=== PATIENT | female | born 1960 | race African-American/Black ===

== ENCOUNTER → 2020-12-28 | Outpatient (CLI) | payer BC | END | disposition home or self-care (01) | LOC: LABPAT 09:58 | PROVIDERS: ATTEND Orthopaedic Surgery | DX: Z01.812 Encounter for preprocedural laboratory examination (principal); M43.16 Spondylolisthesis, lumbar region; M43.07 Spondylolysis, lumbosacral region | CPT/HCPCS: 87070 ==

== ENCOUNTER 2021-01-05 05:45 | Inpatient (IN) | payer OTHER, BC ==
[2021-01-01 09:12] VITALS: BMI 37.5
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
[~2021-01-05 05:45] MED LIST: ACETAMINOPHEN TAB 500 MG TAB PO PRN; GABAPENTIN 300 MG CAP PO PRN; MIDAZOLAM 2 MG/2 ML VIAL IV PRN; ONDANSETRON 4 MG/2 ML VIAL IVP PRN; TRANEXAMIC ACID 1,000 MG in SODIUM CHLORIDE 0.9% 100 ML IVPB PRN
[2021-01-05] MEDS ORDERED: TRANEXAMIC ACID 1,000 MG in SODIUM CHLORIDE 0.9% 100 ML IVPB PRN (06:53)
[2021-01-05] MEDS ORDERED: LIDOCAINE 1% (10MG/ML) FOR IV START SQ ONE ×4 (07:00)
[2021-01-05] MEDS ORDERED: HYDROmorphone 0.5 MG/0.5 ML SYRINGE IVP PRN (07:00)
[2021-01-05] MEDS: LACTATED RINGERS 1,000 ML IV SCH ×2 (07:09→15:44)
[2021-01-05] MEDS ORDERED: SCOPOLAMINE 1.5MG/72HR PATCH TRANSDERM ONE (07:10)
[2021-01-05] MEDS ORDERED: DEXAMETHASONE SOD PHOSPHATE 4 MG/ML 1 ML VIAL IVP ONE (07:10)
[2021-01-05] MEDS ORDERED: KETAMINE 10 MG/ML 20 ML VIAL ONE (07:25)
[2021-01-05] MEDS ORDERED: fentaNYL (PF) 50 MCG/ML 2 ML AMP ONE (07:25)
[2021-01-05] MEDS ORDERED: SODIUM CHLORIDE 0.9% IRRIG 1,000 ML BTL IRRIGATION ONE (07:25)
[2021-01-05] MEDS ORDERED: LIDOCAINE 1% INJ 10MG/ML (20 ML MDV) ONE (07:25)
[2021-01-05] MEDS ORDERED: PHENYLEPHRINE-0.9% NACL SYG 1,000 MCG/10 ML SYRINGE ONE (07:25)
[2021-01-05] MEDS ORDERED: SODIUM CHLORIDE 0.9% 100 ML BAG ONE (07:25)
[2021-01-05] MEDS ORDERED: ceFAZolin 1,000 MG VIAL ONE (07:25)
[2021-01-05] MEDS ORDERED: SUCCINYLCHOLINE CHLORIDE 100 MG/5 ML SYR IV ONE (07:25)
[2021-01-05] MEDS ORDERED: MIDAZOLAM 2 MG/2 ML VIAL ONE (07:25)
[2021-01-05] MEDS ORDERED: HEPARIN SODIUM,PORCINE 10,000 UNIT/ML 1 ML VIAL ONE (07:25)
[2021-01-05] MEDS ORDERED: SODIUM CHLORIDE 0.9% 250 ML BAG ONE (07:25)
[2021-01-05] MEDS ORDERED: PROPOFOL 10 MG/ML 20 ML VIAL IV ONE (07:25)
[2021-01-05] MEDS ORDERED: TRANEXAMIC ACID 1,000 MG/10 ML VIAL ONE (07:25)
[2021-01-05] MEDS ORDERED: ROCURONIUM 10 MG/ML (5 ML VIAL) IV ONE (07:25)
[2021-01-05] MEDS ORDERED: LACTATED RINGERS 1,000 ML IV ONE ×5 (07:29→13:49)
[2021-01-05] MEDS ORDERED: LIDOCAINE 1%-EPI 1:100,000 20 ML VIAL SQ ONE (08:14)
[2021-01-05] MEDS ORDERED: BUPIVACAINE (PF) 0.5% 30 ML VIAL SQ ONE (08:14)
[2021-01-05] MEDS ORDERED: THROMBIN (BOVINE) 5,000 UNIT VIAL TOPICAL ONE (08:15)
[2021-01-05] MEDS ORDERED: GELATIN SPONGE,ABSORB (LARGE) 1 EACH SPONGE MISCELLANE ONE (08:16)
[2021-01-05 11:26] LABS: HCT 32.6 % (34.0-46.0); MCH 27.2 pg (25.0-35.0); MCHC 33.8 g/dL (31.0-37.0); MCV 80.6 fL (80.0-100.0); Mean Platelet Volume 6.9; Platelet Count 251 k/uL (150-450); RBC 4.04 m/uL (3.80-5.40); RDW 14.4 % (11.5-15.5); WBC 3.3 k/uL (3.8-10.6)
[2021-01-05] MEDS ORDERED: TRANEXAMIC ACID 1,000 MG in SODIUM CHLORIDE 0.9% 250 ML IV ONE (11:45)
[2021-01-05] MEDS ORDERED: VANCOMYCIN 1,000 MG VIAL MISCELLANE ONE (13:25)
[2021-01-05] MEDS ORDERED: CYCLOBENZAPRINE 10 MG TAB PO PRN (14:50)
[2021-01-05] MEDS ORDERED: HYDROcodone/APAP 5-325MG 1 EACH TAB PO PRN (14:50)
[2021-01-05] MEDS ORDERED: ONDANSETRON 4 MG/2 ML VIAL IVP PRN (14:50)
[2021-01-05] MEDS ORDERED: DEXAMETHASONE SOD PHOSPHATE 4 MG/ML 1 ML VIAL IV PRN (14:53)
[2021-01-05] MEDS: fentaNYL (PF) 50 MCG/ML 2 ML AMP IVP ONE ×2 (15:07→15:16)
[2021-01-05] MEDS ORDERED: MEPERIDINE 50 MG/ML SYRINGE IVP ONE (15:10)
[2021-01-05] MEDS ORDERED: SODIUM CHLORIDE 0.9% 1,000 ML IV ONE (16:07)
--- NOTE | 2021-01-05 16:07 | XR ---
EXAMINATION TYPE: XR lumbar spine 2 or 3V, FL guidance operating room DATE OF EXAM: 01/05/2021 CLINICAL HISTORY: Lumbar fusion TECHNIQUE: Fluoroscopy. COMPARISON: MRI lumbar spine 09/01/2020 FINDINGS: Fluoroscopic guidance was provided during procedure performed by Dr. Mendel Thapa. A t otal of 1 minute 41 seconds of fluoroscopic time was utilized during the procedure. 2 intraoperative spot images were acquired, demonstrating L4-S1 bilateral transpedicular screws and posterior fixation rods, with L4-L5 and L5-S1 interbody spacer devices. Incompletely visualized left hip arthroplasty. IMPRESSION: As Above.
[2021-01-05] MEDS: 0.9% NACL WITH KCL 20 MEQ/L 1,000 ML IV SCH (17:29)
[2021-01-05] MEDS: GABAPENTIN 300 MG CAP PO SCH ×2 (17:36→21:08)
[2021-01-05] MEDS: ACETAMINOPHEN TAB 325 MG TAB PO SCH ×2 (18:09→23:49)
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
[2021-01-05] MEDS: HYDROmorphone 1 MG/ML 1 ML SYRINGE IVP PRN ×2 (19:46→22:49)
[2021-01-05] MEDS: lisinopriL 20 MG TAB PO SCH (21:08)
--- NOTE | 2021-01-05 21:12 | CT ---
EXAMINATION TYPE: CT lumbar spine wo con DATE OF EXAM: 01/05/2021 8:43 PM COMPARISON: Same day radiographs. MR 09/01/2020. HISTORY: post op CT DLP: 1160.4 mGycm Automated exposure control for dose reduction was used. Unenhanced CT of the lumbar spine was performed. Bone and soft tissue window settings are submitted as well as coronal and sagittal reconstructions. FINDINGS: There are interval postsurgical changes of L4-S1 posterior instrumented fusion with intervening inter body device is seen. L4 and L5 laminectomies also seen. There is mild to moderate gas within the para spinal soft tissues at the surgical site tracking craniotomy. No definitive fluid collection is seen. There is a drain in place. There is improvement of previous grade 1 anterolisthesis of L4 on L5 with minimal 2 mm residual. There is no acute fracture. Vertebral body heights are grossly maintained. A 2.5 cm simple appearing left renal cyst is seen. IMPRESSION: Interval L4-S1 fusion with laminectomy. Improvement of grade 1 anterolisthesis at L4-5.
[2021-01-05] MEDS: ONDANSETRON 4 MG/2 ML VIAL IVP PRN (22:55)
[2021-01-06] MEDS: HYDROcodone/APAP 10-325MG 1 EACH TAB PO PRN ×4 (02:29→17:53)
[2021-01-06] MEDS: HYDROmorphone 1 MG/ML 1 ML SYRINGE IVP PRN ×2 (05:03→13:03)
[2021-01-06] MEDS: ONDANSETRON 4 MG/2 ML VIAL IVP PRN (05:03)
[2021-01-06] MEDS: 0.9% NACL WITH KCL 20 MEQ/L 1,000 ML IV SCH ×2 (05:06→17:52)
[2021-01-06] MEDS: ACETAMINOPHEN TAB 325 MG TAB PO SCH ×5 (05:18→23:51)
[2021-01-06 06:11] LABS: Basophils % (A) 0 %; Eosinophils % (A) 0 %; HCT 27.4 % (34.0-46.0); Lymphocytes # (A) 0.8 k/uL (1.0-4.8); Lymphocytes % (A) 13 %; MCH 27.3 pg (25.0-35.0); MCHC 34.3 g/dL (31.0-37.0); MCV 79.7 fL (80.0-100.0); Mean Platelet Volume 6.6; Monocytes # (A) 1.5 k/uL (0-1.0); Monocytes % (A) 24 %; Neutrophils # (A) 2.9 k/uL (1.3-7.7); Neutrophils % (A) 48 %; Platelet Count 213 k/uL (150-450); RBC 3.44 m/uL (3.80-5.40); RDW 14.3 % (11.5-15.5); WBC 6.2 k/uL (3.8-10.6)
[2021-01-06 06:13] LABS: HGB 9.4 gm/dL (11.4-16.0)
[2021-01-06 06:20] LABS: African American GFR (CKD) >90 (>60 ml/min/1.73 sqM); Anion Gap 3 mmol/L; Blood Urea Nitrogen 13 mg/dL (7-17); Calcium 8.3 mg/dL (8.4-10.2); Carbon Dioxide 27 mmol/L (22-30); Chloride 103 mmol/L (98-107); Glucose 119 mg/dL (74-99); Non-African American GFR(CKD) >90 (>60 ml/min/1.73 sqM); Potassium 4.2 mmol/L (3.5-5.1); Sodium 133 mmol/L (137-145)
[2021-01-06 06:27] LABS: Band Neutrophils % 4 %; Lymphocytes # (M) 1.49 k/uL (1.0-4.8); Monocytes # (M) 2.36 k/uL (0-1.0); Neutrophils % (M) 34 %; Nucleated Red Blood Cells 0 /100 WBC (0-0); Total Cells Counted 100
[2021-01-06] MEDS: hydroCHLOROthiazide 12.5 MG CAP PO SCH (08:44)
[2021-01-06] MEDS: PANTOPRAZOLE 40 MG TABLET PO SCH (08:44)
[2021-01-06] MEDS: GABAPENTIN 300 MG CAP PO SCH ×3 (08:44→22:01)
--- NOTE | 2021-01-06 09:16 | P.PN ---
Subjective Progress Note Date: 01/06/21 Principal diagnosis: L4-5 Grade II spondylolisthesis L4-S1 stenosis with spondylosis Patient seen and examined this morning she is laying in bed she is rather tired and still fairly groggy from surgery she states. She has not been up yet today. She states pain in her low back which is fairly severe. She denies any perineal numbness or tingling she denies any bowel or bladder incontinence. Grande is still in place. Patient states that her legs feel somewhat heavy but s he is able to move them without much issue other than pain. She states some numbness and tingling in her right lower extremity but this seems to be similar to preoperatively. She denies any fevers chills shortness of breath or chest pain at this time Objective - Vital Signs Vital signs: Vital Signs Temp 99.2 F 01/06/21 04:14 Pulse 114 H 01/06/21 04:14 Resp 16 01/06/21 04:14 BP 146/75 01/06/21 04:14 Pulse Ox 100 01/06/21 04:14 Intake & Output 01/05/21 01/06/21 01/06/21 18:59 06:59 18:59 Intake Total 4200 850 Output Total 1680 650 Balance 2520 200 Intake: IV 4100 Intake, IV Titration 100 850 Amount 0.9% NaCl with KCl 20 Meq 50 800 /l 1,000 ml @ 75 mls/hr IV .[id number] [facility] Rx#: [id number] ceFAZolin 2 gm In Sodium 50 Chloride 0.9% 50 ml @ 100 mls/hr IVPB ONCE PRN Rx# :[id number] ceFAZolin 2 gm In Sodium 50 Chloride 0.9% 50 ml @ 100 mls/hr IVPB Q8HR [facility] Rx# :[id number] Output: Drainage 40 150 Back 40 150 Urine 880 500 Uretheral (Grande) 500 Estimated Blood Loss 760 Other: Voiding Method Indwelling Catheter - Exam PHYSICAL EXAMINATION: Vitals: Stable at this time General: Awake, alert, appropriate for age, in no acute distress. HEENT: No unusual neck masses around region of lateral neck triangle, thyroid, supraclavicular groove. Extremities: Skin warm and dry without no acute lesions, coloration, temperature, skin intact, no tenderness or erythema. Integument: Surgical incisions: Clean dry and intact dressings intact drain in place Palpation: Some tenderness to palpation around the lumbar incision no erythema or ecchymosis or edema no fluctuance VASCULAR STATUS : Wrist Pulses: [2/4 bilateral radial and ulnar] Pedal Pulses: [2/4 bilateral DP and PT] Color: [Normal] Edema: [None] NEUROLOGIC EXAMINATION: Mental Status: Awake and alert, fully oriented, with normal attention, concentration and memory, and fluent, appropriate speech. Cranial Nerves: I: Olfactory not tested. II: Visual acuity normal, no visual field deficit noted with confrontation. III,IV: Normal pupillary reflexes & intact extraocular movements without nystagmus. V,: Intact symmetrical facial sensation. VII: Intact symmetrical facial motor movement VIII: Hearing intact. IX,X: Intact gag, swallow, & normal voice. XI: Sternocleidomastoid, trapezius function intact. XII: Tongue midline with normal movements. Special Tests: L'hermitte's Sign: Absent Spurling'Sign: Absent Bilateral Cubital percussion test: Absent Bilateral Angela-Tinel sign - Carpal region: Absent Bilateral Straight Leg Raising: Absent Bilateral Motor Exam (0-5/5, N/T) STRENGTH UPPER EXTREMITY Shoulder Abd (Not part of GERARDO Motor score): RIGHT [5] LEFT [5] Elbow Flexors: RIGHT [5] LEFT [5] Elbow Extensor: RIGHT [5] LEFT [5] Wrrist Dorsiflexors: RIGHT [5] LEFT [5] Finger Abductor: RIGHT [5] LEFT [5] Wrapper Hands Sprayer: RIGHT [5] LEFT [5] LOWER EXTREMITY Hip Flexor (Not part of GERARDO Motor Score): RIGHT 4 LEFT 4 Knee Flexor: RIGHT 4 LEFT 4 Knee Extensor: RIGHT 4 LEFT 4 Ankle Dorsiflexion: RIGHT 4 LEFT 4 Ankle Plantarflexion: RIGHT 4 LEFT 4 EHL: RIGHT 4 LEFT 4 FHL: RIGHT 4 LEFT 4 No focal deficits. Patient following normal postoperative course with some weakness and legs related to pain REFLEXES Biecp: RIGHT [2] LEFT [2] Tricep: RIGHT [2] LEFT [2] Brachioradialis: RIGHT [2] LEFT [2] Patellar: RIGHT [2] LEFT [2] Achilles: RIGHT [2] LEFT [2] Pathological Reflexes Rajput's: RIGHT [Absent] LEFT [Absent] Babinski: RIGHT [Absent] LEFT [Absent] Clonus: RIGHT [None] LEFT [None] SENSORY Joint Position: [Intact bilaterally] Vibration [Intact bilaterally] Pain and LT sense [Intact C5-T1 and L2-S1] Dermatomal deficit [None] Gait and Functional Evaluation: Ambulatory aids: Walker Hand and finger dexterity intact bilaterally[]. Disdiadochokinesis examination negative[] bilaterally. - Labs CBC & Chem 7: 01/06/21 05:13 01/06/21 05:13 Labs: Abnormal Lab Results - Last 24 Hours (Table) 12/28/20 01/05/21 01/06/21 Range/Units 10:45 11:10 05:13 WBC 3.3 L (3.8-10.6) k/uL RBC 3.44 L (3.80-5.40) m/uL Hgb 11.0 L 9.4 L D (11.4-16.0) gm/dL Hct 32.6 L 27.4 L (34.0-46.0) % MCV 79.7 L (80.0-100.0) fL Lymphocytes # 0.8 L (1.0-4.8) k/uL Monocytes # 1.5 H (0-1.0) k/uL Monocytes # (Manual) 2.36 H (0-1.0) k/uL Sodium (137-145) mmol/L Glucose (74-99) mg/dL Calcium (8.4-10.2) mg/dL Crossmatch See Detail 01/06/21 Range/Units 05:13 WBC (3.8-10.6) k/uL RBC (3.80-5.40) m/uL Hgb (11.4-16.0) gm/dL Hct (34.0-46.0) % MCV (80.0-100.0) fL Lymphocytes # (1.0-4.8) k/uL Monocytes # (0-1.0) k/uL Monocytes # (Manual) (0-1.0) k/uL Sodium 133 L (137-145) mmol/L Glucose 119 H (74-99) mg/dL Calcium 8.3 L (8.4-10.2) mg/dL Crossmatch Assessment and Plan Assessment: 60-year-old female postoperative day 1 L4 to S1 posterior stabilized fusion with reduction of L4 5 grade 2 spondylolisthesis 1. L4-S1 spondylosis severe 2. L4-5 Grade II spondylolisthesis 3. Neurogenic claudication 4. LE radiculopathy 5. LE weakness 6. Mechanical back pain Plan: -Appreciate medicine [] management. Symptom Control: -Pain control: [Adequate at this time] . We will continue to evaluate to optimize her pain control for ambulation and to get out of bed Activity: -Aggressive ambulation protocol. OOB with all meals. OOB or in chair 4-5x daily. -PT/OT LSO brace ordered await arrival Prophylaxis: -TEDs, SCDs, mechanical ppx. OK for heparin today. Early ambulation is best. -GI ppx. Imaging/labs: Computed tomography scan of the lumbar spine is reviewed hardware is in good position there was reduction of the spondylolisthesis from grade 2 to grade 1/2- 1 with only 6 mm of residual slippage versus the 13 originally. No further imaging needed at this time [-Trend labs as appropriate] Intervention: PT OT Monitor drain output Continue medications monitor pain control Up and out of bed Dispo: Likely home with home health when stable
[2021-01-06] MEDS: DEXAMETHASONE SOD PHOSPHATE 4 MG/ML 1 ML VIAL IV SCH ×3 (13:03→23:55)
--- NOTE | 2021-01-06 18:19 | P.PN ---
Subjective Progress Note Date: 01/06/21 Principal diagnosis: back pain Patient is a 59-year-old female with history of hypertension, GERD, DVT who presented for elective lumbar fusion with decompression. Seen and examined at bedside. She continues to have excruciating back pain. She denies any chest pain, nausea, vomiting, or shortness of breath. She states that she is moving her legs somewhat better. General: non toxic, moderate distress due to pain, appears at stated age Derm: warm, dry Head: atraumatic, normocephalic, symmetric Eyes: EOMI, no lid lag, anicteric sclera Mouth: no lip lesion, mucus membranes moist Cardiovascular: S1S2 reg, no murmur, positive posterior tibial pulse bilateral, Lungs: Decresaed bs bilateral, no rhonchi, no rales , no accessory muscle use Abdominal: soft, nontender to palpation, no guarding, no appreciable organomegaly Ext: no gross muscle atrophy, no edema, no contractures Neuro: CN II-XI grossly intact, no focal neuro deficits Psych: Alert, oriented, appropriate affect Patient is a 60 F s/p Lumbar fusion Post op pain - increased norco to 2 tabs q6 hours Acute blood loss anemia - anticipated outcome of surgery - follow CBC - getting one unit of pRBC per ortho HTN, controlled - resume home HCTZ and lisinopril - follow BP andticipated it may be elevated due to pain. GERD - PPI Obesity with BMI 37.3 - increased activity after surgery DVT prophylaxis: per ortho Discussed with: patient, nursing Anticipated discharge: per ortho spine Anticipated discharge place: home with home health A total of 25 minutes was spent on the care of this complex patient more than 50% of the time was spent in counseling and care coordination. Objective - Vital Signs Vital signs: Vital Signs Temp 99.5 F 01/06/21 13:12 Pulse 106 H 01/06/21 13:12 Resp 16 01/06/21 13:12 BP 102/57 01/06/21 13:12 Pulse Ox 99 01/06/21 13:12 Intake & Output 01/05/21 01/06/21 01/06/21 18:59 06:59 18:59 Intake Total 4200 850 1031 Output Total 5619 277 2766 Balance 2520 200 -179 Intake: IV 4100 Intake, IV Titration 100 850 750 Amount 0.9% NaCl with KCl 20 Meq 50 800 750 /l 1,000 ml @ 75 mls/hr IV .[id number] [facility] Rx#: [id number] ceFAZolin 2 gm In Sodium 50 Chloride 0.9% 50 ml @ 100 mls/hr IVPB ONCE PRN Rx# :[id number] ceFAZolin 2 gm In Sodium 50 Chloride 0.9% 50 ml @ 100 mls/hr IVPB Q8HR [facility] Rx# :[id number] Blood Product 281 Rc Pheresis As-3 Unit 281 [id number] Output: Drainage 40 150 110 Back 40 150 110 Urine 307 929 [id number] Uretheral (Grande) 500 1100 Estimated Blood Loss 760 Other: Voiding Method Indwelling Catheter Indwelling Catheter - Labs CBC & Chem 7: 01/06/21 05:13 01/06/21 05:13 Labs: Abnormal Lab Results - Last 24 Hours (Table) 12/28/20 01/06/21 01/06/21 Range/Units 10:45 05:13 05:13 RBC 3.44 L (3.80-5.40) m/uL Hgb 9.4 L D (11.4-16.0) gm/dL Hct 27.4 L (34.0-46.0) % MCV 79.7 L (80.0-100.0) fL Lymphocytes # 0.8 L (1.0-4.8) k/uL Monocytes # 1.5 H (0-1.0) k/uL Monocytes # (Manual) 2.36 H (0-1.0) k/uL Sodium 133 L (137-145) mmol/L Glucose 119 H (74-99) mg/dL Calcium 8.3 L (8.4-10.2) mg/dL Crossmatch See Detail
[2021-01-06] MEDS: lisinopriL 20 MG TAB PO SCH (22:01)
[2021-01-07] MEDS: HYDROcodone/APAP 10-325MG 1 EACH TAB PO PRN ×3 (04:09→22:40)
[2021-01-07] MEDS: 0.9% NACL WITH KCL 20 MEQ/L 1,000 ML IV SCH ×2 (04:13→17:40)
[2021-01-07] MEDS: ACETAMINOPHEN TAB 325 MG TAB PO SCH ×4 (04:46→23:45)
[2021-01-07] MEDS: DEXAMETHASONE SOD PHOSPHATE 4 MG/ML 1 ML VIAL IV SCH (05:24)
[2021-01-07] MEDS: GABAPENTIN 300 MG CAP PO SCH ×3 (08:11→21:00)
[2021-01-07] MEDS: HYDROmorphone 1 MG/ML 1 ML SYRINGE IVP PRN (08:11)
[2021-01-07] MEDS: hydroCHLOROthiazide 12.5 MG CAP PO SCH (08:11)
[2021-01-07] MEDS: PANTOPRAZOLE 40 MG TABLET PO SCH (08:11)
--- NOTE | 2021-01-07 08:14 | P.PN ---
Subjective Progress Note Date: 01/07/21 Principal diagnosis: Status post L4 to S1 posterior stabilized fusion with reduction of L4 5 grade 2 spondylolisthesis Patient was examined today at bedside, Dr. Thapa was also available to examine the patient. Patient did receive 1 unit of packed RBCs yesterday. She is feeling a lot better today. The pain is better controlled she states. The urinary catheter remains in place. She states that the symptoms in her right lower extremity are improving. She denies any perineal or general numbness, she has no bowel or bladder incontinence she states. She has been utilizing the incentive spirometer at bedside. Currently she denies any headaches, lightheadedness, chest pain, shortness of breath, nausea vomiting. Objective - Vital Signs Vital signs: Vital Signs Temp 99.1 F 01/07/21 04:12 Pulse 99 01/07/21 04:12 Resp 18 01/07/21 04:12 BP 123/70 01/07/21 04:12 Pulse Ox 98 01/07/21 04:12 Intake & Output 01/06/21 01/07/21 01/07/21 18:59 06:59 18:59 Intake Total 1031 1700 Output Total 1210 4920 Balance -179 -3220 Intake: Intake, IV Titration 750 900 Amount 0.9% NaCl with KCl 20 Meq 750 900 /l 1,000 ml @ 75 mls/hr IV .[id number] [facility] Rx#: [id number] Oral 800 Blood Product 281 Rc Pheresis As-3 Unit 281 [id number] Output: Drainage 110 20 Back 110 20 Urine 1100 4900 Uretheral (Grande) 1100 4100 Other: Voiding Method Indwelling Catheter Indwelling Catheter - Exam Gen: AOx3, NAD VSS stable at this time Integument: Postoperative bandages in good position and condition, there is minor saturation to the gauze pads. The Tegaderm dressing remains intact. The drain is in good position, there is minimal drainage present at this time in the drain, patient states understood until this morning. Palpation: No significant tenderness with palpation of the midline her paraspinal regions the lower thoracic and lumbar region, no obvious areas of fluctuance appreciated on exam. Bilaterally, no tenderness with palpation ROM: Range of motion is intact in all major muscle groups of the bilateral upper and lower extremities Sensory Exam: Senory exam to light touch is intact C5-T1 Senosry exam to light touch is intact L2-S1 Motor: 5/5 strength in all major muscle groups of the bilateral upper extremities 4-5 strength appreciated with bilateral lower extremities, hip flexion, knee flexion, knee extension, plantar flexion, dorsiflexion, EHL, FHL Reflexes: 2/4 in all UE and LE Negative Charlene's bilaterally Negative Babinski bilaterally No clonus appreciated bilaterally Vascularity: Skin is warm to touch in the bilateral upper and lower extremity is, radial and ulnar pulses are 2+ bilaterally, dorsalis pedis pulses are 2+ bilaterally - Labs CBC & Chem 7: 01/06/21 05:13 01/06/21 05:13 Labs: Abnormal Lab Results - Last 24 Hours (Table) 12/28/20 Range/Units 10:45 Crossmatch See Detail Assessment and Plan Assessment: Postoperative day #2 status post L4 to S1 posterior stabilize fusion Plan: Pain control, continue with current medication regimen. Try to avoid IV medication DVT prophylaxis, continue with compression stockings and SCDs, heparin 5000 units every 12 hours during hospital stay Wound care, plan for discontinuation of drain and bandage changed tomorrow morning Encourage incentive spirometer PT/OT evaluation, continue walker ambulation, recommended out of bed for all meals Medical recommendations Discharge planning: We discussed discharge plans today at bedside. Patient has a lot of family that will be around to help. Anticipated discharge to home in the next 1-2 days Time with Patient: Less than 30
--- NOTE | 2021-01-07 09:37 | P.OP ---
Date of Procedure: 01/05/21 Preoperative Diagnosis: 1. L4-5 Grade II spondylolisthesis, unstable 2. L4-S1 spondylosis, severe 3. Neurogenic claudication 4. Low back pain Postoperative Diagnosis: 1. L4-5 Grade II spondylolisthesis, unstable 2. L4-S1 spondylosis, severe 3. Neurogenic claudication 4. Low back pain Procedure(s) Performed: 1. L4-5 poseriolateral interbody fusion 2. L4-5 intradiscal osteotomy (3 column soteotomy) for deformity correction 3. L4-5 spondylolisthesis reduction 4. L5-S1 posteriolateral interbody fusion 5. L4-S1 instrumentation 6. L4-5 and L5-S1 bilateral laminectomy with complete facetectomy and foraminotomy 7. Use of intraoperative neuromonitoring Implants: Jorge [place] screws x6 Jorge cascadia 8mm x1 Globus Sable cages 7-13mm expandable 15 deg lordotic x2 Autograft Allograft bio4 Anesthesia: GETA Surgeon: Mendel Thapa Composition Roofer #1: Tyrone Oviedo (Was present for the entire case and necessary due to the complexity of the case) Estimated Blood Loss (ml): 750 IV fluids (ml): 2,300 Urine output (ml): 500 Pathology: none sent Condition: stable Disposition: PACU Indications for Procedure: This is a pleasant 60-year-old female who presented to the office and was followed by the [facility] spine center for several months now. The patient was found by her orthopedic surgeon to have a grade 2 spondylolisthesis of L4 on L5. She is found to have neurogenic claudication. She went through a slough of conservative treatments including home exercise physical therapy [id number]-sep-[id number] medications including prescription medications occupational t herapy injections and none of these helped her situation. She continued of low back pain as well as difficulty with ambulation in her activities of daily living. She goes day-to-day with low back pain and leg pain that has become debilitating for her. She had been worked up by orthopedics in the past and found to have hip osteoarthritis and this was replaced she then was found to have this back issue. She has tried all conservative care to no avail she has weighed the risks and benefits of surgery at this time she feels that surgery is her best option. Operative Findings: Unstable grade 2 spondylolisthesis L4 5 with exuberant facet height hypertrophy bilaterally at L4 5 as well as L5-S1 with severe stenosis L4 5 foraminal he and centrally. There is stenosis at L5-S1 as well noted due to facet hypertrophy in this area L4 5 was unstable L5-S1 had marginal stability and was somewhat fused however there was still mobility at this segment and so it is elected to include it into the final construct Description of Procedure: The patient was seen and examined in the preoperative area. All preoperative protocols were followed. Informed consent was obtained risks and benefits of the procedure were discussed at length. Risks including bleeding infection damage to the surrounding tissue and risk of reoperation were discussed with the patient. Risk of anesthesia up to and including was a discussed with the patient. These are outlined in the risk review. They were willing to accept these risks and all of the risks of surgery. The patient was given a weight- based dose of antibiotics in the form of 2 g Ancef IVPB 1. Trans-exam again acid 1000 mg an incision followed by 2 mg/kg and fusion during surgery. The patient was seen and evaluated by the anesthesia team who deemed them fit for surgery. The site was marked, the patient was willing to proceed with the procedure. The patient was transferred to the operative suite by the Department of anesthesia. They were then drifted off to sleep by the department anesthesia GETA. The patient tolerated this well. [Grande catheter was placed by nursing staff, atraumatically]. Once confirmation of lines and ventilation the patient was transferred to a [prone Sandeep table very carefully]. All bony prominences including wrists, elbows, axilla, chest, hips, and thighs, and feet were padded very well. Special attention was paid to the genitalia and these were padded accordingly. SCDs were placed on bilateral lower extremities and were connected. Arms were well padded and placed [on arm boards up and out in the 90/90 position]. Once in position, again we confirmed good ventilation capabilities and that lines were running appropriately. The patient's lumbar spine was then exposed. 1010s were placed outlining the incision site. Standard alcohol was used to clean the incision site and allowed to dry. C-arm was used to biomark the patient and confirm level for incision which was marked with a skin marker. Operative briefing was performed with all teams and everyone in agreement to proceed. The patient was then prepped and draped in a normal sterile fashion. Timeout was then performed and all parties were in agreement with the procedure to be performed. Area was infiltrated with quarter percent Marcaine with epinephrine 30 mL. Skin incision was then made midline over the previously bio marked area. Electrocautery dissection was taken down with meticulous hemostasis to the thoracolumbar and lumbosacral fascia which was identified and cleaned entirely with a Mcgowan. Midline fascial incision was then made followed by a subperiosteal dissection of the lamina over L4-L5 and S1. This revealed exuberant facet hypertrophy at L3 4 L4 5 and L5-S1. The L4 5 facet hypertrophy had grown over the L5 lamina and had grown into the L5-S1 facets. L4-L5 was unstable and L4 was deep to L5 due to the spondylolisthesis which is marginally reduced on the bed. We then dissected out to the transverse processes on either side and visualize these from L4 to S1 these were then decorticated with high-speed bur at L4-L5 and the sacral Ala. Once this was accomplished retractors were placed we then cleaned the facets using high-speed bur as well as Rominger to identify starting points for the screws. Once these were able to be identified AP and lateral fluoroscopy were used to confirm good position. We started with the right-sided screws and these were placed sequentially first with a high-speed bur for starting point followed by a feeler followed by a pedicle finder feeler tap feeler and then screw placement under AP and lateral fluoroscopy. We then repeated this at L5 and S1 on the right-hand side once the screws were in place we turned our attention to the left-hand side where this process was repeated. The facet joints at L4-L5 as well as L5-S1 were drilled off to allow visualization as well. Once the screws were in place they were tested with neuro monitoring and all tested above 20 mA. We then turned our attention to the decompression at L4-L5 with reduction. We performed bilateral laminectomy facetectomy and foraminotomy of the L4 5 region removing the complete inferior articular facet of L4 and the complete superior articular facet of L5 to allow for complete decompression of the nerves in this area. We then prepared the disc space using a osteotome first to enter the disc space on the right-hand side in an intradiscal osteotomy fashion with a quarter inch osteotome first this allowed to loosen this segment even further within performed intradiscal osteotomy on the left-hand side as well. Sclerae and siphon operator was placed anterior and allowed for good reduction when these were placed in we placed a temporary rohit on the right-hand side and locked it down which allowed for reduction of the spondylolisthesis. We then proceeded to shave sequentially the left-hand side well protecting the dura and the nerves completely using tera starting at a 6 and ending at a 10. Once shaving of been completed and the disc had been removed with rongeur and pituitary we scraped the endplates using a Bob down biter. We then placed DBM anterior to the cage within the disc space office if there are cell bullets We then under AP and lateral fluoroscopy placed a 20 lordotic 7-15 mm stable cage. This was then expanded to meet the endplates. Once it met the endplates we expanded it carefully to ensure reduction of the spondylolisthesis and good placement of the cage under AP and lateral fluoroscopy. Once this is an position with back filled the cage with bio 4. Career Advisor was then removed the nerve and the dura were completely intact. Meticulous hemostasis was performed around this area with electrocautery and FloSeal as well as toby. We then removed the siphon operator from the right-hand side and selected a cage and placed this cage under lateral fluoroscopy and AP fluoroscopy. Bullets were placed anterior to the cage prior to placement. Cages then expanded to meet the endplates once this was accomplished with active filled the cage with bio 4. AP and lateral fluoroscopy confirmed good placement of the cages with good reduction of the listhesis. Then turned our attention to L5-S1 or performed a PLIF of this disc space nerve root retractor was placed and the disc space was entered with a osteotome followed by sequential shaving to 8 mm. There is a large amount of osteophyte anterior and this was unable to be broken up and so it was decided at this time to go with a static cage. An 8 mm [place] static cage was then filled with bio 4 and autograft and after endplates scraping was placed under AP and lateral fluoroscopy. As confirming good position. Meticulous hemostasis was then performed around this area with FloSeal as well as. We then copiously irrigated the wound with 3 L of normal sterile saline. Meticulous hemostasis with FloSeal and Surgicel as well as fibrillar was performed. Surgicel was placed over the dura and the dura was protected we then in the posterior lateral gutters placed a mixture of autograft allograft and bio 4. This was impacted in the posterior lateral gutters and was in good position with good contact. We then placed autograft and allograft around the sacral ala and the facet joints of L5-S1. We then placed a small Garett Kyree drain deep to the fascia. A cross-link was placed at the L4 5 region final x-rays were taken and confirmed good position of hardware as well as reduction. We then placed 2 g of vancomycin powder within the wound. The fascia was then closed with #1 Vicryl in a dxhnat-zu-aubev fashion followed by a running unidirectional strata fix suture this allowed for watertight closure this area. We then placed over Vicryl's deep within the Jaky's and Camper's fascia layers followed by 2-0 Vicryl in the subcu region after Cellerate powder placement followed by a running unidirectional strata fix. 2-0 nylon was then placed in a running fashion and the skin. The wound was then cleaned and sterilely dressed with Cellerate gel Telfa 4 x 4's and Tegaderms. The patient was transferred back to her hospital bed atraumatically. Drain continued to hold suction and were in good position. Patient was then awakened and extubated by the department of anesthesia having tolerated the procedure very well with no complications. She was transferred to the postoperative care unit in stable condition.
[2021-01-07] MEDS: HEPARIN SODIUM,PORCINE/PF 5,000 UNIT/0.5 ML SYRINGE SQ SCH ×2 (10:08→20:55)
[2021-01-07 10:51] LABS: HCT 30.5 % (34.0-46.0); HGB 10.3 gm/dL (11.4-16.0); MCH 27.7 pg (25.0-35.0); MCHC 33.8 g/dL (31.0-37.0); MCV 82.1 fL (80.0-100.0); Mean Platelet Volume 7.1; Platelet Count 213 k/uL (150-450); RBC 3.72 m/uL (3.80-5.40); RDW 14.9 % (11.5-15.5)
--- NOTE | 2021-01-07 15:08 | P.PN ---
Subjective Progress Note Date: 01/07/21 Principal diagnosis: back pain Patient is a 59-year-old female with history of hypertension, GERD, DVT who presented for elective lumbar fusion with decompression. Seen and examined at bedside. Her back pain is much better than yesterday, but still significant, no shortness of breath, no nausea. 1 fever overnight will monitor. General: non toxic, moderate distress due to pain, appears at stated age Derm: warm, dry Head: atraumatic, normocephalic, symmetric Eyes: EOMI, no lid lag, anicteric sclera Mouth: no lip lesion, mucus membranes moist Cardiovascular: S1S2 reg, no murmur, positive posterior tibial pulse bilateral, Lungs: Decresaed bs bilateral, no rhonchi, no rales , no accessory muscle use Abdominal: soft, nontender to palpation, no guarding, no appreciable organomegaly Ext: no gross muscle atrophy, no edema, no contractures Neuro: CN II-XI grossly intact, no focal neuro deficits Psych: Alert, oriented, appropriate affect Patient is a 60 F s/p Lumbar fusion Acute blood loss anemia - anticipated outcome of surgery - follow CBC - getting one unit of pRBC per ortho HTN, controlled - resume home HCTZ and lisinopril - follow BP anticipated it may be elevated due to pain. GERD - PPI Post op pain -continue current pain medication regiment Obesity with BMI 37.3 - increased activity after surgery d/c [place] today. DVT prophylaxis: per ortho Discussed with: patient, nursing Anticipated discharge: per ortho spine Anticipated discharge place: home with home health A total of 25 minutes was spent on the care of this complex patient more than 50% of the time was spent in counseling and care coordination. Objective - Vital Signs Vital signs: Vital Signs Temp 98.4 F 01/07/21 12:19 Pulse 88 01/07/21 12:19 Resp 16 01/07/21 12:19 BP 111/64 01/07/21 12:19 Pulse Ox 99 01/07/21 12:19 Intake & Output 01/06/21 01/07/21 01/07/21 18:59 06:59 18:59 Intake Total 1031 1700 Output Total 1210 2640 475 Balance -245 -4252 -957 Intake: Intake, IV Titration 750 900 Amount 0.9% NaCl with KCl 20 Meq 750 900 /l 1,000 ml @ 75 mls/hr IV .[id number] [facility] Rx#: [id number] Oral 800 Blood Product 281 Rc Pheresis As-3 Unit 281 [id number] Output: Drainage 110 20 Back 110 20 Urine 1100 4900 475 Uretheral ([place]) 1100 4100 475 Other: Voiding Method Indwelling Catheter Indwelling Catheter Indwelling Catheter - Labs CBC & Chem 7: 01/07/21 09:40 01/06/21 05:13 Labs: Abnormal Lab Results - Last 24 Hours (Table) 01/07/21 Range/Units 09:40 RBC 3.72 L (3.80-5.40) m/uL Hgb 10.3 L (11.4-16.0) gm/dL Hct 30.5 L (34.0-46.0) %
[2021-01-07] MEDS: SENNOSIDES-DOCUSATE SODIUM 1 EACH TAB PO PRN (17:42)
[2021-01-07] MEDS: lisinopriL 20 MG TAB PO SCH (20:55)
[2021-01-08] MEDS: HYDROcodone/APAP 10-325MG 1 EACH TAB PO PRN ×3 (05:03→19:41)
[2021-01-08] MEDS: ACETAMINOPHEN TAB 325 MG TAB PO SCH ×4 (05:04→23:39)
[2021-01-08] MEDS: 0.9% NACL WITH KCL 20 MEQ/L 1,000 ML IV SCH (05:04)
[2021-01-08 06:19] LABS: HGB 9.4 gm/dL (11.4-16.0); MCH 27.8 pg (25.0-35.0); MCHC 33.7 g/dL (31.0-37.0); MCV 82.4 fL (80.0-100.0); Mean Platelet Volume 7.3; Platelet Count 196 k/uL (150-450); RBC 3.39 m/uL (3.80-5.40); RDW 14.9 % (11.5-15.5)
[2021-01-08] MEDS: HYDROmorphone 1 MG/ML 1 ML SYRINGE IVP PRN ×2 (08:57→23:42)
[2021-01-08] MEDS: PANTOPRAZOLE 40 MG TABLET PO SCH (09:00)
[2021-01-08] MEDS: GABAPENTIN 300 MG CAP PO SCH ×3 (09:00→19:42)
[2021-01-08] MEDS: HEPARIN SODIUM,PORCINE/PF 5,000 UNIT/0.5 ML SYRINGE SQ SCH ×2 (09:00→19:42)
[2021-01-08] MEDS: hydroCHLOROthiazide 12.5 MG CAP PO SCH (09:01)
--- NOTE | 2021-01-08 10:14 | P.PN ---
Subjective Progress Note Date: 01/08/21 Principal diagnosis: Status post L4 to S1 posterior stabilized fusion with reduction of L4 5 grade 2 spondylolisthesis Patient was examined today at bedside, patient is just about work with physical therapy. She states she is feeling better today, her bilateral lower extremitie s seem to be improving with regards to weakness and paresthesias. She denies any perineal or general numbness, she has no bowel or bladder incontinence she states. She has been utilizing the incentive spirometer at bedside. Currently she denies any headaches, lightheadedness, chest pain, shortness of breath, nausea vomiting. Objective - Vital Signs Vital signs: Vital Signs Temp 98.3 F 01/08/21 05:00 Pulse 81 01/08/21 05:00 Resp 18 01/08/21 05:00 BP 106/63 01/08/21 05:00 Pulse Ox 96 01/08/21 05:00 Intake & Output 01/07/21 01/08/21 01/08/21 18:59 06:59 18:59 Intake Total 825 Output Total 545 160 Balance 280 -160 Intake: Intake, IV Titration 825 Amount 0.9% NaCl with KCl 20 Meq 825 /l 1,000 ml @ 75 mls/hr IV .[id number] Rx#: [id number] Output: Drainage 70 160 Back 70 160 Urine 475 Uretheral (Grande) 475 Other: Voiding Method Indwelling Catheter Bedside Commode Bedside Commode # Voids 2 5 - Exam Gen: AOx3, NAD VSS stable at this time Integument: Postop and it was removed at bedside, a new dressing was applied. The sutures are all in good position and conditions. There is no areas of fluctuance, there is no drainage appreciated. Postop drain remains in place, there was about 20 mL of bloody serosanguineous fluid present, they stated they entered the drain earlier this morning Palpation: No significant tenderness with palpation of the midline her paraspinal regions the lower thoracic and lumbar region, no obvious areas of fluctuance appreciated on exam. Bilaterally, no tenderness with palpation ROM: Range of motion is intact in all major muscle groups of the bilateral upper and lower extremities Sensory Exam: Senory exam to light touch is intact C5-T1 Senosry exam to light touch is intact L2-S1 Motor: 5/5 strength in all major muscle groups of the bilateral upper extremities 4-5 strength appreciated with bilateral lower extremities, hip flexion, knee flexion, knee extension, plantar flexion, dorsiflexion, EHL, FHL Reflexes: 2/4 in all UE and LE Negative Charlene's bilaterally Negative Babinski bilaterally No clonus appreciated bilaterally Vascularity: Skin is warm to touch in the bilateral upper and lower extremity is, radial and ulnar pulses are 2+ bilaterally, dorsalis pedis pulses are 2+ bilaterally - Labs CBC & Chem 7: 01/08/21 05:33 01/06/21 05:13 Labs: Abnormal Lab Results - Last 24 Hours (Table) 01/07/21 01/08/21 Range/Units 09:40 05:33 RBC 3.72 L 3.39 L (3.80-5.40) m/uL Hgb 10.3 L 9.4 L (11.4-16.0) gm/dL Hct 30.5 L 28.0 L (34.0-46.0) % Assessment and Plan Assessment: Postoperative day #3 status post L4 to S1 posterior stabilize fusion Plan: Pain control, continue with current medication regimen. Try to avoid IV medication DVT prophylaxis, continue with compression stockings and SCDs, heparin 5000 units every 12 hours during hospital stay Wound care, plan for drain removal tomorrow morning before discharge Encourage incentive spirometer PT/OT evaluation, continue walker ambulation, recommended out of bed for all meals Medical recommendations Discharge planning: Plan for discharge home tomorrow Time with Patient: Less than 30
--- NOTE | 2021-01-08 17:32 | P.PN ---
Subjective Progress Note Date: 01/08/21 (Delayed charting seen at 0745) Principal diagnosis: back pain Patient is a 59-year-old female with history of hypertension, GERD, DVT who presented for elective lumbar fusion with decompression. Seen and examined at bedside. They much better pain valentine. Having some sore thr oat and gland swelling on the left. General: non toxic, moderate distress due to pain, appears at stated age Derm: warm, dry Head: atraumatic, normocephalic, symmetric Eyes: EOMI, no lid lag, anicteric sclera Mouth: no lip lesion, mucus membranes moist, no posterior pharyngeal erythema, no thrush, no tonsillar exudate, swelling left submandibular gland Cardiovascular: S1S2 reg, no murmur, positive posterior tibial pulse bilateral, Lungs: Decresaed bs bilateral, no rhonchi, no rales , no accessory muscle use Abdominal: soft, nontender to palpation, no guarding, no appreciable organomegaly Ext: no gross muscle atrophy, no edema, no contractures Neuro: CN II-XI grossly intact, no focal neuro deficits Psych: Alert, oriented, appropriate affect Patient is a 60 F s/p Lumbar fusion Swelling of the left submandibular gland -sialagogue - warm drinks Acute blood loss anemia - anticipated outcome of surgery - follow CBC -Status post 1 unit PRBCs HTN, controlled - Continue home HCTZ and lisinopril - follow BP anticipated it may be elevated due to pain. GERD - PPI Post op pain -continue current pain medication regiment Obesity with BMI 37.3 - increased activity after surgery Discharge per orthopedics spine, anticipate discharge in a.m. Objective - Vital Signs Vital signs: Vital Signs Temp 98.2 F 01/08/21 11:15 Pulse 91 01/08/21 11:15 Resp 18 01/08/21 11:15 BP 125/66 01/08/21 11:15 Pulse Ox 97 01/08/21 11:15 Intake & Output 01/07/21 01/08/21 01/08/21 18:59 06:59 18:59 Intake Total 825 Output Total 545 160 185 Balance 280 -160 -185 Intake: Intake, IV Titration 825 Amount 0.9% NaCl with KCl 20 Meq 825 /l 1,000 ml @ 75 mls/hr IV .[id number] [facility] Rx#: [id number] Output: Drainage 70 160 185 Back 70 160 185 Urine 475 Uretheral (Grande) 475 Other: Voiding Method Indwelling Catheter Bedside Commode Bedside Commode # Voids 2 5 1 - Labs CBC & Chem 7: 01/08/21 05:33 01/06/21 05:13 Labs: Abnormal Lab Results - Last 24 Hours (Table) 01/08/21 Range/Units 05:33 RBC 3.39 L (3.80-5.40) m/uL Hgb 9.4 L (11.4-16.0) gm/dL Hct 28.0 L (34.0-46.0) %
[2021-01-08] MEDS: lisinopriL 20 MG TAB PO SCH (19:42)
[2021-01-09] MEDS: HYDROcodone/APAP 10-325MG 1 EACH TAB PO PRN ×3 (04:51→19:26)
[2021-01-09] MEDS: SENNOSIDES-DOCUSATE SODIUM 1 EACH TAB PO PRN (04:52)
[2021-01-09] MEDS: ACETAMINOPHEN TAB 325 MG TAB PO SCH ×3 (06:11→17:17)
[2021-01-09 06:24] LABS: HGB 9.4 gm/dL (11.4-16.0); MCH 27.6 pg (25.0-35.0); MCHC 33.6 g/dL (31.0-37.0); MCV 82.1 fL (80.0-100.0); Platelet Count 246 k/uL (150-450); RBC 3.41 m/uL (3.80-5.40); RDW 14.8 % (11.5-15.5); WBC 7.2 k/uL (3.8-10.6)
[2021-01-09] MEDS: HEPARIN SODIUM,PORCINE/PF 5,000 UNIT/0.5 ML SYRINGE SQ SCH ×2 (08:18→21:12)
[2021-01-09] MEDS: PANTOPRAZOLE 40 MG TABLET PO SCH (08:18)
[2021-01-09] MEDS: hydroCHLOROthiazide 12.5 MG CAP PO SCH (08:18)
[2021-01-09] MEDS: GABAPENTIN 300 MG CAP PO SCH ×3 (08:18→21:13)
--- NOTE | 2021-01-09 11:32 | P.PN ---
Subjective Progress Note Date: 01/09/21 Principal diagnosis: -L4-S1 spondylosis severe -L4-5 Grade II spondylolisthesis Postoperative day 4 s/p L4 to S1 posterior stabilized fusion with reduction of L4 5 grade 2 spondylolisthesis Upon entering room patient is lying lying asleep. Patient says she is wondering if she can wait till tomorrow to go home because she said last night was rough in regards to back pain. Also, she says that her daughter has not received the medical equipment needed for her if she were to go home. Patient says she is still having some weakness/numbness in the right leg. However overall she says she is doing better in regards to this weakness/numbness in the legs. She says she has been using incentive spirometer throughout the day. She denies any chest pain, shortness of breath, fever, change in vision, chills. Denies any perineal numbness/tingling. Objective - Vital Signs Vital signs: Vital Signs Temp 98.3 F 01/09/21 04:10 Pulse 89 01/09/21 04:10 Resp 16 01/09/21 04:10 BP 115/63 01/09/21 04:10 Pulse Ox 98 01/09/21 04:10 Intake & Output 01/08/21 01/09/21 01/09/21 18:59 06:59 18:59 Output Total 245 385 40 Balance -245 -385 -40 Output: Drainage 245 85 40 Back 245 85 40 Urine 300 Other: Voiding Method Bedside Commode Bedside Commode # Voids 1 1 # Bowel Movements 0 - Exam Inspection: Dressing was changed this morning. Upon inspection of the incision there is no signs of drainage, fluctuance, purulence. All sutures are intact. Incision is clean dry, intact. Incisions healing nicely. CRISTÓBAL drain removed and covered with gauze, tegaderm and tape. Palpation: No tenderness on palpation of the spine and paraspinal muscles. Sensation: Sensation is intact bilaterally in lower extremities as well as cervical thoracic lumbar regions. Reflexes: Dorsalis pedis pulses 2+ bilaterally. Negative clonus bilaterally. Negative Charlene's. Motor: Strength 4/5 in lower extremities upon flexion, extension of hip as well as dorsiflexion and plantarflexion of feet. - Labs CBC & Chem 7: 01/09/21 05:31 01/06/21 05:13 Labs: Abnormal Lab Results - Last 24 Hours (Table) 01/09/21 Range/Units 05:31 RBC 3.41 L (3.80-5.40) m/uL Hgb 9.4 L (11.4-16.0) gm/dL Hct 28.0 L (34.0-46.0) % Assessment and Plan Assessment: 1. L4-S1 spondylosis severe 2. L4-5 Grade II spondylolisthesis 3. Neurogenic claudication 4. LE radiculopathy 5. LE weakness 6. Mechanical back pain Plan: 1. L4 to S1 posterior stabilized fusion with reduction of L4 5 grade 2 spondylolisthesis - dressing removed this morning and replaced. CRISTÓBAL drain removed and covere with gauze and tegaderm. 2. Pain management - stable at this time; use oral medication only 3. Continue medical management 4. Physical therapy/occupational therapy 5. DVT prophylaxiscontinue heparin inpatient. GI prophylaxis 6. Continue use of incentive spirometer 7. Discharge planning - plan for discharge tomorrow, 01/10/2021 Time with Patient: Less than 30
[2021-01-09] MEDS: lisinopriL 20 MG TAB PO SCH (21:13)
[2021-01-10] MEDS: ACETAMINOPHEN TAB 325 MG TAB PO SCH ×2 (00:44→09:17)
[2021-01-10] MEDS: HYDROcodone/APAP 10-325MG 1 EACH TAB PO PRN ×3 (04:31→14:54)
[2021-01-10] MEDS: GABAPENTIN 300 MG CAP PO SCH (09:19)
[2021-01-10] MEDS: hydroCHLOROthiazide 12.5 MG CAP PO SCH (09:19)
[2021-01-10] MEDS: PANTOPRAZOLE 40 MG TABLET PO SCH (09:20)
[2021-01-10] MEDS: HEPARIN SODIUM,PORCINE/PF 5,000 UNIT/0.5 ML SYRINGE SQ SCH (09:20)
[2021-01-10] MEDS: SENNOSIDES-DOCUSATE SODIUM 1 EACH TAB PO PRN (09:32)
[2021-01-10 11:34] VITALS: BP 93/53; PULSE 82; RESP 14; TEMP 98.4
--- NOTE | 2021-01-10 11:47 | P.PN ---
Subjective Progress Note Date: 01/10/21 Principal diagnosis: L4-5 Grade II spondylolisthesis L4-S1 stenosis with spondylosis Pt s/e. Doing well, ready to go home. Denies any new sx has been up and about. No f/c/sob/cp. Passed PT milestones. +void/+BM/+tolerating PO Objective - Vital Signs Vital signs: Vital Signs Temp 98.4 F 01/10/21 11:07 Pulse 82 01/10/21 11:07 Resp 14 01/10/21 11:07 BP 93/53 01/10/21 11:07 Pulse Ox 98 01/10/21 11:07 Intake & Output 01/09/21 01/10/21 01/10/21 18:59 06:59 18:59 Intake Total 240 1000 Output Total 660 350 Balance -420 650 Intake: Oral 240 1000 Output: Drainage 60 Back 60 Urine 600 350 Other: Voiding Method Bedside Commode Bedside Commode # Voids 1 3 # Bowel Movements 0 0 - Exam Exam is stable today. PHYSICAL EXAMINATION: Vitals: Stable at this time General: Awake, alert, appropriate for age, in no acute distress. HEENT: No unusual neck masses around region of lateral neck triangle, thyroid, supraclavicular groove. Extremities: Skin warm and dry without no acute lesions, coloration, temperature, skin intact, no tenderness or erythema. Integument: Surgical incisions: Clean and dry no EEE Palpation: Some tenderness to palpation around the lumbar incision no erythema or ecchymosis or edema no fluctuance VASCULAR STATUS : Wrist Pulses: [2/4 bilateral radial and ulnar] Pedal Pulses: [2/4 bilateral DP and PT] Color: [Normal] Edema: [None] NEUROLOGIC EXAMINATION: Mental Status: Awake and alert, fully oriented, with normal attention, concentration and memory, and fluent, appropriate speech. Cranial Nerves: I: Olfactory not tested. II: Visual acuity normal, no visual field deficit noted with confrontation. III,IV: Normal pupillary reflexes & intact extraocular movements without nystagmus. V,: Intact symmetrical facial sensation. VII: Intact symmetrical facial motor movement VIII: Hearing intact. IX,X: Intact gag, swallow, & normal voice. XI: Sternocleidomastoid, trapezius function intact. XII: Tongue midline with normal movements. Special Tests: L'hermitte's Sign: Absent Spurling'Sign: Absent Bilateral Cubital percussion test: Absent Bilateral Angela-Tinel sign - Carpal region: Absent Bilateral Straight Leg Raising: Absent Bilateral Motor Exam (0-5/5, N/T) STRENGTH UPPER EXTREMITY Shoulder Abd (Not part of GERARDO Motor score): RIGHT [5] LEFT [5] Elbow Flexors: RIGHT [5] LEFT [5] Elbow Extensor: RIGHT [5] LEFT [5] Wrrist Dorsiflexors: RIGHT [5] LEFT [5] Finger Abductor: RIGHT [5] LEFT [5] Sap Technical Developer: RIGHT [5] LEFT [5] LOWER EXTREMITY Hip Flexor (Not part of GERARDO Motor Score): RIGHT 4 LEFT 4 Knee Flexor: RIGHT 4 LEFT 4 Knee Extensor: RIGHT 4 LEFT 4 Ankle Dorsiflexion: RIGHT 4 LEFT 4 Ankle Plantarflexion: RIGHT 4 LEFT 4 EHL: RIGHT 4 LEFT 4 FHL: RIGHT 4 LEFT 4 No focal deficits. Patient following normal postoperative course with some weakness and legs related to pain REFLEXES Biecp: RIGHT [2] LEFT [2] Tricep: RIGHT [2] LEFT [2] Brachioradialis: RIGHT [2] LEFT [2] Patellar: RIGHT [2] LEFT [2] Achilles: RIGHT [2] LEFT [2] Pathological Reflexes Rajput's: RIGHT [Absent] LEFT [Absent] Babinski: RIGHT [Absent] LEFT [Absent] Clonus: RIGHT [None] LEFT [None] SENSORY Joint Position: [Intact bilaterally] Vibration [Intact bilaterally] Pain and LT sense [Intact C5-T1 and L2-S1] Dermatomal deficit [None] Gait and Functional Evaluation: Ambulatory aids: Walker Hand and finger dexterity intact bilaterally[]. Disdiadochokinesis examination negative[] bilaterally. - Labs CBC & Chem 7: 01/09/21 05:31 01/06/21 05:13 Assessment and Plan Assessment: 60-year-old female postoperative day 5 L4 to S1 posterior stabilized fusion with reduction of L4 5 grade 2 spondylolisthesis 1. L4-S1 spondylosis severe 2. L4-5 Grade II spondylolisthesis 3. Neurogenic claudication 4. LE radiculopathy 5. LE weakness 6. Mechanical back pain Plan: -Appreciate medicine [] management. Symptom Control: -Pain control: [Adequate at this time] . We will continue to evaluate to optimize her pain control for ambulation and to get out of bed Activity: -Aggressive ambulation protocol. OOB with all meals. OOB or in chair 4-5x daily. -PT/OT LSO brace ordered await arrival Prophylaxis: -TEDs, SCDs, mechanical ppx. OK for heparin today. Early ambulation is best. -GI ppx. Intervention: No new images. Dispo: Home today
--- NOTE | 2021-01-10 12:17 | P.DS ---
Providers Date of admission: 01/05/21 05:45 Expected date of discharge: 01/10/21 Attending physician: Mendel Thapa DO Consults: 01/05/21 14:50 Consult Physician Routine Consulting Provider: Zarina Olivares Consult Reason/Comments: Medical Management Do you want consulting provider notified?: Yes Primary care physician: Stated None Hospital Course: Spine Surgery Discharge Summary Note Admission Date: 01/05/2021 Discharge Date: 01/10/2021 Providers: Miri Thapa Principal Diagnosis: L4 5 spondylolisthesis L5-S1 spondylosis Procedures: L4 to S1 posterior fusion and decompression Discharge Medications: See list Allergies: Known drug ALLERGIES Hospital Course: The patient was evaluated preoperatively and found to have the diagnosis of grade 2 spondylolisthesis L4-L5 with L4 to S1 spondylosis severe neurogenic claudication. They underwent appropriate preoperative care and were willing to undergo the intended procedure. They underwent a successful L4 to S1 posterior fusion with decompression, were recovered appropriately and sent to the floor. While on the floor they worked with physical therapy, occupational therapy and nursing to enhance their recovery experience. Their pain was well controlled through their stay and they were started on appropriate medications, DVT ppx modalities, activity and dietary needs. Daily labs were monitored closely, and transfusions were only used when necessary. Medicine as well as other consulting services have made their input and have helped with our team approach and multidisciplinary care. PT milestones have been met and passed and they have made the recommendation of home with home health care for this patient and treating providers agree with this care path. The patient will be discharged home with appropriate medications, instructions and follow-up information and in stable condition. Patient Condition at Discharge: Stable Plan - Discharge Summary Discharge Rx Participant: Yes New Discharge Prescriptions: New Cyclobenzaprine [Flexeril] 10 mg PO TID PRN #40 tab PRN Reason: Spasms Gabapentin 300 mg PO TID 3 Days #90 cap cefaDROXiL [Duricef] 1 gm PO BID #6 tablet HYDROcodone/APAP 10-325MG [[place] 10-325] 1 - 2 tab PO Q4HR PRN #56 tab PRN Reason: Pain Sennosides/Docusate Sodium [Senna Plus 8.6-50 mg Softgel] 1 each PO BID PRN #20 capsule PRN Reason: Constipation No Action lisinopriL 20 mg PO HS Omeprazole 20 mg PO BID hydroCHLOROthiazide [Hydrodiuril] 12.5 mg PO DAILY Acetaminophen [Tylenol Extra Strength] 1,000 mg PO Q4H PRN PRN Reason: Pain Discharge Medication List Acetaminophen [Tylenol Extra Strength] 1,000 mg PO Q4H PRN 01/01/21 [History] Omeprazole 20 mg PO BID 01/01/21 [History] hydroCHLOROthiazide [Hydrodiuril] 12.5 mg PO DAILY 01/01/21 [History] lisinopriL 20 mg PO HS 01/01/21 [History] Cyclobenzaprine [Flexeril] 10 mg PO TID PRN #40 tab 01/10/21 [Rx] Gabapentin 300 mg PO TID 3 Days #90 cap 01/10/21 [Rx] HYDROcodone/APAP 10-325MG [[place] 10-325] 1 - 2 tab PO Q4HR PRN #56 tab 01/10/21 [Rx] Sennosides/Docusate Sodium [Senna Plus 8.6-50 mg Softgel] 1 each PO BID PRN #20 capsule 01/10/21 [Rx] cefaDROXiL [Duricef] 1 gm PO BID #6 tablet 01/10/21 [Rx] Follow up Appointment(s)/Referral(s): Mendel Thapa DO [Doctor of Osteopathic Medicine] - 10 Days Activity/Diet/Wound Care/Special Instructions: Spine Discharge and Recovery Instructions Medications: See medication list All medication refills should be obtained through your primary care doctor or your clinic spine surgeon. Please discuss prescription refills at your follow up appointment. Do not call the hospital for medication refills. Dressing: Leave your dressing in place for a total of 5 days post operatively. Then you may remove your dressing and leave open to air. Keep the area clean and if not able to keep area clean, then cover with sterile gauze and tape. Showering: You may shower 3 days after your procedure allowing soap and water to run over incision. Do not scrub. Do not soak. Blot dry. Follow up: Please confirm a follow up appointment with your surgeon 3 weeks post operatively. Please make an appointment to follow up with your PCP in 1-2 weeks after surgery for evaluation 3 phase, 3-week plan POST OP WEEKS 1-3 1. Lifting/carrying/pushing/pulling limited to less than 5 pounds. 2. Do not sit for longer than 15 minutes at one time. Get up and walk around. Prolonged sitting is NOT advised. If you lay down, see if you can tolerate laying down on you front (belly side) 3. Walk for periods of 15 minutes = 1 mile but no longer; do it multiple times times each day. 4. Ice your low back after activity. POST OP WEEKS 3-6 1. Lifting limited to less than 20 pounds. 2. Do not sit for longer than 30 minutes at a time. Frequently change positions. Use a sit-to stand workstation or take frequent breaks from sitting if you have returned to work. 3. Walk for 30 minutes each day. If possible, do these three or more times a day POST OP WEEKS 6+ At your 6-week appointment we will give you a physical therapy referral to focus on a core stabilization and strengthening program. You should also work on leg & buttock strengthening, hamstring & quadriceps stretching, and continue a low impact aerobic activity program such as swimming, walking, or riding a stationary bicycle. During the initial 6 weeks after your surgery, you are at the highest risk of re-injuring your spine. You should generally avoid BLTs (bending, lifting and twisting combination motions) and follow the above guidelines to reduce the chance of reinjury. You can anticipate post op appointments in our office at approximately 3 weeks and 6 weeks after your surgery. INCISION CARE: If your incision is not draining you do NOT need to cover it with a dressing. Keep your incision clean, dry and intact. In most cases, we apply skin glue, eli or sutures to the incision at the time of surgery. This will be like a crust or have the appearance of a scab and will fall off in time on its own. The stitches or eli need to be removed at 3 weeks post op appointment. You may begin to shower 3 days after surgery (this allows the glue to talamantes well). However, please avoid scrubbing the incision site or peeling off any of the skin glue. This will ensure optimal healing of your incision. Also, during this time avoid soaking the incision area in water - this includes swimming pools, hot tubs or baths. No ointments, lotions or oils on the incision until your surgeon allows. Leave eli, sutures or glue in place. Neurological dysfunction that comes on suddenly can also be a sign of a stroke. Below some common symptoms of a stroke are listed: B - balance difficulty such as sudden onset walking or leaning to one side - NEW E - eye problem such as sudden double vision or trouble seeing on one side - NEW F - Facial weakness or numbness on one side - NEW A - Arm or leg weakness or numbness on one side - NEW S - Slurred speech or difficulty with word finding - NEW T - Time is BRAIN! Call 911 as soon as you recognize these symptoms Diet: Consume a regular diet rich in vegetables and lean protein such as chicken or fish. You should consume in a ratio of approximately 20% fats|40% carbohydrates|40%protein. Vegetables, sweet potatoes, brown rice or quinoa are examples of good carbohydrates. Chips, white bread, cookies and sweets/sugar are examples of bad carbohydrates. Limit your bad carbs, go wild with good carbs. "Life's Simple 7" Guidelines as per [place] [employer] These will help you reclaim your life after surgery and machine adjuster helper in your recovery, keeping in mind your restrictions. (1) Get Active. Physical activity can help people lose weight, control high blood pressure and cholesterol, feel emotionally better, and sleep better. (2) Control Cholesterol. Avoid a diet high in saturated fat, trans fat, & cholesterol. Limit whole milk & cream, ice cream, butter, egg yolks, processed meats (like sausage and hot dogs), and fatty meats. Choose healthy foods that are low in saturated fat, trans fat and cholesterol which include: Fruits and vegetables, fiber rich grain products (like whole grain pasta and brown rice), lean meat such as chicken, fish, nuts, seeds, and legumes. (3) Eat Better. Eat small portions. Shop at the grocery with a list and do not stray from it. Tips for a healthy diet include: Limit sodium intake to less than 1500mg daily, avoid prepackaged, processed, and fast foods, choose a diet rich in fruits, vegetables, and whole grain, high fiber foods, and limit saturated & cholesterol in your diet. (4) Manage Blood Pressure. If you have high blood pressure, you should have a cuff at home so that you can check your blood pressure regularly. Be sure you have a good cuff. An arm one is generally better than a wrist one. Bring the cuff to a doctor's appointment to validate that the measurements that your cuff are taking are accurate. Take your blood pressure twice daily when you are sitting down and relaxing. Record the numbers in a log and bring this log with you to your doctors' appointments. (5) Lose Weight if your BMI is above 25. A healthy BMI is between 19-25. To calculate Your BMI, you may use a Standard BMI Calculator on the NIH BMI website: <www.nhlbi.nih.gov/guidelines/obesity/BMI/bmicalc.htm>. Weigh oneself daily. If you are overweight, set a goal to lose weight. A pound a week loss if needed is a good target. (6) Reduce Blood Sugar. Limit foods and liquids with "added sugars." (Added sugars include sucrose, fructose, glucose, maltose, dextrose, high fructose corn syrup, corn syrup, concentrated fruit juice and honey). (7) Stop Smoking. If you smoke, quitting smoking is one of the best things that you can do for your health. Smoking increases your risk of heart attack, stroke, and peripheral vascular disease, which is a build-up of plaque in your arteries. Please discard all the cigarettes and lighters in your house. Have a plan for what you will do when you have the urge to smoke. Direct and second- hand smoke shortens your life as well as the lives of your family, friends and others around you. For your health and the health of those around you, please c onsider quitting! Proper Bending Body Mechanics: Maintain a wide stance with one foot slightly in front of the other. Keep your back straight. Bend utilizing the strength in your hips and knees. Do not bend at the waist. Maintain the lifted object at your waist-level close to your body. Avoid lifting weight that causes immediately pain or pain anywhere in the body afterwards. Smoking/Nicotine If there was ever one thing that you could do to increase your overall health, decrease your risk of cardiovascular problems by about 39% the second you make the choice, it is to STOP SMOKING. Your body's most instant gratification is the second you stop smoking. We have all heard the studies, read the articles but it is true, smoking is extremely bad for your overall health, and moreover it is detrimental to your bone health. Nicotine, IN ANY FORM, kills bone cells, prevents your body from healing fractures, and significantly prolongs healing after surgery. In spine surgery specifically, it increases your risk of not healing your bones to create a fusion and increases your risk of having a revision surgery due to this up to 60%. I know it is hard. I know it feels impossible. But there are ways. Take control of your life. We are here to help you through it. And when you are ready, ask us and we can direct you to help if you desire. Use the START Plan to Quit Smoking (please visit the Helpguide.org website listed below for more information): S = Set a quit date. Choose a date within the next 2 weeks, so you have enough time to prepare without losing your motivation to quit. If you mainly smoke at work, quit on the weekend, so you have a few days to adjust to the change. T = Tell family, friends, and co-workers that you plan to quit. Let your friends and family in on your plan to quit smoking and tell them you need their support and encouragement to stop. Look for a quit alejandro who wants to stop smoking as well. You can help each other get through the rough times. A = Anticipate and plan for the challenges you'll face while quitting. Most people who begin smoking again do so within the first 3 months. You can help yourself make it through by preparing ahead for common challenges, such as nicotine withdrawal and cigarette cravings. R = Remove cigarettes and other tobacco products from your home, car, and work. Throw away all your cigarettes (no emergency pack!), lighters, ashtrays, and matches. Wash your clothes and freshen up anything that smells like smoke. Shampoo your car, clean your drapes and carpet, and steam your furniture. T = Talk to your doctor about getting help to quit. Your doctor can prescribe medication to help with withdrawal and suggest other alternatives. If you can't see a doctor, you can get many products over the counter at your local pharmacy or grocery store, including the nicotine patch, nicotine lozenges, and nicotine gum. Resources for Quitting Smoking: <https://www.[place].gov/documents/[facility]/Quit_Tobacco_Resources_for_patients_313 480_7.pdf> Supplementation: Take recommended dosages of Vitamin D and Calcium to help fortify your bones and help them to heal. See your health maintenance packet for dosages and recommended levels. DVT/VTE prophylaxis: You will be given compression stockings from the hospital. Wear these daily for the first two weeks after surgery. You may take them off at night. You may be prescribed a medication to help thin your blood. Take this as directed. If you are not prescribed this medication, early and frequent ambulation has been shown to be the best prophylaxis to deep vein thrombosis and sequelae related to this event. Discharge Disposition: HOME WITH HOME HEALTH SERVICES
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
== END 2021-01-10 15:36 | disposition home health service (06) | DRG 460 ==
LOC: 2ORMAIN 05:45 → 5NMEDONC 15:30
PROVIDERS: ADMIT Orthopaedic Surgery; ATTEND Orthopaedic Surgery
PROC: 0SG30AJ Fusion of Lumbosacral Joint with Interbody Fusion Device, Posterior Approach, Anterior Column, Open Approach (ICD-10-PCS; 2021-01-05)
PROC: 0SB20ZZ Excision of Lumbar Vertebral Disc, Open Approach (ICD-10-PCS; 2021-01-05)
PROC: 01NB0ZZ Release Lumbar Nerve, Open Approach (ICD-10-PCS; 2021-01-05)
PROC: 0SB40ZZ Excision of Lumbosacral Disc, Open Approach (ICD-10-PCS; 2021-01-05)
PROC: 4A11X4G Monitoring of Peripheral Nervous Electrical Activity, Intraoperative, External Approach (ICD-10-PCS; 2021-01-05)
PROC: 0SG00AJ Fusion of Lumbar Vertebral Joint with Interbody Fusion Device, Posterior Approach, Anterior Column, Open Approach (ICD-10-PCS; principal; 2021-01-05 07:30)
PROC: 30233N1 Transfusion of Nonautologous Red Blood Cells into Peripheral Vein, Percutaneous Approach (ICD-10-PCS; 2021-01-06)
DX: M47.27 Other spondylosis with radiculopathy, lumbosacral region (principal); D62 Acute posthemorrhagic anemia; M48.062 Spinal stenosis, lumbar region with neurogenic claudication; M51.36 Other intervertebral disc degeneration, lumbar region; M16.10 Unilateral primary osteoarthritis, unspecified hip; I10 Essential (primary) hypertension; K21.9 Gastro-esophageal reflux disease without esophagitis; E66.9 Obesity, unspecified; Z68.37 Body mass index [BMI] 37.0-37.9, adult; Z86.718 Personal history of other venous thrombosis and embolism; M48.07 Spinal stenosis, lumbosacral region; M47.26 Other spondylosis with radiculopathy, lumbar region; Z90.710 Acquired absence of both cervix and uterus; Z96.642 Presence of left artificial hip joint; Z79.899 Other long term (current) drug therapy; M43.16 Spondylolisthesis, lumbar region; K11.1 Hypertrophy of salivary gland; V43.51XA Car driver injured in collision with sport utility vehicle in traffic accident, initial encounter; Y92.413 State road as the place of occurrence of the external cause
CPT/HCPCS: 72100; 72131; 80048; 85025; 85027; 86850; 86891; 86900; 86901; 86920; 87635

== ENCOUNTER 2021-02-06 12:12 | Inpatient (IN) | payer OTHER, BC ==
[2021-02-06] MEDS: traMADol 50 MG TAB PO PRN (13:27)
[2021-02-06] MEDS ORDERED: VANCOMYCIN IV PER PHARMACY 1 EACH MISC MISCELLANE SCH (13:45)
[2021-02-06 14:24] LABS: African American GFR (CKD) >90 (>60 ml/min/1.73 sqM); Anion Gap 6 mmol/L; Blood Urea Nitrogen 11 mg/dL (7-17); C Reactive Protein 8.1 mg/dL (<1.0); Carbon Dioxide 31 mmol/L (22-30); Chloride 90 mmol/L (98-107); Glucose 108 mg/dL (74-99); Non-African American GFR(CKD) >90 (>60 ml/min/1.73 sqM); Potassium 4.2 mmol/L (3.5-5.1); Sodium 127 mmol/L (137-145)
[2021-02-06] MEDS ORDERED: VANCOMYCIN 1,500 MG in SODIUM CHLORIDE 0.9% 250 ML IVPB ONE (14:30)
[2021-02-06 14:34] LABS: Basophils # (A) 0.1 k/uL (0-0.2); Basophils % (A) 1 %; Eosinophils % (A) 0 %; HCT 32.1 % (34.0-46.0); HGB 10.1 gm/dL (11.4-16.0); Hypochromasia Slight; Lymphocytes # (A) 2.1 k/uL (1.0-4.8); Lymphocytes % (A) 12 %; MCH 24.6 pg (25.0-35.0); MCHC 31.3 g/dL (31.0-37.0); MCV 78.6 fL (80.0-100.0); Mean Platelet Volume 7.7; Monocytes # (A) 4.2 k/uL (0-1.0); Monocytes % (A) 25 %; Neutrophils # (A) 7.1 k/uL (1.3-7.7); Neutrophils % (A) 41 %; Platelet Count 399 k/uL (150-450); RBC 4.08 m/uL (3.80-5.40); RDW 14.8 % (11.5-15.5); WBC 17.1 k/uL (3.8-10.6)
[2021-02-06] MEDS ORDERED: NALOXONE 0.4 MG/ML 1 ML VIAL IV PRN (14:41)
[2021-02-06] MEDS ORDERED: MELATONIN 3 MG TABLET PO PRN (14:42)
[2021-02-06] MEDS ORDERED: LORazepam 2 MG/ML INJ IV PRN (14:42)
[2021-02-06] MEDS ORDERED: traMADol 50 MG TAB PO PRN (14:47)
[2021-02-06] MEDS ORDERED: CYCLOBENZAPRINE 10 MG TAB PO PRN (14:47)
[2021-02-06] MEDS ORDERED: bisacodyL 5 MG TABLET.DR PO PRN (14:48)
--- NOTE | 2021-02-06 14:52 | P.CONS ---
History of Present Illness - Reason for Consult Consult date: 02/06/21 HTN Requesting physician: Mendel Thapa - Chief Complaint Back Pain - History of Present Illness Antoni is a 60 yo female with a recent L 4/5 and L5/S1 Laminectomy with fusion and intradiscal osteotomy on 01/05/21 with prior deep vein thrombocytosis, GERD, adn HTN who was transferred from [facility] for back and wound dehisence. She was started on cefepime and Vanco. Patient seen and examined at bedside. She reports that her last normal day was 01/04. On Friday 01/05 she developed sudden onset low back pain, and neck pain that wraps to her head. This was associated with increased lower extremity weakness . Pain is worse with movement and better with laying still. She reports that she is having some numbness in her left top of her foot. She denies any issues with bowel/bladder function. She did denies fevers at home. She also reports some nausea and vomiting when trying to roll. She note that she has some swelling in right lower extremity that was noted 2 days ago. She had been recovering from surgery well and was using her walker and only tylenol for pain control. Pertinent positives and negatives as discussed in HPI, a complete review of systems was performed and all other systems are negative. General: Ill appearing, mild distress secondary to pain, appears at stated age Derm: warm, dry, midline 0.5 cm wound dehisced since with good granulation tissue at the edges and purulent drainage, no bogginess felt distal and proximal area along the spine Head: atraumatic, normocephalic, symmetric Eyes: EOMI, no lid lag, anicteric sclera, pupils equal round reactive to light ENT: Nose and ears atraumatic, no thrush, no pharyngeal erythema Neck: No thyromegaly, no cervical lymphadenopathy, trachea midline, supple Mouth: no lip lesion, mucus membranes moist Cardiovascular: S1-S2 tachycardic, no murmur, positive posterior tibial pulse bilateral, no edema, capillary refill less than 2 seconds Lungs: clear to ascultation bilateral, no ronchi, no rales, no wheeze, no accessory muscle use Abdominal: soft, nontender to palpation, no guarding, no appreciable organomegaly, normal bowel sounds Ext: no gross muscle atrophy, muscle strength 5 out of 5 upper extremities with flexion, extension, internal and external rotation, abduction and abduction Left lower extremity: Muscle strength 3 out of 5 with abduction and abduction to midline, 3 out of 5 with flexion at the hip Right lower extremity: Unable to lift leg off the bed or move right and left Light touch intack all 4 extremitites Neuro: CN II-XI grossly intact, light touch intact all 4 extremities, finger to nose within normal limits, Psych: Alert, oriented, appropriate affect Assessment/Plan: Postop wound infection with sepsis status post lumbar laminectomy with fusion 01/05/21 -Case discussed with Dr. Thapa -Patient going on for stat MRI lumbar spine -Await stat blood work -Continue with Vanco, cefepime -Pain control -Place Grande catheter -IV fluids -Nothing by mouth after midnight Hyponatremia -Likely secondary to dehydration with concurrent use of hydrochlorothiazide -Hold hydrochlorothiazide -IV fluids -Repeat lab work at 2000 and in a.m. GERD - PPI Hypertension - hold HCTZ - Lisinopril - follow BP History of provoked DVT Thank you for allowing us to participate in the care of this pleasant patient. Do not hesitate to contact us with questions. Someone can be reached from the [facility] hospitalist group all hours of the day at [phone] or via [employer]. Past Medical History Past Medical History: Deep Vein Thrombosis (DVT), GERD/Reflux, Hypertension Additional Past Medical History / Comment(s): "Hx DVT after of son." History of Any Multi-Drug Resistant Organisms: None Reported Past Surgical History: Back Surgery, Section, Hernia Repair, Hysterectomy Additional Past Surgical History / Comment(s): Total left hip replacement with later revision, bone graft. 01/05/21, lumbar spinal fusion/laminectomy/L4-L5 intr adiscal osteotomy. Past Anesthesia/Blood Transfusion Reactions: No Reported Reaction Past Psychological History: No Psychological Hx Reported Smoking Status: Never smoker Past Alcohol Use History: None Reported Past Drug Use History: None Reported - Past Family History Mother Family Medical History: No Reported History Medications and Allergies Home Medications Medication Instructions Recorded Confirmed Type Acetaminophen [Tylenol Extra 1,000 mg PO Q4H PRN 01/01/21 02/06/21 History Strength] Omeprazole 20 mg PO BID 01/01/21 02/06/21 History hydroCHLOROthiazide [Hydrodiuril] 12.5 mg PO DAILY 01/01/21 02/06/21 History lisinopriL 20 mg PO HS 01/01/21 02/06/21 History Gabapentin 300 mg PO TID #90 cap 01/10/21 02/06/21 Rx HYDROcodone/APAP 10-325MG [[place] 1 tab PO Q4HR PRN #56 tab 01/10/21 02/06/21 Rx 10-325] Cyclobenzaprine [Flexeril] 10 mg PO BID PRN 02/06/21 02/06/21 History Ibuprofen [Motrin] 600 mg PO Q8HR PRN 02/06/21 02/06/21 History Lidocaine 5% Patch [Lidoderm] 1 patch TOPICAL DAILY 02/06/21 02/06/21 History Sennosides/Docusate Sodium [Senna 1 cap PO BID PRN 02/06/21 02/06/21 History Plus 8.6-50 mg Softgel] diazePAM [Valium] 2 mg PO Q6H PRN 02/06/21 02/06/21 History traMADol HCL [Ultram] 50 mg PO Q6HR PRN 02/06/21 02/06/21 History Allergies Allergy/AdvReac Type Severity Reaction Status Date / Time No Known Allergies Allergy Verified 02/06/21 13:05 Physical Exam Osteopathic Statement: *. No significant issues noted on an osteopathic structural exam other than those noted in the History and Physical/Consult. Vitals: Vital Signs Temp Pulse Resp BP Pulse Ox 02/06/21 14:00 100.7 F H 104 H 17 168/74 95 02/06/21 12:24 100.2 F H 107 H 18 155/81 98 Intake and Output 02/05/21 02/06/21 02/06/21 22:59 06:59 14:59 Other: Weight 84.822 kg Results CBC & Chem 7: 02/06/21 13:01 02/06/21 13:01 Labs: Abnormal Lab Results - Last 24 Hours (Table) 02/06/21 02/06/21 Range/Units 13:01 13:01 WBC 17.1 H (3.8-10.6) k/uL Hgb 10.1 L (11.4-16.0) gm/dL Hct 32.1 L (34.0-46.0) % MCV 78.6 L (80.0-100.0) fL MCH 24.6 L (25.0-35.0) pg Sodium 127 L (137-145) mmol/L Chloride 90 L (98-107) mmol/L Carbon Dioxide 31 H (22-30) mmol/L Glucose 108 H (74-99) mg/dL C-Reactive Protein 8.1 H (<1.0) mg/dL
[2021-02-06] MEDS: HYDROmorphone 1 MG/ML 1 ML SYRINGE IVP PRN ×3 (15:18→21:29)
[2021-02-06] MEDS: ACETAMINOPHEN TAB 325 MG TAB PO PRN ×2 (15:19→21:39)
[2021-02-06 15:25] LABS: Band Neutrophils % 1 %; Eosinophils # (M) 0.17 k/uL (0-0.7); Lymphocytes # (M) 2.74 k/uL (1.0-4.8); Metamyelocytes # (M) 0.17 k/uL (0); Metamyelocytes % 1 %; Monocytes # (M) 7.87 k/uL (0-1.0); Myelocytes # (M) 0.51 k/uL (0); Myelocytes % 3 %; Neutrophils % (M) 34 %; Nucleated Red Blood Cells 0 /100 WBC (0-0); Total Cells Counted 200
[2021-02-06] MEDS: ONDANSETRON 4 MG/2 ML VIAL IVP PRN ×2 (15:26→21:39)
[2021-02-06] MEDS: GABAPENTIN 300 MG CAP PO SCH ×2 (15:46→21:29)
[2021-02-06] MEDS: SODIUM CHLORIDE 0.9% 1,000 ML IV SCH ×2 (15:46→21:30)
--- NOTE | 2021-02-06 15:48 | MR ---
EXAMINATION TYPE: MR lumbar spine wo/w con DATE OF EXAM: 02/06/2021 COMPARISON: 09/01/2020 HISTORY: Rule out abscess, surgery 01-21-21 CONTRAST: Standard multiplanar, multisequence MRI departmental protocol utilizing 8.5 mL intravenous Gadavist g adolinium contrast. Normal alignment. There is metal artifact from posterior fusion surgery. There is rods and screws fus ing L4-S1. Unfortunately the metal artifact is obscuring significantly the vertebral bodies and the s fran canal. I see no obvious spinal stenosis. I see no evidence of epidural fluid collection in the spinal canal. There is apparent laminectomy defect in the lower lumbar spine. There is no paraspinal mass. There is no significant compression deformity. I see no pathologic enhancement. IMPRESSION: Within the limitations of the exam there is no evidence of hematoma or abscess. Multilevel laminectom y defect noted. Bone detail involving the L4 L5 S1 vertebra is very limited. There is improvement in the alignment at L4-5 level compared to old exam. Spinal stenosis appears imp roved.
[2021-02-06] MEDS ORDERED: GABAPENTIN 300 MG CAP PO SCH (16:00)
[2021-02-06 16:19] LABS: Erythrocyte Sedimentation Rate 94 mm/hr (0-20)
--- NOTE | 2021-02-06 18:19 | CT ---
EXAMINATION TYPE: CT lumbar spine wo con DATE OF EXAM: 02/06/2021 COMPARISON: 01/05/2021 HISTORY: Post Op 1 month lumbar surgery. Pain and infection. CT DLP: 1248.6 mGycm Automated exposure control for dose reduction was used. Images obtained from the level of T12-S3 vertebra without contrast. There is a 5 mm anterior subluxation of L5 in relation S1. There is disc prosthesis at L4-5 and L5-S1 . There is posterior fusion surgery with rods and screws from L4 to S1. Exam limited by metal artifac t. There is soft tissue air posteriorly around the surgery site. There is mixed density with calcific ation and fluid and air bubbles in the posterior soft tissues at the laminectomy site at L3-4 and L4- 5. Sacroiliac joints are intact. There is no compression fracture. There is some mild fat stranding i n the subcutaneous tissues posteriorly. Spinal canal is difficult to evaluate at the L4-5 and L5-S1 l evel due to the metal artifact. IMPRESSION: Fluid and soft tissue air bubbles posteriorly at the surgery site is suggestive of abscess in this pa tient that had surgery one month ago. Spinal canal not well evaluated due to extensive artifact. Sign ificant epidural abnormality related to abscess compressing the thecal sac cannot be excluded.
[2021-02-06] MEDS: CYCLOBENZAPRINE 10 MG TAB PO PRN (18:31)
[2021-02-06 20:30] LABS: African American GFR (CKD) >90 (>60 ml/min/1.73 sqM); Anion Gap 5 mmol/L; Blood Urea Nitrogen 10 mg/dL (7-17); Calcium 8.6 mg/dL (8.4-10.2); Carbon Dioxide 31 mmol/L (22-30); Chloride 89 mmol/L (98-107); Glucose 114 mg/dL (74-99); Non-African American GFR(CKD) >90 (>60 ml/min/1.73 sqM); Potassium 3.7 mmol/L (3.5-5.1); Sodium 125 mmol/L (137-145)
[2021-02-06] MEDS ORDERED: CEFEPIME 1 GM in SODIUM CHLORIDE 0.9% 50 ML IVPB SCH (21:00)
[2021-02-06] MEDS: lisinopriL 20 MG TAB PO SCH (21:29)
[2021-02-06] MEDS: DOCUSATE 100 MG CAP PO SCH (21:29)
--- NOTE | 2021-02-06 21:52 | CONS ---
CONSULTATION DATE OF SERVICE: 02/06/2021 REASON FOR STAY: Lumbar paraspinal surgical site infection. HISTORY OF PRESENT ILLNESS: The patient is a 60 -year-old female who is status post L4-5 and L5-S1 laminectomy with fusion and that was done on 01/05/[address] Thapa. Patient subsequently has been discharged home in stable condition. History provided by family members who mentioned that she did have a wound on the incision area that has never completely healed up and continue some clear fluid. Over the last 1 or 2 weeks, the patient having increasing pain to the lower back area. The patient described the pain to be more of a dull aching, to be throbbing, almost 7 to 8/10. No radiation. The patient has been complaining of more drainage with getting more purulent for the last few days and has been running a low-grade fever. With these symptoms, the patient has been evaluated at [facility] in [place]. Patient subsequently has been transferred to this facility for further management, the patient was started on vancomycin, Pharmacy to dose and cefepime. The patient did have white count 17.1 and MRI of the lumbosacral spine completed which shows multilevel laminectomy defect noted but no evidence of any hematoma or abscess. Infectious Disease was consulted for further management of antibiotic therapy. REVIEW OF SYSTEMS: Positive points have been mentioned in HPI. Rest of the systems are negative. PAST MEDICAL HISTORY: DVT, gastroesophageal reflux disease, hypertension, chronic back pain. PAST SURGICAL HISTORY: Recent laminectomy. Lumbosacral spine fusion, , hernia repair, hysterectomy, total left hip replacement related revision. SOCIAL HISTORY: No history of smoking. No drinking or drug use. FAMILY HISTORY: No pertinent findings noticed. ALLERGIES: No known drug allergies. MEDICATIONS: The patient is currently on Tylenol, Dulcolax, cefepime 1 g q.12h. She is on Flexeril, Valium, Coreg, Neurontin, Dilaudid, Zestril, Narcan, Zofran, Protonix, and vancomycin pharmacy to dose. PHYSICAL EXAMINATION: Blood pressure 158/74, pulse of 104, temperature 100.7. She is 95% on room air. General description: The patient is a middle-aged female lying in bed in no distress. No tachypnea or accessory muscles of respiration use. HEENT: Examination shows pallor. No scleral icterus. Oral mucous membranes dry. NECK: Trachea central. No thyromegaly. LUNGS: Unlabored breathing, clear to auscultation anteriorly with no wheeze or crackles. HEART S1, S2. Regular rate and rhythm. ABDOMEN: Soft, no tenderness. No guarding. No rigidity. EXTREMITIES: No edema of the feet. Examination of the lumbosacral spine area did have an area of nonhealing wound. With pressure, purulent material came out. NEUROLOGICAL: Patient awake and alert and oriented times three. Mood and affect normal. LABS: Hemoglobin is 10.1, hematocrit 19.1 with left shift. BUN of 11, creatinine 0.56, CRP 8.1. DIAGNOSTIC IMPRESSION AND PLAN: Patient admitted to the hospital with sepsis in this patient who did have a fever, elevated white count, tachycardia source lumbar surgical site infection in this patient who did have recent laminectomy and fusion, may need to cover for the Gram-positive as well as gram-negative with likely infection to cover for both Pseudomonas and MRSA. PLAN: 1. Await surgical debridement and deep culture. 2. The patient to continue vancomycin pharmacy to dose, while watching the kidney function closely. 3. Increase the dose of cefazolin 2 grams q.8 hours. 4. Discharge antibiotic will depend upon the culture report. Family at the bedside. They have multiple questions that were answered in layman's terms. Thank you for this consultation. Will follow this patient along with you. MMODL / IJN: [id number] /
--- NOTE | 2021-02-06 22:33 | P.HPOR ---
History of Present Illness H&P Date: 02/06/21 Chief Complaint: Back pain, drainage Ms Connor presents with her daughter after transfer from [facility] due to back pain and wound drainage. On 01/03 pt underwent L4-S1 fusion for spondylolisthesis, spondylosis and stenosis. She was doing well at her 2 week post op visit, her stitches were removed and she was progressing well. She was ambulating with a walker for balance but was overall happy. Her and her daughter state then that last week she started having more back pain than usual. She then had some low grade fevers and chills. She called the office and was advised to come in immediately for evaluation. They then presented on Monday to [facility] ED for evaluation and [facility] due to drainage from the back, continued back pain and low grade fevers. CT done there showed fluid collection deep to the facia with possible phlegmon. She was immediately set up for transfer to [facility]. At the time no beds were available, she was not septic and was stable for transfer. She arrived today via transport. She is seen and examined with her daughter in the room. She continues to have low back pain, but is managed with tramadol currently. She does have a 1 cm dehisced portion of her incision in the middle that her daughter had been monitoring, but it is putting out a pus like substance. She also c/o DOHERTY that started with the back pain, but they are not positional and currently she is having none. She states low grade fevers. C/o back pain and right sided leg pain. Denies any other symptoms. Denies any bowel or bladder issues. No perineal numbness/tingling. Review of Systems 16 pt ROS completed and as stated in HPI. All other systems reviewed negative. Past Medical History Past Medical History: Deep Vein Thrombosis (DVT), GERD/Reflux, Hypertension Additional Past Medical History / Comment(s): "Hx DVT after of son." History of Any Multi-Drug Resistant Organisms: None Reported Past Surgical History: Back Surgery, Section, Hernia Repair, Hysterectomy Additional Past Surgical History / Comment(s): Total left hip replacement with later revision, bone graft. 01/05/21, lumbar spinal fusion/laminectomy/L4-L5 intradiscal osteotomy. Past Anesthesia/Blood Transfusion Reactions: No Reported Reaction Past Psychological History: No Psychological Hx Reported Smoking Status: Never smoker Past Alcohol Use History: None Reported Past Drug Use History: None Reported - Past Family History Mother Family Medical History: No Reported History Medications and Allergies Home Medications Medication Instructions Recorded Confirmed Type Acetaminophen [Tylenol Extra 1,000 mg PO Q4H PRN 01/01/21 02/06/21 History Strength] Omeprazole 20 mg PO BID 01/01/21 02/06/21 History hydroCHLOROthiazide [Hydrodiuril] 12.5 mg PO DAILY 01/01/21 02/06/21 History lisinopriL 20 mg PO HS 01/01/21 02/06/21 History Gabapentin 300 mg PO TID #90 cap 01/10/21 02/06/21 Rx HYDROcodone/APAP 10-325MG [[place] 1 tab PO Q4HR PRN #56 tab 01/10/21 02/06/21 Rx 10-325] Cyclobenzaprine [Flexeril] 10 mg PO BID PRN 02/06/21 02/06/21 History Ibuprofen [Motrin] 600 mg PO Q8HR PRN 02/06/21 02/06/21 History Lidocaine 5% Patch [Lidoderm] 1 patch TOPICAL DAILY 02/06/21 02/06/21 History Sennosides/Docusate Sodium [Senna 1 cap PO BID PRN 02/06/21 02/06/21 History Plus 8.6-50 mg Softgel] diazePAM [Valium] 2 mg PO Q6H PRN 02/06/21 02/06/21 History traMADol HCL [Ultram] 50 mg PO Q6HR PRN 02/06/21 02/06/21 History Allergies Allergy/AdvReac Type Severity Reaction Status Date / Time No Known Allergies Allergy Verified 02/06/21 13:05 Physical Examination Osteopathic Statement: *. No significant issues noted on an osteopathic structural exam other than those noted in the History and Physical/Consult. On exam pt is comfortable in bed. AOX3 NAD Incision has drainage from 2 cm portion in center of incision where there is dehiscences as well as purulent drainage. No EEE. Mild TTP around the i ncision. Pt has 4/5 strength in the RLE in all major muscle groups, there are no focal deficits except for weakness in TA on the R which has been present since surgery She has good strength in the LLE with 4+ to 5/5 in all major muscle groups She does have limitation due to pain and cooperation. SILT L2-S1, no dermatomal deficits, subjective numbness R outter foot. Chaperoned rectal exam shows good tone and volition No perineal numbness/tingling or sensation loss CN2-12 in tact grossly Metation normal 2/4 distal pulses all Neg hoffmans Neg homans Neg babinski neg clonus b/l all Results CT scan from [facility] report is reviewed as well as CT from [facility] and new MRI w/wo constrast. This demonstrates non enhancing fluid collection deep to facia with tracking superficially. Hardware in good position with no evidence of loosening or failure or interval changes. - Labs Labs: Abnormal Lab Results - Last 24 Hours (Table) 02/06/21 02/06/21 02/06/21 Range/Units 13:01 13:01 16:01 WBC 17.1 H (3.8-10.6) k/uL Hgb 10.1 L (11.4-16.0) gm/dL Hct 32.1 L (34.0-46.0) % MCV 78.6 L (80.0-100.0) fL MCH 24.6 L (25.0-35.0) pg Monocytes # 4.2 H (0-1.0) k/uL Monocytes # (Manual) 7.87 H (0-1.0) k/uL Metamyelocytes # (Man) 0.17 H (0) k/uL Myelocytes # (Manual) 0.51 H (0) k/uL ESR 94 H (0-20) mm/hr Sodium 127 L (137-145) mmol/L Chloride 90 L (98-107) mmol/L Carbon Dioxide 31 H (22-30) mmol/L Glucose 108 H (74-99) mg/dL C-Reactive Protein 8.1 H 8.4 H (<1.0) mg/dL 02/06/21 Range/Units 20:03 WBC (3.8-10.6) k/uL Hgb (11.4-16.0) gm/dL Hct (34.0-46.0) % MCV (80.0-100.0) fL MCH (25.0-35.0) pg Monocytes # (0-1.0) k/uL Monocytes # (Manual) (0-1.0) k/uL Metamyelocytes # (Man) (0) k/uL Myelocytes # (Manual) (0) k/uL ESR (0-20) mm/hr Sodium 125 L (137-145) mmol/L Chloride 89 L (98-107) mmol/L Carbon Dioxide 31 H (22-30) mmol/L Glucose 114 H (74-99) mg/dL C-Reactive Protein (<1.0) mg/dL H & H 02/06/21 Range/Units 13:01 Hgb 10.1 L (11.4-16.0) gm/dL Hct 32.1 L (34.0-46.0) % Result Diagrams: 02/06/21 13:01 02/06/21 20:03 Assessment and Plan Assessment: 1. Lumbar wound infection 2. Wound dehiscence 3. Back pain 4. S/p L4-S1 decompression fusion Plan: -Consult medicine and ID appreciate input -Pt started on Vanco at [facility], cont here -Fluids, Trend labs, MRI and CT scans reviewed -Blood cx pending -GI ppx -Grande -Ambulate as tolerated -NPO at MS -Plan for washout 02/07/21 with possible hardware exchange, antibiotic bead placements -Pt will need PICC line as well as 8-12 weeks IV abx. I spoke to pt and daughter who was in room with her about this at length. This is unfortunate, and we never want it to happen, but we will deal with it promptly. They understand the risks and benefits of the procedure and are willing to assume these risks and all the risks of surgery which we discussed. All questions were answered. We will proceed tomorrow with washout. Time with Patient: Greater than 30
[2021-02-06] MEDS: CEFEPIME 2 GM in SODIUM CHLORIDE 0.9% 100 ML IVPB SCH (23:45)
[2021-02-07] MEDS ORDERED: CEFEPIME 2 GM in SODIUM CHLORIDE 0.9% 50 ML IVPB SCH ×2
[2021-02-07] MEDS: HYDROmorphone 1 MG/ML 1 ML SYRINGE IVP PRN ×6 (00:53→23:12)
[2021-02-07] MEDS: VANCOMYCIN 1,500 MG in SODIUM CHLORIDE 0.9% 250 ML IVPB SCH ×2 (03:48→17:05)
[2021-02-07] MEDS: CYCLOBENZAPRINE 10 MG TAB PO PRN ×2 (03:52→12:50)
[2021-02-07] MEDS: SODIUM CHLORIDE 0.9% 1,000 ML IV SCH ×2 (06:13→17:09)
[2021-02-07] MEDS: ACETAMINOPHEN TAB 325 MG TAB PO PRN ×2 (06:17→17:04)
[2021-02-07 07:47] LABS: ALT 6 U/L (4-34); AST 12 U/L (14-36); African American GFR (CKD) >90 (>60 ml/min/1.73 sqM); Albumin 2.7 g/dL (3.5-5.0); Albumin/Globulin Ratio 0.7; Alkaline Phosphatase 76 U/L (38-126); Anion Gap 5 mmol/L; Blood Urea Nitrogen 11 mg/dL (7-17); Calcium 8.4 mg/dL (8.4-10.2); Carbon Dioxide 32 mmol/L (22-30); Chloride 88 mmol/L (98-107); Globulin 3.8 g/dL; Glucose 98 mg/dL (74-99); Non-African American GFR(CKD) >90 (>60 ml/min/1.73 sqM); Potassium 3.9 mmol/L (3.5-5.1); Sodium 125 mmol/L (137-145); Total Bilirubin 0.2 mg/dL (0.2-1.3); Total Protein 6.5 g/dL (6.3-8.2)
[2021-02-07] MEDS ORDERED: SODIUM CHLORIDE 0.9% 500 ML 500 ML IV ONE (08:11)
--- NOTE | 2021-02-07 08:48 | P.NPCON ---
History of Present Illness - Reason for Consult Consult date: 02/07/21 hyponatremia - Chief Complaint Hyponatremia - History of Present Illness This 60-year-old female seen in consultation because of hyponatremia. She had recent back surgery on 01/05/2021 and discharged on 01/10/2021. She came back because of wound dehiscence and possibility of epidural abscess. She has been having headache but none this morning. Her appetite has been poor should been drinking fair amount of water and apple juice. She was also had a blood palate She was given IV normal saline overnight and her sodium has worsened from 127- 125. Admission labs showed sodium 127 potassium 4.2 chloride 90 bicarb 21 creatinine was 0.56 BUN was 11. Her past history significant for DVT, GERD hypertension hysterectomy total hip replacement. Since admission her T-max was 100.7 yesterday afternoon and this morning is 99.1 vital signs are stable blood pressure in the 120 systolic to 160 systolic Urine output has been documented 530 and 750 mL for the last 2 shifts, she was on IV normal saline at 125 and Past Medical History Past Medical History: Deep Vein Thrombosis (DVT), GERD/Reflux, Hypertension Additional Past Medical History / Comment(s): "Hx DVT after of son." History of Any Multi-Drug Resistant Organisms: None Reported Past Surgical History: Back Surgery, Section, Hernia Repair, Hysterectomy Additional Past Surgical History / Comment(s): Total left hip replacement with later revision, bone graft. 01/05/21, lumbar spinal fusion/laminectomy/L4-L5 intradiscal osteotomy. Past Anesthesia/Blood Transfusion Reactions: No Reported Reaction Past Psychological History: No Psychological Hx Reported Smoking Status: Never smoker Past Alcohol Use History: None Reported Past Drug Use History: None Reported - Past Family History Mother Family Medical History: No Reported History Medications and Allergies Home Medications Medication Instructions Recorded Confirmed Type Acetaminophen [Tylenol Extra 1,000 mg PO Q4H PRN 01/01/21 02/06/21 History Strength] Omeprazole 20 mg PO BID 01/01/21 02/06/21 History hydroCHLOROthiazide [Hydrodiuril] 12.5 mg PO DAILY 01/01/21 02/06/21 History lisinopriL 20 mg PO HS 01/01/21 02/06/21 History Gabapentin 300 mg PO TID #90 cap 01/10/21 02/06/21 Rx HYDROcodone/APAP 10-325MG [[place] 1 tab PO Q4HR PRN #56 tab 01/10/21 02/06/21 Rx 10-325] Cyclobenzaprine [Flexeril] 10 mg PO BID PRN 02/06/21 02/06/21 History Ibuprofen [Motrin] 600 mg PO Q8HR PRN 02/06/21 02/06/21 History Lidocaine 5% Patch [Lidoderm] 1 patch TOPICAL DAILY 02/06/21 02/06/21 History Sennosides/Docusate Sodium [Senna 1 cap PO BID PRN 02/06/21 02/06/21 History Plus 8.6-50 mg Softgel] diazePAM [Valium] 2 mg PO Q6H PRN 02/06/21 02/06/21 History traMADol HCL [Ultram] 50 mg PO Q6HR PRN 02/06/21 02/06/21 History Allergies Allergy/AdvReac Type Severity Reaction Status Date / Time No Known Allergies Allergy Verified 02/06/21 13:05 Physical Exam Vitals: Vital Signs Temp Pulse Resp BP Pulse Ox 02/07/21 08:00 99.1 F 88 20 124/63 98 02/07/21 00:57 98.5 F 72 16 136/66 98 02/06/21 19:35 98.0 F 56 L 18 147/83 96 02/06/21 14:00 100.7 F H 104 H 17 168/74 95 02/06/21 12:24 100.2 F H 107 H 18 155/81 98 Intake and Output 02/06/21 02/07/21 02/07/21 22:59 06:59 14:59 Output Total 530 750 Balance -530 -750 Output: Urine 530 750 Other: Voiding Method Indwelling Catheter On examination she is awake alert oriented comfortable HEENT exam no JVP neck is supple no facial asymmetry Lungs clear to auscultation good air entry bilaterally Heart sounds unremarkable Abdomen soft nontender Extreme exam was no edema Neurologically awake alert oriented moves all extremities Results - Lab Results Most recent lab results Calcium 8.4 mg/dL (8.4-10.2) 02/07/21 06:32 02/06/21 13:01 02/07/21 06:32 Assessment and Plan Assessment: Impression 1. 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 Etiology is pain and excess fluid intake and low protein intake 2. Epidural abscess based on CT and MRI, status post recent surgery on 01/05/2021 admitted with fever and wound dehiscence 3. History of DVT Recommendation 1. Will give her 1 dose of Samsca 15 mg and she needs surgery and her sodium is greater than 1:30 as per the surgical and anesthesiology recommendation. We'll make sure that her sodium does not move too fast. We will try to maintain a 8- 10 maximum increase in her sodium or 24 hours. A repeat lites will be done in 4 hours after Taking the Samsca 2. Discontinue the IV Fluids and Make It KVO. 3. Continue every 4 hours sodium until stable
[2021-02-07] MEDS ORDERED: TOLVAPTAN 15 MG 1/2 TABLET PO ONE (09:00)
[2021-02-07 09:13] LABS: HCT 30.7 % (34.0-46.0); HGB 9.7 gm/dL (11.4-16.0); Hypochromasia Slight; MCHC 31.6 g/dL (31.0-37.0); MCV 79.1 fL (80.0-100.0); Mean Platelet Volume 7.4; Platelet Count 399 k/uL (150-450); RBC 3.88 m/uL (3.80-5.40); RDW 14.8 % (11.5-15.5)
[2021-02-07] MEDS: GABAPENTIN 300 MG CAP PO SCH ×3 (09:42→20:36)
[2021-02-07] MEDS: DOCUSATE 100 MG CAP PO SCH ×2 (09:42→20:36)
[2021-02-07] MEDS: PANTOPRAZOLE 40 MG TABLET PO SCH (09:43)
[2021-02-07] MEDS: CEFEPIME 2 GM in SODIUM CHLORIDE 0.9% 100 ML IVPB SCH ×3 (09:43→23:12)
--- NOTE | 2021-02-07 10:06 | P.PN ---
Subjective Progress Note Date: 02/07/21 Principal diagnosis: back pain Antoni is a 60 yo female with a recent L 4/5 and L5/S1 Laminectomy with fusion and intradiscal osteotomy on 01/05/21 with prior deep vein thrombocytosis, GERD, adn HTN who was transferred from [facility] for back and wound dehisence. She was started on cefepime and Vanco. Found to have post-op infection. Hyponatremia, likely SIADH. Patient seen and examined at bedside. Her headache is resolved, no chest pain/sob/nausea/diarrhea. Back pain is toleratble on current regiment and she appears more comfortable than yesterday. General: ill appeainrg, no distress, appears at stated age Derm: warm, dry Head: atraumatic, normocephalic, symmetric Eyes: EOMI, no lid lag, anicteric sclera Mouth: no lip lesion, mucus membranes moist Cardiovascular: S1S2 reg, no murmur, positive posterior tibial pulse bilateral, Lungs: decreased bs bilateral, no rhonchi, no rales , no accessory muscle use Abdominal: soft, nontender to palpation, no guarding, no appreciable organomegaly Ext: no gross muscle atrophy, no edema, no contractures Psych: Alert, oriented, appropriate affect Hyponatremia likely secondary to SIADH - worsening with normal saline - D/W Nephrology: Samsca X 1 - Serial sodium levels - KVO IV Postop wound infection with sepsis status post lumbar laminectomy with fusion 01/05/21 -Case discussed with Dr. Thapa, Dr. Espinoza, and Dr. Gipson -Continue with Vanco, cefeazolin -ID recs: ancipate that patient will need PICC line: services not avaiable over the weekend -Pain control -Nothing by mouth after midnight GERD - PPI Hypertension - hold HCTZ - Lisinopril - follow BP Anemia - post op from January - follow CBC - stable Thank you for allowing us to participate in the care of this pleasant patient. Do not hesitate to contact us with questions. Someone can be reached from the [facility] hospitalist group all hours of the day at [phone] or via perfect serve. Objective - Vital Signs Vital signs: Vital Signs Temp 99.1 F 02/07/21 08:00 Pulse 88 02/07/21 08:00 Resp 20 02/07/21 08:00 BP 124/63 02/07/21 08:00 Pulse Ox 98 02/07/21 08:00 Intake & Output 02/06/21 02/07/21 02/07/21 18:59 06:59 18:59 Output Total 530 750 Balance -530 -750 Weight 84.822 kg Output: Urine 530 750 Other: Voiding Method Indwelling Catheter Indwelling Catheter - Labs CBC & Chem 7: 02/07/21 06:32 02/07/21 06:32 Labs: Abnormal Lab Results - Last 24 Hours (Table) 02/06/21 02/06/21 02/06/21 Range/Units 13:01 13:01 16:01 WBC 17.1 H (3.8-10.6) k/uL Hgb 10.1 L (11.4-16.0) gm/dL Hct 32.1 L (34.0-46.0) % MCV 78.6 L (80.0-100.0) fL MCH 24.6 L (25.0-35.0) pg Monocytes # 4.2 H (0-1.0) k/uL Monocytes # (Manual) 7.87 H (0-1.0) k/uL Metamyelocytes # (Man) 0.17 H (0) k/uL Myelocytes # (Manual) 0.51 H (0) k/uL ESR 94 H (0-20) mm/hr Sodium 127 L (137-145) mmol/L Chloride 90 L (98-107) mmol/L Carbon Dioxide 31 H (22-30) mmol/L Glucose 108 H (74-99) mg/dL AST (14-36) U/L C-Reactive Protein 8.1 H 8.4 H (<1.0) mg/dL Albumin (3.5-5.0) g/dL 02/06/21 02/07/21 02/07/21 Range/Units 20:03 06:32 06:32 WBC 17.0 H (3.8-10.6) k/uL Hgb 9.7 L (11.4-16.0) gm/dL Hct 30.7 L (34.0-46.0) % MCV 79.1 L (80.0-100.0) fL MCH (25.0-35.0) pg Monocytes # (0-1.0) k/uL Monocytes # (Manual) (0-1.0) k/uL Metamyelocytes # (Man) (0) k/uL Myelocytes # (Manual) (0) k/uL ESR (0-20) mm/hr Sodium 125 L 125 L (137-145) mmol/L Chloride 89 L 88 L (98-107) mmol/L Carbon Dioxide 31 H 32 H (22-30) mmol/L Glucose 114 H (74-99) mg/dL AST 12 L (14-36) U/L C-Reactive Protein (<1.0) mg/dL Albumin 2.7 L (3.5-5.0) g/dL Microbiology - Last 24 Hours (Table) 02/06/21 14:00 Gram Stain - Preliminary Back Wound Culture - Preliminary 02/06/21 14:00 Anaerobic Culture - Preliminary Back
--- NOTE | 2021-02-07 10:33 | P.PN ---
Subjective Progress Note Date: 02/07/21 Principal diagnosis: Acute post operative infection Patient seen and examined her daughter is at bedside. She is doing well and states that she slept well last night for the first time and while she denies any headache states that this is better she denies any back pain currently. She states that her legs feel about the same she is having some pain down her right leg however it really has not changed she denies any increased weakness states no real numbness or tingling and has not had any bowel issues she still has a Grande in place. Objective - Vital Signs Vital signs: Vital Signs Temp 99.1 F 02/07/21 08:00 Pulse 88 02/07/21 08:00 Resp 20 02/07/21 08:00 BP 124/63 02/07/21 08:00 Pulse Ox 98 02/07/21 08:00 Intake & Output 02/06/21 02/07/21 02/07/21 18:59 06:59 18:59 Output Total 530 750 Balance -530 -750 Weight 84.822 kg Output: Urine 530 750 Other: Voiding Method Indwelling Catheter Indwelling Catheter - Exam PHYSICAL EXAMINATION: Vitals: Stable at this time General: Awake, alert, appropriate for age, in no acute distress. HEENT: No unusual neck masses around region of lateral neck triangle, thyroid, supraclavicular groove. Heart: Regular rate and rhythm, normal S1, S2 and no murmur/gallop. Lungs: Clear to auscultation bilaterally with no use of accessory muscles. Extremities: Skin warm and dry without no acute lesions, coloration, temperature, skin intact, no tenderness or erythema. Integument: Hairy patches: Absent Dorsal skin dimples: Absent Cafe au lait spots: Absent Surgical incisions: Dehiscence noted in the middle 2 cm of the incision with purulent drainage noted at this site. Palpation: Please see Pain drawing on Intake sheet for further detail. (Tenderness = T, Nontender = NT, Swelling = S, Ecchymosis = E) Findings on Midline and paraspinal palpation and percussion: Cervical: NT Thoracic: NT Lumbar: NT Sacral: NT Special findings: none VASCULAR STATUS : Wrist Pulses: 2/4 bilateral radial and ulnar Pedal Pulses: 2/4 bilateral DP and PT Color: Normal Edema: None NEUROLOGIC EXAMINATION: Mental Status: Awake and alert, fully oriented, with normal attention, concentration and memory, and fluent, appropriate speech. Cranial Nerves: I: Olfactory not tested. II: Visual acuity normal, no visual field deficit noted with confrontation. III,IV: Normal pupillary reflexes & intact extraocular movements without nystagmus. V,: Intact symmetrical facial sensation. VII: Intact symmetrical facial motor movement VIII: Hearing intact. IX,X: Intact gag, swallow, & normal voice. XI: Sternocleidomastoid, trapezius function intact. XII: Tongue midline with normal movements. Special Tests: L'hermitte's Sign: Absent Spurling'Sign: Absent Bilateral Cubital percussion test: Absent Bilateral Angela-Tinel sign - Carpal region: Absent Bilateral Straight Leg Raising: Absent Bilateral Motor Exam (0-5/5, N/T) STRENGTH UPPER EXTREMITY Shoulder Abd (Not part of GERARDO Motor score): RIGHT 5 LEFT 5 Elbow Flexors: RIGHT 5 LEFT 5 Elbow Extensor: RIGHT 5 LEFT 5 Wrrist Dorsiflexors: RIGHT 5 LEFT 5 Finger Abductor: RIGHT 5 LEFT 5 Computer Information Systems Professor: RIGHT 5 LEFT 5 LOWER EXTREMITY Hip Flexor (Not part of GERARDO Motor Score): RIGHT 4 LEFT 5 Knee Flexor: RIGHT 4 LEFT 5 Knee Extensor: RIGHT 4 LEFT 5 Ankle Dorsiflexion: RIGHT 4 LEFT 4 Ankle Plantarflexion: RIGHT 4 LEFT 5 EHL: RIGHT 4 LEFT 4 FHL: RIGHT 4 LEFT 4 Generalized weakness noted, She is able to fire all major muscles of the LE b/l. She has more pain on the right LE but no focal deficits. She still has some weakness of the L TA which was present since surgery, no acute interval changes. REFLEXES Biecp: RIGHT 2 LEFT 2 Tricep: RIGHT 2 LEFT 2 Brachioradialis: RIGHT 2 LEFT 2 Patellar: RIGHT 2 LEFT 2 Achilles: RIGHT 2 LEFT 2 Pathological Reflexes Rajput's: RIGHT Absent LEFT Absent Babinski: RIGHT Absent LEFT Absent Clonus: RIGHT None LEFT None SENSORY Joint Position: Intact bilaterally Vibration Intact bilaterally Pain and LT sense Intact C5-T1 and L2-S1 Dermatomal deficit None Gait and Functional Evaluation: Ambulatory aids: Walker Hand and finger dexterity intact bilaterally. Disdiadochokinesis examination negative bilaterally. - Neurologic Neurologic: Present: CNII-XII intact - Psychiatric Psychiatric: Present: A&O x's 3 - Labs CBC & Chem 7: 02/07/21 06:32 02/07/21 06:32 Labs: Abnormal Lab Results - Last 24 Hours (Table) 02/06/21 02/06/21 02/06/21 Range/Units 13:01 13:01 16:01 WBC 17.1 H (3.8-10.6) k/uL Hgb 10.1 L (11.4-16.0) gm/dL Hct 32.1 L (34.0-46.0) % MCV 78.6 L (80.0-100.0) fL MCH 24.6 L (25.0-35.0) pg Monocytes # 4.2 H (0-1.0) k/uL Monocytes # (Manual) 7.87 H (0-1.0) k/uL Metamyelocytes # (Man) 0.17 H (0) k/uL Myelocytes # (Manual) 0.51 H (0) k/uL ESR 94 H (0-20) mm/hr Sodium 127 L (137-145) mmol/L Chloride 90 L (98-107) mmol/L Carbon Dioxide 31 H (22-30) mmol/L Glucose 108 H (74-99) mg/dL AST (14-36) U/L C-Reactive Protein 8.1 H 8.4 H (<1.0) mg/dL Albumin (3.5-5.0) g/dL 02/06/21 02/07/21 02/07/21 Range/Units 20:03 06:32 06:32 WBC 17.0 H (3.8-10.6) k/uL Hgb 9.7 L (11.4-16.0) gm/dL Hct 30.7 L (34.0-46.0) % MCV 79.1 L (80.0-100.0) fL MCH (25.0-35.0) pg Monocytes # (0-1.0) k/uL Monocytes # (Manual) (0-1.0) k/uL Metamyelocytes # (Man) (0) k/uL Myelocytes # (Manual) (0) k/uL ESR (0-20) mm/hr Sodium 125 L 125 L (137-145) mmol/L Chloride 89 L 88 L (98-107) mmol/L Carbon Dioxide 31 H 32 H (22-30) mmol/L Glucose 114 H (74-99) mg/dL AST 12 L (14-36) U/L C-Reactive Protein (<1.0) mg/dL Albumin 2.7 L (3.5-5.0) g/dL Microbiology - Last 24 Hours (Table) 02/06/21 14:00 Gram Stain - Preliminary Back Wound Culture - Preliminary 02/06/21 14:00 Anaerobic Culture - Preliminary Back Assessment and Plan Assessment: 1. Lumbar wound infection 2. Wound dehiscence 3. Back pain 4. S/p L4-S1 decompression fusion 5. Hyponatremia likely SIADH Plan: -Consult medicine and ID appreciate input -Cont abx, ID management -Fluids, Trend labs, MRI and CT scans reviewed -Trend sodium, medicine and nephrology managing -Blood cx pending -GI ppx -Grande -Ambulate as tolerated -NPO at FL -Plan for washout 02/08/21 12 pm with possible hardware exchange, antibiotic bead placements -Discussed at length with patient and her daughter about her current sodium leve ls and the risks involved with surgery and anesthesia due to low sodium. We discussed the case with Dr. Chery, Dr. Ho and Dr. Gabriel. At this time we feel that it is unsafe to proceed with surgery given her current levels and that the risk of surgery outweighs benefits. At this point her neurology is stable there is no increased weakness numbness tingling or any other issues like this she is currently hemodynamically as well as constitutionally stable and so postponing until tomorrow is advantageous in that we have a chance to raise her sodium to appropriate level slowly in order to optimize her for surgical intervention. I discussed this at length with the daughter and with the patient and while it is not ideal the patient agrees and she would prefer that we wait she states she is currently comfortable her pain is controlled and she would rather that we are safe and I agree. We will continue to monitor her closely with every 3 neuro checks multiple electrolyte draws and treatment for her SIADH and low sodium. We will plan on taking her to surgery tomorrow for washout de bridement. Time with Patient: Greater than 30
[2021-02-07] MEDS: traMADol 50 MG TAB PO PRN ×2 (13:01→20:36)
[2021-02-07 14:19] LABS: Potassium 3.9 mmol/L (3.5-5.1)
[2021-02-07] MEDS ORDERED: DEXTROSE 5% IN WATER 1,000 ML IV SCH ×2 (15:00→20:15)
[2021-02-07] MEDS ORDERED: METOPROLOL TARTRATE 5 MG/5 ML VIAL IVP STA (17:23)
--- NOTE | 2021-02-07 18:18 | PN ---
PROGRESS NOTE DATE OF SERVICE: 02/07/2021 REASON FOR FOLLOW UP: Lumbar surgical site infection. INTERVAL HISTORY: Patient is afebrile. The patient's pain to the lumbar spine is currently controlled. No chest pain, shortness of breath or cough. No abdominal pain or diarrhea. PHYSICAL EXAMINATION: Blood pressure 146/88 with a pulse of 73, temperature 99.3. She is 93% on room air. General description: The patient is a middle-aged female lying in bed in no distress. Respiratory system: Unlabored breathing, clear to auscultation anteriorly. Heart S1, S2. Regular rate and rhythm. ABDOMEN: Soft, no tenderness. LABS: Hemoglobin 9.7, white count 17,000, BUN of 11, creatinine 0.66. Back culture showing a Gram-negative bacilli. DIAGNOSTIC IMPRESSION AND PLAN: Patient with lumbar surgical site infection with recent laminectomy excursion for underlying hardware planning for surgical washout and hardware placement tomorrow. Patient is covered with cefepime, antibiotic adjusted further based on culture report. Continue supportive care. MMODL / IJN: [id number] /
[2021-02-07 18:21] LABS: African American GFR (CKD) >90 (>60 ml/min/1.73 sqM); Blood Urea Nitrogen 9 mg/dL (7-17); Calcium 8.6 mg/dL (8.4-10.2); Glucose 125 mg/dL (74-99); Magnesium 1.9 mg/dL (1.6-2.3); Non-African American GFR(CKD) >90 (>60 ml/min/1.73 sqM); Phosphorus 2.4 mg/dL (2.5-4.5)
[2021-02-07 19:29] LABS: Anion Gap 7 mmol/L; Carbon Dioxide 28 mmol/L (22-30); Chloride 94 mmol/L (98-107); Potassium 3.7 mmol/L (3.5-5.1); Sodium 129 mmol/L (137-145)
[2021-02-07] MEDS: lisinopriL 20 MG TAB PO SCH (20:37)
[2021-02-08] MEDS: ACETAMINOPHEN TAB 325 MG TAB PO PRN (02:17)
[2021-02-08] MEDS: HYDROmorphone 1 MG/ML 1 ML SYRINGE IVP PRN ×3 (02:18→23:45)
[2021-02-08] MEDS: VANCOMYCIN 1,500 MG in SODIUM CHLORIDE 0.9% 250 ML IVPB SCH ×3 (02:19→22:03)
[2021-02-08 04:08] LABS: Potassium 3.9 mmol/L (3.5-5.1)
[2021-02-08] MEDS ORDERED: METOPROLOL TARTRATE 5 MG/5 ML VIAL IVP STA (05:19)
[2021-02-08] MEDS: PANTOPRAZOLE 40 MG TABLET PO SCH (06:14)
--- NOTE | 2021-02-08 08:04 | P.PN ---
Subjective Progress Note Date: 02/08/21 Principal diagnosis: Acute post operative infection Patient seen and examined resting comfortably denies any pain denies any new symptoms is ready for surgery today. Objective - Vital Signs Vital signs: Vital Signs Temp 98.8 F 02/07/21 20:00 Pulse 93 02/07/21 20:00 Resp 18 02/07/21 20:00 BP 122/57 02/07/21 20:00 Pulse Ox 93 L 02/07/21 20:00 Intake & Output 02/07/21 02/08/21 02/08/21 18:59 06:59 18:59 Intake Total 750 Output Total 2700 1600 Balance -2700 -850 Intake: Intake, IV Titration 750 Amount Cefepime 2 gm In Sodium 100 Chloride 0.9% 100 ml @ 25 mls/hr IVPB Q8HR DEV Rx# :[id number] Dextrose 5% in Water 1, 400 000 ml @ 40 mls/hr IV . Q24H DEV Rx#:[id number] Vancomycin 1,500 mg In 250 Sodium Chloride 0.9% 250 ml @ 125 mls/hr IVPB Q12H DEV Rx#:[id number] Output: Urine 2700 1600 Other: Voiding Method Indwelling Catheter Indwelling Catheter - Exam Her exam remained stable today PHYSICAL EXAMINATION: Vitals: Stable at this time General: Awake, alert, appropriate for age, in no acute distress. HEENT: No unusual neck masses around region of lateral neck triangle, thyroid, supraclavicular groove. Heart: Regular rate and rhythm, normal S1, S2 and no murmur/gallop. Lungs: Clear to auscultation bilaterally with no use of accessory muscles. Extremities: Skin warm and dry without no acute lesions, coloration, temperature, skin intact, no tenderness or erythema. Integument: Hairy patches: Absent Dorsal skin dimples: Absent Cafe au lait spots: Absent Surgical incisions: Dehiscence noted in the middle 2 cm of the incision with purulent drainage noted at this site. Palpation: Please see Pain drawing on Intake sheet for further detail. (Tenderness = T, Nontender = NT, Swelling = S, Ecchymosis = E) Findings on Midline and paraspinal palpation and percussion: Cervical: NT Thoracic: NT Lumbar: NT Sacral: NT Special findings: none VASCULAR STATUS : Wrist Pulses: 2/4 bilateral radial and ulnar Pedal Pulses: 2/4 bilateral DP and PT Color: Normal Edema: None NEUROLOGIC EXAMINATION: Mental Status: Awake and alert, fully oriented, with normal attention, concentration and memory, and fluent, appropriate speech. Cranial Nerves: I: Olfactory not tested. II: Visual acuity normal, no visual field deficit noted with confrontation. III,IV: Normal pupillary reflexes & intact extraocular movements without nystagmus. V,: Intact symmetrical facial sensation. VII: Intact symmetrical facial motor movement VIII: Hearing intact. IX,X: Intact gag, swallow, & normal voice. XI: Sternocleidomastoid, trapezius function intact. XII: Tongue midline with normal movements. Special Tests: L'hermitte's Sign: Absent Spurling'Sign: Absent Bilateral Cubital percussion test: Absent Bilateral Angela-Tinel sign - Carpal region: Absent Bilateral Straight Leg Raising: Absent Bilateral Motor Exam (0-5/5, N/T) STRENGTH UPPER EXTREMITY Shoulder Abd (Not part of GERARDO Motor score): RIGHT 5 LEFT 5 Elbow Flexors: RIGHT 5 LEFT 5 Elbow Extensor: RIGHT 5 LEFT 5 Wrrist Dorsiflexors: RIGHT 5 LEFT 5 Finger Abductor: RIGHT 5 LEFT 5 Conservation Science Officer: RIGHT 5 LEFT 5 LOWER EXTREMITY Hip Flexor (Not part of GERARDO Motor Score): RIGHT 4 LEFT 5 Knee Flexor: RIGHT 4 LEFT 5 Knee Extensor: RIGHT 4 LEFT 5 Ankle Dorsiflexion: RIGHT 4 LEFT 4 Ankle Plantarflexion: RIGHT 4 LEFT 5 EHL: RIGHT 4 LEFT 4 FHL: RIGHT 4 LEFT 4 Generalized weakness noted, She is able to fire all major muscles of the LE b/l. She has more pain on the right LE but no focal deficits. She still has some weakness of the L TA which was present since surgery, no acute interval changes. REFLEXES Biecp: RIGHT 2 LEFT 2 Tricep: RIGHT 2 LEFT 2 Brachioradialis: RIGHT 2 LEFT 2 Patellar: RIGHT 2 LEFT 2 Achilles: RIGHT 2 LEFT 2 Pathological Reflexes Rajput's: RIGHT Absent LEFT Absent Babinski: RIGHT Absent LEFT Absent Clonus: RIGHT None LEFT None SENSORY Joint Position: Intact bilaterally Vibration Intact bilaterally Pain and LT sense Intact C5-T1 and L2-S1 Dermatomal deficit None Gait and Functional Evaluation: Ambulatory aids: Walker Hand and finger dexterity intact bilaterally. Disdiadochokinesis examination negative bilaterally. - Labs CBC & Chem 7: 02/07/21 06:32 02/08/21 03:40 Labs: Abnormal Lab Results - Last 24 Hours (Table) 02/07/21 02/07/21 02/07/21 Range/Units 06:32 12:11 17:54 WBC 17.0 H (3.8-10.6) k/uL Hgb 9.7 L (11.4-16.0) gm/dL Hct 30.7 L (34.0-46.0) % MCV 79.1 L (80.0-100.0) fL Sodium 130 L 129 L (137-145) mmol/L Chloride 93 L 94 L (98-107) mmol/L Carbon Dioxide 33 H (22-30) mmol/L Glucose 125 H (74-99) mg/dL Phosphorus 2.4 L (2.5-4.5) mg/dL 02/08/21 Range/Units 03:40 WBC (3.8-10.6) k/uL Hgb (11.4-16.0) gm/dL Hct (34.0-46.0) % MCV (80.0-100.0) fL Sodium 130 L (137-145) mmol/L Chloride 95 L (98-107) mmol/L Carbon Dioxide (22-30) mmol/L Glucose (74-99) mg/dL Phosphorus (2.5-4.5) mg/dL Microbiology - Last 24 Hours (Table) 02/06/21 16:01 Blood Culture - Preliminary Blood No Growth after 24 hours 02/06/21 14:00 Gram Stain - Preliminary Back Wound Culture - Preliminary Gram Neg Bacilli Assessment and Plan Assessment: 1. Lumbar wound infection 2. Wound dehiscence 3. Back pain 4. S/p L4-S1 decompression fusion 5. Hyponatremia likely SIADH Plan: -Consult medicine and ID appreciate input -Cont abx, ID management -Fluids, Trend labs, MRI and CT scans reviewed -Trend sodium, medicine and nephrology managing -Blood cx pending -GI ppx -Grande -Ambulate as tolerated -NPO -Plan for washout today -Discussed at length with patient and her daughter about her current sodium levels and the risks involved with surgery and anesthesia due to low sodium. We discussed the case with Dr. Chery, Dr. Ho and Dr. Gabriel. At this time we feel that it is unsafe to proceed with surgery given her current levels and that the risk of surgery outweighs benefits. At this point her neurology is stable there is no increased weakness numbness tingling or any other issues like this she is currently hemodynamically as well as constitutionally stable and so postponing until tomorrow is advantageous in that we have a chance to raise her sodium to appropriate level slowly in order to optimize her for surgical intervention. I discussed this at length with the daughter and with the patient and while it is not ideal the patient agrees and she would prefer that we wait she states she is currently comfortable her pain is controlled and she would rather that we are safe and I agree. We will continue to monitor her closely with every 3 neuro checks multiple electrolyte draws and treatment for her SIADH and low sodium. We will plan on taking her to surgery tomorrow for washout debridement. Spine Surgery Risk Review Yessenia Ryan is a 60-year-old female presenting for evaluation of wound dehiscence and drainage. It was my pleasure to have seen and examined Yessenia Ryan. In our visit today we have had a chance to go over subjective complaints, physical examination findings and treatments including the natural course h istory without intervention and various interventional options. The patients imaging demonstrates fluid collections subfascially which tracks superficially. On physical exam, Yessenia Ryan demonstrates low back pain with dehiscence of the middle portion of her incision and purulent drainage. I have explained to the patient that as their condition progresses it will cause further neurological deficits and eventual paralysis. Based on the patients imaging, physical exam, and the rapid progression and disabling nature of their symptoms, at this time I recommend surgery in the form or a: Incision and drainage was irrigation and debridement lumbar spine. I discussed the risk and benefits of this procedure at length with Yessenia Ryan and her daughter. The patient and her daughter agreed to considered pursuing the procedure abovementioned. Prior to surgery, she should follow up with her PCP (Cardio, ID, IM etc) for clearance. Questions were invited and answered, and the patient wishes to proceed as outlined below. Currently, I am recommendin. Incision and drainage with irrigation debridement lumbar spine 2. Follow up with PCP for surgical clearance 3. Review of surgical risks and benefits as well as an educational packet on the proposed surgical procedure. Risks: All surgical procedures come with inherent risks, including those related to positioning, anesthesia, intraoperative findings, and postoperative complications. It is important to understand that surgery does not come with any guarantee of a successful outcome as complications and adverse events are always possible. The patient was given a handout in office today discussing the surgical procedure and risks associated with the intervention, both of which were discussed with the patient. These risks include but are not limited to the following: * Experiencing same, different or even worse symptoms in back, neck, arms, or legs compared to before surgery. * Requiring further surgery or other forms of treatment presently or at some time in the future at same or other levels of the intended spine surgery. * On an extreme but fortunately relatively rare basis severe complication such as blindness, stroke, heart attack, temporary and/or permanent nerve injury, paralysis, coma, or may occur, sometimes without known explanation. * Surgical complications may include but are not limited to risk of infection, fluid accumulation in the surgical dissection site, including a seroma or hematoma, that requires additional surgery, wound drainage, bleeding , new numbness or weakness, vision changes/loss, spinal fluid leakage, non- healing and/or infected incision, headaches, difficulty or inability to swallow, hoarseness, hemopneumothorax, pneumothorax, impotence, retrograde ejaculation, vaginal dryness; injury to nerves, spinal cord, blood vessels, ly mphatics or other vital organs (i.e., bowel injury, injury to the great vessels); heterotopic bone formation; complications related to the hardware such as screws, rods, cages including misplaced hardware, device failure, instrumentation at the wrong spine level, hardware fracture/breakage, or hardw are loosening; vertebral failure of the spinal column above or below the newly placed hardware; retained surgical instrumentations or devices and the need for further surgery. * Medical risks of the planned spine surgery include but are not limited to generalized Infections to the whole body or local areas outside of the surgical site (sepsis), heart attack, bleeding, anaphylaxis, meningitis, seizure, epilepsy, hearing loss, burn herman, laceration of the head or other areas of the body, bruising, hypersensitivity of the skin, bladder over distension; allergic reaction; shoulder injury related to positioning; fat, blood and air clots to other areas of the body like heart, lungs, brain; failure of internal organs such as lungs, kidneys, liver and excessive bleeding. If blood transfusions are necessary, note that transfusions may cause intolerance reactions such as anaphylaxis or other complex reactions. * Despite best efforts, the results of spine surgery might not heal in terms of bone, soft tissues such as skin, fascia, ligaments, and joints. Additionally, in order to achieve best possible results, spine surgery may be carried out beyond the initially planned levels and involve decompression, fusion including insertion of hardware at levels other than the original intended area of surgical interest change some portions of the procedure in order to ensure the best possible outcomes. * With spine surgery and spinal fusion, there are different off label uses of instrumentation (devices, implants and hardware) as well as biological substances (bone morphogenic proteins, demineralized bone matrix) as well as using extra bone from allograft sources (i.e. cadaver bone) or autograft (iliac crest bone, ribs, or the spine itself). The patient has been given information about these practices and their inherent risks and benefits. * [facility] is an educational center that serves as a training facility for neurosurgical and orthopedic spine residents and fellows. Residents are physicians who are completing their surgical intensive training following medical school. They assist in the operating room with direct supervision of the attending surgeons. Smiley are surgeons who have completed their training and eligible for board certification. They have opted for an elective year of more specialized training in their field. They assist in the operating room under the supervision of the attending surgeons. Physician assistants are medically trained surgical providers who function in the outpatient, inpatient, and operating room setting under the direct supervision of the attending surgeon. * [facility] has multiple operating rooms with single and overlapping rooms running daily. They currently function under the required guidelines as produced by the [facility] Finance Committee with regards to the overlapping rooms and will continue to comply with changes to this policy as they occur. The requirements include and are complied with as follows: (1) the critical portions of the overlapping rooms will not occur at the same time, (2) the attending physician will be physically present during the critical portions of the procedure and immediately available during the entire case, and (3) a back-up attending is designated should the primary attending not be immediately available. The patient has had a chance to review all the listed information, has been given print outs detailing this information, and has had all his/her questions answered to their satisfaction. It was my pleasure to have seen and examined Yessenia Ryan. In our visit today we have had a chance to go over my understanding of our patient's current condition, the natural course history without intervention and various interventional options. Questions were invited and answered, and the patient wishes to proceed as outlined above. I have seen and examined the patient for 25 minutes and we have spent more than 50% of the time in repeat and detailed counseling about the patient's condition, its natural course history with out and as much as can be predicted with surgery and re-review of various surgical treatment options. In conclusion, Yessenia Ryan and her daughter requested we proceed with the above suggested surgery and are willing to accept risks and limitations of the sug gested surgery as nature of the disease process and our best attempts at treatment for the condition. Thank you again for allowing us to be part of your patient's care. Please don't hesitate to contact me if you have any further questions. Signed and authenticated by: Mendel S[facility] [address] [facility], [address] [address]
[2021-02-08] MEDS: CEFEPIME 2 GM in SODIUM CHLORIDE 0.9% 100 ML IVPB SCH ×3 (08:41→23:47)
--- NOTE | 2021-02-08 10:40 | P.PN ---
Subjective Progress Note Date: 02/08/21 Patient was seen and evaluated by me today. She reports that her pain is well controlled as long as he is not moving. Pain gets worse with movement. She denies any palpitation or chest pain. She was noted to have episodes of nonsustained V. tach on residential monitor. Electrolytes within normal range. Patient denies having any cardiac history. Objective - Vital Signs Vital signs: Vital Signs Temp 98.8 F 02/07/21 20:00 Pulse 93 02/07/21 20:00 Resp 18 02/07/21 20:00 BP 122/57 02/07/21 20:00 Pulse Ox 93 L 02/07/21 20:00 Intake & Output 02/07/21 02/08/21 02/08/21 18:59 06:59 18:59 Intake Total 750 Output Total 2700 1600 400 Balance -2700 -850 -400 Intake: Intake, IV Titration 750 Amount Cefepime 2 gm In Sodium 100 Chloride 0.9% 100 ml @ 25 mls/hr IVPB Q8HR DEV Rx# :[id number] Dextrose 5% in Water 1, 400 000 ml @ 40 mls/hr IV . Q24H DEV Rx#:[id number] Vancomycin 1,500 mg In 250 Sodium Chloride 0.9% 250 ml @ 125 mls/hr IVPB Q12H DEV Rx#:[id number] Output: Urine 2700 1600 400 Other: Voiding Method Indwelling Catheter Indwelling Catheter - Exam General: The patient is awake and alert, in no distress Eye: there is normal conjunctiva bilaterally. Neck: The neck is supple, there is no JVD. Cardiovascular: Normal S1-S2, no S3-S4, no murmurs. Respiratory: Lungs clear to auscultation bilaterally Gastrointestinal: Abdomen is soft, nontender Musculoskeletal: There is no pedal edema. Neurological:. Speech is normal. Skin: Skin is warm and dry - Labs CBC & Chem 7: 02/07/21 06:32 02/08/21 03:40 Labs: Abnormal Lab Results - Last 24 Hours (Table) 02/07/21 02/07/21 02/08/21 Range/Units 12:11 17:54 03:40 Sodium 130 L 129 L 130 L (137-145) mmol/L Chloride 93 L 94 L 95 L (98-107) mmol/L Carbon Dioxide 33 H (22-30) mmol/L Glucose 125 H (74-99) mg/dL Phosphorus 2.4 L (2.5-4.5) mg/dL Microbiology - Last 24 Hours (Table) 02/06/21 16:01 Blood Culture - Preliminary Blood No Growth after 24 hours 02/06/21 14:00 Gram Stain - Preliminary Back Wound Culture - Preliminary Gram Neg Bacilli Assessment and Plan Assessment: back pain Antoni is a 60 yo female with a recent L 4/5 and L5/S1 Laminectomy with fusion and intradiscal osteotomy on 01/05/21 with prior deep vein thrombocytosis, GERD, adn HTN who was transferred from [facility] for back and wound dehisence. She was started on cefepime and Vanco. Found to have post-op infection. Hyponatremia likely secondary to SIADH - worsening with normal saline - D/W Nephrology: Samsca X 1 - Serial sodium levels - KVO IV Episode of nonsustained V. tach noted on telemetry monitoring -Cardiology consulted for further evaluation -Echocardiogram ordered -Electrolytes within normal range Postop wound infection with sepsis status post lumbar laminectomy with fusion 01/05/21 -Case discussed with Dr. Thapa, Dr. Espinoza, and Dr. Gipson -Continue with Vanco, cefeazolin -ID recs: ancipate that patient will need PICC line: services not avaiable over the weekend -Pain control -Nothing by mouth after midnight GERD - PPI Hypertension - hold HCTZ - Lisinopril - follow BP Anemia - post op from January - follow CBC - stable Thank you for allowing us to participate in the care of this pleasant patient. Do not hesitate to contact us with questions. Someone can be reached from the [facility] hospitalist group all hours of the day at [phone] or via [employer].
[2021-02-08 11:23] LABS: Potassium 4.1 mmol/L (3.5-5.1)
--- NOTE | 2021-02-08 12:00 | ECHOF ---
Referral Reason:LV function MEASUREMENTS -------- HEIGHT: 154.9 cm WEIGHT: 84.8 kg BP: 122/57 RVIDd: 3.2 cm (< 3.3) IVSd: 1.1 cm (0.6 - 1.1) LVIDd: 3.6 cm (3.9 - 5.3) LVPWd: 1.3 cm (0.6 - 1.1) IVSs: 1.7 cm LVIDs: 2.5 cm LVPWs: 1.7 cm Ao Diam: 2.9 cm (2.0 - 3.7) AV Cusp: 1.6 cm (1.5 - 2.6) LA Diam: 3.1 cm (2.7 - 3.8) MV EXCURSION: 21.518 mm (> 18.000) MV EF SLOPE: 43 mm/s (70 - 150) EPSS: 0.4 cm MV E Ramesh: 0.76 m/s MV DecT: 125 ms MV A Ramesh: 1.02 m/s MV E/A Ratio: 0.74 AV maxP.47 mmHg AV meanP.47 mmHg AR PHT: 810 ms RAP: 5.00 mmHg RVSP: 31.48 mmHg FINDINGS -------- This was a technically good study. The left ventricular size is normal. There is mild concentric left ventricular hypertrophy. Overa ll left ventricular systolic function is normal with, an EF between 55 - 60 %. The right ventricle is normal in size. The left atrial size is normal. The right atrial size is normal. Interatrial and interventricular septum intact. Aortic valve is trileaflet and is mildly thickened. There is mild aortic valve sclerosis. There i s mild aortic regurgitation. Peak/mean gradient across the Aortic Valve is 22.47mmHg / 13.47mmHg. The mitral valve is normal. The mitral valve leaflets are mildly thickened. There is trace mitral regurgitation. The tricuspid valve appears structurally normal. Mild tricuspid regurgitation present. Right vent ricular systolic pressure is normal at < 35 mmHg. Trace/mild (physiologic) pulmonic regurgitation. The aortic root size is normal. Normal inferior vena cava with normal inspiratory collapse consistent with estimated right atrial pre ssure of 5 mmHg. There is a small, generalized pericardial effusion present. CONCLUSIONS -------- 1. The left ventricular size is normal. 2. There is mild concentric left ventricular hypertrophy. 3. Overall left ventricular systolic function is normal with, an EF between 55 - 60 %. 4. Aortic valve is trileaflet and is mildly thickened. 5. There is mild aortic valve sclerosis. 6. There is mild aortic regurgitation. 7. Peak/mean gradient across the Aortic Valve is 22.47mmHg / 13.47mmHg. 8. The mitral valve leaflets are mildly thickened. 9. There is trace mitral regurgitation. 10. Mild tricuspid regurgitation present. 11. Trace/mild (physiologic) pulmonic regurgitation. 12. There is a small, generalized pericardial effusion present. FOOTWEAR SALES LEADER: Yudi Berry RDCS
[2021-02-08] MEDS ORDERED: IV FLUID CONTINUATION 550 ML IV ONE (12:10)
[2021-02-08] MEDS ORDERED: LACTATED RINGERS 1,000 ML IV ONE ×2 (12:15→14:59)
[2021-02-08] MEDS ORDERED: DEXTROSE 5% IN WATER 100 ML with AMIODARONE 150 MG IV ONE (12:20)
--- NOTE | 2021-02-08 12:28 | P.CRDCN ---
History of Present Illness History of present illness: HISTORY OF PRESENTING ILLNESS This is a pleasant 60-year-old -[place] female past medical history significant for deep vein thrombosis, hypertension, recent L4/5 and L5/S1 laminectomy with fusion and intradiscal osteotomy on 01/05/21, GERD. 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 We have been asked to see in consultation for non- sustained ventricular tachyardia. Patient was transferred from [facility]. She presented emergency department with a complaint of lumbar back pain. After her surgery on 01/05/21 she was having worsening back pain, chills and difficulty with standing and walking. Patient has a bedside commode and daughter reports has been difficult to even get her out of bed to use the commode. She denies loss of bowel or bladder control, saddle paresthesia or falls since his surgery. Patient has now had fever/chills and headaches at home. Daughter reports chest pains along her surgical incision has increased fluid discharge. Patient was [facility]. She denies chest pain, palpitations, shortness of breath, lower extremity edema, fatigue, weakness, lightheadedness, syncope. She sleeps with 1 pillow. She denie s symptoms of orthopnea or PND. Denies history of PA, Stroke, coronary artery disease, diabetes, irregular heart rhythm. She states years ago she underwent stress test and echocardiogram and was told those were normal. She states she also gets annual EKGs and has been told those are normal. She is a non-smoker, denies alcohol use. Current home cardiac medications include lisinopril 20 mg nightly, hydrochlorothiazide 12.5 mg daily. On admission sodium 127, potassium 4.2, serum creatinine 0.56, BUN 11, WBC 17.1, hemoglobin 10.1, platelets 399. Patient was given IV Lopressor 2.5mg x 2. DIAGNOSTICS EKG reveals sinus tachycardia HR 142 with occasional PVCs, left axis deviation. No prior EKG to compare Telemetry tracings indicate sinus mechanism with occasional PVCs and runs of NSVT Laboratory reviewed today, sodium 130, potassium 3.9, serum creatinine 0.52, BUN 9, WBC 17, hemoglobin 9.7, platelets 79, TSH within normal limits REVIEW OF SYSTEMS At the time of my exam: CONSTITUTIONAL: + fever +chills. CARDIOVASCULAR: Denies chest pain, shortness of breath, orthopnea, PND or palpitations. RESPIRATORY: Denies cough. GASTROINTESTINAL: Denies abdominal pain, diarrhea, constipation, nausea or vomiting. MUSCULOSKELETAL: +Back pain Denies myalgias. NEUROLOGIC: +headaches Denies numbness, tingling, or weakness. ENDOCRINE: Denies fatigue, weight change, polydipsia or polyurina. GENITOURINARY: Denies burning, hematuria or urgency with micturation. HEMATOLOGIC: Denies history of anemia or bleeding. PHYSICAL EXAMINATION Blood pressure 122/57 heart rate 93 afebrile, overnight febrile Tmax 101.1F and maintaining oxygen saturation 93-98% on room air CONSTITUTIONAL: No apparent distress. Lying flat in bed, no acute distress HEENT: Head is normocephalic. Pupils are equal, round. Sclerae anicteric. Mucous membranes of the mouth are moist. No JVD. No carotid bruit. CHEST EXAMINATION: Lungs are clear to auscultation. No chest wall tenderness is noted on palpation or with deep breathing. HEART EXAMINATION: Regular, tachycardic rate and rhythm. S1, S2 heard. systolic murmur noted No gallops or rub. ABDOMEN: Soft, nontender. Positive bowel sounds. EXTREMITIES: 2+ peripheral pulses, no lower extremity edema and no calf tenderness. SKIN: Back with wound dehiscence NEUROLOGIC EXAMINATION: Patient is awake, alert and oriented x3. ASSESSMENT NSVT, on telemetry appears to be ventricular tachycardia with abberrancy Postop wound infection status post lumbar laminectomy with fusion 01/05/21- patient on Vancomycin and Cefazolin Wound dehiscence Hyponatremia- improving History of Hypertension GERD PLAN Obtain 2D echocardiogram and doppler study to assess cardiac structure and function- EF 55-60%, mild aortic regurgitation with peak/mean gradient 22 mmHg/13 mmHg, trace mitral regurgitation, mild tricuspid regurgitation, small generalized pericardial effusion present Start metoprolol tartrate 12.5mg BID Continue lisinopril 20mg daily Plan for patient to go to the OR today for Incision and drainage with irrigation debridement lumbar spine with Dr. Thapa. Nurse Practitioner note has been reviewed, I agree with a documented findings and plan of care. Patient was seen and examined. Past Medical History Past Medical History: Deep Vein Thrombosis (DVT), GERD/Reflux, Hypertension Additional Past Medical History / Comment(s): "Hx DVT after of son." History of Any Multi-Drug Resistant Organisms: None Reported Past Surgical History: Back Surgery, Section, Hernia Repair, Hysterectomy Additional Past Surgical History / Comment(s): Total left hip replacement with later revision, bone graft. 01/05/21, lumbar spinal fusion/laminectomy/L4-L5 intradiscal osteotomy. Past Anesthesia/Blood Transfusion Reactions: No Reported Reaction Past Psychological History: No Psychological Hx Reported Smoking Status: Never smoker Past Alcohol Use History: None Reported Past Drug Use History: None Reported - Past Family History Mother Family Medical History: No Reported History Medications and Allergies Home Medications Medication Instructions Recorded Confirmed Type Acetaminophen [Tylenol Extra 1,000 mg PO Q4H PRN 01/01/21 02/06/21 History Strength] RX: Omeprazole 20 mg PO BID 01/01/21 02/06/21 History RX: lisinopriL 20 mg PO HS 01/01/21 02/06/21 History hydroCHLOROthiazide [Hydrodiuril] 12.5 mg PO DAILY 01/01/21 02/06/21 History HYDROcodone/APAP 10-325MG [[place] 1 tab PO Q4HR PRN #56 tab 01/10/21 02/06/21 Rx 10-325] RX: Gabapentin 300 mg PO TID #90 cap 01/10/21 02/06/21 Rx Cyclobenzaprine [Flexeril] 10 mg PO BID PRN 02/06/21 02/06/21 History Ibuprofen [Motrin] 600 mg PO Q8HR PRN 02/06/21 02/06/21 History Lidocaine 5% Patch [Lidoderm] 1 patch TOPICAL DAILY 02/06/21 02/06/21 History Sennosides/Docusate Sodium [Senna 1 cap PO BID PRN 02/06/21 02/06/21 History Plus 8.6-50 mg Softgel] diazePAM [Valium] 2 mg PO Q6H PRN 02/06/21 02/06/21 History traMADol HCL [Ultram] 50 mg PO Q6HR PRN 02/06/21 02/06/21 History Allergies Allergy/AdvReac Type Severity Reaction Status Date / Time No Known Allergies Allergy Verified 02/06/21 13:05 Physical Exam Vitals: Vital Signs Temp Pulse Resp BP Pulse Ox 02/07/21 20:00 98.8 F 93 18 122/57 93 L 02/07/21 18:41 101.1 F H 02/07/21 18:32 100.9 F H 02/07/21 17:57 103 H 121/70 02/07/21 17:49 116 H 122/67 02/07/21 17:47 121/63 02/07/21 17:45 123/60 02/07/21 17:40 141 H 115/65 02/07/21 16:00 100.5 F H 132 H 18 133/73 94 L 02/07/21 14:00 99.6 F 73 20 146/88 93 L Intake and Output 02/07/21 02/08/21 02/08/21 22:59 06:59 14:59 Intake Total 750 Output Total 2200 1000 Balance -2200 -250 Intake: Intake, IV Titration 750 Amount Cefepime 2 gm In Sodium 100 Chloride 0.9% 100 ml @ 25 mls/hr IVPB Q8HR [facility] Rx# :[id number] Dextrose 5% in Water 1, 400 000 ml @ 40 mls/hr IV . Q24H [facility] Rx#:[id number] Vancomycin 1,500 mg In 250 Sodium Chloride 0.9% 250 ml @ 125 mls/hr IVPB Q12H [facility] Rx#:[id number] Output: Urine 2200 1000 Other: Voiding Method Indwelling Catheter Results 02/07/21 06:32 02/08/21 09:54 Comprehensive Metabolic Panel 02/07/21 02/07/21 02/08/21 Range/Units 12:11 17:54 03:40 Sodium 130 L 129 L 130 L (137-145) mmol/L Potassium 3.9 3.7 3.9 (3.5-5.1) mmol/L Chloride 93 L 94 L 95 L (98-107) mmol/L Carbon Dioxide 33 H 28 29 (22-30) mmol/L BUN 9 (7-17) mg/dL Creatinine 0.52 (0.52-1.04) mg/dL Glucose 125 H (74-99) mg/dL Calcium 8.6 (8.4-10.2) mg/dL Current Medications Generic Name Dose Route Start Last Admin Trade Name Freq PRN Reason Stop Dose Admin Acetaminophen 650 mg 02/06/21 14:42 02/08/21 02:17 Acetaminophen Tab 325 Mg Tab PO 650 mg Q6HR PRN Administration Mild Pain or Fever > 100.5 Bisacodyl 5 mg 02/06/21 14:48 Bisacodyl 5 Mg Tablet.Dr PO DAILY PRN Constipation Cyclobenzaprine HCl 10 mg 02/06/21 13:45 02/07/21 12:50 Cyclobenzaprine 10 Mg Tab PO 10 mg TID PRN Administration Muscle Spasm Diazepam 2 mg 02/06/21 14:47 Diazepam 2 Mg Tab PO Q6H PRN Anxiety Docusate Sodium 100 mg 02/06/21 21:00 02/07/21 20:36 Docusate 100 Mg Cap PO 100 mg BID DEV Administration Gabapentin 300 mg 02/06/21 16:00 02/07/21 20:36 Gabapentin 300 Mg Cap PO 300 mg TID DEV Administration Hydromorphone HCl 1 mg 02/06/21 14:42 02/08/21 08:39 Hydromorphone 1 Mg/Ml 1 Ml Syringe IVP 1 mg Q3HR PRN Administration Severe Pain Vancomycin HCl 1,500 mg/ 250 mls @ 125 mls/hr 02/07/21 03:00 02/08/21 02:19 Sodium Chloride IVPB 125 mls/hr Q12H DEV Administration Sodium Chloride 1,000 mls @ 20 mls/hr 02/06/21 14:45 02/07/21 17:09 Saline 0.9% IV Not Given .Q24H DEV Cefepime HCl 2 gm/ Sodium 100 mls @ 25 mls/hr 02/07/21 00:00 02/08/21 08:41 Chloride IVPB 25 mls/hr Q8HR DEV Administration Dextrose/Water 1,000 mls @ 40 mls/hr 02/07/21 20:15 02/07/21 20:00 Dextrose 5%-Water Iv Soln IV 40 mls/hr .Q24H DEV Administration Lisinopril 20 mg 02/06/21 21:00 02/07/21 20:37 Lisinopril 20 Mg Tab PO 20 mg HS DEV Administration Lorazepam 0.5 mg 02/06/21 14:42 Lorazepam 2 Mg/Ml Inj IV Q6HR PRN Anxiety Melatonin 3 mg 02/06/21 14:42 Melatonin 3 Mg Tablet PO HS PRN Insomnia Miscellaneous Information 0 each 02/08/21 14:00 Vancomycin Trough Due 1 Each Misc MISCELLANE 02/08/21 14:01 DIRECTED ONE Naloxone HCl 0.2 mg 02/06/21 14:41 Naloxone 0.4 Mg/Ml 1 Ml Vial IV Q2M PRN Opioid Reversal Ondansetron HCl 4 mg 02/06/21 13:45 02/06/21 21:39 Ondansetron 4 Mg/2 Ml Vial IVP 4 mg Q6HR PRN Administration Nausea And Vomiting Pantoprazole Sodium 40 mg 02/07/21 07:30 02/08/21 06:14 Pantoprazole 40 Mg Tablet PO Not Given -BRKT [facility] Tramadol HCl 50 mg 02/06/21 13:11 02/07/21 20:36 Tramadol 50 Mg Tab PO 50 mg Q4HR PRN Administration Pain Intake and Output 02/07/21 02/08/21 02/08/21 22:59 06:59 14:59 Intake Total 750 Output Total 2200 1000 Balance -2200 -250 Intake: Intake, IV Titration 750 Amount Cefepime 2 gm In Sodium 100 Chloride 0.9% 100 ml @ 25 mls/hr IVPB Q8HR [facility] Rx# :[id number] Dextrose 5% in Water 1, 400 000 ml @ 40 mls/hr IV . Q24H [facility] Rx#:[id number] Vancomycin 1,500 mg In 250 Sodium Chloride 0.9% 250 ml @ 125 mls/hr IVPB Q12H [facility] Rx#:[id number] Output: Urine 2200 1000 Other: Voiding Method Indwelling Catheter 02/07/21 06:32 02/08/21 03:40
[2021-02-08] MEDS ORDERED: AMIODARONE 360 MG in DEXTROSE 5% IN WATER 200 ML IV ONE ×2 (12:30)
[2021-02-08] MEDS ORDERED: SCOPOLAMINE 1.5MG/72HR PATCH TRANSDERM ONE (12:33)
[2021-02-08] MEDS ORDERED: ONDANSETRON 4 MG/2 ML VIAL IVP ONE (12:33)
[2021-02-08] MEDS ORDERED: PHENYLEPHRINE-0.9% NACL SYG 1,000 MCG/10 ML SYRINGE ONE (12:38)
[2021-02-08] MEDS ORDERED: MIDAZOLAM 2 MG/2 ML VIAL ONE (12:38)
[2021-02-08] MEDS ORDERED: ePHEDrine SULFATE/0.9% NACL/PF 50 MG/5 ML SYRINGE IV ONE (12:38)
[2021-02-08] MEDS ORDERED: PROPOFOL 10 MG/ML 20 ML VIAL IV ONE (12:38)
[2021-02-08] MEDS ORDERED: NEOSTIGMINE 1 MG/ML 10 ML VIAL ONE (12:38)
[2021-02-08] MEDS ORDERED: GLYCOPYRROLATE 0.2 MG/ML 2 ML VIAL ONE (12:38)
[2021-02-08] MEDS ORDERED: SUCCINYLCHOLINE CHLORIDE 100 MG/5 ML SYR IV ONE (12:38)
[2021-02-08] MEDS ORDERED: ACETAMINOPHEN IV (For NPO) 1,000 MG/100 ML VIAL ONE (12:38)
[2021-02-08] MEDS ORDERED: ROCURONIUM 10 MG/ML (5 ML VIAL) IV ONE (12:38)
[2021-02-08] MEDS ORDERED: HYDROmorphone (PF) 1 MG/ML ONE (12:38)
[2021-02-08] MEDS ORDERED: LIDOCAINE 1% INJ 10MG/ML (20 ML MDV) ONE (12:38)
[2021-02-08] MEDS ORDERED: fentaNYL (PF) 50 MCG/ML 2 ML AMP ONE (12:38)
[2021-02-08] MEDS ORDERED: GENTAMICIN PER PHARMACY MISCELLANE SCH (12:45)
[2021-02-08] MEDS ORDERED: GENTAMICIN 440 MG in SODIUM CHLORIDE 0.9% 100 ML IVPB SCH (13:00)
[2021-02-08] MEDS ORDERED: GENTAMICIN 90 MG in SODIUM CHLORIDE 0.9% 100 ML IVPB ONE (13:20)
[2021-02-08] MEDS ORDERED: VANCOMYCIN 1,000 MG VIAL MISCELLANE ONE ×2 (13:34)
[2021-02-08] MEDS ORDERED: ceFAZolin 3,000 MG in SODIUM CHLORIDE 0.9% IRRIGATIO 3,000 ML IRRIGATION ONE ×3 (13:36→14:27)
[2021-02-08] MEDS ORDERED: VANCOMYCIN TROUGH DUE 1 EACH MISC MISCELLANE ONE (14:00)
--- NOTE | 2021-02-08 14:16 | PN ---
PROGRESS NOTE DATE OF SERVICE: 02/08/2021. REASON FOR FOLLOWUP: Lumbar surgical site infection. INTERVAL HISTORY: Patient did spike a fever last night of 101.1 Patient is afebrile this morning. The patient's pain to the lumbar area is currently controlled. Waiting for surgery. No chest pain, shortness of breath or cough. No abdominal pain or diarrhea. PHYSICAL EXAMINATION: Blood pressure 122/67. Pulse 93. Temperature 98.8. She is 93% on room air. General description is a middle-aged male lying in bed in no distress. Respiratory system: Unlabored breathing, clear to auscultation anteriorly. HEART: S1, S2 regular rate and rhythm. Abdomen: Soft, no tenderness. LABORATORY DATA: BUN 9, creatinine 0.52. Wound culture with Gram-negative bacilli. Blood culture negative. DIAGNOSTIC IMPRESSION AND PLAN: Patient with lumbar surgical site infection waiting for washout and hardware placement this afternoon. The patient is covered with cefepime and Vanco, will be adjusted waiting for the culture to finalize and monitor clinical course closely. MMODL / IJN: [id number] /
[2021-02-08] MEDS ORDERED: TOBRAMYCIN SULFATE 1.2 GM VIAL IRRIGATION ONE (14:39)
--- NOTE | 2021-02-08 14:41 | PN ---
PROGRESS NOTE The patient is seen for followup for hyponatremia which appears to be hypovolemic and improved with IV saline administration. Her sodium is up to 132 and it was 125 on initial admission. EXAMINATION: Today, patient is comfortable. She denies any significant complaints. Blood pressure was 135/62, heart rate 100 per minute. She is afebrile. Examination of the heart, S1, S2. Examination of the lungs, bilateral breath sounds are heard. Abdomen is soft, nontender. Examination of lower extremities shows no evidence of edema. PSYCH THERAPIST exam grossly intact. LAB: Show sodium 132, potassium 4.1, chloride 97. ASSESSMENT: 1. Hypovolemic hyponatremia currently improved. Patient is encouraged to maintain adequate oral intake particularly protein. 2. Epidural abscess, status post recent surgery on 01/05/2021, admitted with fever and wound dehiscence. 3. History of deep vein thrombosis. PLAN: Maintain off IV fluids for now. The patient did get a dose of [place] yesterday. Her sodium is at 132 which is okay for now and another sodium level will be ordered for later on and we may need to start D5W if the sodium is rapidly rising. I do not see a urine osmolality from this admission. However, now it might be too late as the sodium is already up to 132. Plan to repeat sodium this evening. MMODL / IJN: [id number] /
[2021-02-08] MEDS ORDERED: SODIUM CHLORIDE 0.9% 1,000 ML IV ONE (16:48)
[2021-02-08] MEDS ORDERED: HYDROmorphone 0.5 MG/0.5 ML SYRINGE IVP ONE (16:53)
--- NOTE | 2021-02-08 17:26 | P.OP ---
Date of Procedure: 02/08/21 Preoperative Diagnosis: 1. Post operative wound dehiscence 2. Post operative infection deept 3. Obesity BMI 35 4. s/p L4-S1 decompression and fusion 5. Complex medical patient Postoperative Diagnosis: 1. Post operative wound dehiscence 2. Post operative infection deept 3. Obesity BMI 35 4. s/p L4-S1 decompression and fusion 5. Complex medical patient Procedure(s) Performed: 1. Incision and drainage lumbar spine -Skin knife used to incise skin 2. Irrigation and debridment lumbar spine skin, soft tissues and bone using the following -Skin knife used to remove necrotic and devitalized skin and fat -Curette was used to remove necrotic fat and scrape bone and around thecal sac -Rongure used to remove necrotic fat and bone graft and bone -Kerrison rongure used to remove bone -15 L antibiotic irrigation through pulse lavage -Irricept Irrigation -Diluted Betadine solution 1 L irrigation -3 L NSS final wash 3. Exporation of fusion L4-S1 4. Removal of hardware L4-S1 set screws and rods 5. Reinstrumentation L4-S1 with placement of new rods and set screws 6. Posteriolateral fusion with replacement of new bone graft L4-S1 7. Antibiotic bead placement Deep to facia and in posteriolateral gutters 8. Complex closure lumbar spine measuring 38 cm x 20 cm x 20 cm Implants: Stimulan Beads [place] x2 70 mm 6.0 mm rods 6 set screws replaced 1 cross link replaced Bio4 [employer] boats Anesthesia: GETA Surgeon: Mendel Thapa (Joselyn Cochran, FA was present for the entire case and necessary due to the complexity of the case) Environmental Department Manager #1: Mick Mahajan (Was present for the closure of the case) Estimated Blood Loss (ml): 250 IV fluids (ml): 2,500 Urine output (ml): 450 Pathology: other Condition: stable Disposition: PACU Indications for Procedure: 60 yo female presented to [facility] with c/o wound drainage. She was seen 2 weeks post op and was doing well and the stitches were removed at this time. She had been doing well after this until 2 more weeks later when she noticed increased pain in her back as well as drainage. She was admitted to the hospital there and promptly transferred to [facility] for continuity of care. While here she was seen by medicine, ID, Nephrology and admitted to the orthopedic spine service. She was also seen by cardiology. CT and MRI were obtained to visualize and diagnose her infection which tracked deep to the facia and needed debridement. When she arrived she did have a low sodium and was fluid challenged, she did not respond well to this and due to the risk of surgery with her low sodium the original plan for debridment was postponed. She then recovered in this regard, but was monitored overnight and found to have not insignificant runs of vtach. Cardiology promptly saw her and she underwent echo. This did not warrant any acute cardio intervention and she was cleared by all of the treatment team for I&D today. We were in contact with her, her son and her daughter. She was s/e today in preop as well and her son was present with his girlfriend. We spoke with them as well as her daughter Jasmin over the phone and they were all on board with surgery and what needed to be done. All their questions were answered and risks discussed again which are outlined in the risk review. Operative Findings: Purulent drainage from mid portion of wound with 2 cm region of dehiscence. Facial dehiscence noted superiorly with tracking purulence deep. Hardware in tact, not loose or broken. Purulence noted over the bone graft which was removed. No purulence noted deep around cages or disc spaces. No epidural purulence noted. Dura intact. Description of Procedure: The patient was seen and examined in the preoperative area. All preoperative protocols were followed. Informed consent was obtained risks and benefits of the procedure were discussed at length. Risks including bleeding infection damage to the surrounding tissue and risk of reoperation were discussed with the patient. Risk of anesthesia up to and including was a discussed with the patient. These are outlined in the risk review. They were willing to accept these risks and all of the risks of surgery. The patient was given a weight- based dose of antibiotics in the form of weight-based doses of vancomycin and gentamicin were given to the patient preoperatively. The patient was seen and evaluated by the anesthesia team who deemed them fit for surgery. The site was marked, the patient was willing to proceed with the procedure. The patient was transferred to the operative suite by the Department of anesthesia. They were then drifted off to sleep by the department anesthesia GETA. The patient tolerated this well. She had an indwelling catheter already which was remained in place. Once confirmation of lines and ventilation the patient was transferred to a [prone Sandeep table very carefully]. All bony prominences including wrists, elbows, axilla, chest, hips, and thighs, and feet were padded very well. Special attention was paid to the genitalia and these were padded accordingly. SCDs were placed on bilateral lower extremities and were connected. Arms were well padded and placed [on arm boards up and out in the 90/90 position]. Once in position, again we confirmed good ventilation capabilities and that lines were running appropriately. The patient's lumbar spine was then exposed. 1010s were placed outlining the incision site. Standard alcohol was used to clean the incision site and allowed to dry. C-arm was used to biomark the patient and confirm level for incision which was marked with a skin marker. Operative briefing was performed with all teams and everyone in agreement to proceed. The patient was then prepped and draped in a normal sterile fashion. Timeout was then performed and all parties were in agreement with the procedure to be performed. Skin knife was then used to make skin incision over the previously by marked area and over the previous incision this was then taken down through the subcutaneous tissue where there was necrotic fat and purulence noted superficial cultures were taken along with tissue samples to be sent to the lab and pathology. We then trialed down to her fascial layer which was intact distally of approximately had become dehisced and there was tracking purulence in this area we then removed all the sutures from the fascial layer in this area using a stat as well as a knife. Knife was used to remove subcutaneous necrotic fat as well as necrotic fascial. We then bluntly dissected the fascia away and deep until the hardware was visible exposed electrocautery dissection was used to subcu lead to subperiosteally dissect from the bottom of L3 to the sacrum. We then proceeded to debride the area extremely thoroughly removing necrotic bone fat soft tissue we removed the entirety of the previous bone graft that had been placed the posterior lateral gutters there was some that had started to incorporate already in this area and incorporated quite well but any loose bone graft that was able to be removed was removed this is done with a curet A Awais leoncio and a Mcgowan elevator. We thoroughly debrided the thecal sac the edges of the thecal sac and the lamina as well as the facet joints bilaterally from L4 to S1 we explored the fusion and this area again there was some fusion process happening posterior lateral however the majority of the graft had not incorporated quite yet and so the loose graft was removed entirely. We scraped the bone in this area from L3 to S1 the inspection took us to the cages which were inspected and there was no evidence of purulence tracking down this area and the cages all remained stable. We were able to decompress or continue to decompress the nerves in this area via removal of purulent material necrotic tissue and graft material once we accomplished this we started the irrigation process and 3 L of irrigation with antibiotic solution was placed into the wound using a Pulsavac we first started on the left-hand side irrigating out the posterior lateral gutter the hardware the bone scan and then soft tissue in the area once this was accomplished and then turned our attention to the right side where the posterior lateral gutter bone soft tissue hardware skin was then irrigated and debrided as well using a curet and the antibiotic irrigation a second bag of 3 L irrigation was then run through the wound with the Pulsavac as well and this process was repeated once this was repeated we went back to con tinually debriding using a Ronjair and curet the bone as well as the soft tissue in the muscle in the area. Any necrotic or devitalized tissue was removed in this fashion. It was elected at this point due to the setscrews having some scar tissue artery built up and down to remove the set screws on the right-hand side and the rohit the set screws and the rohit on the right-hand side were then removed and 3 L of antibiotic irrigation were run through the area of the tulips were cleaned as well and the area thoroughly debrided with an replace the rohit a new rohit on the right-hand side with new sets crews which were placed after the rohit was bent appropriately. We then final tightened these into position. We then repeated this on the left-hand side first removing the set screws and then the rohit and then thoroughly irrigating the area with 3 L of antibiotic solution debriding out and cleaning out the tulip heads all screws were in good position and were stable and a new rohit with new setscrews was bent and then placed and final tightened. Before this we had removed the cross-link in the area and so a new cross-link was selected and this was then placed atraumatically. We then ran another 3 L of antibiotic solution through the area. We then ran Irricept to the area followed by a liter of normal sterile saline followed by a liter of Betadine irrigation followed by a liter of normal sterile saline. Once the wound was thoroughly debrided and irrigated deep we were able to place a mixture of the CVS as well as bio 4 mixed with antibiotic beads of the posterior lateral gutters bilaterally we also placed antibiotic beads within the posterior lateral gutter and in the posterior deep compartments. New Surgicel was placed over the dura to protect it before this was placed. We then took 1 more look around for any more tissue to debride and it was thoroughly debrided. A Hemovac drain was then placed deep to the fascia. A new cross-link was placed and final tightened into place. AP and lateral fluoroscopy confirmed that the hardware is in good position still in that there was no loss of reduction. We then turned our attention to a complex closure starting with closure of the fascial layer 0 PDS sutures in a [id number] fashion were the used to create a watertight closure of the fascia followed by a running unidirectional strata fix suture. This ensured a watertight closure at the drain was connected and confirmed a watertight seal we then continued with irrigation of the superficial layers with the Pulsavac 3 more liters of antibiotic and sterile irrigation. We used a curet as well as a skin knife to remove any necrotic fat or skin in this area. We then freshened the skin edges using the 15 blade. We then placed vancomycin powder within this layer and then performed a layered closure using 0 PDS first in Camper's and Jaky's fascia followed by the subcu region. We then ran a barbed unidirectional strata fix in the subcu region to allow for again a layered and watertight closure. This allowed the edges to approximate in Flavio the skin appropriately we then closed the skin using a 2-0 nylon in a running fashion. The wound edges approximated very well we then clean the wound with sterile saline and alcohol and dried it and Aquasol dressing was placed the drain was stitched in place with 0 PDS and covered with a Tegaderm. The patient was transferred back to her hospital bed atraumatically. Drain continued to hold suction and were in good position. Patient was then awakened and extubated by the department of anesthesia having tolerated the procedure very well with no complications. She was transferred to the postoperative care unit in stable condition. This case took 100% longer than expected and was more complicated than expected due to the patient's high BMI 35 as well as cardiovascular comorbidities and renal comorbidities (22 mod)
--- NOTE | 2021-02-08 17:27 | P.PN ---
Progress Note - Text Progress Note Date: 02/08/21 Pt s/e in PACU doing OK moving all 4 ext. Slightly hypotensive and tachy. Ordered fluids and 1 uPRBC due to low hgb pre op, blood loss intraop and vital signs.
[2021-02-08] MEDS ORDERED: AMIODARONE 450 MG in DEXTROSE 5% IN WATER 250 ML IV SCH ×2 (18:30)
[2021-02-08] MEDS: DOCUSATE 100 MG CAP PO SCH ×2 (18:41→20:04)
[2021-02-08] MEDS: GABAPENTIN 300 MG CAP PO SCH ×2 (18:41→20:04)
[2021-02-08] MEDS: SODIUM CHLORIDE 0.9% 1,000 ML IV SCH (19:01)
[2021-02-08] MEDS: HYDROcodone/APAP 10-325MG 1 EACH TAB PO PRN (20:03)
[2021-02-08] MEDS: CYCLOBENZAPRINE 10 MG TAB PO PRN (20:03)
[2021-02-08] MEDS: METOPROLOL TARTRATE 12.5 MG TAB PO SCH (20:03)
[2021-02-08] MEDS: lisinopriL 20 MG TAB PO SCH (20:04)
[2021-02-09] MEDS ORDERED: VANCOMYCIN TROUGH DUE 1 EACH MISC MISCELLANE ONE ×2 (02:00)
[2021-02-09] MEDS: HYDROmorphone 1 MG/ML 1 ML SYRINGE IVP PRN ×4 (02:17→19:52)
[2021-02-09] MEDS: diazePAM 2 MG TAB PO PRN ×2 (02:17→15:12)
[2021-02-09] MEDS: ACETAMINOPHEN TAB 325 MG TAB PO PRN (02:17)
[2021-02-09] MEDS: CEFEPIME 2 GM in SODIUM CHLORIDE 0.9% 100 ML IVPB SCH ×3 (06:23→23:06)
[2021-02-09] MEDS: PANTOPRAZOLE 40 MG TABLET PO SCH (06:25)
[2021-02-09] MEDS: CYCLOBENZAPRINE 10 MG TAB PO PRN (07:34)
[2021-02-09] MEDS: METOPROLOL TARTRATE 12.5 MG TAB PO SCH (07:34)
[2021-02-09] MEDS: DOCUSATE 100 MG CAP PO SCH ×2 (07:34→21:10)
[2021-02-09] MEDS: GABAPENTIN 300 MG CAP PO SCH ×3 (07:34→21:09)
--- NOTE | 2021-02-09 08:08 | FL ---
EXAMINATION TYPE: FL guidance operating room DATE OF EXAM: 02/08/2021 HISTORY: Fluoroscopy time 5 seconds of fluoroscopy provided. IMPRESSION: 1. Fluoroscopy time.
[2021-02-09 08:41] LABS: Calcium 8.8 mg/dL (8.4-10.2); Potassium 3.6 mmol/L (3.5-5.1)
[2021-02-09 08:56] LABS: HCT 28.3 % (34.0-46.0); HGB 8.9 gm/dL (11.4-16.0); Hypochromasia Moderate; MCH 24.9 pg (25.0-35.0); MCHC 31.4 g/dL (31.0-37.0); MCV 79.4 fL (80.0-100.0); Mean Platelet Volume 7.7; Platelet Count 396 k/uL (150-450); RBC 3.57 m/uL (3.80-5.40); RDW 15.2 % (11.5-15.5); WBC 24.4 k/uL (3.8-10.6)
[2021-02-09 09:34] LABS: C Reactive Protein 32.3 mg/dL (<1.0)
[2021-02-09 10:15] LABS: Eosinophils # (M) 0.73 k/uL (0-0.7); Lymphocytes # (M) 2.68 k/uL (1.0-4.8); Metamyelocytes # (M) 0.24 k/uL (0); Metamyelocytes % 1 %; Monocytes # (M) 11.22 k/uL (0-1.0); Neutrophils % (M) 41 %; Nucleated Red Blood Cells 0 /100 WBC (0-0); Total Cells Counted 200
[2021-02-09 10:18] LABS: Toxic Vacuolation Present
[2021-02-09] MEDS ORDERED: POTASSIUM CHLORIDE ER 20 MEQ TAB.ER PO STA (10:48)
--- NOTE | 2021-02-09 10:54 | P.PN ---
Subjective Progress Note Date: 02/09/21 Recent was lethargic but easily arousable this morning. She is laying flat in bed. She reported that her pain is well controlled. She did not eat her breakfast as of yet. Nursing staff told me that patient awaiting surgery evaluation to get permission to sit up in bed. No acute events otherwise. Objective - Vital Signs Vital signs: Vital Signs Temp 97.9 F 02/09/21 04:11 Pulse 111 H 02/09/21 02:09 Resp 20 02/09/21 02:09 BP 139/58 02/09/21 02:09 Pulse Ox 92 L 02/09/21 02:09 Intake & Output 02/08/21 02/09/21 02/09/21 18:59 06:59 18:59 Intake Total 3356.75 250 Output Total 1050 775 Balance 2306.75 -525 Weight 84.822 kg Intake: IV 3356.75 Intake, IV Titration 250 Amount Vancomycin 1,500 mg In 250 Sodium Chloride 0.9% 250 ml @ 125 mls/hr IVPB Q12H [facility] Rx#:[id number] Output: Drainage 150 Lower Back 150 Urine 850 625 Estimated Blood Loss 200 Other: Voiding Method Indwelling Catheter Indwelling Catheter - Exam General: The patient is awake and alert, in no distress Eye: there is normal conjunctiva bilaterally. Neck: The neck is supple, there is no JVD. Cardiovascular: Normal S1-S2, no S3-S4, no murmurs. Respiratory: Lungs clear to auscultation bilaterally Gastrointestinal: Abdomen is soft, nontender Musculoskeletal: There is no pedal edema. Neurological:. Speech is normal. Skin: Skin is warm and dry - Labs CBC & Chem 7: 02/09/21 07:22 02/09/21 07:22 Labs: Abnormal Lab Results - Last 24 Hours (Table) 02/08/21 02/08/21 02/08/21 Range/Units 09:54 18:38 21:18 WBC (3.8-10.6) k/uL RBC (3.80-5.40) m/uL Hgb (11.4-16.0) gm/dL Hct (34.0-46.0) % MCV (80.0-100.0) fL MCH (25.0-35.0) pg Neutrophils # (Manual) (1.3-7.7) k/uL Monocytes # (Manual) (0-1.0) k/uL Eosinophils # (Manual) (0-0.7) k/uL Metamyelocytes # (Man) (0) k/uL Sodium 132 L (137-145) mmol/L Chloride 97 L (98-107) mmol/L C-Reactive Protein (<1.0) mg/dL Crossmatch See Detail See Detail 02/09/21 02/09/21 Range/Units 07:22 07:22 WBC 24.4 H (3.8-10.6) k/uL RBC 3.57 L (3.80-5.40) m/uL Hgb 8.9 L (11.4-16.0) gm/dL Hct 28.3 L (34.0-46.0) % MCV 79.4 L (80.0-100.0) fL MCH 24.9 L (25.0-35.0) pg Neutrophils # (Manual) 10.00 H (1.3-7.7) k/uL Monocytes # (Manual) 11.22 H (0-1.0) k/uL Eosinophils # (Manual) 0.73 H (0-0.7) k/uL Metamyelocytes # (Man) 0.24 H (0) k/uL Sodium 133 L (137-145) mmol/L Chloride (98-107) mmol/L C-Reactive Protein 32.3 H (<1.0) mg/dL Crossmatch Microbiology - Last 24 Hours (Table) 02/08/21 13:46 Gram Stain - Preliminary Back Tissue Culture - Preliminary 02/08/21 13:46 Gram Stain - Preliminary Back Wound Culture - Preliminary 02/08/21 13:46 Gram Stain - Preliminary Back Wound Culture - Preliminary 02/08/21 13:46 Gram Stain - Preliminary Back Wound Culture - Preliminary 02/08/21 13:46 Gram Stain - Preliminary Back Wound Culture - Preliminary 02/08/21 13:46 Anaerobic Culture - Preliminary Back 02/08/21 13:46 Anaerobic Culture - Preliminary Back 02/08/21 13:46 Anaerobic Culture - Preliminary Back 02/08/21 13:46 Anaerobic Culture - Preliminary Back 02/06/21 14:00 Anaerobic Culture - Preliminary Back 02/06/21 14:00 Gram Stain - Preliminary Back Wound Culture - Preliminary Escherichia coli 02/06/21 16:01 Blood Culture - Preliminary Blood No Growth after 48 hours Assessment and Plan Assessment: back pain Antoni is a 60 yo female with a recent L 4/5 and L5/S1 Laminectomy with fusion and intradiscal osteotomy on 01/05/21 with prior deep vein thrombocytosis, GERD, adn HTN who was transferred from [facility] for back and wound dehisence. She was started on cefepime and Vanco. Found to have post-op infection. Hyponatremia likely secondary to SIADH - D/W Nephrology: Samsca X 1 - Sodium level improved - KVO IV Episode of nonsustained V. tach noted on telemetry monitoring -Cardiology consulted for further evaluation -Echocardiogram showed preserved ejection fraction with no significant valvular abnormality -Electrolytes within normal range Postop wound infection with sepsis status post lumbar laminectomy with fusion 01/05/21 -Status post incision and drainage with irrigation and debridement on 01/08 -On vancomycin and cefepime managed by infectious disease -Pain control -Activity as directed by the pubic surgery GERD - PPI Hypertension - hold HCTZ - Lisinopril - follow BP Anemia - post op from January - follow CBC - stable Thank you for allowing us to participate in the care of this pleasant patient. Do not hesitate to contact us with questions. Someone can be reached from the [facility] hospitalist group all hours of the day at [phone] or via perfect serve.
--- NOTE | 2021-02-09 11:25 | P.PN ---
Subjective Patient is seen in follow-up for hyponatremia. Sodium level gradually improving. Patient currently sleeping. Son present at bedside. Oral intake is just fair. Blood pressure stable. Vital signs are stable. General: The patient appeared well nourished and normally developed. HEENT: Head exam is unremarkable. Neck is without jugular venous distension. LUNGS: Breath sounds decreased. HEART: Rate and Rhythm are regular. ABDOMEN: Soft, no distention. EXTREMITITES: No edema. Objective - Vital Signs Vital signs: Vital Signs Temp 97.9 F 02/09/21 04:11 Pulse 111 H 02/09/21 02:09 Resp 20 02/09/21 02:09 BP 139/58 02/09/21 02:09 Pulse Ox 92 L 02/09/21 02:09 Intake & Output 02/08/21 02/09/21 02/09/21 18:59 06:59 18:59 Intake Total 3356.75 250 Output Total 1050 775 Balance 2306.75 -525 Weight 84.822 kg Intake: IV 3356.75 Intake, IV Titration 250 Amount Vancomycin 1,500 mg In 250 Sodium Chloride 0.9% 250 ml @ 125 mls/hr IVPB Q12H [facility] Rx#:[id number] Output: Drainage 150 Lower Back 150 Urine 850 625 Estimated Blood Loss 200 Other: Voiding Method Indwelling Catheter Indwelling Catheter - Labs CBC & Chem 7: 02/09/21 07:22 02/09/21 07:22 Labs: Abnormal Lab Results - Last 24 Hours (Table) 02/08/21 02/08/21 02/08/21 Range/Units 09:54 18:38 21:18 WBC (3.8-10.6) k/uL RBC (3.80-5.40) m/uL Hgb (11.4-16.0) gm/dL Hct (34.0-46.0) % MCV (80.0-100.0) fL MCH (25.0-35.0) pg Neutrophils # (Manual) (1.3-7.7) k/uL Monocytes # (Manual) (0-1.0) k/uL Eosinophils # (Manual) (0-0.7) k/uL Metamyelocytes # (Man) (0) k/uL Sodium 132 L (137-145) mmol/L Chloride 97 L (98-107) mmol/L C-Reactive Protein (<1.0) mg/dL Crossmatch See Detail See Detail 02/09/21 02/09/21 Range/Units 07:22 07:22 WBC 24.4 H (3.8-10.6) k/uL RBC 3.57 L (3.80-5.40) m/uL Hgb 8.9 L (11.4-16.0) gm/dL Hct 28.3 L (34.0-46.0) % MCV 79.4 L (80.0-100.0) fL MCH 24.9 L (25.0-35.0) pg Neutrophils # (Manual) 10.00 H (1.3-7.7) k/uL Monocytes # (Manual) 11.22 H (0-1.0) k/uL Eosinophils # (Manual) 0.73 H (0-0.7) k/uL Metamyelocytes # (Man) 0.24 H (0) k/uL Sodium 133 L (137-145) mmol/L Chloride (98-107) mmol/L C-Reactive Protein 32.3 H (<1.0) mg/dL Crossmatch Microbiology - Last 24 Hours (Table) 02/08/21 13:46 Gram Stain - Preliminary Back Tissue Culture - Preliminary 02/08/21 13:46 Gram Stain - Preliminary Back Wound Culture - Preliminary 02/08/21 13:46 Gram Stain - Preliminary Back Wound Culture - Preliminary 02/08/21 13:46 Gram Stain - Preliminary Back Wound Culture - Preliminary 02/08/21 13:46 Gram Stain - Preliminary Back Wound Culture - Preliminary 02/08/21 13:46 Anaerobic Culture - Preliminary Back 02/08/21 13:46 Anaerobic Culture - Preliminary Back 02/08/21 13:46 Anaerobic Culture - Preliminary Back 02/08/21 13:46 Anaerobic Culture - Preliminary Back 02/06/21 14:00 Anaerobic Culture - Preliminary Back 02/06/21 14:00 Gram Stain - Preliminary Back Wound Culture - Preliminary Escherichia coli 02/06/21 16:01 Blood Culture - Preliminary Blood No Growth after 48 hours Assessment and Plan Plan: Assessment: 1. Hyponatremia from poor solute intake and pain-induced SIADH. Status post and Herrera this admission. Improving. 2. Lumbar spine abscess status post incision and drainage and exchange of hardware done 02/08/2021. 3. Benign hypertension. Stable. Plan: Encourage oral intake, particularly protein. 1500 mL fluid restriction. Repeat electrolytes in the morning.
[2021-02-09 11:49] LABS: Erythrocyte Sedimentation Rate 93 mm/hr (0-20)
[2021-02-09] MEDS: VANCOMYCIN 1,500 MG in SODIUM CHLORIDE 0.9% 250 ML IVPB SCH (11:57)
--- NOTE | 2021-02-09 12:09 | P.PN ---
Subjective Progress Note Date: 02/09/21 Principal diagnosis: Acute post operative infection Pt s/e. She is very sleepy today and c/o of pain. She did sit up at bedside with PT, but they were concerned about her RLE weakness. She has had weakness since her original surgery which is likely due to the reduction performed. She and her daughter are aware of this. She states pain in her low back and in her legs, but denies any numbness/tingling in her perineal region. She states that she can feel her LE and her genitals. She denies any f/c/sob/cp at this time. Her son is in the room and we spoke together over the phone with her daughter. Objective - Vital Signs Vital signs: Vital Signs Temp 97.9 F 02/09/21 04:11 Pulse 111 H 02/09/21 02:09 Resp 20 02/09/21 02:09 BP 139/58 02/09/21 02:09 Pulse Ox 92 L 02/09/21 02:09 Intake & Output 02/08/21 02/09/21 02/09/21 18:59 06:59 18:59 Intake Total 3356.75 250 Output Total 1050 775 Balance 2306.75 -525 Weight 84.822 kg Intake: IV 3356.75 Intake, IV Titration 250 Amount Vancomycin 1,500 mg In 250 Sodium Chloride 0.9% 250 ml @ 125 mls/hr IVPB Q12H [facility] Rx#:[id number] Output: Drainage 150 Lower Back 150 Urine 850 625 Estimated Blood Loss 200 Other: Voiding Method Indwelling Catheter Indwelling Catheter - Exam Her exam is repeated. Changes noted below. PHYSICAL EXAMINATION: Vitals: Stable at this time General: Awake, alert, appropriate for age, in no acute distress. HEENT: No unusual neck masses around region of lateral neck triangle, thyroid, supraclavicular groove. Heart: Regular rate and rhythm, normal S1, S2 and no murmur/gallop. Lungs: Clear to auscultation bilaterally with no use of accessory muscles. Extremities: Skin warm and dry without no acute lesions, coloration, temperature, skin intact, no tenderness or erythema. Integument: Hairy patches: Absent Dorsal skin dimples: Absent Cafe au lait spots: Absent Surgical incisions: Dehiscence noted in the middle 2 cm of the incision with purulent drainage noted at this site. Palpation: Please see Pain drawing on Intake sheet for further detail. (Tenderness = T, Nontender = NT, Swelling = S, Ecchymosis = E) Findings on Midline and paraspinal palpation and percussion: Cervical: NT Thoracic: NT Lumbar: NT Sacral: NT Special findings: none VASCULAR STATUS : Wrist Pulses: 2/4 bilateral radial and ulnar Pedal Pulses: 2/4 bilateral DP and PT Color: Normal Edema: None NEUROLOGIC EXAMINATION: Mental Status: Awake and alert, fully oriented, with normal attention, concentration and memory, and fluent, appropriate speech. Cranial Nerves: I: Olfactory not tested. II: Visual acuity normal, no visual field deficit noted with confrontation. III,IV: Normal pupillary reflexes & intact extraocular movements without nystagmus. V,: Intact symmetrical facial sensation. VII: Intact symmetrical facial motor movement VIII: Hearing intact. IX,X: Intact gag, swallow, & normal voice. XI: Sternocleidomastoid, trapezius function intact. XII: Tongue midline with normal movements. Special Tests: L'hermitte's Sign: Absent Spurling'Sign: Absent Bilateral Cubital percussion test: Absent Bilateral Angela-Tinel sign - Carpal region: Absent Bilateral Straight Leg Raising: Absent Bilateral Motor Exam (0-5/5, N/T) STRENGTH UPPER EXTREMITY Shoulder Abd (Not part of GERARDO Motor score): RIGHT 5 LEFT 5 Elbow Flexors: RIGHT 5 LEFT 5 Elbow Extensor: RIGHT 5 LEFT 5 Wrrist Dorsiflexors: RIGHT 5 LEFT 5 Finger Abductor: RIGHT 5 LEFT 5 Engineering Administrator: RIGHT 5 LEFT 5 LOWER EXTREMITY Hip Flexor (Not part of GERARDO Motor Score): RIGHT 4 LEFT 5 Knee Flexor: RIGHT 4 LEFT 5 Knee Extensor: RIGHT 4 LEFT 5 Ankle Dorsiflexion: RIGHT 3+ LEFT 4 Ankle Plantarflexion: RIGHT 4 LEFT 5 EHL: RIGHT 3 LEFT 4 FHL: RIGHT 4 LEFT 4 Generalized weakness noted, She is able to fire all major muscles of the LE b/l. . She still has some weakness of the L TA which was present since surgery, no acute interval changes at this time. She does have difficulty with cooperation at this time and c/o pain. REFLEXES Biecp: RIGHT 2 LEFT 2 Tricep: RIGHT 2 LEFT 2 Brachioradialis: RIGHT 2 LEFT 2 Patellar: RIGHT 2 LEFT 2 Achilles: RIGHT 2 LEFT 2 Pathological Reflexes Rajput's: RIGHT Absent LEFT Absent Babinski: RIGHT Absent LEFT Absent Clonus: RIGHT None LEFT None SENSORY Joint Position: Intact bilaterally Vibration Intact bilaterally Pain and LT sense Intact C5-T1 and L2-S1 Dermatomal deficit None Gait and Functional Evaluation: Ambulatory aids: Walker Hand and finger dexterity intact bilaterally. Disdiadochokinesis examination negative bilaterally. - Labs CBC & Chem 7: 02/09/21 07:22 02/09/21 07:22 Labs: Abnormal Lab Results - Last 24 Hours (Table) 02/08/21 02/08/21 02/09/21 Range/Units 18:38 21:18 07:22 WBC 24.4 H (3.8-10.6) k/uL RBC 3.57 L (3.80-5.40) m/uL Hgb 8.9 L (11.4-16.0) gm/dL Hct 28.3 L (34.0-46.0) % MCV 79.4 L (80.0-100.0) fL MCH 24.9 L (25.0-35.0) pg Neutrophils # (Manual) 10.00 H (1.3-7.7) k/uL Monocytes # (Manual) 11.22 H (0-1.0) k/uL Eosinophils # (Manual) 0.73 H (0-0.7) k/uL Metamyelocytes # (Man) 0.24 H (0) k/uL ESR 93 H (0-20) mm/hr Sodium (137-145) mmol/L C-Reactive Protein (<1.0) mg/dL Crossmatch See Detail See Detail 02/09/21 Range/Units 07:22 WBC (3.8-10.6) k/uL RBC (3.80-5.40) m/uL Hgb (11.4-16.0) gm/dL Hct (34.0-46.0) % MCV (80.0-100.0) fL MCH (25.0-35.0) pg Neutrophils # (Manual) (1.3-7.7) k/uL Monocytes # (Manual) (0-1.0) k/uL Eosinophils # (Manual) (0-0.7) k/uL Metamyelocytes # (Man) (0) k/uL ESR (0-20) mm/hr Sodium 133 L (137-145) mmol/L C-Reactive Protein 32.3 H (<1.0) mg/dL Crossmatch Microbiology - Last 24 Hours (Table) 02/08/21 13:46 Gram Stain - Preliminary Back Tissue Culture - Preliminary 02/08/21 13:46 Gram Stain - Preliminary Back Wound Culture - Preliminary 02/08/21 13:46 Gram Stain - Preliminary Back Wound Culture - Preliminary 02/08/21 13:46 Gram Stain - Preliminary Back Wound Culture - Preliminary 02/08/21 13:46 Gram Stain - Preliminary Back Wound Culture - Preliminary 02/08/21 13:46 Anaerobic Culture - Preliminary Back 02/08/21 13:46 Anaerobic Culture - Preliminary Back 02/08/21 13:46 Anaerobic Culture - Preliminary Back 02/08/21 13:46 Anaerobic Culture - Preliminary Back 02/06/21 14:00 Anaerobic Culture - Preliminary Back 02/06/21 14:00 Gram Stain - Preliminary Back Wound Culture - Preliminary Escherichia coli 02/06/21 16:01 Blood Culture - Preliminary Blood No Growth after 48 hours Assessment and Plan Assessment: 60 yo female POD1 Lumbar wound I&D with antibiotic bead placement. 1. Lumbar wound infection 2. Wound dehiscence 3. Back pain 4. S/p L4-S1 decompression fusion 5. Hyponatremia likely SIADH Plan: -Appreciate medicine, ID, cardio management -Pain control adequate at this time -Cont IVF, increase rate if OK with Medicine due to low sodium. Pt has sepsis and needs to be resuscitated -CT of Abdomen/Pelvis and Lumbar spine to eval post surgical changes -PT/OT daily, ambulate, sit up, OOB all meals -Ice to back PRN -GI/DVT ppx. OK for heparin tonight -TEds/SCDs -q4 neuro checks -Cont drain, record output, 200 since OR -Dispo: Pending
--- NOTE | 2021-02-09 13:04 | P.PN ---
Subjective This is a pleasant 60-year-old -[place] female past medical history significant for deep vein thrombosis, hypertension, recent L4/5 and L5/S1 laminectomy with fusion and intradiscal osteotomy on 01/05/21, GERD. 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 We have been asked to see in consultation for non- sustained ventricular tachyardia. Patient was transferred from [facility]. She presented emergency department with a complaint of lumbar back pain. After her surgery on 01/05/21 she was having worsening back pain, chills and difficulty with standing and walking. Patient has a bedside commode and daughter reports has been difficult to even get her out of bed to use the commode. She denies loss of bowel or bladder control, saddle paresthesia or falls since his surgery. Patient has now had fever/chills and headaches at home. Daughter reports chest pains along her surgical incision has increased fluid discharge. Patient was transferred [place] continuity of care. She denies chest pain, palpitations, shortness of breath, lower extremity edema, fatigue, weakness, lightheadedness, syncope. She sleeps with 1 pillow. She denies symptoms of orthopnea or PND. Denies history of NC, Stroke, coronary artery disease, diabetes, irregular heart rhythm. She states years ago she underwent stress test and echocardiogram and was told those were normal. She states she also gets annual EKGs and has been told those are normal. She is a non-smoker, denies alcohol use. Current home cardiac medications include lisinopril 20 mg nightly, hydrochlorothiazide 12.5 mg daily. EKG reveals sinus tachycardia HR 142 with occasional PVCs, left axis deviation. No prior EKG to compare. Patient was given IV Lopressor 2.5mg x 2. 02/09/21 Patient seen and examined at bedside. She is POD #1 of lumbar wound I&D with antibiotic bead placement. She is lethargic, lying in bed flat no acute distress. She is arousable. Repeat abdomen/pelvis/lumbar spine CT pending. Echocardiogram revealed EF 55-60%, mild aortic regurgitation with peak/mean gradient 22 mmHg/13 mmHg, trace mitral regurgitation, mild tricuspid regurgitation, small generalized pericardial effusion present. Telemetry tracings indicate sinus mechanism with occasional PVCs and 5-7 beat runs of NSVT, less frequent than yesterday. Laboratory data reviewed, WBC 24.4, Hgb 8.9, Platelets 396, Sodium 133, potassium 3.6, serum creatinine 0.93, BUN 14, TSH within normal limits. PHYSICAL EXAMINATION Blood pressure 139/58 heart rate 111 afebrile, overnight febrile Tmax 103.3F and maintaining oxygen saturation 92-98% on room air CONSTITUTIONAL: Lethargic but arousable. Lying flat in bed HEENT: Head is normocephalic. No JVD. No carotid bruit. CHEST EXAMINATION: Lungs are clear to auscultation. HEART EXAMINATION: Regular, tachycardic rate and rhythm. S1, S2 heard. ABDOMEN: Soft, nontender. Positive bowel sounds. EXTREMITIES: 2+ peripheral pulses, no lower extremity edema and no calf tenderness. NEUROLOGIC EXAMINATION: Patient is somnolent, but arousable ASSESSMENT Nonsustained wide complex tachycardia- frequent episodes on telemetry- there dose appear to be P waves prior to many of these episodes with possibility of SVT with aberrancy vs VT. Postop wound infection status post lumbar laminectomy with fusion 01/05/21- patient on Vancomycin and Cefepime. She is POD #1 of lumbar wound I&D with antibiotic bead placement Fevers Leukocytosis Wound dehiscence Hyponatremia- improving History of Hypertension GERD PLAN Patient's NSVT episodes have been less frequent. Echocardiogram reviewed. Will increase metoprolol tartrate 25mg BID. Continue lisinopril 20mg daily Monitor renal function and electrolytes From cardiology perspective, no further recommendations at this time, we will follow the patient on as needed basis. Please reach out with any further questions or concerns. Nurse Practitioner note has been reviewed, I agree with a documented findings and plan of care. Patient was seen and examined. Objective - Vital Signs Vital signs: Vital Signs Temp 97.9 F 02/09/21 04:11 Pulse 111 H 02/09/21 02:09 Resp 20 02/09/21 02:09 BP 139/58 02/09/21 02:09 Pulse Ox 92 L 02/09/21 02:09 Intake & Output 02/08/21 02/09/21 02/09/21 18:59 06:59 18:59 Intake Total 3356.75 250 Output Total 1050 775 Balance 2306.75 -525 Weight 84.822 kg Intake: IV 3356.75 Intake, IV Titration 250 Amount Vancomycin 1,500 mg In 250 Sodium Chloride 0.9% 250 ml @ 125 mls/hr IVPB Q12H [facility] Rx#:[id number] Output: Drainage 150 Lower Back 150 Urine 850 625 Estimated Blood Loss 200 Other: Voiding Method Indwelling Catheter Indwelling Catheter - Labs CBC & Chem 7: 02/09/21 07:22 02/09/21 07:22 Labs: Abnormal Lab Results - Last 24 Hours (Table) 02/08/21 02/08/21 02/09/21 Range/Units 18:38 21:18 07:22 WBC 24.4 H (3.8-10.6) k/uL RBC 3.57 L (3.80-5.40) m/uL Hgb 8.9 L (11.4-16.0) gm/dL Hct 28.3 L (34.0-46.0) % MCV 79.4 L (80.0-100.0) fL MCH 24.9 L (25.0-35.0) pg Neutrophils # (Manual) 10.00 H (1.3-7.7) k/uL Monocytes # (Manual) 11.22 H (0-1.0) k/uL Eosinophils # (Manual) 0.73 H (0-0.7) k/uL Metamyelocytes # (Man) 0.24 H (0) k/uL ESR 93 H (0-20) mm/hr Sodium (137-145) mmol/L C-Reactive Protein (<1.0) mg/dL Crossmatch See Detail See Detail 02/09/21 Range/Units 07:22 WBC (3.8-10.6) k/uL RBC (3.80-5.40) m/uL Hgb (11.4-16.0) gm/dL Hct (34.0-46.0) % MCV (80.0-100.0) fL MCH (25.0-35.0) pg Neutrophils # (Manual) (1.3-7.7) k/uL Monocytes # (Manual) (0-1.0) k/uL Eosinophils # (Manual) (0-0.7) k/uL Metamyelocytes # (Man) (0) k/uL ESR (0-20) mm/hr Sodium 133 L (137-145) mmol/L C-Reactive Protein 32.3 H (<1.0) mg/dL Crossmatch Microbiology - Last 24 Hours (Table) 02/08/21 13:46 Gram Stain - Preliminary Back Tissue Culture - Preliminary 02/08/21 13:46 Gram Stain - Preliminary Back Wound Culture - Preliminary 02/08/21 13:46 Gram Stain - Preliminary Back Wound Culture - Preliminary 02/08/21 13:46 Gram Stain - Preliminary Back Wound Culture - Preliminary 02/08/21 13:46 Gram Stain - Preliminary Back Wound Culture - Preliminary 02/08/21 13:46 Anaerobic Culture - Preliminary Back 02/08/21 13:46 Anaerobic Culture - Preliminary Back 02/08/21 13:46 Anaerobic Culture - Preliminary Back 02/08/21 13:46 Anaerobic Culture - Preliminary Back 02/06/21 14:00 Anaerobic Culture - Preliminary Back 02/06/21 14:00 Gram Stain - Preliminary Back Wound Culture - Preliminary Escherichia coli 02/06/21 16:01 Blood Culture - Preliminary Blood No Growth after 48 hours
--- NOTE | 2021-02-09 14:00 | CT ---
EXAMINATION TYPE: CT abdomen pelvis w con, CT lumbar spine w con DATE OF EXAM: 02/09/2021 COMPARISON: NONE HISTORY: 60-year-old female sepsis (accession [id number]), s/p hardware removal/placement (accession [id number]) TECHNIQUE: Contiguous axial scanning of the abdomen and pelvis following administration of 100 ml Omn ipaque 300 IV contrast. Delayed images through the kidneys and coronal/sagittal reconstructions perf ormed. CT of the lumbar spine also performed after IV contrast. CT DLP: 2428.9 mGycm Automated exposure control for dose reduction was used. FINDINGS: ABDOMEN/PELVIS: Heart borderline enlarged. Trace pericardial effusion. Small bilateral pleural effusions with adjacen t atelectasis. Patchy opacity partially visualized the periphery of the left lower lobe. Spleen mildly enlarged at 14.5 cm. Liver enlarged at 22.9 cm. Bile duct is mildly dilated at 8 mm. No distal obstructing lesion is seen. Portal venous system is patent. Adrenal glands and pancreas show no gross abnormality. Right kidney within normal limits. 2.5 cm diaz ical cyst medial left kidney. Borderline ectatic infrarenal abdominal aorta uniformly measuring up to 2.5 cm. Some surgical material along the anterior abdominal wall. No dilated small bowel, free fluid, free air. No Moderate stool within the right side of the colon. Scattered left-sided colonic diverticulosis. No ev ident pericolic inflammatory change seen. Prominent metal hardware artifact limits the assessment. No evidence of lymphadenopathy in the abdome n. Mild circumferential bladder wall thickening. A Arce catheter is present. Bladder incompletely colla psed. Tiny focus of air within the bladder lumen. Uterus anteverted. Pelvic phlebolith. Suggestion of a 2.5 cm cystic lesion of the left ovary. Right ovary not well delineated. BONES: Left hip total arthroplasty noted. High riding acetabular cup component. Small amount of fibr ocystic lucency along the anterior acetabular cup component measuring 1.3 cm, refer to coronal image 64 and sagittal image 101. This can be of compare. To any available outside priors. Follow-up as tammi cated to exclude early loosening. Partially bridging anterior endplate spondylosis lower thoracic spi ne. LUMBAR SPINE: L4-S1 posterior lumbar fusion with corresponding laminectomies. Incompletely consolidated lateral os seous fusion bone graft material. Surgical drain is present extending to the posterior L3 level. The distal aspect is not well seen. There is fluid within the right paramedian posterior subcutaneous adipose. 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 Small foci of air are present within. Extensive metal hardware artifacts limits the surgerized levels. Grade 1 anterolisthesis L4-L5. COMBINED IMPRESSION (abdomen/pelvis and lumbar spine): 1. STATUS POST L4-S1 POSTERIOR AND INTERBODY LUMBAR FUSION ALONG WITH LAMINECTOMIES AND LATERAL OSSEO US FUSION. 2. THERE IS AN ABNORMAL FLUID COLLECTION CONTAINING SMALL FOCI OF AIR LOCATED WITHIN THE RIGHT PARAME KATHERINE SUBCUTANEOUS ADIPOSE LAYER ALONG THE SURGICAL LEVELS SPANNING 9.0 CM CRANIOCAUDAL AND MEASURING 3.2 CM WIDE AND 2.0 CM AP. THE PATIENT'S SURGICAL DRAIN COURSES ALONG THE RIGHT LATERAL MARGIN OF THI S FLUID COLLECTION, EITHER POSTOPERATIVE SEROMA OR ABSCESS. CORRELATE TO TIME SINCE THE PATIENT'S SURGERY. 3. SMALL PLEURAL EFFUSIONS. THERE IS SOME PATCHY LEFT LOWER LOBE OPACITY THAT COULD REPRESENT ATELECT ASIS OR AN INFILTRATE. 4. MILD CIRCUMFERENTIAL BLADDER WALL THICKENING MAY BE CHRONIC FOR THE PATIENT. CORRELATE TO EXCLUDE UTI. A ARCE CATHETER IS IN PLACE AND THERE IS A TINY FOCUS OF AIR IN THE BLADDER LUMEN PROBABLY RELA DAVID TO INSTRUMENTATION. 5. HEPATOSPLENOMEGALY (LIVER 22.9 CM AND SPLEEN 14.5 CM).
--- NOTE | 2021-02-09 16:05 | P.PN ---
Progress Note - Text Progress Note Date: 02/09/[address] results with son in the room and daughter over the phone. They were comfortable. CT reviewed shows no acute changes, no large post operative hematoma or neural compromise. There is a small fluid collection in the superficial soft tissues, but this is to be expected POD1. She is currently on ABX. She is tired as she just had pain medications but she does respond. She is moving all 4 ext at this time with good strength and no interval weakness or changes. She espinoza shave continued weakness on the RLE, but her effort to move is poor at this time. She does wiggle her toes however and she dorsiflexes and plantar flexes with at least 3+ strength. We will continue with current treatment regiment and resuscitation for sepsis.
[2021-02-09] MEDS: SODIUM CHLORIDE 0.9% 1,000 ML IV SCH (17:36)
[2021-02-09] MEDS: lisinopriL 20 MG TAB PO SCH (21:09)
[2021-02-09] MEDS: METOPROLOL TARTRATE 25 MG TAB PO SCH (21:09)
[2021-02-09] MEDS: HYDROcodone/APAP 10-325MG 1 EACH TAB PO PRN (23:07)
--- NOTE | 2021-02-09 23:08 | PN ---
PROGRESS NOTE DATE OF SERVICE: 02/09/2021 REASON FOR FOLLOWUP: Lumbar surgical site infection. INTERVAL HISTORY: Patient is afebrile. The patient is breathing comfortably. The patient's back pain is currently controlled. No chest pain, shortness of breath, cough, no abdominal pain or diarrhea. PHYSICAL EXAMINATION: Blood pressure is 127/57, pulse of 110, temperature 99.1. She is 96% on room air. General description is a middle-aged female lying in bed in no distress. Respiratory system: Unlabored breathing, is clear to auscultation anteriorly. Heart S1, S2. Regular rate and rhythm. ABDOMEN: Soft, no tenderness. EXTREMITIES: No edema of the feet. LAB: Hemoglobin 8.8, white count 4.4, BUN of 14, creatinine 0.93. DIAGNOSTIC IMPRESSION AND PLAN: Patient with lumbar surgical site infection, status post I and D with removal of some of the hardware, but not all and will likely need more prolonged antibiotic therapy. Patient to continue cefepime as oral culture showing only gram-negative and no gram- positive has been seen. Vancomycin will be discontinued. MMODL / IJN: [id number] /
[2021-02-10] MEDS: HYDROmorphone 1 MG/ML 1 ML SYRINGE IVP PRN (02:21)
[2021-02-10] MEDS: DOCUSATE 100 MG CAP PO SCH ×2 (08:56→21:28)
[2021-02-10] MEDS: PANTOPRAZOLE 40 MG TABLET PO SCH (08:56)
[2021-02-10] MEDS: GABAPENTIN 300 MG CAP PO SCH ×3 (08:56→21:28)
[2021-02-10] MEDS: METOPROLOL TARTRATE 25 MG TAB PO SCH ×2 (08:56→21:28)
[2021-02-10] MEDS: traMADol 50 MG TAB PO PRN (08:56)
[2021-02-10] MEDS: CEFEPIME 2 GM in SODIUM CHLORIDE 0.9% 100 ML IVPB SCH (08:57)
--- NOTE | 2021-02-10 10:02 | P.PN ---
Subjective Progress Note Date: 02/10/21 Patient is doing well today. No acute events overnight. Nursing staff still trying to clarify activity with orthopedic surgery Objective - Vital Signs Vital signs: Vital Signs Temp 98.8 F 02/10/21 08:42 Pulse 82 02/10/21 08:42 Resp 16 02/10/21 08:42 BP 106/62 02/10/21 08:42 Pulse Ox 97 02/10/21 08:42 Intake & Output 02/09/21 02/10/21 02/10/21 18:59 06:59 18:59 Output Total 1325 Balance -1325 Output: Urine 1325 Other: Voiding Method Indwelling Catheter Indwelling Catheter - Exam General: The patient is awake and alert, in no distress Eye: there is normal conjunctiva bilaterally. Neck: The neck is supple, there is no JVD. Cardiovascular: Normal S1-S2, no S3-S4, no murmurs. Respiratory: Lungs clear to auscultation bilaterally Gastrointestinal: Abdomen is soft, nontender Musculoskeletal: There is no pedal edema. Neurological:. Speech is normal. Skin: Skin is warm and dry - Labs CBC & Chem 7: 02/09/21 07:22 02/09/21 07:22 Labs: Abnormal Lab Results - Last 24 Hours (Table) 02/08/21 02/09/21 Range/Units 18:38 07:22 Neutrophils # (Manual) 10.00 H (1.3-7.7) k/uL Monocytes # (Manual) 11.22 H (0-1.0) k/uL Eosinophils # (Manual) 0.73 H (0-0.7) k/uL Metamyelocytes # (Man) 0.24 H (0) k/uL ESR 93 H (0-20) mm/hr Crossmatch See Detail Microbiology - Last 24 Hours (Table) 02/08/21 13:46 Gram Stain - Preliminary Back Wound Culture - Preliminary Gram Neg Bacilli 02/08/21 13:46 Gram Stain - Preliminary Back Wound Culture - Preliminary Gram Neg Bacilli 02/08/21 13:46 Gram Stain - Preliminary Back Wound Culture - Preliminary Gram Neg Bacilli 02/08/21 13:46 Gram Stain - Preliminary Back Wound Culture - Preliminary Gram Neg Bacilli 02/08/21 13:46 Gram Stain - Preliminary Back Tissue Culture - Preliminary Gram Neg Bacilli 02/06/21 16:01 Blood Culture - Preliminary Blood No Growth after 72 hours Assessment and Plan Assessment: back pain Antoni is a 60 yo female with a recent L 4/5 and L5/S1 Laminectomy with fusion and intradiscal osteotomy on 01/05/21 with prior deep vein thrombocytosis, GERD, adn HTN who was transferred from [facility] for back and wound dehisence. She was started on cefepime and Vanco. Found to have post-op infection. Hyponatremia likely secondary to SIADH - D/W Nephrology: Samsca X 1 - Sodium level improved - KVO IV Episode of nonsustained V. tach noted on telemetry monitoring -Cardiology consulted for further evaluation, started on metoprolol twice daily -Echocardiogram showed preserved ejection fraction with no significant valvular abnormality -Electrolytes within normal range Postop wound infection with sepsis status post lumbar laminectomy with fusion 01/05/21 -Status post incision and drainage with irrigation and debridement on 01/08 -Antibiotics managed by infectious disease -Pain control -Activity as directed by the pubic surgery GERD - PPI Hypertension - hold HCTZ - Lisinopril - follow BP
[2021-02-10 10:12] LABS: African American GFR (CKD) >90 (>60 ml/min/1.73 sqM); Anion Gap 6 mmol/L; Blood Urea Nitrogen 13 mg/dL (7-17); Calcium 8.6 mg/dL (8.4-10.2); Carbon Dioxide 29 mmol/L (22-30); Chloride 97 mmol/L (98-107); Glucose 101 mg/dL (74-99); Magnesium 1.8 mg/dL (1.6-2.3); Non-African American GFR(CKD) >90 (>60 ml/min/1.73 sqM); Potassium 3.9 mmol/L (3.5-5.1); Sodium 132 mmol/L (137-145)
--- NOTE | 2021-02-10 10:25 | P.PN ---
Subjective Patient is seen in follow-up for hyponatremia. Sodium level stable. Appetite is poor. No vomiting or diarrhea. Vital signs are stable. General: The patient appeared well nourished and normally developed. HEENT: Head exam is unremarkable. Neck is without jugular venous distension. LUNGS: Breath sounds decreased. HEART: Rate and Rhythm are regular. ABDOMEN: Soft, no distention. EXTREMITITES: No edema. Objective - Vital Signs Vital signs: Vital Signs Temp 98.8 F 02/10/21 08:42 Pulse 82 02/10/21 08:42 Resp 16 02/10/21 08:42 BP 106/62 02/10/21 08:42 Pulse Ox 97 02/10/21 08:42 Intake & Output 02/09/21 02/10/21 02/10/21 18:59 06:59 18:59 Output Total 1325 Balance -1325 Output: Urine 1325 Other: Voiding Method Indwelling Catheter Indwelling Catheter - Labs CBC & Chem 7: 02/09/21 07:22 02/10/21 09:30 Labs: Abnormal Lab Results - Last 24 Hours (Table) 02/08/21 02/09/21 02/10/21 Range/Units 18:38 07:22 09:30 ESR 93 H (0-20) mm/hr Sodium 132 L (137-145) mmol/L Chloride 97 L (98-107) mmol/L Glucose 101 H (74-99) mg/dL Crossmatch See Detail Microbiology - Last 24 Hours (Table) 02/08/21 13:46 Gram Stain - Preliminary Back Wound Culture - Preliminary Gram Neg Bacilli 02/08/21 13:46 Gram Stain - Preliminary Back Wound Culture - Preliminary Gram Neg Bacilli 02/08/21 13:46 Gram Stain - Preliminary Back Wound Culture - Preliminary Gram Neg Bacilli 02/08/21 13:46 Gram Stain - Preliminary Back Wound Culture - Preliminary Gram Neg Bacilli 02/08/21 13:46 Gram Stain - Preliminary Back Tissue Culture - Preliminary Gram Neg Bacilli 02/06/21 16:01 Blood Culture - Preliminary Blood No Growth after 72 hours Assessment and Plan Plan: Assessment: 1. Hyponatremia from poor solute intake and pain-induced SIADH. Status post [facility] this admission. Sodium level stable this morning. TSH normal. 2. Lumbar spine abscess status post incision and drainage and exchange of hardware done 02/08/2021. 3. Benign hypertension. Stable. Plan: Encourage oral intake, particularly protein. 1500 mL fluid restriction. Continue to monitor.
[2021-02-10] MEDS: ACETAMINOPHEN TAB 325 MG TAB PO PRN (13:16)
[2021-02-10] MEDS: CYCLOBENZAPRINE 10 MG TAB PO PRN (13:16)
--- NOTE | 2021-02-10 14:43 | P.PN ---
Subjective Progress Note Date: 02/10/21 Principal diagnosis: Acute post operative infection patient was seen in exam. She did OK overnight. She complains of pain in her right knee that seems to radiate from the right knee and its only painful and moving she didnt really know until this morning. She also complains of stiffness in his right lower extremitys. Her left lower extremity seems fine. She is able to move her right lower extremity although very poor effort. She denies any bowel or bladder incontinence she denies anygenital numbness or tingling. Objective - Vital Signs Vital signs: Vital Signs Temp 98.8 F 02/10/21 08:42 Pulse 83 02/10/21 11:20 Resp 16 02/10/21 11:20 BP 124/57 02/10/21 11:20 Pulse Ox 97 02/10/21 11:20 Intake & Output 02/09/21 02/10/21 02/10/21 18:59 06:59 18:59 Output Total 1325 Balance -1325 Output: Urine 1325 Other: Voiding Method Indwelling Catheter Indwelling Catheter Indwelling Catheter - Exam Her exam is repeated. Changes noted below. shes having increased pain to palpation of her right knee however this seems to be doing Perez and she just noticed it this morning. She denies any radiating pain theres no pain that comes from her back down her leg into her foot it all seems to be centered in her knee today. Theres no fluctuance there is no effusion. It is not red hot or swollen. PHYSICAL EXAMINATION: Vitals: Stable at this time General: Awake, alert, appropriate for age, in no acute distress. HEENT: No unusual neck masses around region of lateral neck triangle, thyroid, supraclavicular groove. Heart: Regular rate and rhythm, normal S1, S2 and no murmur/gallop. Lungs: Clear to auscultation bilaterally with no use of accessory muscles. Extremities: Skin warm and dry without no acute lesions, coloration, temperature, skin intact, no tenderness or erythema. Integument: Hairy patches: Absent Dorsal skin dimples: Absent Cafe au lait spots: Absent Surgical incisions: Dehiscence noted in the middle 2 cm of the incision with purulent drainage noted at this site. Palpation: Please see Pain drawing on Intake sheet for further detail. (Tenderness = T, Nontender = NT, Swelling = S, Ecchymosis = E) Findings on Midline and paraspinal palpation and percussion: Cervical: NT Thoracic: NT Lumbar: NT Sacral: NT Special findings: none VASCULAR STATUS : Wrist Pulses: 2/4 bilateral radial and ulnar Pedal Pulses: 2/4 bilateral DP and PT Color: Normal Edema: None NEUROLOGIC EXAMINATION: Mental Status: Awake and alert, fully oriented, with normal attention, concentration and memory, and fluent, appropriate speech. Cranial Nerves: I: Olfactory not tested. II: Visual acuity normal, no visual field deficit noted with confrontation. III,IV: Normal pupillary reflexes & intact extraocular movements without nystagmus. V,: Intact symmetrical facial sensation. VII: Intact symmetrical facial motor movement VIII: Hearing intact. IX,X: Intact gag, swallow, & normal voice. XI: Sternocleidomastoid, trapezius function intact. XII: Tongue midline with normal movements. 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 . She still has some weakness of the L TA which was present since surgery, no acute interval changes at this time. She does have difficulty with cooperation at this time and c/o pain. REFLEXES Biecp: RIGHT 2 LEFT 2 Tricep: RIGHT 2 LEFT 2 Brachioradialis: RIGHT 2 LEFT 2 Patellar: RIGHT 2 LEFT 2 Achilles: RIGHT 2 LEFT 2 Pathological Reflexes Rajput's: RIGHT Absent LEFT Absent Babinski: RIGHT Absent LEFT Absent Clonus: RIGHT None LEFT None SENSORY Joint Position: Intact bilaterally Vibration Intact bilaterally Pain and LT sense Intact C5-T1 and L2-S1 Dermatomal deficit None Gait and Functional Evaluation: Ambulatory aids: Walker Hand and finger dexterity intact bilaterally. Disdiadochokinesis examination negative bilaterally. - Labs CBC & Chem 7: 02/09/21 07:22 02/10/21 09:30 Labs: Abnormal Lab Results - Last 24 Hours (Table) 02/08/21 02/10/21 Range/Units 18:38 09:30 Sodium 132 L (137-145) mmol/L Chloride 97 L (98-107) mmol/L Glucose 101 H (74-99) mg/dL Crossmatch See Detail Microbiology - Last 24 Hours (Table) 02/08/21 13:46 Gram Stain - Preliminary Back Wound Culture - Preliminary Gram Neg Bacilli 02/08/21 13:46 Gram Stain - Preliminary Back Wound Culture - Preliminary Gram Neg Bacilli 02/08/21 13:46 Gram Stain - Preliminary Back Wound Culture - Preliminary Gram Neg Bacilli 02/08/21 13:46 Gram Stain - Preliminary Back Wound Culture - Preliminary Gram Neg Bacilli 02/08/21 13:46 Gram Stain - Preliminary Back Tissue Culture - Preliminary Gram Neg Bacilli 02/06/21 16:01 Blood Culture - Preliminary Blood No Growth after 72 hours Assessment and Plan Assessment: 60 yo female POD2 Lumbar wound I&D with antibiotic bead placement. 1. Lumbar wound infection 2. Wound dehiscence 3. Back pain 4. S/p L4-S1 decompression fusion 5. Hyponatremia likely SIADH Plan: -Appreciate medicine, ID, cardio management -Pain control adequate at this time -Cont IVF, increase rate if OK with Medicine due to low sodium. Pt has sepsis and needs to be resuscitated -CT of Abdomen/Pelvis and Lumbar spine has been reviewed there are no acute normal changes no evidence of pressure hardware in session mild sub queue food collection which is expected of surgical. -Must encourage ambulation, out of bed with all meals. Increase strength and right lower extremity. -PT/OT daily, ambulate, sit up, OOB all meals -Ice to back PRN -GI/DVT ppx. OK for heparin tonight -TEds/SCDs -q4 neuro checks -Cont drain, record output -Dispo: Pending
[2021-02-10] MEDS: HYDROmorphone 0.5 MG/0.5 ML SYRINGE IVP PRN ×2 (17:56→22:31)
--- NOTE | 2021-02-10 19:39 | PN ---
PROGRESS NOTE DATE OF SERVICE: 02/10/2021 REASON FOR FOLLOW UP: Sacral surgical site infection. INTERVAL HISTORY: Patient did spike fever last night of 103. The patient has been afebrile since then. The patient has been breathing comfortably. The patient denies any chest pain. No shortness of breath. No cough. No abdominal pain. Pain to the lumbar surgical site is currently controlled. PHYSICAL EXAMINATION: Blood pressure 124/57, pulse of 83, temperature 98.8. She is 97% on room air. General description is a middle-aged female lying in bed in no distress. Respiratory system: Unlabored breathing. Clear to auscultation anteriorly. Heart S1, S2. Regular rate and rhythm. Abdomen soft, no tenderness. LABS: BUN of 13, creatinine 0.60. Abdominal culture with Gram-negative. DIAGNOSTIC IMPRESSION AND PLAN: Patient with lumbar surgical site infection, status post washout and some of the hardware replacement. Patient's antibiotic adjusted to Rocephin as culture has been mostly E coli and Gram-negative. No resistant gram-positive has been grown. She will need PICC line for outpatient IV antibiotics. Continue supportive care. MMODL / IJN: [id number] /
[2021-02-10] MEDS: SODIUM CHLORIDE 0.9% 1,000 ML IV SCH (21:28)
[2021-02-10] MEDS: lisinopriL 20 MG TAB PO SCH (21:28)
[2021-02-11] MEDS: HYDROmorphone 0.5 MG/0.5 ML SYRINGE IVP PRN (03:24)
[2021-02-11] MEDS: PANTOPRAZOLE 40 MG TABLET PO SCH (07:01)
--- NOTE | 2021-02-11 08:24 | P.PN ---
Subjective Progress Note Date: 02/11/21 Principal diagnosis: Acute post operative infection Pt s/e this AM. She is sitting up in bed. Still sleepy and poorly cooperates with exam. She states no back pain. Still c/o of some right knee pain with motion but none at rest and does not radiate. She states no f/c/sob/cp at this time. She states no genital numbness/tingling. States no bowel or bladder issues. Grande in place to be removed today. Drain in place, minimal output. Objective - Vital Signs Vital signs: Vital Signs Temp 98.3 F 02/11/21 04:00 Pulse 84 02/11/21 04:00 Resp 16 02/11/21 04:00 BP 118/67 02/11/21 04:00 Pulse Ox 97 02/11/21 04:00 Intake & Output 02/10/21 02/11/21 02/11/21 18:59 06:59 18:59 Intake Total 180 650 Output Total 990 360 Balance -810 290 Intake: Intake, IV Titration 100 Amount Sodium Chloride 0.9% 1, 100 000 ml @ 20 mls/hr IV . Q24H [facility] Rx#:[id number] Oral 180 240 Blood Product 0 310 Rc As-1 Unit 0 310 [id number] Output: Drainage 40 10 Lower Back 40 10 Urine 950 350 Other: Voiding Method Indwelling Catheter Indwelling Catheter - Exam Her exam is repeated. Changes noted below. Right knee is still painful with motion but seems better today, she is stiff and resists the exam. She states she cannot move her RLE but when distracted can wiggle toes, dorsiflex plantarflex and even flex knee against gravity. She does have some weakness however in this leg when compared to her LLE which is noted and was present from the previously. There are no acute changes today. Incision is CDI. Dressing CDI. We will change and dc drain tomorrow. PHYSICAL EXAMINATION: Vitals: Stable at this time General: Awake, alert, appropriate for age, in no acute distress. HEENT: No unusual neck masses around region of lateral neck triangle, thyroid, supraclavicular groove. Heart: Regular rate and rhythm, normal S1, S2 and no murmur/gallop. Lungs: Clear to auscultation bilaterally with no use of accessory muscles. Extremities: Skin warm and dry without no acute lesions, coloration, tempera ture, skin intact, no tenderness or erythema. Integument: Hairy patches: Absent Dorsal skin dimples: Absent Cafe au lait spots: Absent Surgical incisions: Dehiscence noted in the middle 2 cm of the incision with purulent drainage noted at this site. Palpation: Please see Pain drawing on Intake sheet for further detail. (Tenderness = T, Nontender = NT, Swelling = S, Ecchymosis = E) Findings on Midline and paraspinal palpation and percussion: Cervical: NT Thoracic: NT Lumbar: NT Sacral: NT Special findings: none VASCULAR STATUS : Wrist Pulses: 2/4 bilateral radial and ulnar Pedal Pulses: 2/4 bilateral DP and PT Color: Normal Edema: None NEUROLOGIC EXAMINATION: Mental Status: Awake and alert, fully oriented, with normal attention, concentration and memory, and fluent, appropriate speech. Cranial Nerves: I: Olfactory not tested. II: Visual acuity normal, no visual field deficit noted with confrontation. III,IV: Normal pupillary reflexes & intact extraocular movements without nystagmus. V,: Intact symmetrical facial sensation. VII: Intact symmetrical facial motor movement VIII: Hearing intact. IX,X: Intact gag, swallow, & normal voice. XI: Sternocleidomastoid, trapezius function intact. XII: Tongue midline with normal movements. Special Tests: L'hermitte's Sign: Absent Spurling'Sign: Absent Bilateral Cubital percussion test: Absent Bilateral Angela-Tinel sign - Carpal region: Absent Bilateral Straight Leg Raising: Absent Bilateral Motor Exam (0-5/5, N/T) STRENGTH UPPER EXTREMITY Shoulder Abd (Not part of GERARDO Motor score): RIGHT 5 LEFT 5 Elbow Flexors: RIGHT 5 LEFT 5 Elbow Extensor: RIGHT 5 LEFT 5 Wrrist Dorsiflexors: RIGHT 5 LEFT 5 Finger Abductor: RIGHT 5 LEFT 5 Railroad Police: RIGHT 5 LEFT 5 LOWER EXTREMITY Hip Flexor (Not part of GERARDO Motor Score): RIGHT 4 LEFT 5 Knee Flexor: RIGHT 4 LEFT 5 Knee Extensor: RIGHT 4 LEFT 5 Ankle Dorsiflexion: RIGHT 3+ LEFT 4 Ankle Plantarflexion: RIGHT 4 LEFT 5 EHL: RIGHT 3 LEFT 4 FHL: RIGHT 4 LEFT 4 Generalized weakness noted, She is able to fire all major muscles of the LE b/l. . She still has some weakness of the L TA which was present since surgery, no acute interval changes at this time. She does have difficulty with cooperation at this time and c/o pain. REFLEXES Biecp: RIGHT 2 LEFT 2 Tricep: RIGHT 2 LEFT 2 Brachioradialis: RIGHT 2 LEFT 2 Patellar: RIGHT 2 LEFT 2 Achilles: RIGHT 2 LEFT 2 Pathological Reflexes Rajput's: RIGHT Absent LEFT Absent Babinski: RIGHT Absent LEFT Absent Clonus: RIGHT None LEFT None SENSORY Joint Position: Intact bilaterally Vibration Intact bilaterally Pain and LT sense Intact C5-T1 and L2-S1 Dermatomal deficit None Gait and Functional Evaluation: Ambulatory aids: Walker Hand and finger dexterity intact bilaterally. Disdiadochokinesis examination negative bilaterally. - Labs CBC & Chem 7: 02/09/21 07:22 02/10/21 09:30 Labs: Abnormal Lab Results - Last 24 Hours (Table) 02/08/21 02/08/21 02/10/21 Range/Units 18:38 21:18 09:30 Sodium 132 L (137-145) mmol/L Chloride 97 L (98-107) mmol/L Glucose 101 H (74-99) mg/dL Crossmatch See Detail See Detail Blood Bank Comment Sent to [facility] A Microbiology - Last 24 Hours (Table) 02/08/21 13:46 Gram Stain - Final Back Wound Culture - Final Escherichia coli 02/08/21 13:46 Gram Stain - Final Back Wound Culture - Final Escherichia coli 02/08/21 13:46 Gram Stain - Final Back Wound Culture - Final Escherichia coli 02/08/21 13:46 Anaerobic Culture - Preliminary Back 02/08/21 13:46 Anaerobic Culture - Preliminary Back 02/08/21 13:46 Anaerobic Culture - Preliminary Back 02/08/21 13:46 Anaerobic Culture - Preliminary Back 02/06/21 14:00 Anaerobic Culture - Final Back 02/08/21 13:46 Gram Stain - Final Back Tissue Culture - Final Escherichia coli 02/08/21 13:46 Gram Stain - Final Back Wound Culture - Final Escherichia coli 02/06/21 16:01 Blood Culture - Preliminary Blood No Growth after 96 hours Assessment and Plan Assessment: 60 yo female POD3 Lumbar wound I&D with antibiotic bead placement. 1. Lumbar wound infection 2. Wound dehiscence 3. Back pain 4. S/p L4-S1 decompression fusion 5. Hyponatremia likely SIADH Plan: -Appreciate medicine, ID, cardio management -Pain control adequate at this time -CBC, BMP, Sed, CRP this AM ordered. -Cont IVF, increase rate if OK with Medicine due to low sodium. Pt has sepsis and needs to be resuscitated -Must encourage ambulation, out of bed with all meals. Increase strength and right lower extremity. -PT/OT daily, ambulate, sit up, OOB all meals -Ice to back PRN -GI/DVT ppx. OK for heparin tonight -TEds/SCDs -Cont drain, record output, likely dc tomorrow with dressing change -Dispo: Pending, will likely need HH
[2021-02-11] MEDS: GABAPENTIN 300 MG CAP PO SCH ×3 (08:49→20:10)
[2021-02-11] MEDS: DOCUSATE 100 MG CAP PO SCH ×2 (08:49→20:10)
[2021-02-11] MEDS: HYDROcodone/APAP 10-325MG 1 EACH TAB PO PRN ×2 (08:49→16:20)
[2021-02-11] MEDS: METOPROLOL TARTRATE 25 MG TAB PO SCH ×2 (08:49→20:10)
--- NOTE | 2021-02-11 10:10 | P.PN ---
Subjective Patient is seen in follow-up for hyponatremia. Sodium level stable as of yesterday. Oral intake a little better. No vomiting or diarrhea. Vital signs are stable. General: The patient appeared well nourished and normally developed. HEENT: Head exam is unremarkable. Neck is without jugular venous distension. LUNGS: Breath sounds decreased. HEART: Rate and Rhythm are regular. ABDOMEN: Soft, no distention. EXTREMITITES: No edema. Objective - Vital Signs Vital signs: Vital Signs Temp 98.1 F 02/11/21 08:43 Pulse 87 02/11/21 08:43 Resp 16 02/11/21 08:43 BP 126/71 02/11/21 08:43 Pulse Ox 96 02/11/21 08:43 Intake & Output 02/10/21 02/11/21 02/11/21 18:59 06:59 18:59 Intake Total 180 650 560 Output Total 990 360 Balance -810 290 560 Intake: Intake, IV Titration 100 Amount Sodium Chloride 0.9% 1, 100 000 ml @ 20 mls/hr IV . Q24H [facility] Rx#:[id number] Oral 180 240 560 Blood Product 0 310 Rc As-1 Unit 0 310 [id number] Output: Drainage 40 10 Lower Back 40 10 Urine 950 350 Other: Voiding Method Indwelling Catheter Indwelling Catheter - Labs CBC & Chem 7: 02/09/21 07:22 02/10/21 09:30 Labs: Abnormal Lab Results - Last 24 Hours (Table) 02/08/21 02/08/21 02/10/21 Range/Units 18:38 21:18 09:30 Sodium 132 L (137-145) mmol/L Chloride 97 L (98-107) mmol/L Glucose 101 H (74-99) mg/dL Crossmatch See Detail See Detail Blood Bank Comment Sent to [facility] A Microbiology - Last 24 Hours (Table) 02/08/21 13:46 Gram Stain - Final Back Wound Culture - Final Escherichia coli 02/08/21 13:46 Gram Stain - Final Back Wound Culture - Final Escherichia coli 02/08/21 13:46 Gram Stain - Final Back Wound Culture - Final Escherichia coli 02/08/21 13:46 Anaerobic Culture - Preliminary Back 02/08/21 13:46 Anaerobic Culture - Preliminary Back 02/08/21 13:46 Anaerobic Culture - Preliminary Back 02/08/21 13:46 Anaerobic Culture - Preliminary Back 02/06/21 14:00 Anaerobic Culture - Final Back 02/08/21 13:46 Gram Stain - Final Back Tissue Culture - Final Escherichia coli 02/08/21 13:46 Gram Stain - Final Back Wound Culture - Final Escherichia coli 02/06/21 16:01 Blood Culture - Preliminary Blood No Growth after 96 hours Assessment and Plan Plan: Assessment: 1. Hyponatremia from poor solute intake and pain-induced SIADH. [facility] [place] [facility] [place] [place]. Sodium level stable as of yesterday. TSH normal. 2. Lumbar spine abscess status post incision and drainage and exchange of hardware done 02/08/2021. 3. Benign hypertension. Stable. 4. Anemia. Rule out iron deficiency. Plan: Encourage oral intake, particularly protein. 1500 mL fluid restriction. Continue to monitor. Morning labs pending.
[2021-02-11 10:35] LABS: African American GFR (CKD) >90 (>60 ml/min/1.73 sqM); Anion Gap 6 mmol/L; Blood Urea Nitrogen 17 mg/dL (7-17); Calcium 8.8 mg/dL (8.4-10.2); Carbon Dioxide 29 mmol/L (22-30); Chloride 96 mmol/L (98-107); Glucose 99 mg/dL (74-99); Magnesium 1.7 mg/dL (1.6-2.3); Non-African American GFR(CKD) >90 (>60 ml/min/1.73 sqM); Potassium 3.7 mmol/L (3.5-5.1); Sodium 131 mmol/L (137-145)
[2021-02-11 10:36] LABS: HCT 28.9 % (34.0-46.0); HGB 9.6 gm/dL (11.4-16.0); Hypochromasia Slight; MCH 26.1 pg (25.0-35.0); MCHC 33.2 g/dL (31.0-37.0); MCV 78.5 fL (80.0-100.0); Mean Platelet Volume 8.3; Platelet Count 321 k/uL (150-450); Poikilocytosis Slight; RBC 3.69 m/uL (3.80-5.40); RDW 15.4 % (11.5-15.5); WBC 20.5 k/uL (3.8-10.6)
[2021-02-11] MEDS: SODIUM CHLORIDE TAB 1 GM TAB PO SCH ×2 (11:56→20:10)
[2021-02-11 12:10] LABS: C Reactive Protein 23.7 mg/dL (<1.0)
--- NOTE | 2021-02-11 13:33 | P.PN ---
Subjective Progress Note Date: 02/11/21 (delayed charting seen at 0945) Principal diagnosis: back pain Antoni is a 60 yo female with a recent L 4/5 and L5/S1 Laminectomy with fusion and intradiscal osteotomy on 01/05/21 with prior deep vein thrombocytosis, GERD, adn HTN who was transferred from [facility] for back and wound dehisence. She was started on cefepime and Vanco. Found to have post-op infection. Hyponatremia, likely SIADH. She underwent washout and hardware exchange on 02/08. Patient seen and examined at bedside. She reports that her headache is the best it has been since admission. She denies any shortness of breath. She is a cough which is nonproductive. Denies any nausea or vomiting. General: ill appearing, mild distress due to pain, appears at stated age Derm: warm, dry Head: atraumatic, normocephalic, symmetric Eyes: EOMI, no lid lag, anicteric sclera Mouth: no lip lesion, mucus membranes moist Cardiovascular: S1S2 reg, no murmur, positive posterior tibial pulse bilateral, Lungs: decreased bs bilateral, no rhonchi, no rales , no accessory muscle use Abdominal: soft, nontender to palpation, no guarding, no appreciable organomegaly Psych: Alert, oriented, appropriate affect Hyponatremia likely secondary to SIADH and low solute intake due to pain -Discussed with nephrology, Marcie given 1 on 02/07 -Sodium chloride tablets started -Repeat sodium levels in a.m. E. coli Postop wound infection with sepsis status post lumbar laminectomy with fusion 01/05/21 status post washout on 02/08 -Continue with Rocephin -ID recs: anticipate that patient will need PICC line (order placed) -Pain control -Nothing by mouth after midnight GERD - PPI Hypertension - hold HCTZ - Lisinopril, metoprolol - follow BP NSVT - on metoprolol - cardio signed off - echo with ef 55-60% Anemia - post op from January - follow CBC, await iron studies - stable Thank you for allowing us to participate in the care of this pleasant patient. Do not hesitate to contact us with questions. Someone can be reached from the [facility] hospitalist group all hours of the day at [phone] or via perfect serve. Objective - Vital Signs Vital signs: Vital Signs Temp 97.7 F 02/11/21 11:57 Pulse 71 02/11/21 11:57 Resp 18 02/11/21 11:57 BP 101/63 02/11/21 11:57 Pulse Ox 99 02/11/21 11:57 Intake & Output 02/10/21 02/11/21 02/11/21 18:59 06:59 18:59 Intake Total 180 650 560 Output Total 990 360 300 Balance -810 290 260 Intake: Intake, IV Titration 100 Amount Sodium Chloride 0.9% 1, 100 000 ml @ 20 mls/hr IV . Q24H [facility] Rx#:[id number] Oral 180 240 560 Blood Product 0 310 Rc As-1 Unit 0 310 [id number] Output: Drainage 40 10 Lower Back 40 10 Urine 950 350 300 Uretheral (Grande) 300 Other: Voiding Method Indwelling Catheter Indwelling Catheter Indwelling Catheter - Labs CBC & Chem 7: 02/11/21 09:04 02/11/21 09:04 Labs: Abnormal Lab Results - Last 24 Hours (Table) 02/08/21 02/08/21 02/11/21 Range/Units 18:38 21:18 09:04 WBC (3.8-10.6) k/uL RBC (3.80-5.40) m/uL Hgb (11.4-16.0) gm/dL Hct (34.0-46.0) % MCV (80.0-100.0) fL Sodium 131 L (137-145) mmol/L Chloride 96 L (98-107) mmol/L C-Reactive Protein 23.7 H (<1.0) mg/dL Crossmatch See Detail See Detail Blood Bank Comment Sent to [facility] A 02/11/21 Range/Units 09:04 WBC 20.5 H (3.8-10.6) k/uL RBC 3.69 L (3.80-5.40) m/uL Hgb 9.6 L (11.4-16.0) gm/dL Hct 28.9 L (34.0-46.0) % MCV 78.5 L (80.0-100.0) fL Sodium (137-145) mmol/L Chloride (98-107) mmol/L C-Reactive Protein (<1.0) mg/dL Crossmatch Blood Bank Comment Microbiology - Last 24 Hours (Table) 02/08/21 13:46 Gram Stain - Final Back Wound Culture - Final Escherichia coli 02/08/21 13:46 Gram Stain - Final Back Wound Culture - Final Escherichia coli 02/08/21 13:46 Gram Stain - Final Back Wound Culture - Final Escherichia coli 02/08/21 13:46 Anaerobic Culture - Preliminary Back 02/08/21 13:46 Anaerobic Culture - Preliminary Back 02/08/21 13:46 Anaerobic Culture - Preliminary Back 02/08/21 13:46 Anaerobic Culture - Preliminary Back 02/06/21 14:00 Anaerobic Culture - Final Back 02/08/21 13:46 Gram Stain - Final Back Tissue Culture - Final Escherichia coli 02/08/21 13:46 Gram Stain - Final Back Wound Culture - Final Escherichia coli 02/06/21 16:01 Blood Culture - Preliminary Blood No Growth after 96 hours
[2021-02-11 13:44] LABS: Erythrocyte Sedimentation Rate 99 mm/hr (0-20)
[2021-02-11 14:14] LABS: Eosinophils # (M) 0.21 k/uL (0-0.7); Lymphocytes # (M) 2.46 k/uL (1.0-4.8); Metamyelocytes # (M) 0.82 k/uL (0); Metamyelocytes % 4 %; Monocytes # (M) 11.07 k/uL (0-1.0); Myelocytes # (M) 0.41 k/uL (0); Myelocytes % 2 %; Neutrophils # (M) 5.74 k/uL (1.3-7.7); Neutrophils % (M) 28 %; Nucleated Red Blood Cells 0 /100 WBC (0-0); Promyelocytes # (M) 0.21 k/uL (0); Promyelocytes % 1 %; Total Cells Counted 200
[2021-02-11 14:16] LABS: Large Platelets Present; Polychromasia Present; Toxic Vacuolation Present
[2021-02-11] MEDS ORDERED: LIDOCAINE 1% INJ 10MG/ML (20 ML MDV) SQ ONE (14:39)
--- NOTE | 2021-02-11 15:51 | IR ---
PICC LINE PLACEMENT: HISTORY: Infection requiring long-term antibiotic therapy PROCEDURE: Ultrasound and fluoroscopic guidance of PICC line placement. COMPLICATIONS: None ANESTHESIA: 1. 1% Lidocaine locally. FINDINGS/TECHNIQUE: The procedure was explained to the patient. The risks, complications, benefits and alternatives were discussed and any questions were answered. Informed consent was obtained. The patient was placed supine on the fluoroscopic table and prepped and draped in the usual sterile fash ion. Utilizing a 21 gauge needle and sonographic and fluoroscopic guidance, access in the left ceph alic vein was achieved and there is placement of a 0.018 guidewire. The vein is patent. A 4-F sheat h was placed over the guidewire. The guidewire and dilator were removed and a 4-F. PICC line was álvaro morales through the sheath with the tip at the level of the SVC. The sheath was removed, the catheter wa s flushed and sutured into position. The patient was stable throughout the procedure and remained st able upon discharge from the Department of Radiology. The vein puncture was patent under ultrasound. A hills scale image was obtained to document patency of the vein punctured. All elements of the maximal barrier technique were utilized. FLUOROSCOPY TIME: 0.3 minutes and 1 images submitted IMPRESSION: Successful PICC line placement under ultrasound and fluoroscopic guidance.
[2021-02-11] MEDS: SODIUM CHLORIDE 0.9% 1,000 ML IV SCH (16:23)
[2021-02-11] MEDS: lisinopriL 20 MG TAB PO SCH (20:10)
--- NOTE | 2021-02-11 22:36 | PN ---
PROGRESS NOTE DATE OF SERVICE: 02/11/2021 REASON FOR FOLLOWUP: Infected lumbar surgical site infection. INTERVAL HISTORY: Patient is afebrile. Still complaining of pain to the lumbar sacral wound area. No chest pain, shortness of breath or cough. No nausea, vomiting. No abdominal pain or diarrhea. PHYSICAL EXAMINATION: Blood pressure 118/66, pulse of 101. Temperature 98.2. She is 95% on room air. General description: The patient is a middle-aged female lying in bed in no distress. Respiratory system: Unlabored breathing, clear to auscultation anteriorly. Heart S1, S2. Regular rate and rhythm. ABDOMEN: Soft, no tenderness. LABS: Hemoglobin is 9.6, white count 20.5, BUN of 17, creatinine 0.68, culture with E coli. DIAGNOSTIC IMPRESSION AND PLAN: Patient with sacral wound infection, deep culture positive for E coli. as well. We will keep the patient on Rocephin for now. Monitor clinical course closely. Continue supportive care. MMODL / IJN: [id number] /
[2021-02-12 00:16] LABS: Ferritin 97.9 ng/mL (10.0-291.0)
[2021-02-12 01:42] LABS: % Iron Saturation 6.7 (12.00-45.00)
[2021-02-12 07:16] LABS: HCT 28.5 % (34.0-46.0); HGB 9.3 gm/dL (11.4-16.0); Hypochromasia Slight; MCH 25.5 pg (25.0-35.0); MCHC 32.6 g/dL (31.0-37.0); MCV 78.3 fL (80.0-100.0); Mean Platelet Volume 7.8; Platelet Count 269 k/uL (150-450); RBC 3.63 m/uL (3.80-5.40); RDW 15.5 % (11.5-15.5)
[2021-02-12 07:29] LABS: African American GFR (CKD) >90 (>60 ml/min/1.73 sqM); Anion Gap 7 mmol/L; Blood Urea Nitrogen 13 mg/dL (7-17); Calcium 8.5 mg/dL (8.4-10.2); Carbon Dioxide 26 mmol/L (22-30); Chloride 98 mmol/L (98-107); Glucose 88 mg/dL (74-99); Non-African American GFR(CKD) >90 (>60 ml/min/1.73 sqM); Potassium 3.6 mmol/L (3.5-5.1); Sodium 131 mmol/L (137-145)
[2021-02-12] MEDS ORDERED: SODIUM FERRIC GLUCONAT-SUCROSE 125 MG in SODIUM CHLORIDE 0.9% 100 ML IVPB ONE (07:45)
[2021-02-12] MEDS: GABAPENTIN 300 MG CAP PO SCH ×3 (08:26→20:53)
[2021-02-12] MEDS: METOPROLOL TARTRATE 25 MG TAB PO SCH ×2 (08:26→20:53)
[2021-02-12] MEDS: PANTOPRAZOLE 40 MG TABLET PO SCH (08:26)
[2021-02-12] MEDS: SODIUM CHLORIDE TAB 1 GM TAB PO SCH ×2 (08:26→20:53)
[2021-02-12] MEDS: DOCUSATE 100 MG CAP PO SCH ×2 (08:26→20:53)
[2021-02-12] MEDS: HYDROcodone/APAP 10-325MG 1 EACH TAB PO PRN (08:26)
--- NOTE | 2021-02-12 09:58 | US ---
EXAMINATION TYPE: US venous doppler duplex LE RT DATE OF EXAM: 02/12/2021 9:28 AM COMPARISON: NONE CLINICAL HISTORY: calf pain, knee pain, hx of recent surgery. SIDE PERFORMED: Right TECHNIQUE: The lower extremity deep venous system is examined utilizing real time linear array sonog sina with graded compression, doppler sonography and color-flow sonography. VESSELS IMAGED: Common Femoral Vein Deep Femoral Vein Greater Saphenous Vein * Femoral Vein Popliteal Vein Small Saphenous Vein * Proximal Calf Veins (* superficial vessels) Right Leg: Negative for DVT as seen, not able to visualize vessels in groin due to bandaging and rec ent surgery. IMPRESSION: Negative for DVT as seen, not able to visualize vessels in groin due to bandaging and re cent surgery.
--- NOTE | 2021-02-12 11:22 | P.PN ---
Subjective Patient is seen in follow-up for hyponatremia. Sodium level stable. Oral intake just fair. No vomiting or diarrhea. Hemodynamically stable. Vital signs are stable. General: The patient appeared well nourished and normally developed. HEENT: Head exam is unremarkable. Neck is without jugular venous distension. LUNGS: Breath sounds decreased. HEART: Rate and Rhythm are regular. ABDOMEN: Soft, no distention. EXTREMITITES: No edema. Objective - Vital Signs Vital signs: Vital Signs Temp 99.3 F 02/12/21 04:15 Pulse 91 02/12/21 04:15 Resp 16 02/12/21 04:15 BP 109/63 02/12/21 04:15 Pulse Ox 94 L 02/12/21 04:15 Intake & Output 02/11/21 02/12/21 02/12/21 18:59 06:59 18:59 Intake Total 800 236 Output Total 500 Balance 300 236 Weight 84.822 kg Intake: Oral 800 236 Output: Urine 500 Uretheral (Grande) 300 Other: Voiding Method Indwelling Catheter Indwelling Catheter - Labs CBC & Chem 7: 02/12/21 06:15 02/12/21 06:15 Labs: Abnormal Lab Results - Last 24 Hours (Table) 02/11/21 02/11/21 02/11/21 Range/Units 09:04 09:04 09:04 WBC (3.8-10.6) k/uL RBC (3.80-5.40) m/uL Hgb (11.4-16.0) gm/dL Hct (34.0-46.0) % MCV (80.0-100.0) fL Monocytes # (Manual) 11.07 H (0-1.0) k/uL Metamyelocytes # (Man) 0.82 H (0) k/uL Myelocytes # (Manual) 0.41 H (0) k/uL Promyelocytes # (Man) 0.21 H (0) k/uL ESR 99 H (0-20) mm/hr Sodium (137-145) mmol/L Iron 14 L (50-170) ug/dL TIBC 209 L (228-460) ug/dL % Saturation 6.70 L (12.00-45.00) C-Reactive Protein 23.7 H (<1.0) mg/dL 02/12/21 02/12/21 Range/Units 06:15 06:15 WBC 19.0 H (3.8-10.6) k/uL RBC 3.63 L (3.80-5.40) m/uL Hgb 9.3 L (11.4-16.0) gm/dL Hct 28.5 L (34.0-46.0) % MCV 78.3 L (80.0-100.0) fL Monocytes # (Manual) (0-1.0) k/uL Metamyelocytes # (Man) (0) k/uL Myelocytes # (Manual) (0) k/uL Promyelocytes # (Man) (0) k/uL ESR (0-20) mm/hr Sodium 131 L (137-145) mmol/L Iron (50-170) ug/dL TIBC (228-460) ug/dL % Saturation (12.00-45.00) C-Reactive Protein (<1.0) mg/dL Microbiology - Last 24 Hours (Table) 02/06/21 14:00 Gram Stain - Final Back Wound Culture - Final Escherichia coli Stenotrophomonas maltophilia 02/06/21 16:01 Blood Culture - Preliminary Blood No Growth after 120 hours 02/08/21 13:46 Gram Stain - Final Back Wound Culture - Final Escherichia coli 02/08/21 13:46 Gram Stain - Final Back Wound Culture - Final Escherichia coli 02/08/21 13:46 Gram Stain - Final Back Wound Culture - Final Escherichia coli Assessment and Plan Plan: Assessment: 1. Hyponatremia from poor solute intake and pain-induced SIADH. Status post samsca this admission. Sodium level stable. TSH normal. 2. Lumbar spine abscess status post incision and drainage and exchange of hardware done 02/08/2021. 3. Benign hypertension. Stable. 4. Anemia. Iron deficiency noted. Plan: Encourage oral intake, particularly protein. 1500 mL fluid restriction. Maintain sodium chloride tabs. Receiving a dose of IV iron today. Continue to monitor.
--- NOTE | 2021-02-12 12:41 | P.PN ---
Subjective Progress Note Date: 02/12/21 Principal diagnosis: Acute postoperative infection status post lumbar decompression with fusion Patient was evaluated today at bedside, she is initially sleeping upon arrival. She is easily awoken will. She still remains lethargic but more alert and cooperative with exam today. She denies any changes in her pain with regards to the low back or lower extremities. She states that the discomfort surrounding the right knee and lower leg including foot and ankle seems to improved. She was able to get to the edge of the bed yesterday with the help of these hospital staff. She denies any loss of bowel or bladder function, she denies any genital or perineal area numbness or tingling. She denies any headaches, lightheadedness, chest pain or shortness of breath. Objective - Vital Signs Vital signs: Vital Signs Temp 99.3 F 02/12/21 04:15 Pulse 91 02/12/21 04:15 Resp 16 02/12/21 04:15 BP 109/63 02/12/21 04:15 Pulse Ox 94 L 02/12/21 04:15 Intake & Output 02/11/21 02/12/21 02/12/21 18:59 06:59 18:59 Intake Total 800 236 Output Total 500 Balance 300 236 Weight 84.822 kg Intake: Oral 800 236 Output: Urine 500 Uretheral (Grande) 300 Other: Voiding Method Indwelling Catheter Indwelling Catheter - Exam Gen: AOx3, NAD VSS stable at this time Integument: Postoperative bandages removed today at bedside along with the drain. There was a mild/moderate amount of serosanguineous drainage from the drain hole after removal. The sutures are all in good position and condition, no evidence of dehiscence, there is no drainage or areas of purulence appreciated or fluctuance. Palpation: Minimal tenderness with palpation along the midline or paraspinal lumbar region, no obvious fluctuance appreciated ROM: Full range of motion in all major muscle groups of bilateral upper extremities Range of motion is intact in all major muscle groups of the bilateral lower extremities, she remains limited with hip flexion, knee extension and flexion and dorsiflexion but improved Sensory Exam: Senory exam to light touch is intact C5-T1 Senosry exam to light touch is intact L2-S1 Motor: 5 out of 5 strength is appreciated in the bilateral upper extremities with shoulder abduction, forward elevation, elbow flexion, elbow extension, wrist extension, wrist flexion, intrinsics 5 out of 5 strength is appreciated in the left lower extremity with hip flexion, knee extension, knee flexion, plantar flexion, dorsiflexion, EHL, FHL Right lower extremity: 3 out of 5 strength appreciated with hip flexion, knee extension, knee flexion. 4-5 strength appreciated with plantar flexion, FHL. 34 out of 5 strength is appreciated with dorsiflexion and EHL Reflexes: 2/4 in all UE and LE Negative Charlene's bilaterally Negative Babinski bilaterally Negative clonus bilaterally - Labs CBC & Chem 7: 02/12/21 06:15 02/12/21 06:15 Labs: Abnormal Lab Results - Last 24 Hours (Table) 02/11/21 02/11/21 02/12/21 Range/Units 09:04 09:04 06:15 WBC 19.0 H (3.8-10.6) k/uL RBC 3.63 L (3.80-5.40) m/uL Hgb 9.3 L (11.4-16.0) gm/dL Hct 28.5 L (34.0-46.0) % MCV 78.3 L (80.0-100.0) fL Monocytes # (Manual) 11.07 H (0-1.0) k/uL Metamyelocytes # (Man) 0.82 H (0) k/uL Myelocytes # (Manual) 0.41 H (0) k/uL Promyelocytes # (Man) 0.21 H (0) k/uL ESR 99 H (0-20) mm/hr Sodium (137-145) mmol/L Iron 14 L (50-170) ug/dL TIBC 209 L (228-460) ug/dL % Saturation 6.70 L (12.00-45.00) 02/12/21 Range/Units 06:15 WBC (3.8-10.6) k/uL RBC (3.80-5.40) m/uL Hgb (11.4-16.0) gm/dL Hct (34.0-46.0) % MCV (80.0-100.0) fL Monocytes # (Manual) (0-1.0) k/uL Metamyelocytes # (Man) (0) k/uL Myelocytes # (Manual) (0) k/uL Promyelocytes # (Man) (0) k/uL ESR (0-20) mm/hr Sodium 131 L (137-145) mmol/L Iron (50-170) ug/dL TIBC (228-460) ug/dL % Saturation (12.00-45.00) Microbiology - Last 24 Hours (Table) 02/06/21 14:00 Gram Stain - Final Back Wound Culture - Final Escherichia coli Stenotrophomonas maltophilia 02/06/21 16:01 Blood Culture - Preliminary Blood No Growth after 120 hours Assessment and Plan Assessment: Lumbar wound dehiscence Lumbar spine infection History of recent L4-S1 decompression with fusion Other medical comorbidities Plan: Dr. Thapa was available at bedside today to discuss treatment plan with patient. We again explained to her the importance of getting moving, this to include out of bed with all meals, given at the side of the bed to use the bedside commode and just generalized ambulation Wound care: postoperative drain was removed today at bedside, a new dressing was applied. Nursing staff contacted me shortly after a change dressing, a new dressing became saturated from the drain hole. I explained to the nursing staff to remove the current bandage, apply alcohol near the drain hole and remaining incision, then to apply gauze to the drain hole and a new out the foam silver impregnated dressing. GI and DVT prophylaxis, continue current medication Weight-bear as tolerated with walker Infectious disease recommendations Pain control, continue current medication Doppler was ordered of the right lower extremity due to discomfort in the knee region, this was negative for any acute DVT Encourage incentive spirometer Discharge planning: Anticipate discharge to subacute rehab or home 02/15/2021 Time with Patient: Less than 30
[2021-02-12] MEDS: HYDROmorphone 0.5 MG/0.5 ML SYRINGE IVP PRN ×4 (12:57→23:21)
[2021-02-12 14:47] LABS: Basophils # (M) 0.19 k/uL (0-0.2); Eosinophils # (M) 0.19 k/uL (0-0.7); Lymphocytes # (M) 3.23 k/uL (1.0-4.8); Metamyelocytes # (M) 0.76 k/uL (0); Metamyelocytes % 4 %; Monocytes # (M) 8.36 k/uL (0-1.0); Myelocytes # (M) 0.76 k/uL (0); Myelocytes % 4 %; Neutrophils # (M) 5.89 k/uL (1.3-7.7); Neutrophils % (M) 31 %; Nucleated Red Blood Cells 0 /100 WBC (0-0); Promyelocytes # (M) 0.19 k/uL (0); Promyelocytes % 1 %; Total Cells Counted 200
[2021-02-12 14:51] LABS: Polychromasia Present
--- NOTE | 2021-02-12 15:43 | P.PN ---
Subjective Progress Note Date: 02/12/21 (delayed charting seen at 0830) Principal diagnosis: back pain Antoni is a 60 yo female with a recent L 4/5 and L5/S1 Laminectomy with fusion and intradiscal osteotomy on 01/05/21 with prior deep vein thrombocytosis, GERD, adn HTN who was transferred from [facility] for back and wound dehisence. She was started on cefepime and Vanco. Found to have post-op infection. Hyponatremia, likely SIADH. She underwent washout and hardware exchange on 02/08. Patient seen and examined at bedside. She is having some more pain today, eating little, no nuasea, has been getting up and down. General: ill appearing, no distress, appears at stated age Derm: warm, dry Head: atraumatic, normocephalic, symmetric Eyes: EOMI, no lid lag, anicteric sclera Mouth: no lip lesion, mucus membranes moist Cardiovascular: S1S2 reg, no murmur, positive posterior tibial pulse bilateral, Lungs: decreased bs bilateral, no rhonchi, no rales , no accessory muscle use Abdominal: soft, nontender to palpation, no guarding, no appreciable organomegaly Psych: Alert, oriented, appropriate affect Hyponatremia likely secondary to SIADH and low solute intake due to pain - Samsca given 1 on 02/07 -Sodium chloride tablets - nephrology recs -Repeat sodium levels in a.m. E. coli Postop wound infection with sepsis status post lumbar laminectomy with fusion 01/05/21 status post washout on 02/08 -Continue with Rocephin -ID recs: PICC line placed -Pain control -Nothing by mouth after midnight GERD - PPI Hypertension - hold HCTZ - Lisinopril, metoprolol - follow BP NSVT - on metoprolol - cardio signed off - echo with ef 55-60% Anemia, iron deficiency anemia - IV iron X 1 - post op from January - Thank you for allowing us to participate in the care of this pleasant patient. Do not hesitate to contact us with questions. Someone can be reached from the [facility] hospitalist group all hours of the day at [phone] or via perfect serve. Objective - Vital Signs Vital signs: Vital Signs Temp 99.3 F 02/12/21 12:00 Pulse 89 02/12/21 12:00 Resp 16 02/12/21 12:00 BP 104/61 02/12/21 12:00 Pulse Ox 96 02/12/21 12:00 Intake & Output 02/11/21 02/12/21 02/12/21 18:59 06:59 18:59 Intake Total 800 236 Output Total 500 Balance 300 236 Weight 84.822 kg Intake: Oral 800 236 Output: Urine 500 Uretheral (Grande) 300 Other: Voiding Method Indwelling Catheter Indwelling Catheter - Labs CBC & Chem 7: 02/12/21 06:15 02/12/21 06:15 Labs: Abnormal Lab Results - Last 24 Hours (Table) 02/11/21 02/12/21 02/12/21 Range/Units 09:04 06:15 06:15 WBC 19.0 H (3.8-10.6) k/uL RBC 3.63 L (3.80-5.40) m/uL Hgb 9.3 L (11.4-16.0) gm/dL Hct 28.5 L (34.0-46.0) % MCV 78.3 L (80.0-100.0) fL Monocytes # (Manual) 8.36 H (0-1.0) k/uL Metamyelocytes # (Man) 0.76 H (0) k/uL Myelocytes # (Manual) 0.76 H (0) k/uL Promyelocytes # (Man) 0.19 H (0) k/uL Sodium 131 L (137-145) mmol/L Iron 14 L (50-170) ug/dL TIBC 209 L (228-460) ug/dL % Saturation 6.70 L (12.00-45.00) Microbiology - Last 24 Hours (Table) 02/06/21 14:00 Gram Stain - Final Back Wound Culture - Final Escherichia coli Stenotrophomonas maltophilia 02/06/21 16:01 Blood Culture - Preliminary Blood No Growth after 120 hours
[2021-02-12] MEDS: SODIUM CHLORIDE 0.9% 1,000 ML IV SCH (16:54)
[2021-02-12] MEDS: traMADol 50 MG TAB PO PRN (17:18)
--- NOTE | 2021-02-12 18:51 | PN ---
PROGRESS NOTE DATE OF SERVICE: 02/12/2021 REASON FOR FOLLOWUP: Lumbar surgical site infection. INTERVAL HISTORY: Patient is afebrile. The patient is breathing comfortably. Still complaining of back pain. No worsening . No chest pain shortness of breath or cough. No abdominal pain or diarrhea. PHYSICAL EXAMINATION: Blood pressure 104/51 with a pulse of 89, temperature 98.8. She is 96% on room air. General description: The patient is a middle-aged female lying in bed in no distress. Respiratory system: Unlabored breathing, clear to auscultation anteriorly. Heart S1, S2. Regular rate and rhythm. Abdomen soft, no tenderness. LABS: Hemoglobin is 9, white count 19. BUN of 13, creatinine 0.55. DIAGNOSTIC IMPRESSION AND PLAN: Patient with lumbar surgical site infection, status post debridement and removal of some of the hardware. Culture showing an E coli. Superficial cultures also show Stenotrophomonas. In view of the white count still persistently elevated, antibiotic will be switched over to cefepime so better coverage for the Stenotrophomonas in addition to the E coli and we will monitor white count and clinical course closely. Continue supportive care. MMODL / IJN: [id number] /
[2021-02-12] MEDS: lisinopriL 20 MG TAB PO SCH (20:53)
[2021-02-12] MEDS: CEFEPIME 2 GM in SODIUM CHLORIDE 0.9% 100 ML IVPB SCH (23:22)
[2021-02-13] MEDS: HYDROmorphone 0.5 MG/0.5 ML SYRINGE IVP PRN ×3 (04:57→22:42)
[2021-02-13 04:58] LABS: Anisocytosis Slight; HCT 29.4 % (34.0-46.0); HGB 9.1 gm/dL (11.4-16.0); Hypochromasia Moderate; MCH 24.8 pg (25.0-35.0); MCV 80.1 fL (80.0-100.0); Mean Platelet Volume 8.9; Platelet Count 242 k/uL (150-450); RBC 3.68 m/uL (3.80-5.40); WBC 17.1 k/uL (3.8-10.6)
[2021-02-13] MEDS: ACETAMINOPHEN TAB 325 MG TAB PO PRN (05:02)
[2021-02-13 05:20] LABS: Band Neutrophils % 4 %; Lymphocytes # (M) 3.08 k/uL (1.0-4.8); Metamyelocytes # (M) 0.17 k/uL (0); Metamyelocytes % 1 %; Monocytes # (M) 7.01 k/uL (0-1.0); Neutrophils % (M) 36 %; Nucleated Red Blood Cells 0 /100 WBC (0-0); Total Cells Counted 100
[2021-02-13 05:21] LABS: Anisocytosis (M) Present; Polychromasia Present; Toxic Granulation Present
[2021-02-13] MEDS: DOCUSATE 100 MG CAP PO SCH ×2 (08:26→20:11)
[2021-02-13] MEDS: CEFEPIME 2 GM in SODIUM CHLORIDE 0.9% 100 ML IVPB SCH ×3 (08:26→22:55)
[2021-02-13] MEDS: GABAPENTIN 300 MG CAP PO SCH ×2 (08:26→20:11)
[2021-02-13] MEDS: METOPROLOL TARTRATE 25 MG TAB PO SCH ×2 (08:26→20:11)
[2021-02-13] MEDS: SODIUM CHLORIDE TAB 1 GM TAB PO SCH ×2 (08:26→20:11)
[2021-02-13] MEDS: PANTOPRAZOLE 40 MG TABLET PO SCH (08:26)
--- NOTE | 2021-02-13 09:15 | P.PN ---
Subjective Patient is seen in follow-up for hyponatremia. Sodium level stable as of yesterday. Oral intake just fair. No vomiting or diarrhea. Hemodynamically stable. No active complaints. Vital signs are stable. General: The patient appeared well nourished and normally developed. HEENT: Head exam is unremarkable. Neck is without jugular venous distension. LUNGS: Breath sounds decreased. HEART: Rate and Rhythm are regular. ABDOMEN: Soft, no distention. EXTREMITITES: No edema. Objective - Vital Signs Vital signs: Vital Signs Temp 100 F H 02/13/21 05:00 Pulse 94 02/13/21 05:00 Resp 20 02/13/21 05:00 BP 111/66 02/13/21 05:00 Pulse Ox 96 02/13/21 05:00 Intake & Output 02/12/21 02/13/21 02/13/21 18:59 06:59 18:59 Intake Total 2011 100 Output Total 200 Balance 2011 Intake: Oral 2011 100 Output: Urine 200 Other: Voiding Method Bedside Commode Diaper # Voids 1 2 - Labs CBC & Chem 7: 02/13/21 03:49 02/12/21 06:15 Labs: Abnormal Lab Results - Last 24 Hours (Table) 02/12/21 02/13/21 Range/Units 06:15 03:49 WBC 17.1 H (3.8-10.6) k/uL RBC 3.68 L (3.80-5.40) m/uL Hgb 9.1 L (11.4-16.0) gm/dL Hct 29.4 L (34.0-46.0) % MCH 24.8 L (25.0-35.0) pg RDW 16.0 H (11.5-15.5) % Monocytes # (Manual) 8.36 H 7.01 H (0-1.0) k/uL Metamyelocytes # (Man) 0.76 H 0.17 H (0) k/uL Myelocytes # (Manual) 0.76 H (0) k/uL Promyelocytes # (Man) 0.19 H (0) k/uL Microbiology - Last 24 Hours (Table) 02/08/21 13:46 Anaerobic Culture - Final Back 02/08/21 13:46 Anaerobic Culture - Final Back 02/08/21 13:46 Anaerobic Culture - Final Back 02/08/21 13:46 Anaerobic Culture - Final Back 02/06/21 16:01 Blood Culture - Final Blood No Growth after 144 hours Assessment and Plan Plan: Assessment: 1. Hyponatremia from poor solute intake and pain-induced SIADH. Status post [facility] this admission. Sodium level stable as of yesterday. TSH normal. 2. Lumbar spine abscess status post incision and drainage and exchange of hardware done 02/08/2021. 3. Benign hypertension. Stable. 4. Anemia. Iron deficiency noted. Plan: Encourage oral intake, particularly protein. 1500 mL fluid restriction. Maintain sodium chloride tabs. Repeat IV iron today. Continue to monitor.
[2021-02-13 09:55] LABS: African American GFR (CKD) 114.8 (60.0-200.0); Albumin 2.4 g/dL (3.80-4.90); Albumin/Globulin Ratio 0.63 (1.60-3.17); BUN/Creat Ratio 23.33 Ratio (12.00-20.00); Calcium 9.1 mg/dL (8.7-10.3); Globulin 3.8 g/dL (1.6-3.3); Magnesium 1.6 mg/dL (1.5-2.4); Non-African American GFR(CKD) 99.1 (60.0-200.0); Potassium 3.8 mmol/L (3.5-5.5); Total Bilirubin 0.3 mg/dL (0.2-1.2); Total Protein 6.2 g/dL (6.2-8.2)
[2021-02-13] MEDS ORDERED: SODIUM FERRIC GLUCONAT-SUCROSE 125 MG in SODIUM CHLORIDE 0.9% 100 ML IVPB ONE (10:00)
--- NOTE | 2021-02-13 10:03 | P.PN ---
Subjective Progress Note Date: 02/13/21 Principal diagnosis: back pain Antoni is a 60 yo female with a recent L 4/5 and L5/S1 Laminectomy with fusion and intradiscal osteotomy on 01/05/21 with prior deep vein thrombocytosis, GERD, adn HTN who was transferred from [facility] for back and wound dehisence. She was started on cefepime and Vanco. Found to have post-op infection. Hyponatremia, likely SIADH. She underwent washout and hardware exchange on 02/08. Patient seen and examined at bedside. Pain is better today, reports she is doing better today, No BM since prior to admission General: ill appearing, no distress, appears at stated age Derm: warm, dry Head: atraumatic, normocephalic, symmetric Eyes: EOMI, no lid lag, anicteric sclera Mouth: no lip lesion, mucus membranes moist Cardiovascular: S1S2 reg, no murmur, positive posterior tibial pulse bilateral, Lungs: decreased bs bilateral, no rhonchi, no rales , no accessory muscle use Abdominal: soft, nontender to palpation, no guarding, no appreciable organomegaly Psych: Alert, oriented, appropriate affect Hyponatremia likely secondary to SIADH and low solute intake due to pain- stable - Samsca given 1 on 02/07 - Sodium chloride tablets - nephrology recs - Repeat sodium levels in a.m. - off HCTZ on discharge E. coli Postop wound infection with sepsis status post lumbar laminectomy with fusion 01/05/21 status post washout on 02/08 -Continue with Cefepime -ID recs: PICC line placed -Pain control -Nothing by mouth after midnight GERD - PPI Hypertension - hold HCTZ - Lisinopril, metoprolol - follow BP NSVT - on metoprolol - cardio signed off - echo with ef 55-60% Anemia, iron deficiency anemia - IV iron X 1 - post op from January - Thank you for allowing us to participate in the care of this pleasant patient. Do not hesitate to contact us with questions. Someone can be reached from the [facility] hospitalist group all hours of the day at [phone] or via perfect serve. Objective - Vital Signs Vital signs: Vital Signs Temp 100 F H 02/13/21 05:00 Pulse 94 02/13/21 05:00 Resp 20 02/13/21 05:00 BP 111/66 02/13/21 05:00 Pulse Ox 96 02/13/21 05:00 Intake & Output 02/12/21 02/13/21 02/13/21 18:59 06:59 18:59 Intake Total 2011 100 Output Total 200 Balance 2011 Intake: Oral 2011 100 Output: Urine 200 Other: Voiding Method Bedside Commode Diaper # Voids 1 2 - Labs CBC & Chem 7: 02/13/21 03:49 02/13/21 03:49 Labs: Abnormal Lab Results - Last 24 Hours (Table) 02/12/21 02/13/21 02/13/21 Range/Units 06:15 03:49 03:49 WBC 17.1 H (3.8-10.6) k/uL RBC 3.68 L (3.80-5.40) m/uL Hgb 9.1 L (11.4-16.0) gm/dL Hct 29.4 L (34.0-46.0) % MCH 24.8 L (25.0-35.0) pg RDW 16.0 H (11.5-15.5) % Monocytes # (Manual) 8.36 H 7.01 H (0-1.0) k/uL Metamyelocytes # (Man) 0.76 H 0.17 H (0) k/uL Myelocytes # (Manual) 0.76 H (0) k/uL Promyelocytes # (Man) 0.19 H (0) k/uL Sodium 131 L (135-145) mmol/L Chloride 95 L (96-109) mmol/L BUN/Creatinine Ratio 23.33 H (12.00-20.00) Ratio Albumin 2.40 L (3.80-4.90) g/dL Globulin 3.8 H (1.6-3.3) g/dL Albumin/Globulin Ratio 0.63 L (1.60-3.17) g/dL Microbiology - Last 24 Hours (Table) 02/08/21 13:46 Anaerobic Culture - Final Back 02/08/21 13:46 Anaerobic Culture - Final Back 02/08/21 13:46 Anaerobic Culture - Final Back 02/08/21 13:46 Anaerobic Culture - Final Back 02/06/21 16:01 Blood Culture - Final Blood No Growth after 144 hours
[2021-02-13] MEDS: traMADol 50 MG TAB PO PRN (11:45)
[2021-02-13] MEDS: polyethylene glycoL 3350 17 GM POWD.PACK PO SCH (11:45)
[2021-02-13] MEDS: CYCLOBENZAPRINE 10 MG TAB PO PRN (12:57)
[2021-02-13] MEDS ORDERED: HYDROcodone/APAP 7.5-325MG 1 EACH TAB PO PRN (14:24)
[2021-02-13] MEDS ORDERED: HYDROmorphone 0.2 MG/1 ML SYRINGE IVP PRN (14:25)
--- NOTE | 2021-02-13 14:51 | P.PN ---
Subjective Progress Note Date: 02/13/21 Principal diagnosis: Acute post operative infection Pt s/e. Doing well. Daughter at bedside states she was just up in the chair for a few hours and did well. She is tired and seems over sedated today stated the daughter and the patient would like use to decreas her pain medications in anticipation of going home soon. She c/o minimal pain in her back. No pain down her legs. She states no bowel or bladder issues. She has been up and walking although slow and would like to take a shower. No f/c/sob/cp today. Objective - Vital Signs Vital signs: Vital Signs Temp 98.5 F 02/13/21 12:56 Pulse 85 02/13/21 12:56 Resp 18 02/13/21 12:56 BP 88/50 02/13/21 12:56 Pulse Ox 98 02/13/21 12:56 Intake & Output 02/12/21 02/13/21 02/13/21 18:59 06:59 18:59 Intake Total 2011 100 Output Total 200 Balance 2011 Intake: Oral 2011 Output: Urine 200 Other: Voiding Method Bedside Commode Diaper # Voids 1 2 - Exam Exam is repeated and stable. See below PHYSICAL EXAMINATION: Vitals: Stable at this time General: Awake, alert, appropriate for age, in no acute distress. HEENT: No unusual neck masses around region of lateral neck triangle, thyroid, supraclavicular groove. Heart: Regular rate and rhythm, normal S1, S2 and no murmur/gallop. Lungs: Clear to auscultation bilaterally with no use of accessory muscles. Extremities: Skin warm and dry without no acute lesions, coloration, temperature, skin intact, no tenderness or erythema. Integument: Hairy patches: Absent Dorsal skin dimples: Absent Cafe au lait spots: Absent Surgical incisions: Dehiscence noted in the middle 2 cm of the incision with purulent drainage noted at this site. Palpation: Please see Pain drawing on Intake sheet for further detail. (Tenderness = T, Nontender = NT, Swelling = S, Ecchymosis = E) Findings on Midline and paraspinal palpation and percussion: Cervical: NT Thoracic: NT Lumbar: NT Sacral: NT Special findings: none VASCULAR STATUS : Wrist Pulses: 2/4 bilateral radial and ulnar Pedal Pulses: 2/4 bilateral DP and PT Color: Normal Edema: None NEUROLOGIC EXAMINATION: Mental Status: Awake and alert, fully oriented, with normal attention, concentration and memory, and fluent, appropriate speech. Cranial Nerves: I: Olfactory not tested. II: Visual acuity normal, no visual field deficit noted with confrontation. III,IV: Normal pupillary reflexes & intact extraocular movements without nystagmus. V,: Intact symmetrical facial sensation. VII: Intact symmetrical facial motor movement VIII: Hearing intact. IX,X: Intact gag, swallow, & normal voice. XI: Sternocleidomastoid, trapezius function intact. XII: Tongue midline with normal movements. Special Tests: L'hermitte's Sign: Absent Spurling'Sign: Absent Bilateral Cubital percussion test: Absent Bilateral Angela-Tinel sign - Carpal region: Absent Bilateral Straight Leg Raising: Absent Bilateral Motor Exam (0-5/5, N/T) STRENGTH UPPER EXTREMITY Shoulder Abd (Not part of GERARDO Motor score): RIGHT 5 LEFT 5 Elbow Flexors: RIGHT 5 LEFT 5 Elbow Extensor: RIGHT 5 LEFT 5 Wrrist Dorsiflexors: RIGHT 5 LEFT 5 Finger Abductor: RIGHT 5 LEFT 5 Seam Feller: RIGHT 5 LEFT 5 LOWER EXTREMITY Hip Flexor (Not part of GERARDO Motor Score): RIGHT 4 LEFT 5 Knee Flexor: RIGHT 4 LEFT 5 Knee Extensor: RIGHT 4 LEFT 5 Ankle Dorsiflexion: RIGHT 3+ LEFT 4 Ankle Plantarflexion: RIGHT 4 LEFT 5 EHL: RIGHT 3 LEFT 4 FHL: RIGHT 4 LEFT 4 Generalized weakness noted, She is able to fire all major muscles of the LE b/l. . She still has some weakness of the L TA which was present since surgery, no acute interval changes at this time. She does have difficulty with cooperation at this time and c/o pain. REFLEXES Biecp: RIGHT 2 LEFT 2 Tricep: RIGHT 2 LEFT 2 Brachioradialis: RIGHT 2 LEFT 2 Patellar: RIGHT 2 LEFT 2 Achilles: RIGHT 2 LEFT 2 Pathological Reflexes Rajput's: RIGHT Absent LEFT Absent Babinski: RIGHT Absent LEFT Absent Clonus: RIGHT None LEFT None SENSORY Joint Position: Intact bilaterally Vibration Intact bilaterally Pain and LT sense Intact C5-T1 and L2-S1 Dermatomal deficit None Gait and Functional Evaluation: Ambulatory aids: Walker Hand and finger dexterity intact bilaterally. Disdiadochokinesis examination negative bilaterally. - Labs CBC & Chem 7: 02/13/21 03:49 02/13/21 03:49 Labs: Abnormal Lab Results - Last 24 Hours (Table) 02/12/21 02/13/21 02/13/21 Range/Units 06:15 03:49 03:49 WBC 17.1 H (3.8-10.6) k/uL RBC 3.68 L (3.80-5.40) m/uL Hgb 9.1 L (11.4-16.0) gm/dL Hct 29.4 L (34.0-46.0) % MCH 24.8 L (25.0-35.0) pg RDW 16.0 H (11.5-15.5) % Monocytes # (Manual) 8.36 H 7.01 H (0-1.0) k/uL Metamyelocytes # (Man) 0.76 H 0.17 H (0) k/uL Myelocytes # (Manual) 0.76 H (0) k/uL Promyelocytes # (Man) 0.19 H (0) k/uL Sodium 131 L (135-145) mmol/L Chloride 95 L (96-109) mmol/L BUN/Creatinine Ratio 23.33 H (12.00-20.00) Ratio Albumin 2.40 L (3.80-4.90) g/dL Globulin 3.8 H (1.6-3.3) g/dL Albumin/Globulin Ratio 0.63 L (1.60-3.17) g/dL Microbiology - Last 24 Hours (Table) 02/08/21 13:46 Anaerobic Culture - Final Back 02/08/21 13:46 Anaerobic Culture - Final Back 02/08/21 13:46 Anaerobic Culture - Final Back 02/08/21 13:46 Anaerobic Culture - Final Back 02/06/21 16:01 Blood Culture - Final Blood No Growth after 144 hours Assessment and Plan Assessment: 60 yo female POD5 Lumbar wound I&D with antibiotic bead placement. 1. Lumbar wound infection 2. Wound dehiscence 3. Back pain 4. S/p L4-S1 decompression fusion 5. Hyponatremia likely SIADH Plan: -Appreciate medicine, ID, cardio management -Pain control adequate at this time -CBC, BMP, Sed, CRP this AM ordered. -Cont IVF, increase rate if OK with Medicine due to low sodium. Pt has sepsis and needs to be resuscitated -Must encourage ambulation, out of bed with all meals. Increase strength and right lower extremity. -PT/OT daily, ambulate, sit up, OOB all meals -OK to shower -Ice to back PRN -GI/DVT ppx. OK for heparin tonight -TEds/SCDs -Cont drain, record output, likely dc tomorrow with dressing change -Dispo: Possibly home monday, will likely need HH
[2021-02-13] MEDS: SODIUM CHLORIDE 0.9% 1,000 ML IV SCH (17:02)
[2021-02-13] MEDS: lisinopriL 20 MG TAB PO SCH (20:11)
--- NOTE | 2021-02-14 00:15 | PN ---
PROGRESS NOTE DATE OF SERVICE: 02/13/2021 REASON FOR FOLLOW UP: Lumbar paraspinal abscess. INTERVAL HISTORY: Patient did have a low-grade fever of 102 Fahrenheit this morning. The patient is afebrile since then. The patient is breathing comfortably. The patient's pain to the lumbar area is currently controlled with pain medication. Denies having any chest pain, shortness of breath or cough. No abdominal pain or diarrhea. PHYSICAL EXAMINATION: Blood pressure 111/66, pulse 85, temperature 98.5. She is 98% on room air. General description: The patient is a middle-aged female lying in bed in no distress. Respiratory system: Unlabored breathing, decreased breath sounds at the base. No wheeze. Heart S1, S2. Regular rate and rhythm. ABDOMEN: Soft, no tenderness. EXTREMITIES: No edema of the feet. LABS: Hemoglobin is 9.1, white count 17.1, BUN of 14, creatinine 0.6. DIAGNOSTIC IMPRESSION AND PLAN: Patient with lumbar surgical site infection, status post drainage or culture positive for E coli, superficial culture positive for E coli and Stenotrophomonas. The patient white count showing a downward trend. Antibiotic will be adjusted to cefepime yesterday. White count has improved and continue to improve apparently before. Cefepime to finish therapy for a total of 6 weeks and finally transition to oral antibiotic. This was discussed in detail with the daughter at the bedside. Multiple questions were answered. MMODL / IJN: [id number] /
[2021-02-14] MEDS: traMADol 50 MG TAB PO PRN ×3 (02:03→18:09)
[2021-02-14] MEDS: ACETAMINOPHEN TAB 325 MG TAB PO PRN (04:50)
[2021-02-14 05:51] LABS: Anisocytosis Slight; HCT 27.6 % (34.0-46.0); HGB 9.1 gm/dL (11.4-16.0); Hypochromasia Slight; MCH 25.9 pg (25.0-35.0); MCHC 32.9 g/dL (31.0-37.0); MCV 78.7 fL (80.0-100.0); Mean Platelet Volume 8.5; Platelet Count 225 k/uL (150-450); RDW 16.2 % (11.5-15.5); WBC 14.4 k/uL (3.8-10.6)
--- NOTE | 2021-02-14 08:45 | P.PN ---
Subjective Progress Note Date: 02/14/21 Principal diagnosis: Acute postoperative infection status post lumbar decompression with fusion Patient evaluated today at bedside, the nursing staff is present with the patient, she is actually on the phone with her daughter. She does seem more awake compared to the previous days. We did alter her pain medication yesterday. Patient would like to be able to get up and shower today. She denies any headaches, lightheadedness, chest pain or shortness of breath. Objective - Vital Signs Vital signs: Vital Signs Temp 100.5 F H 02/14/21 04:45 Pulse 85 02/14/21 04:45 Resp 20 02/14/21 04:45 BP 104/63 02/14/21 04:45 Pulse Ox 97 02/14/21 04:45 Intake & Output 02/13/21 02/14/21 02/14/21 18:59 06:59 18:59 Intake Total 240 Balance 240 Intake: Oral 240 Other: Voiding Method Bedside Commode Bedside Commode Diaper Diaper # Voids 5 1 - Exam Gen: AOx3, NAD VSS stable at this time Integument: Postoperative bandages removed today at bedside along with the drain. There was a mild/moderate amount of serosanguineous drainage from the drain hole after removal. The sutures are all in good position and condition, no evidence of dehiscence, there is no drainage or areas of purulence appreciated or fluctuance. Palpation: Minimal tenderness with palpation along the midline or paraspinal lumbar region, no obvious fluctuance appreciated ROM: Full range of motion in all major muscle groups of bilateral upper extremities Range of motion is intact in all major muscle groups of the bilateral lower extremities, she remains limited with hip flexion, knee extension and flexion and dorsiflexion but improved Sensory Exam: Senory exam to light touch is intact C5-T1 Senosry exam to light touch is intact L2-S1 Motor: 5 out of 5 strength is appreciated in the bilateral upper extremities with shoulder abduction, forward elevation, elbow flexion, elbow extension, wrist extension, wrist flexion, intrinsics 5 out of 5 strength is appreciated in the left lower extremity with hip flexion, knee extension, knee flexion, plantar flexion, dorsiflexion, EHL, FHL Right lower extremity: 3 out of 5 strength appreciated with hip flexion, knee extension, knee flexion. 4-5 strength appreciated with plantar flexion, FHL. 34 out of 5 strength is appreciated with dorsiflexion and EHL Reflexes: 2/4 in all UE and LE Negative Charlene's bilaterally Negative Babinski bilaterally Negative clonus bilaterally - Labs CBC & Chem 7: 02/14/21 04:39 02/13/21 03:49 Labs: Abnormal Lab Results - Last 24 Hours (Table) 02/13/21 02/14/21 Range/Units 03:49 04:39 WBC 14.4 H (3.8-10.6) k/uL RBC 3.50 L (3.80-5.40) m/uL Hgb 9.1 L (11.4-16.0) gm/dL Hct 27.6 L (34.0-46.0) % MCV 78.7 L (80.0-100.0) fL RDW 16.2 H (11.5-15.5) % Sodium 131 L (135-145) mmol/L Chloride 95 L (96-109) mmol/L BUN/Creatinine Ratio 23.33 H (12.00-20.00) Ratio Albumin 2.40 L (3.80-4.90) g/dL Globulin 3.8 H (1.6-3.3) g/dL Albumin/Globulin Ratio 0.63 L (1.60-3.17) g/dL Assessment and Plan Assessment: Lumbar wound dehiscence Lumbar spine infection History of recent L4-S1 decompression with fusion Other medical comorbidities Plan: Wound care: Dressing was changed today at bedside, the incisions are clean, dry and intact, sutures are in good position. We discussed with both the nursing staff and the patient's family over the phone safety precautions when ambulating and showering. If they do not feel safe with the patient ambulating with walker new shower, will utilize sponge bathing. GI and DVT prophylaxis, continue current medication Weight-bear as tolerated with walker Infectious disease recommendations Pain control, continue current medication, continue to avoid IV narcotics as tolerated Encourage incentive spirometer Discharge planning: Anticipated discharge in the next day or 2. Time with Patient: Less than 30
[2021-02-14] MEDS: PANTOPRAZOLE 40 MG TABLET PO SCH (09:34)
[2021-02-14] MEDS: SODIUM CHLORIDE TAB 1 GM TAB PO SCH ×2 (09:34→21:01)
[2021-02-14] MEDS: DOCUSATE 100 MG CAP PO SCH ×2 (09:34→21:01)
[2021-02-14] MEDS: polyethylene glycoL 3350 17 GM POWD.PACK PO SCH (09:35)
[2021-02-14] MEDS: CEFEPIME 2 GM in SODIUM CHLORIDE 0.9% 100 ML IVPB SCH ×2 (09:35→17:43)
[2021-02-14] MEDS: METOPROLOL TARTRATE 25 MG TAB PO SCH ×2 (09:36→21:01)
[2021-02-14] MEDS: GABAPENTIN 300 MG CAP PO SCH ×2 (09:38→21:01)
--- NOTE | 2021-02-14 09:50 | P.PN ---
Subjective Patient is seen in follow-up for hyponatremia. Sodium level stable as of yesterday. Oral intake just fair. No vomiting or diarrhea. Hemodynamically stable. No active complaints except feels tired this morning. Vital signs are stable. General: The patient appeared well nourished and normally developed. HEENT: Head exam is unremarkable. Neck is without jugular venous distension. LUNGS: Breath sounds decreased. HEART: Rate and Rhythm are regular. ABDOMEN: Soft, no distention. EXTREMITITES: No edema. Objective - Vital Signs Vital signs: Vital Signs Temp 100.5 F H 02/14/21 04:45 Pulse 85 02/14/21 08:15 Resp 20 02/14/21 08:15 BP 104/63 02/14/21 04:45 Pulse Ox 97 02/14/21 04:45 Intake & Output 02/13/21 02/14/21 02/14/21 18:59 06:59 18:59 Intake Total 240 Output Total 400 Balance 240 -400 Intake: Oral 240 Output: Urine 400 Other: Voiding Method Bedside Commode Bedside Commode Bedside Commode Diaper Diaper Diaper # Voids 5 1 1 - Labs CBC & Chem 7: 02/14/21 04:39 02/13/21 03:49 Labs: Abnormal Lab Results - Last 24 Hours (Table) 02/13/21 02/14/21 Range/Units 03:49 04:39 WBC 14.4 H (3.8-10.6) k/uL RBC 3.50 L (3.80-5.40) m/uL Hgb 9.1 L (11.4-16.0) gm/dL Hct 27.6 L (34.0-46.0) % MCV 78.7 L (80.0-100.0) fL RDW 16.2 H (11.5-15.5) % Sodium 131 L (135-145) mmol/L Chloride 95 L (96-109) mmol/L BUN/Creatinine Ratio 23.33 H (12.00-20.00) Ratio Albumin 2.40 L (3.80-4.90) g/dL Globulin 3.8 H (1.6-3.3) g/dL Albumin/Globulin Ratio 0.63 L (1.60-3.17) g/dL Assessment and Plan Plan: Assessment: 1. Hyponatremia from poor solute intake and pain-induced SIADH. Status post samsca this admission. Sodium level stable as of yesterday. TSH normal. 2. Lumbar spine abscess status post incision and drainage and exchange of hardware done 02/08/2021. 3. Benign hypertension. Stable. 4. Anemia. Iron deficiency noted. Status post IV iron. Plan: Encourage oral intake, particularly protein. 1500 mL fluid restriction. Maintain sodium chloride tabs. Continue to monitor.
[2021-02-14 09:55] LABS: African American GFR (CKD) 114.8 (60.0-200.0); Anion Gap 10.5 mmol/L (4.00-12.00); BUN/Creat Ratio 26.67 Ratio (12.00-20.00); Calcium 8.3 mg/dL (8.7-10.3); Carbon Dioxide 26.5 mmol/L (21.6-31.8); Non-African American GFR(CKD) 99.1 (60.0-200.0); Potassium 3.8 mmol/L (3.5-5.5)
--- NOTE | 2021-02-14 10:30 | XR ---
EXAMINATION TYPE: XR chest 1V portable DATE OF EXAM: 02/14/2021 Comparison: None Clinical History: 60-year-old female postop back surgery, pneumonia Findings: Mildly enlarged. Low lung lungs with crowded vascular markings. Multiple strandy areas of atelectasis are present. Mild interstitial prominence. No pleural effusion. Left PICC tip is curled in the regio n of the azygos vein. Impression: 1. Left PICC tip curled in the region of the azygos vein. 2. Hypoventilatory changes. Bilateral opacities are linear and strandy suggesting multiple areas of s ubsegmental atelectasis.
--- NOTE | 2021-02-14 13:42 | P.PN ---
Subjective Progress Note Date: 02/14/21 Principal diagnosis: back pain Antoni is a 60 yo female with a recent L 4/5 and L5/S1 Laminectomy with fusion and intradiscal osteotomy on 01/05/21 with prior deep vein thrombocytosis, GERD, adn HTN who was transferred from [facility] for back and wound dehisence. She was started on cefepime and Vanco. Found to have post-op infection. Hyponatremia, likely SIADH. She underwent washout and hardware exchange on 02/08. Mild fever over night- await urine testing, chest x-ray with atelectasis. Patient seen and examined at bedside. Still struggling with constipation. Mild plus oral pain medications and requesting [place] to go from 7.5-5. No nausea or vomiting. Eating better today. General: Nontoxic, no distress, appears at stated age Derm: warm, dry Head: atraumatic, normocephalic, symmetric Eyes: EOMI, no lid lag, anicteric sclera Mouth: no lip lesion, mucus membranes moist Cardiovascular: S1S2 reg, no murmur, positive posterior tibial pulse bilateral, Lungs: decreased bs bilateral, no rhonchi, no rales , no accessory muscle use Abdominal: soft, nontender to palpation, no guarding, no appreciable organomegaly Psych: Alert, oriented, appropriate affect Hyponatremia likely secondary to SIADH and low solute intake due to pain-imp roving - Samsca given 1 on 02/07 - Sodium chloride tablets - nephrology recs - Repeat sodium levels in a.m. - off HCTZ on discharge Constipation -MiraLAX, Dulcolax -Prune juice -Coffee E. coli Postop wound infection with sepsis status post lumbar laminectomy with fusion 01/05/21 status post washout on 02/08 -Continue with Cefepime: Plan for 6 weeks of IV antibiotics and then switched to orals. -ID recs: PICC line placed -Pain control -Nothing by mouth after midnight GERD - PPI Hypertension - hold HCTZ - Lisinopril, metoprolol - follow BP NSVT - on metoprolol - cardio signed off - echo with ef 55-60% Anemia, iron deficiency anemia - IV iron completed - post op from January - stable -Recheck in 4-6 weeks Anticipated discharge in a.m. to [facility] if no recurrent fevers. Will need aggressive bowel regimen on discharge. She'll follow with PCP on leaving [facility] for repeat iron studies. Thank you for allowing us to participate in the care of this pleasant patient. Do not hesitate to contact us with questions. Someone can be reached from the [facility] hospitalist group all hours of the day at [phone] or via perfect serve. Objective - Vital Signs Vital signs: Vital Signs Temp 98.8 F 02/14/21 09:30 Pulse 85 02/14/21 08:15 Resp 20 02/14/21 08:15 BP 104/63 02/14/21 04:45 Pulse Ox 97 02/14/21 04:45 Intake & Output 02/13/21 02/14/21 02/14/21 18:59 06:59 18:59 Intake Total 240 Output Total 400 Balance 240 -400 Intake: Oral 240 Output: Urine 400 Other: Voiding Method Bedside Commode Bedside Commode Bedside Commode Diaper Diaper Diaper # Voids 5 1 1 - Labs CBC & Chem 7: 02/14/21 04:39 02/14/21 04:39 Labs: Abnormal Lab Results - Last 24 Hours (Table) 02/14/21 02/14/21 Range/Units 04:39 04:39 WBC 14.4 H (3.8-10.6) k/uL RBC 3.50 L (3.80-5.40) m/uL Hgb 9.1 L (11.4-16.0) gm/dL Hct 27.6 L (34.0-46.0) % MCV 78.7 L (80.0-100.0) fL RDW 16.2 H (11.5-15.5) % Sodium 134 L (135-145) mmol/L BUN/Creatinine Ratio 26.67 H (12.00-20.00) Ratio Calcium 8.3 L (8.7-10.3) mg/dL
[2021-02-14] MEDS ORDERED: HYDROcodone/APAP 5-325MG 1 EACH TAB PO PRN (13:48)
[2021-02-14] MEDS ORDERED: traMADol 50 MG TAB PO PRN (16:00)
[2021-02-14 16:45] LABS: Appearance,Urine Clear (Clear); Color,Urine Light Orange; PH, Urine 5.5 (5.0-8.0); Protein,Urine 1+ (Negative); Specific Gravity,Urine >1.030 (1.001-1.035)
[2021-02-14 16:46] LABS: Bilirubin,Urine Negative (Negative); Blood,Urine 1 (Negative); Glucose,Urine (UA) Negative (Negative); Ketones,Urine Negative (Negative); Leukocyte Esterase,Urine Small (Negative); Nitrite,Urine Negative (Negative); Urobilinogen,Urine <0.2 mg/dL (<2.0)
[2021-02-14] MEDS: SODIUM CHLORIDE 0.9% 1,000 ML IV SCH (17:43)
--- NOTE | 2021-02-14 19:15 | PN ---
PROGRESS NOTE DATE OF SERVICE: 02/14/2021 REASON FOR FOLLOWUP: Lumbar surgical site infection. INTERVAL HISTORY: Patient is afebrile. The patient overall is feeling better. She is breathing comfortably. Denies having any chest pain. No shortness of breath or cough. No vomiting or diarrhea. PHYSICAL EXAMINATION: Blood pressure 104/59 with a pulse of 80, temperature of 98.8. She is 100% on room air. General description is a middle-aged female up in the chair in no distress. Respiratory system: Unlabored breathing, clear to auscultation anteriorly. Heart S1, S2. Regular rate and rhythm. Abdomen soft, no tenderness. LAB: Hemoglobin 9.8, white count 14.4, BUN of 16, creatinine 0.6. Anaerobe culture has been negative. DIAGNOSTIC IMPRESSION AND PLAN: Patient with lumbar surgical site infection with removal of some of the hardware, not all of it. Patient superficial culture did grow E coli and Stenotrophomonas. Deep cultures only E coli. The patient's white count responded after antibiotic was switched to cefepime to continue for a total of 6 weeks with weekly monitoring of blood work and close outpatient followup. Daughter at the bedside. Questions were answered. MMODL / IJN: [id number] /
[2021-02-14] MEDS: lisinopriL 20 MG TAB PO SCH (21:01)
[2021-02-15] MEDS: CEFEPIME 2 GM in SODIUM CHLORIDE 0.9% 100 ML IVPB SCH ×4 (00:22→23:20)
[2021-02-15] MEDS: traMADol 50 MG TAB PO PRN ×3 (00:22→20:05)
--- NOTE | 2021-02-15 07:39 | P.PN ---
Subjective Progress Note Date: 02/15/21 Principal diagnosis: Acute post operative infection Patient seen and examined this morning she is seated in bed eating breakfast getting ready for the day. She states that she did shower yesterday with good success. She denies any new symptoms states that her right leg is still weak and difficult to get around however she is able to get around fairly well with a walker however she can only go short distances and does need some support. She denies any fevers or chills overnight. She denies any shortness of breath or chest pain at this time. She denies any numbness or tingling. She denies any bowel or bladder issues. Objective - Vital Signs Vital signs: Vital Signs Temp 99.5 F 02/15/21 04:32 Pulse 95 02/15/21 04:32 Resp 14 02/15/21 04:32 BP 95/51 02/15/21 04:32 Pulse Ox 97 02/15/21 04:32 Intake & Output 02/14/21 02/15/21 02/15/21 18:59 06:59 18:59 Output Total 400 Balance -400 Output: Urine 400 Other: Voiding Method Bedside Commode Bedside Commode Diaper Diaper # Voids 4 - Exam Exam is repeated and stable. Dressing was saturated this morning likely due to her high activity yesterday this was changed incision is clean and dry no erythema or ecchymosis or edema no continued drainage. PHYSICAL EXAMINATION: Vitals: Stable at this time General: Awake, alert, appropriate for age, in no acute distress. HEENT: No unusual neck masses around region of lateral neck triangle, thyroid, supraclavicular groove. Heart: Regular rate and rhythm, normal S1, S2 and no murmur/gallop. Lungs: Clear to auscultation bilaterally with no use of accessory muscles. Extremities: Skin warm and dry without no acute lesions, coloration, temperature, skin intact, no tenderness or erythema. Integument: Hairy patches: Absent Dorsal skin dimples: Absent Cafe au lait spots: Absent Surgical incisions: Dehiscence noted in the middle 2 cm of the incision with purulent drainage noted at this site. Palpation: Please see Pain drawing on Intake sheet for further detail. (Tenderness = T, Nontender = NT, Swelling = S, Ecchymosis = E) Findings on Midline and paraspinal palpation and percussion: Cervical: NT Thoracic: NT Lumbar: NT Sacral: NT Special findings: none VASCULAR STATUS : Wrist Pulses: 2/4 bilateral radial and ulnar Pedal Pulses: 2/4 bilateral DP and PT Color: Normal Edema: None NEUROLOGIC EXAMINATION: Mental Status: Awake and alert, fully oriented, with normal attention, concentration and memory, and fluent, appropriate speech. Cranial Nerves: I: Olfactory not tested. II: Visual acuity normal, no visual field deficit noted with confrontation. III,IV: Normal pupillary reflexes & intact extraocular movements without nystagmus. V,: Intact symmetrical facial sensation. VII: Intact symmetrical facial motor movement VIII: Hearing intact. IX,X: Intact gag, swallow, & normal voice. XI: Sternocleidomastoid, trapezius function intact. XII: Tongue midline with normal movements. Special Tests: L'hermitte's Sign: Absent Spurling'Sign: Absent Bilateral Cubital percussion test: Absent Bilateral Angela-Tinel sign - Carpal region: Absent Bilateral Straight Leg Raising: Absent Bilateral Motor Exam (0-5/5, N/T) STRENGTH UPPER EXTREMITY Shoulder Abd (Not part of GERARDO Motor score): RIGHT 5 LEFT 5 Elbow Flexors: RIGHT 5 LEFT 5 Elbow Extensor: RIGHT 5 LEFT 5 Wrrist Dorsiflexors: RIGHT 5 LEFT 5 Finger Abductor: RIGHT 5 LEFT 5 Tabular Typist: RIGHT 5 LEFT 5 LOWER EXTREMITY Hip Flexor (Not part of GERARDO Motor Score): RIGHT 4 LEFT 5 Knee Flexor: RIGHT 4 LEFT 5 Knee Extensor: RIGHT 4 LEFT 5 Ankle Dorsiflexion: RIGHT 3+ LEFT 4 Ankle Plantarflexion: RIGHT 4 LEFT 5 EHL: RIGHT 3 LEFT 4 FHL: RIGHT 4 LEFT 4 Generalized weakness noted, She is able to fire all major muscles of the LE b/l. . She still has some weakness of the L TA which was present since surgery, no acute interval changes at this time. She does have difficulty with cooperation at this time and c/o pain. REFLEXES Biecp: RIGHT 2 LEFT 2 Tricep: RIGHT 2 LEFT 2 Brachioradialis: RIGHT 2 LEFT 2 Patellar: RIGHT 2 LEFT 2 Achilles: RIGHT 2 LEFT 2 Pathological Reflexes Rajput's: RIGHT Absent LEFT Absent Babinski: RIGHT Absent LEFT Absent Clonus: RIGHT None LEFT None SENSORY Joint Position: Intact bilaterally Vibration Intact bilaterally Pain and LT sense Intact C5-T1 and L2-S1 Dermatomal deficit None Gait and Functional Evaluation: Ambulatory aids: Walker Hand and finger dexterity intact bilaterally. Disdiadochokinesis examination negative bilaterally. - Labs CBC & Chem 7: 02/14/21 04:39 02/14/21 04:39 Labs: Abnormal Lab Results - Last 24 Hours (Table) 02/14/21 02/14/21 Range/Units 04:39 16:30 Sodium 134 L (135-145) mmol/L BUN/Creatinine Ratio 26.67 H (12.00-20.00) Ratio Calcium 8.3 L (8.7-10.3) mg/dL Urine Protein 1+ H (Negative) Assessment and Plan Assessment: 60 yo female POD7 Lumbar wound I&D with antibiotic bead placement. 1. Lumbar wound infection 2. Wound dehiscence 3. Back pain 4. S/p L4-S1 decompression fusion 5. Hyponatremia likely SIADH Plan: -Appreciate medicine, ID, cardio management -Pain control adequate at this time -CBC, BMP, Sed, CRP this AM ordered. -Must encourage ambulation, out of bed with all meals. Increase strength and right lower extremity. -PT/OT daily, ambulate, sit up, OOB all meals -OK to shower -Ice to back PRN -GI/DVT ppx. OK for heparin tonight -TEds/SCDs -Dispo: Patient states that she is going to go to subacute acute rehab. At this point she is orthopedically stable. We will see what her labs show this morning we would like these to continue to trend down and be near normal when she leaves. She is continued on antibiotics and will likely need these for 12 weeks postop. She should limit her lifting bending twisting to less than 5 pounds at this time. She should wear her back brace when she is up and about. We will coordinate with the team and if everyone is okay with her going and we will try and get her DC'd to rehab today if she needs a day we will send tomorrow.
[2021-02-15 08:43] LABS: African American GFR (CKD) >90 (>60 ml/min/1.73 sqM); Anion Gap 5 mmol/L; Blood Urea Nitrogen 13 mg/dL (7-17); Calcium 8.7 mg/dL (8.4-10.2); Carbon Dioxide 28 mmol/L (22-30); Chloride 98 mmol/L (98-107); Glucose 109 mg/dL (74-99); Non-African American GFR(CKD) >90 (>60 ml/min/1.73 sqM); Potassium 3.9 mmol/L (3.5-5.1); Sodium 131 mmol/L (137-145)
[2021-02-15 09:37] LABS: Anisocytosis Slight; HCT 30.2 % (34.0-46.0); HGB 9.2 gm/dL (11.4-16.0); Hypochromasia Moderate; MCH 24.4 pg (25.0-35.0); MCHC 30.3 g/dL (31.0-37.0); MCV 80.5 fL (80.0-100.0); Mean Platelet Volume 8.9; Platelet Count 218 k/uL (150-450); RBC 3.75 m/uL (3.80-5.40); RDW 16.1 % (11.5-15.5); WBC 15.9 k/uL (3.8-10.6)
--- NOTE | 2021-02-15 10:05 | P.PN ---
Subjective Progress Note Date: 02/15/21 Patient was sleepy and easily arousable this morning. No acute events reported by nursing staff overnight. Plan for discharge today to [facility] per primary team. Objective - Vital Signs Vital signs: Vital Signs Temp 99.5 F 02/15/21 04:32 Pulse 95 02/15/21 04:32 Resp 14 02/15/21 04:32 BP 95/51 02/15/21 04:32 Pulse Ox 97 02/15/21 04:32 Intake & Output 02/14/21 02/15/21 02/15/21 18:59 06:59 18:59 Output Total 400 Balance -400 Weight 96 kg Output: Urine 400 Other: Voiding Method Bedside Commode Bedside Commode Diaper Diaper # Voids 4 - Exam General: The patient is awake and alert, in no distress Eye: there is normal conjunctiva bilaterally. Neck: The neck is supple, there is no JVD. Cardiovascular: Normal S1-S2, no S3-S4, no murmurs. Respiratory: Lungs clear to auscultation bilaterally Gastrointestinal: Abdomen is soft, nontender Musculoskeletal: There is no pedal edema. Neurological:. Speech is normal. Skin: Skin is warm and dry - Labs CBC & Chem 7: 02/15/21 08:06 02/15/21 08:06 Labs: Abnormal Lab Results - Last 24 Hours (Table) 02/14/21 02/15/21 02/15/21 Range/Units 16:30 08:06 08:06 WBC 15.9 H (3.8-10.6) k/uL RBC 3.75 L (3.80-5.40) m/uL Hgb 9.2 L (11.4-16.0) gm/dL Hct 30.2 L (34.0-46.0) % MCH 24.4 L (25.0-35.0) pg MCHC 30.3 L (31.0-37.0) g/dL RDW 16.1 H (11.5-15.5) % Sodium 131 L (137-145) mmol/L Glucose 109 H (74-99) mg/dL Urine Protein 1+ H (Negative) Assessment and Plan Assessment: Antoni is a 60 yo female with a recent L 4/5 and L5/S1 La minectomy with fusion and intradiscal osteotomy on 01/05/21 with prior deep vein thrombocytosis, GERD, adn HTN who was transferred from [facility] for back and wound dehisence. She was started on cefepime and Vanco. Found to have post-op infection. Hyponatremia, likely SIADH. She underwent washout and hardware exchange on 02/08. Medical problems at this during this hospitalization: E. coli Postop wound infection with sepsis status post lumbar laminectomy with fusion 01/05/21 status post washout on 02/08 -Continue with Cefepime: Plan for 6 weeks of IV antibiotics and then switched to orals. -ID recs: PICC line placed -Pain control Hyponatremia likely secondary to SIADH and low solute intake due to pain- improving - Samsca given 1 on 02/07 - Sodium chloride tablets twice daily -Home dose of hydrochlorothiazide discontinue Constipation -MiraLAX, Dulcolax GERD - PPI Hypertension - Lisinopril, metoprolol - follow BP NSVT - on metoprolol - cardio signed off - echo with ef 55-60% Anemia, iron deficiency anemia - IV iron completed - post op from January - -Recheck in 4-6 weeks Anticipated discharge today to [facility]. She'll follow with PCP on leaving [facility] for repeat iron studies. Thank you for allowing us to participate in the care of this pleasant patient. Do not hesitate to contact us with questions. Someone can be reached from the [facility] hospitalist group all hours of the day at [phone] or via perfect serve.
[2021-02-15] MEDS: polyethylene glycoL 3350 17 GM POWD.PACK PO SCH (10:10)
[2021-02-15] MEDS: GABAPENTIN 300 MG CAP PO SCH ×2 (10:11→20:02)
[2021-02-15] MEDS: SODIUM CHLORIDE TAB 1 GM TAB PO SCH ×2 (10:11→20:02)
[2021-02-15] MEDS: METOPROLOL TARTRATE 25 MG TAB PO SCH ×2 (10:11→20:02)
[2021-02-15] MEDS: DOCUSATE 100 MG CAP PO SCH ×2 (10:11→20:02)
[2021-02-15] MEDS: PANTOPRAZOLE 40 MG TABLET PO SCH (10:12)
[2021-02-15] MEDS: ACETAMINOPHEN TAB 325 MG TAB PO PRN ×2 (10:30→20:02)
[2021-02-15] MEDS: diazePAM 2 MG TAB PO PRN (10:33)
--- NOTE | 2021-02-15 16:21 | PN ---
PROGRESS NOTE The patient is seen for followup for hyponatremia. Her sodium has been staying around 131-134 mEq/L. She is maintained on sodium chloride tabs. The patient is currently resting. She denies any significant pain. She is maintained on 1 gram twice a day for sodium chloride. Blood pressure remains on the lower side with systolic in the 90s to low 100s mmHg. PHYSICAL EXAMINATION: On examination today, blood pressure 95/51, heart rate 95 per minute, she is afebrile. Examination of the heart S1, S2. Examination of the lungs, bilateral breath sounds are heard. Abdomen is soft, nontender. Examination of lower extremities shows no significant edema. LAB: Show hemoglobin 9.2, sodium 131, potassium 3.9, serum creatinine 0.71. ASSESSMENT: 1. Hyponatremia with poor solute intake an element of SIADH, status post [facility]. Sodium level staying stable at about 131. It did drop from 134-131 today. Continue with the sodium chloride tabs. Her blood pressure remains on the lower side, but patient has some mild lower extremity edema. She may benefit from dose of oral Lasix as well down the road. 2. 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 3. Benign hypertension. 4. Anemia with iron deficiency status post IV iron. PLAN: Continue with the sodium chloride tabs for now. Repeat labs in a.m. I may add low-dose loop diuretics depending on the sodium tomorrow. MMODL / IJN: [id number] /
--- NOTE | 2021-02-15 19:49 | PN ---
PROGRESS NOTE DATE OF SERVICE: 02/15/2021 REASON FOR FOLLOW UP: Lumbar surgical site infection. INTERVAL HISTORY: Patient is currently afebrile. The patient is breathing comfortably. Patient denies having any chest pain. No shortness of breath or cough. No abdominal pain or any worsening pain to the sacral wound area. PHYSICAL EXAMINATION: Her blood pressure is 106/68 with a pulse of 83, temperature 98.5. She is 99% on room air. General description is a middle-aged female up in the chair in no distress. Respiratory system: Unlabored breathing, decreased breath sounds in the base, with no wheeze. Heart S1, S2. Regular rate and rhythm. Abdomen soft, no tenderness. Lumbar sacral wound is currently covered with a dressing. Minimal drainage on the dressing. LABS: Hemoglobin 9.1, white count 15.9, BUN of 13, creatinine 0.71. DIAGNOSTIC IMPRESSION AND PLAN: Patient with lumbar surgical site infection, status post drainage, removal of some of the hardware. Oral culture showing E coli, superficial culture positive for E coli and Stenotrophomonas. Unfortunately the patient's white count not responding as expected. We will discuss further with surgery. Continue with cefepime. Repeat CBC, CRP and sed rate tomorrow. May need further imaging testing. Continue supportive care. MMODL / IJN: [id number] /
[2021-02-15] MEDS: SODIUM CHLORIDE 0.9% 1,000 ML IV SCH (19:57)
[2021-02-15] MEDS: lisinopriL 20 MG TAB PO SCH (20:02)
[2021-02-16] MEDS: ACETAMINOPHEN TAB 325 MG TAB PO PRN ×3 (03:51→18:20)
[2021-02-16] MEDS: traMADol 50 MG TAB PO PRN ×3 (03:58→22:13)
--- NOTE | 2021-02-16 07:40 | P.PN ---
Subjective Progress Note Date: 02/16/21 Principal diagnosis: Acute post operative infection Pt s/e this AM. She states she had a rough night with a fever. She states some drainage from her wound. Denies any back pain. Denies any leg pain at this time. She is comfortable in bed. She states no sob/cp at this time. Objective - Vital Signs Vital signs: Vital Signs Temp 98.1 F 02/16/21 05:00 Pulse 89 02/16/21 05:00 Resp 16 02/16/21 05:00 BP 100/63 02/16/21 05:00 Pulse Ox 98 02/16/21 05:00 Intake & Output 02/15/21 02/16/21 02/16/21 18:59 06:59 18:59 Intake Total 160 Output Total 10 Balance -10 160 Weight 96 kg 96 kg Intake: Intake, IV Titration 160 Amount Cefepime 2 gm In Sodium 100 Chloride 0.9% 100 ml @ 25 mls/hr IVPB Q8HR [facility] Rx# :[id number] Sodium Chloride 0.9% 1, 60 000 ml @ 20 mls/hr IV . Q24H [facility] Rx#:[id number] Output: Drainage 10 Lower Back 10 Other: Voiding Method Bedside Commode Bedside Commode Diaper Diaper # Voids 2 # Bowel Movements 1 - Exam Exam is repeated She does have drainage from her wound that has increased since yesterday with her dressing saturated in serosanguinous material. The upper portion of her incision does not appear to be healing well. The remainder is doing OK. Her neuro and motor exam is stable. PHYSICAL EXAMINATION: Vitals: Stable at this time General: Awake, alert, appropriate for age, in no acute distress. HEENT: No unusual neck masses around region of lateral neck triangle, thyroid, supraclavicular groove. Heart: Regular rate and rhythm, normal S1, S2 and no murmur/gallop. Lungs: Clear to auscultation bilaterally with no use of accessory muscles. Extremities: Skin warm and dry without no acute lesions, coloration, temperature, skin intact, no tenderness or erythema. Integument: Hairy patches: Absent Dorsal skin dimples: Absent Cafe au lait spots: Absent Surgical incisions: Dehiscence noted in the middle 2 cm of the incision with purulent drainage noted at this site. Palpation: Please see Pain drawing on Intake sheet for further detail. (Tenderness = T, Nontender = NT, Swelling = S, Ecchymosis = E) Findings on Midline and paraspinal palpation and percussion: Cervical: NT Thoracic: NT Lumbar: NT Sacral: NT Special findings: none VASCULAR STATUS : Wrist Pulses: 2/4 bilateral radial and ulnar Pedal Pulses: 2/4 bilateral DP and PT Color: Normal Edema: None NEUROLOGIC EXAMINATION: Mental Status: Awake and alert, fully oriented, with normal attention, concentration and memory, and fluent, appropriate speech. Cranial Nerves: I: Olfactory not tested. II: Visual acuity normal, no visual field deficit noted with confrontation. III,IV: Normal pupillary reflexes & intact extraocular movements without nystagmus. V,: Intact symmetrical facial sensation. VII: Intact symmetrical facial motor movement VIII: Hearing intact. IX,X: Intact gag, swallow, & normal voice. XI: Sternocleidomastoid, trapezius function intact. XII: Tongue midline with normal movements. Special Tests: L'hermitte's Sign: Absent Spurling'Sign: Absent Bilateral Cubital percussion test: Absent Bilateral Angela-Tinel sign - Carpal region: Absent Bilateral Straight Leg Raising: Absent Bilateral Motor Exam (0-5/5, N/T) STRENGTH UPPER EXTREMITY Shoulder Abd (Not part of GERARDO Motor score): RIGHT 5 LEFT 5 Elbow Flexors: RIGHT 5 LEFT 5 Elbow Extensor: RIGHT 5 LEFT 5 Wrrist Dorsiflexors: RIGHT 5 LEFT 5 Finger Abductor: RIGHT 5 LEFT 5 Glycerin Supervisor: RIGHT 5 LEFT 5 LOWER EXTREMITY Hip Flexor (Not part of GERARDO Motor Score): RIGHT 4 LEFT 5 Knee Flexor: RIGHT 4 LEFT 5 Knee Extensor: RIGHT 4 LEFT 5 Ankle Dorsiflexion: RIGHT 3+ LEFT 4 Ankle Plantarflexion: RIGHT 4 LEFT 5 EHL: RIGHT 3 LEFT 4 FHL: RIGHT 4 LEFT 4 Generalized weakness noted, She is able to fire all major muscles of the LE b/l. . She still has some weakness of the L TA which was present since surgery, no acute interval changes at this time. She does have difficulty with cooperation at this time and c/o pain. REFLEXES Biecp: RIGHT 2 LEFT 2 Tricep: RIGHT 2 LEFT 2 Brachioradialis: RIGHT 2 LEFT 2 Patellar: RIGHT 2 LEFT 2 Achilles: RIGHT 2 LEFT 2 Pathological Reflexes Rajput's: RIGHT Absent LEFT Absent Babinski: RIGHT Absent LEFT Absent Clonus: RIGHT None LEFT None SENSORY Joint Position: Intact bilaterally Vibration Intact bilaterally Pain and LT sense Intact C5-T1 and L2-S1 Dermatomal deficit None Gait and Functional Evaluation: Ambulatory aids: Walker Hand and finger dexterity intact bilaterally. Disdiadochokinesis examination negative bilaterally. - Labs CBC & Chem 7: 02/15/21 08:06 02/15/21 08:06 Labs: Abnormal Lab Results - Last 24 Hours (Table) 02/15/21 02/15/21 Range/Units 08:06 08:06 WBC 15.9 H (3.8-10.6) k/uL RBC 3.75 L (3.80-5.40) m/uL Hgb 9.2 L (11.4-16.0) gm/dL Hct 30.2 L (34.0-46.0) % MCH 24.4 L (25.0-35.0) pg MCHC 30.3 L (31.0-37.0) g/dL RDW 16.1 H (11.5-15.5) % Sodium 131 L (137-145) mmol/L Glucose 109 H (74-99) mg/dL Assessment and Plan Assessment: 60 yo female POD8 Lumbar wound I&D with antibiotic bead placement. 1. Lumbar wound infection 2. Wound dehiscence 3. Back pain 4. S/p L4-S1 decompression fusion 5. Hyponatremia likely SIADH Plan: -Appreciate medicine, ID, cardio management -Pain control adequate at this time -CBC, BMP, Sed, CRP this AM ordered. -Must encourage ambulation, out of bed with all meals. Increase strength and right lower extremity. -PT/OT daily, ambulate, sit up, OOB all meals -OK to shower -Ice to back PRN -GI/DVT ppx. OK for heparin tonight -TEds/SCDs -Due to the patient having an increased WBC and fevers overnight we will not send her today. Will speak with ID. If she does not improve tomorrow with Labs, vitals etc we will wash her out again in the afternoon. She does not seem to be responding well to abx right now. She has no back pain, but if her infection markers continue to elevate we need to address while she is here. I spoke to her and her daughter about this and they understand. We will see how she does today and what her labs are tomorrow. Will discuss possible dual abx therapy with ID.
[2021-02-16] MEDS: CEFEPIME 2 GM in SODIUM CHLORIDE 0.9% 100 ML IVPB SCH ×3 (07:48→23:24)
[2021-02-16] MEDS: SODIUM CHLORIDE TAB 1 GM TAB PO SCH ×2 (07:50→22:11)
[2021-02-16] MEDS: polyethylene glycoL 3350 17 GM POWD.PACK PO SCH (07:50)
[2021-02-16] MEDS: DOCUSATE 100 MG CAP PO SCH ×2 (07:50→22:11)
[2021-02-16] MEDS: GABAPENTIN 300 MG CAP PO SCH ×2 (07:51→22:11)
[2021-02-16] MEDS: PANTOPRAZOLE 40 MG TABLET PO SCH (07:51)
[2021-02-16] MEDS: METOPROLOL TARTRATE 25 MG TAB PO SCH ×2 (07:51→22:10)
[2021-02-16 10:28] LABS: HCT 27.3 % (37.2-46.3); HGB 8.5 g/dL (12.0-15.0); MCH 24.9 pg (27.0-32.0); MCHC 31.1 g/dL (32.0-37.0); MCV 79.8 fL (80.0-97.0); Mean Platelet Volume 10.7 fL (9.5-12.2); Platelet Count 260 X 10*3/uL (140-440); RBC 3.42 X 10*6/uL (4.10-5.20); RDW 18.4 % (11.5-14.5); WBC 12.77 X 10*3/uL (4.50-10.00)
[2021-02-16 11:24] LABS: African American GFR (CKD) 114.8 (60.0-200.0); Anion Gap 6.2 mmol/L (4.00-12.00); BUN/Creat Ratio 21.67 Ratio (12.00-20.00); Calcium 8.6 mg/dL (8.7-10.3); Carbon Dioxide 28.8 mmol/L (21.6-31.8); Non-African American GFR(CKD) 99.1 (60.0-200.0); Potassium 4.4 mmol/L (3.5-5.5)
[2021-02-16 11:55] LABS: Basophils # (M) 0.13 X 10*3/uL (0.00-0.10); Eosinophils # (M) 0 X 10*3/uL (0.04-0.35); Hypochromasia (M) 2+; Lymphocytes # (M) 2.94 X 10*3/uL (0.90-5.00); Metamyelocytes % 1 % (0-0); Monocytes # (M) 4.09 X 10*3/uL (0.20-1.00); Myelocytes % 1 % (0-0); Neutrophils # (M) 5.36 X 10*3/uL (2.00-8.90); Neutrophils % (M) 42 %
[2021-02-16] MEDS ORDERED: FUROSEMIDE 10 MG/ML 2 ML VIAL IV ONE (13:29)
--- NOTE | 2021-02-16 14:05 | P.PN ---
Subjective Progress Note Date: 02/16/21 Patient is doing fairly well today. She denies any fevers or chills. She denies any worsening pain in her back other than usual. She had a documented fever of 101.2 last night otherwise no acute events. Objective - Vital Signs Vital signs: Vital Signs Temp 99.1 F 02/16/21 13:09 Pulse 93 02/16/21 13:09 Resp 18 02/16/21 13:09 BP 130/72 02/16/21 13:09 Pulse Ox 96 02/16/21 13:09 Intake & Output 02/15/21 02/16/21 02/16/21 18:59 06:59 18:59 Intake Total 160 Output Total 10 Balance -10 160 Weight 96 kg 96 kg Intake: Intake, IV Titration 160 Amount Cefepime 2 gm In Sodium 100 Chloride 0.9% 100 ml @ 25 mls/hr IVPB Q8HR [facility] Rx# :[id number] Sodium Chloride 0.9% 1, 60 000 ml @ 20 mls/hr IV . Q24H [facility] Rx#:[id number] Output: Drainage 10 Lower Back 10 Other: Voiding Method Bedside Commode Bedside Commode Bedside Commode Diaper Diaper Diaper # Voids 2 # Bowel Movements 1 - Exam General: The patient is awake and alert, in no distress Eye: there is normal conjunctiva bilaterally. Neck: The neck is supple, there is no JVD. Cardiovascular: Normal S1-S2, no S3-S4, no murmurs. Respiratory: Lungs clear to auscultation bilaterally Gastrointestinal: Abdomen is soft, nontender Musculoskeletal: There is no pedal edema. Neurological:. Speech is normal. Skin: Skin is warm and dry - Labs CBC & Chem 7: 02/16/21 04:02 02/16/21 04:02 Labs: Abnormal Lab Results - Last 24 Hours (Table) 02/16/21 02/16/21 Range/Units 04:02 04:02 WBC 12.77 H (4.50-10.00) X 10*3/uL RBC 3.42 L (4.10-5.20) X 10*6/uL Hgb 8.5 L (12.0-15.0) g/dL Hct 27.3 L (37.2-46.3) % MCV 79.8 L (80.0-97.0) fL MCH 24.9 L (27.0-32.0) pg MCHC 31.1 L (32.0-37.0) g/dL RDW 18.4 H (11.5-14.5) % Metamyelocytes % 1 H (0-0) % Myelocytes % 1 H (0-0) % Monocytes # (Manual) 4.09 H (0.20-1.00) X 10*3/uL Eosinophils # (Manual) 0 L (0.04-0.35) X 10*3/uL Basophils # (Manual) 0.13 H (0.00-0.10) X 10*3/uL Sodium 134 L (135-145) mmol/L BUN/Creatinine Ratio 21.67 H (12.00-20.00) Ratio Glucose 124 H (70-110) mg/dL Calcium 8.6 L (8.7-10.3) mg/dL C-Reactive Protein 19.0 H (0.0-0.8) mg/dL Assessment and Plan Assessment: Antoni is a 60 yo female with a recent L 4/5 and L5/S1 Laminectomy with fusion and intradiscal osteotomy on 01/05/21 with prior deep vein thrombocytosis, GERD, adn HTN who was transferred from [facility] for back and wound dehisence. She was started on cefepime and Vanco. Found to have post-op infection. Hyponatremia, likely SIADH. She underwent washout and hardware exchange on 02/08. Medical problems at this during this hospitalization: E. coli Postop wound infection with sepsis status post lumbar laminectomy with fusion 01/05/21 status post washout on 02/08 -Plan for more debridement tomorrow 02/17 -Continue with Cefepime: Plan for 6 weeks of IV antibiotics -ID recs: PICC line placed -Pain control Hyponatremia likely secondary to SIADH-improving -Seen and evaluated by nephrology - Marcie given 1 on 02/07 - Sodium chloride tablets twice daily -Home dose of hydrochlorothiazide discontinued Constipation -MiraLAX, Dulcolax GERD - PPI Hypertension - Lisinopril, metoprolol - follow BP NSVT - on metoprolol - cardio signed off - echo with ef 55-60% Anemia, iron deficiency anemia - IV iron completed - post op from January - stable -Recheck in 4-6 weeks Discharge planning to [facility] when cleared by orthopedic and infectious disease
[2021-02-16 14:09] LABS: Erythrocyte Sedimentation Rate 83 mm/Hr (0-30)
--- NOTE | 2021-02-16 14:33 | PN ---
PROGRESS NOTE Patient is seen for followup for hyponatremia for which patient is maintained on sodium chloride tabs. Her sodium has improved staying at about 131-134 mEq/L. PHYSICAL EXAMINATION: She is comfortable. Blood pressure 120/70, heart rate 87 per minute. Patient is afebrile. Examination of the heart S1, S2. Examination of the lungs, bilateral breath sounds are heard. Abdomen is soft, nontender. Examination of lower extremities shows trace edema bilaterally. SLOT EDITOR exam grossly intact. LAB: Show hemoglobin 8.5, sodium 134, potassium 4.4, serum creatinine 0.6 mg/dL. ASSESSMENT: 1. Hyponatremia, currently improving with the sodium chloride administration. The patient did receive 1 dose of Samsca. However, she has not received any further doses. Serum sodium staying 131-134 mEq/L. I will give her a small dose of IV Lasix. Her blood pressure remains low. Therefore, we can continue with the sodium chloride tabs for now. She is also encouraged to increase oral intake, particularly protein. 2. Lumbar spine abscess, status post I and D and exchange of hardware. 3. Benign hypertension. 4. Anemia with iron deficiency status post IV iron. PLAN: Continue the sodium chloride tabs 1 dose of IV Lasix today. Repeat sodium in a.m. MMODL / IJN: [id number] /
[2021-02-16] MEDS: SODIUM CHLORIDE 0.9% 1,000 ML IV SCH (17:11)
--- NOTE | 2021-02-16 17:30 | PN ---
PROGRESS NOTE DATE OF SERVICE: 02/16/2021 REASON FOR FOLLOWUP: Lumbar surgical site infection. INTERVAL HISTORY: Patient did spike a fever last night of 101.2 degrees Fahrenheit. The patient is afebrile since then. The patient is breathing comfortably on room air. The patient denies having any chest pain. No shortness of breath or cough. Denies abdominal pain. No diarrhea. No worsening back pain. PHYSICAL EXAMINATION: Blood pressure 120/72 with a pulse of 93, temperature 98.1. She is 96% on room air. General description is a middle-aged female lying in bed in no distress. Respiratory System: Unlabored breathing. Clear to auscultation anteriorly. Heart: S1, S2. Regular rate and rhythm. Abdomen soft, no tenderness. Extremities no edema. LABS: Hemoglobin 8.5, white count 10, BUN of 19, creatinine 0.6. CRP down to 19 from previous reading of 32.3. Sedimentation rate is down to 83 from high of 99. OR culture positive for E coli, superficial culture with E coli and Stenotrophomonas which is sensitive to pathogen. DIAGNOSTIC IMPRESSION AND PLAN: Patient with lumbar surgical site infection in this patient who is status post washout and replacement of some of the hardware, OR culture positive for E coli and likely the infected pathogen. She did have a culture done at [facility] in [place] and those were positive for E coli only with superficial culture done on the back in the ER at [facility] that shows Stenotrophomonas as well, which is a superficial pathogen and did not grow in the OR culture. Still is covered with current antibiotic. However, the patient did have a new fever which is concerning. The patient currently does not have any other obvious focus for this fever as there was evidence of increasing fluid on the CT after the patient did have surgery done, concern for possible CSF leak or persistent infected seroma and may benefit from drainage of it and deep cultures. This has been explained in detail to the patient and family on the form. I also discussed this case in detail with the ID physician who saw the patient at [facility] as per request of the patient's daughter. Significant amount of time was spent. The patient's surgeon has been called and left a message for him, am waiting a call back. For now, we will keep the patient on cefepime. Culture has been repeated. MMODL / IJN: [id number] /
--- NOTE | 2021-02-16 18:13 | P.PN ---
Progress Note - Text Progress Note Date: 02/16/21 Pt s/e. She is resting comfortable in bed at this time. Her son is in the room. We called and spoke together with Jasmin her daughter as well. I had a conversation with Dr. Queen before this from CT to determine the best course of action for her. She did spike a fever last night with a spike in her white count, but it has come down and she is still trending down towards normal. Her Sed and CRP are trending as well towards normal. We worry however that while the E.Coli is succeptible, there was a second bacteria in her initial superficial cultures that grew out that was concerning. Dr. Queen changed her abx accordingly but she is just slow to respond with her WBC count, infection markers and still some superficial wound issues. The superior portion of her incision is not healing well right now which is concerning as she needs this to heal so as to prevent more infection. I discussed this with her, her son and her daughter over the phone. We feel that in her best interest we will perform another washout of her back tomorrow, place new abx beads and revise the wound to get it to heal better. This will also give us a chance for some new cultures to make sure we are treating the correct bacteria. I discussed this at length with family and pt and they are on board and agree. They are very accomodating and understanding and appreciative of their care. Dr. Queen also agrees that washout is likely best next step. We will keep her NPO and plan for washout around 1230 or later tomorrow. This will allow us to see her AM labs and inspect her incision once again. We discussed risks, benefits, outcomes, alternative plans with pt and family and they understand and are willing to assume the risks of surgery. We will see her in the AM and discuss again.
[2021-02-16] MEDS: HYDROmorphone 0.5 MG/0.5 ML SYRINGE IVP PRN (19:34)
[2021-02-16] MEDS: lisinopriL 20 MG TAB PO SCH (22:11)
[2021-02-17] MEDS: ACETAMINOPHEN TAB 325 MG TAB PO PRN (02:03)
[2021-02-17] MEDS: traMADol 50 MG TAB PO PRN ×2 (04:15→22:47)
[2021-02-17] MEDS ORDERED: HYDROmorphone 0.5 MG/0.5 ML SYRINGE IVP PRN (07:00)
[2021-02-17] MEDS ORDERED: FAMOTIDINE 20 MG/2 ML VIAL IV PRN (07:00)
[2021-02-17 07:35] LABS: Anisocytosis Slight; HCT 27.4 % (34.0-46.0); HGB 8.5 gm/dL (11.4-16.0); Hypochromasia Moderate; MCH 24.7 pg (25.0-35.0); MCHC 31.1 g/dL (31.0-37.0); MCV 79.7 fL (80.0-100.0); Mean Platelet Volume 7.4; Platelet Count 271 k/uL (150-450); RBC 3.43 m/uL (3.80-5.40); RDW 16.3 % (11.5-15.5); WBC 9.6 k/uL (3.8-10.6)
[2021-02-17 07:51] LABS: African American GFR (CKD) >90 (>60 ml/min/1.73 sqM); Anion Gap 5 mmol/L; Blood Urea Nitrogen 9 mg/dL (7-17); Calcium 8.6 mg/dL (8.4-10.2); Carbon Dioxide 30 mmol/L (22-30); Chloride 100 mmol/L (98-107); Glucose 87 mg/dL (74-99); Non-African American GFR(CKD) >90 (>60 ml/min/1.73 sqM); Potassium 4.1 mmol/L (3.5-5.1); Sodium 135 mmol/L (137-145)
--- NOTE | 2021-02-17 08:14 | P.PN ---
Subjective Progress Note Date: 02/17/21 Principal diagnosis: Acute post operative infection Patient seen and examined this morning she is doing fairly well she complains of no back pain at this time the leg pain states that she is moving around better yesterday and her night went alright. She denies any fevers overnight surgery chills or chest pain at this time. No new neurologic symptoms no new weakness no new numbness or tingling Objective - Vital Signs Vital signs: Vital Signs Temp 98.3 F 02/17/21 04:13 Pulse 83 02/17/21 04:13 Resp 18 02/17/21 04:13 BP 121/68 02/17/21 04:13 Pulse Ox 97 02/17/21 04:13 Intake & Output 02/16/21 02/17/21 02/17/21 18:59 06:59 18:59 Intake Total 540 Output Total 400 Balance 140 Weight 94.5 kg Intake: Intake, IV Titration 340 Amount Cefepime 2 gm In Sodium 100 Chloride 0.9% 100 ml @ 25 mls/hr IVPB Q8HR DEV Rx# :[id number] Lactated Ringers 1,000 ml 240 @ 20 mls/hr IV .Q24H DEV Rx#:[id number] Oral 200 Output: Urine 400 Other: Voiding Method Bedside Commode Bedside Commode Diaper Diaper # Voids 2 - Exam Exam is repeated She still does have some drainage from her wound we will assess this in surgery today. The upper portion of her incision does not appear to be healing well. The remainder is doing OK. Her neuro and motor exam is stable. PHYSICAL EXAMINATION: Vitals: Stable at this time General: Awake, alert, appropriate for age, in no acute distress. HEENT: No unusual neck masses around region of lateral neck triangle, thyroid, supraclavicular groove. Heart: Regular rate and rhythm, normal S1, S2 and no murmur/gallop. Lungs: Clear to auscultation bilaterally with no use of accessory muscles. Extremities: Skin warm and dry without no acute lesions, coloration, temperature, skin intact, no tenderness or erythema. Integument: Hairy patches: Absent Dorsal skin dimples: Absent Cafe au lait spots: Absent Surgical incisions: Dehiscence noted in the middle 2 cm of the incision with purulent drainage noted at this site. Palpation: Please see Pain drawing on Intake sheet for further detail. (Tenderness = T, Nontender = NT, Swelling = S, Ecchymosis = E) Findings on Midline and paraspinal palpation and percussion: Cervical: NT Thoracic: NT Lumbar: NT Sacral: NT Special findings: none VASCULAR STATUS : Wrist Pulses: 2/4 bilateral radial and ulnar Pedal Pulses: 2/4 bilateral DP and PT Color: Normal Edema: None NEUROLOGIC EXAMINATION: Mental Status: Awake and alert, fully oriented, with normal attention, concentration and memory, and fluent, appropriate speech. Cranial Nerves: I: Olfactory not tested. II: Visual acuity normal, no visual field deficit noted with confrontation. III,IV: Normal pupillary reflexes & intact extraocular movements without nystagmus. V,: Intact symmetrical facial sensation. VII: Intact symmetrical facial motor movement VIII: Hearing intact. IX,X: Intact gag, swallow, & normal voice. XI: Sternocleidomastoid, trapezius function intact. XII: Tongue midline with normal movements. Special Tests: L'hermitte's Sign: Absent Spurling'Sign: Absent Bilateral Cubital percussion test: Absent Bilateral Angela-Tinel sign - Carpal region: Absent Bilateral Straight Leg Raising: Absent Bilateral Motor Exam (0-5/5, N/T) STRENGTH UPPER EXTREMITY Shoulder Abd (Not part of GERARDO Motor score): RIGHT 5 LEFT 5 Elbow Flexors: RIGHT 5 LEFT 5 Elbow Extensor: RIGHT 5 LEFT 5 Wrrist Dorsiflexors: RIGHT 5 LEFT 5 Finger Abductor: RIGHT 5 LEFT 5 Senior Accountant Cpa: RIGHT 5 LEFT 5 LOWER EXTREMITY Hip Flexor (Not part of GERARDO Motor Score): RIGHT 4 LEFT 5 Knee Flexor: RIGHT 4 LEFT 5 Knee Extensor: RIGHT 4 LEFT 5 Ankle Dorsiflexion: RIGHT 3+ LEFT 4 Ankle Plantarflexion: RIGHT 4 LEFT 5 EHL: RIGHT 3 LEFT 4 FHL: RIGHT 4 LEFT 4 Generalized weakness noted, She is able to fire all major muscles of the LE b/l. . She still has some weakness of the L TA which was present since surgery, no acute interval changes at this time. She does have difficulty with cooperation at this time and c/o pain. REFLEXES Biecp: RIGHT 2 LEFT 2 Tricep: RIGHT 2 LEFT 2 Brachioradialis: RIGHT 2 LEFT 2 Patellar: RIGHT 2 LEFT 2 Achilles: RIGHT 2 LEFT 2 Pathological Reflexes Rajput's: RIGHT Absent LEFT Absent Babinski: RIGHT Absent LEFT Absent Clonus: RIGHT None LEFT None SENSORY Joint Position: Intact bilaterally Vibration Intact bilaterally Pain and LT sense Intact C5-T1 and L2-S1 Dermatomal deficit None Gait and Functional Evaluation: Ambulatory aids: Walker Hand and finger dexterity intact bilaterally. Disdiadochokinesis examination negative bilaterally. - Labs CBC & Chem 7: 02/17/21 07:10 02/17/21 07:10 Labs: Abnormal Lab Results - Last 24 Hours (Table) 02/16/21 02/16/21 02/17/21 Range/Units 04:02 04:02 07:10 WBC 12.77 H (4.50-10.00) X 10*3/uL RBC 3.42 L 3.43 L (4.10-5.20) X 10*6/uL Hgb 8.5 L 8.5 L (12.0-15.0) g/dL Hct 27.3 L 27.4 L (37.2-46.3) % MCV 79.8 L 79.7 L (80.0-97.0) fL MCH 24.9 L 24.7 L (27.0-32.0) pg MCHC 31.1 L (32.0-37.0) g/dL RDW 18.4 H 16.3 H (11.5-14.5) % Metamyelocytes % 1 H (0-0) % Myelocytes % 1 H (0-0) % Monocytes # (Manual) 4.09 H (0.20-1.00) X 10*3/uL Eosinophils # (Manual) 0 L (0.04-0.35) X 10*3/uL Basophils # (Manual) 0.13 H (0.00-0.10) X 10*3/uL ESR 83 H (0-30) mm/Hr Sodium 134 L (135-145) mmol/L BUN/Creatinine Ratio 21.67 H (12.00-20.00) Ratio Glucose 124 H (70-110) mg/dL Calcium 8.6 L (8.7-10.3) mg/dL C-Reactive Protein 19.0 H (0.0-0.8) mg/dL 02/17/21 Range/Units 07:10 WBC (4.50-10.00) X 10*3/uL RBC (4.10-5.20) X 10*6/uL Hgb (12.0-15.0) g/dL Hct (37.2-46.3) % MCV (80.0-97.0) fL MCH (27.0-32.0) pg MCHC (32.0-37.0) g/dL RDW (11.5-14.5) % Metamyelocytes % (0-0) % Myelocytes % (0-0) % Monocytes # (Manual) (0.20-1.00) X 10*3/uL Eosinophils # (Manual) (0.04-0.35) X 10*3/uL Basophils # (Manual) (0.00-0.10) X 10*3/uL ESR (0-30) mm/Hr Sodium 135 L (135-145) mmol/L BUN/Creatinine Ratio (12.00-20.00) Ratio Glucose (70-110) mg/dL Calcium (8.7-10.3) mg/dL C-Reactive Protein (0.0-0.8) mg/dL Assessment and Plan Assessment: 60 yo female POD9 Lumbar wound I&D with antibiotic bead placement. 1. Lumbar wound infection 2. Wound dehiscence 3. Back pain 4. S/p L4-S1 decompression fusion 5. Hyponatremia likely SIADH Plan: -Appreciate medicine, ID, cardio management -Pain control adequate at this time -CBC, BMP, Sed, CRP this AM ordered. -Must encourage ambulation, out of bed with all meals. Increase strength and right lower extremity. -PT/OT daily, ambulate, sit up, OOB all meals -OK to shower -Ice to back PRN -GI/DVT ppx. OK for heparin tonight -TEds/SCDs 02/17/21-Due to the patient having an increased WBC and fevers overnight we will not send her today. Will speak with ID. If she does not improve tomorrow with Labs, vitals etc we will wash her out again in the afternoon. She does not seem to be responding well to abx right now. She has no back pain, but if her infection markers continue to elevate we need to address while she is here. I spoke to her and her daughter about this and they understand. We will see how she does today and what her labs are tomorrow. Will discuss possible dual abx therapy with ID. 02/18/21-her white cells have normalized today and she said no fevers. We can continue to watch her or wash her out I would prefer to revise the upper portion of her incision is not healing well I do not want this to be a nidus for continued infection we will assess the remainder of the incision as well as the deep structures and determine if continued washout as needed. We will take her today to the OR. Spine Surgery Risk Review Currently, I am recommendin. Lumbar wound irrigation debridement 2. Follow up with PCP for surgical clearance 3. Review of surgical risks and benefits as well as an educational packet on the proposed surgical procedure. Risks: All surgical procedures come with inherent risks, including those related to positioning, anesthesia, intraoperative findings, and postoperative complications. It is important to understand that surgery does not come with any guarantee of a successful outcome as complications and adverse events are always possible. The patient was given a handout in office today discussing the surgical procedure and risks associated with the intervention, both of which were discussed with the patient. These risks include but are not limited to the following: * Experiencing same, different or even worse symptoms in back, neck, arms, or legs compared to before surgery. * Requiring further surgery or other forms of treatment presently or at some time in the future at same or other levels of the intended spine surgery. * On an extreme but fortunately relatively rare basis severe complication such as blindness, stroke, heart attack, temporary and/or permanent nerve injury, paralysis, coma, or may occur, sometimes without known explanation. * Surgical complications may include but are not limited to risk of infection, fluid accumulation in the surgical dissection site, including a seroma or hematoma, that requires additional surgery, wound drainage, bleeding, new numbness or weakness, vision changes/loss, spinal fluid leakage, non-healing and/or infected incision, headaches, difficulty or inability to swallow, hoarseness, hemopneumothorax, pneumothorax, impotence, retrograde ejaculation, vaginal dryness; injury to nerves, spinal cord, blood vessels, lymphatics or other vital organs (i.e., bowel injury, injury to the great vessels); heterotopic bone formation; complications related to the hardware such as screws, rods, cages including misplaced hardware, device failure, instrumentation at the wrong spine level, hardware fracture/breakage, or hardware loosening; vertebral failure of the spinal column above or below the newly placed hardware; retained surgical instrumentations or devices and the need for further surgery. * Medical risks of the planned spine surgery include but are not limited to generalized Infections to the whole body or local areas outside of the surgical site (sepsis), heart attack, bleeding, anaphylaxis, meningitis, se izure, epilepsy, hearing loss, burn herman, laceration of the head or other areas of the body, bruising, hypersensitivity of the skin, bladder over distension; allergic reaction; shoulder injury related to positioning; fat, blood and air clots to other areas of the body like heart, lungs, brain; fail ure of internal organs such as lungs, kidneys, liver and excessive bleeding. If blood transfusions are necessary, note that transfusions may cause intolerance reactions such as anaphylaxis or other complex reactions. * Despite best efforts, the results of spine surgery might not heal in terms of bone, soft tissues such as skin, fascia, ligaments, and joints. Additionally, in order to achieve best possible results, spine surgery may be carried out beyond the initially planned levels and involve decompression, fusion including insertion of hardware at levels other than the original intended area of surgical interest change some portions of the procedure in order to ensure the best possible outcomes. * With spine surgery and spinal fusion, there are different off label uses of instrumentation (devices, implants and hardware) as well as biological substances (bone morphogenic proteins, demineralized bone matrix) as well as using extra bone from allograft sources (i.e. cadaver bone) or autograft (iliac crest bone, ribs, or the spine itself). The patient has been given information about these practices and their inherent risks and benefits. * [facility] is an educational center that serves as a training facility for neurosurgical and orthopedic spine residents and fellows. Residents are physicians who are completing their surgical intensive training following medical school. They assist in the operating room with direct supervision of the attending surgeons. [place] are surgeons who have completed their training and eligible for board certification. They have opte d for an elective year of more specialized training in their field. They assist in the operating room under the supervision of the attending surgeons. Physician assistants are medically trained surgical providers who function in the outpatient, inpatient, and operating room setting under the direct supervision of the attending surgeon. * [facility] has multiple operating rooms with single and overlapping rooms running daily. They currently function under the required guidelines as produced by the [facility] Finance Committee with regards to the overlapping rooms and will continue to comply with changes to this policy as they occur. The requirements include and are complied with as follows: (1) the critical portions of the overlapping rooms will not occur at the same time, (2) the attending physician will be physically present during the critical portions of the procedure and immediately available during the entire case, and (3) a back-up attending is designated should the primary attending not be immediately available. The patient has had a chance to review all the listed information, has been given print outs detailing this information, and has had all his/her questions answered to their satisfaction. It was my pleasure to have seen and examined Yessenia Ryan. In our visit today we have had a chance to go over my understanding of our patient's current condition, the natural course history without intervention and various interventional options. Questions were invited and answered, and the patient wishes to proceed as outlined above. I have seen and examined the patient for 25 minutes and we have spent more than 50% of the time in repeat and detailed counseling about the patient's condition, its natural course history with out and as much as can be predicted with surgery and re-review of various surgical treatment options. In conclusion, Yessenia Rayn and her daughter and son requested we proceed with the above suggested surgery and are willing to accept risks and limitations of the suggested surgery as nature of the disease process and our best attempts at treatment for the condition. Thank you again for allowing us to be part of your patient's care. Please don't hesitate to contact me if you have any further questions. Signed and authenticated by: Mendel S[facility] [address] [address]
[2021-02-17] MEDS: SODIUM CHLORIDE TAB 1 GM TAB PO SCH (08:18)
[2021-02-17] MEDS: GABAPENTIN 300 MG CAP PO SCH ×2 (08:18→21:36)
[2021-02-17] MEDS: METOPROLOL TARTRATE 25 MG TAB PO SCH ×2 (08:18→21:36)
[2021-02-17] MEDS: PANTOPRAZOLE 40 MG TABLET PO SCH (08:19)
[2021-02-17] MEDS: polyethylene glycoL 3350 17 GM POWD.PACK PO SCH (08:19)
[2021-02-17] MEDS: DOCUSATE 100 MG CAP PO SCH ×2 (08:19→21:36)
[2021-02-17] MEDS: CEFEPIME 2 GM in SODIUM CHLORIDE 0.9% 100 ML IVPB SCH ×3 (08:19→23:37)
[2021-02-17] MEDS: HYDROmorphone 0.5 MG/0.5 ML SYRINGE IVP PRN ×3 (08:58→19:51)
--- NOTE | 2021-02-17 10:02 | P.PN ---
Subjective Progress Note Date: 02/17/21 Principal diagnosis: back pain Antoni is a 60 yo female with a recent L 4/5 and L5/S1 Laminectomy with fusion and intradiscal osteotomy on 01/05/21 with prior deep vein thrombocytosis, GERD, adn HTN who was transferred from [facility] for back and wound dehisence. She was started on cefepime and Vanco. Found to have post-op infection. Hyponatremia, likely SIADH. She underwent washout and hardware exchange on 02/08, repeat wash out planned for 02/17 with replacement of antibiotics beads. WBC now normalized. Patient seen and examined at bedside. Constipation is resolved, no nausea, no shortness of breath, not excited to have to go back to surgery. General: Nontoxic, no distress, appears at stated age Derm: warm, dry Head: atraumatic, normocephalic, symmetric Eyes: EOMI, no lid lag, anicteric sclera Mouth: no lip lesion, mucus membranes moist Cardiovascular: S1S2 reg, no murmur, positive posterior tibial pulse bilateral, Lungs: decreased bs bilateral, no rhonchi, no rales , no accessory muscle use Abdominal: soft, nontender to palpation, no guarding, no appreciable organomegaly Psych: Alert, oriented, appropriate affect Hyponatremia likely secondary to SIADH and low solute intake due to pain- resolved - Samsca given 1 on 02/07 - Sodium chloride tablets - nephrology recs - Repeat sodium levels in a.m. - off HCTZ on discharge Constipation, resolved -continue bowel regiment E. coli and Stenotrophomonas maltophilia Postop wound infection with sepsis status post lumbar laminectomy with fusion 01/05/21 status post washout on 02/08 - anticipate 2nd wash out today -Continue with Cefepime: Plan for 6 weeks of IV antibiotics and then switched to orals. -ID recs: PICC line placed -Pain control GERD - PPI Hypertension - hold HCTZ - Lisinopril, metoprolol - follow BP NSVT - on metoprolol - cardio signed off - echo with ef 55-60% Anemia, iron deficiency anemia - IV iron completed - post op from January - stable -Recheck in 4-6 weeks Thank you for allowing us to participate in the care of this pleasant patient. Do not hesitate to contact us with questions. Someone can be reached from the [facility] hospitalist group all hours of the day at [phone] or via perfect serve. Objective - Vital Signs Vital signs: Vital Signs Temp 98.3 F 02/17/21 04:13 Pulse 83 02/17/21 04:13 Resp 18 02/17/21 04:13 BP 121/68 02/17/21 04:13 Pulse Ox 97 02/17/21 04:13 Intake & Output 02/16/21 02/17/21 02/17/21 18:59 06:59 18:59 Intake Total 540 Output Total 400 Balance 140 Weight 94.5 kg Intake: Intake, IV Titration 340 Amount Cefepime 2 gm In Sodium 100 Chloride 0.9% 100 ml @ 25 mls/hr IVPB Q8HR DEV Rx# :[id number] Lactated Ringers 1,000 ml 240 @ 20 mls/hr IV .Q24H DEV Rx#:[id number] Oral 200 Output: Urine 400 Other: Voiding Method Bedside Commode Bedside Commode Diaper Diaper # Voids 2 - Labs CBC & Chem 7: 02/17/21 07:10 02/17/21 07:10 Labs: Abnormal Lab Results - Last 24 Hours (Table) 02/16/21 02/16/21 02/17/21 Range/Units 04:02 04:02 07:10 WBC 12.77 H (4.50-10.00) X 10*3/uL RBC 3.42 L 3.43 L (4.10-5.20) X 10*6/uL Hgb 8.5 L 8.5 L (12.0-15.0) g/dL Hct 27.3 L 27.4 L (37.2-46.3) % MCV 79.8 L 79.7 L (80.0-97.0) fL MCH 24.9 L 24.7 L (27.0-32.0) pg MCHC 31.1 L (32.0-37.0) g/dL RDW 18.4 H 16.3 H (11.5-14.5) % Metamyelocytes % 1 H (0-0) % Myelocytes % 1 H (0-0) % Monocytes # (Manual) 4.09 H (0.20-1.00) X 10*3/uL Eosinophils # (Manual) 0 L (0.04-0.35) X 10*3/uL Basophils # (Manual) 0.13 H (0.00-0.10) X 10*3/uL ESR 83 H (0-30) mm/Hr Sodium 134 L (135-145) mmol/L BUN/Creatinine Ratio 21.67 H (12.00-20.00) Ratio Glucose 124 H (70-110) mg/dL Calcium 8.6 L (8.7-10.3) mg/dL C-Reactive Protein 19.0 H (0.0-0.8) mg/dL 02/17/21 Range/Units 07:10 WBC (4.50-10.00) X 10*3/uL RBC (4.10-5.20) X 10*6/uL Hgb (12.0-15.0) g/dL Hct (37.2-46.3) % MCV (80.0-97.0) fL MCH (27.0-32.0) pg MCHC (32.0-37.0) g/dL RDW (11.5-14.5) % Metamyelocytes % (0-0) % Myelocytes % (0-0) % Monocytes # (Manual) (0.20-1.00) X 10*3/uL Eosinophils # (Manual) (0.04-0.35) X 10*3/uL Basophils # (Manual) (0.00-0.10) X 10*3/uL ESR (0-30) mm/Hr Sodium 135 L (135-145) mmol/L BUN/Creatinine Ratio (12.00-20.00) Ratio Glucose (70-110) mg/dL Calcium (8.7-10.3) mg/dL C-Reactive Protein (0.0-0.8) mg/dL
[2021-02-17] MEDS ORDERED: IV FLUID CONTINUATION 900 ML IV ONE (12:44)
[2021-02-17] MEDS ORDERED: FUROSEMIDE 10 MG/ML 2 ML VIAL IV ONE (13:21)
[2021-02-17] MEDS: IV FLUID CONTINUATION 1,000 ML IV ONE ×2 (13:28→17:27)
[2021-02-17] MEDS: DEXAMETHASONE SOD PHOSPHATE 4 MG/ML 1 ML VIAL IV ONE ×2 (13:29→17:27)
[2021-02-17] MEDS ORDERED: ONDANSETRON 4 MG/2 ML VIAL IVP ONE (13:30)
[2021-02-17] MEDS ORDERED: SCOPOLAMINE 1.5MG/72HR PATCH TRANSDERM ONE (13:31)
[2021-02-17] MEDS ORDERED: NEOSTIGMINE 1 MG/ML 10 ML VIAL ONE (13:41)
[2021-02-17] MEDS ORDERED: PHENYLEPHRINE-0.9% NACL SYG 1,000 MCG/10 ML SYRINGE ONE (13:41)
[2021-02-17] MEDS ORDERED: SUCCINYLCHOLINE CHLORIDE 100 MG/5 ML SYR IV ONE (13:41)
[2021-02-17] MEDS ORDERED: LIDOCAINE 1% INJ 10MG/ML (20 ML MDV) ONE (13:41)
[2021-02-17] MEDS ORDERED: GLYCOPYRROLATE 0.2 MG/ML 2 ML VIAL ONE (13:41)
[2021-02-17] MEDS ORDERED: MIDAZOLAM 2 MG/2 ML VIAL ONE (13:41)
[2021-02-17] MEDS ORDERED: fentaNYL (PF) 50 MCG/ML 2 ML AMP ONE (13:41)
[2021-02-17] MEDS ORDERED: ROCURONIUM 10 MG/ML (5 ML VIAL) IV ONE (13:41)
[2021-02-17] MEDS ORDERED: PROPOFOL 10 MG/ML 20 ML VIAL IV ONE (13:41)
[2021-02-17] MEDS ORDERED: HYDROmorphone (PF) 1 MG/ML ONE (13:41)
[2021-02-17] MEDS ORDERED: VANCOMYCIN 1,500 MG in SODIUM CHLORIDE 0.9% 250 ML IVPB ONE (14:00)
[2021-02-17] MEDS ORDERED: GENTAMICIN 320 MG in SODIUM CHLORIDE 0.9% 100 ML IVPB ONE (14:00)
[2021-02-17] MEDS ORDERED: SODIUM CHLORIDE 0.9% IRRIGATION ONE ×4 (14:39→14:55)
[2021-02-17] MEDS ORDERED: CEFAZOLIN IRRIGATION ONE ×4 (14:39→14:55)
--- NOTE | 2021-02-17 14:42 | PN ---
PROGRESS NOTE DATE OF SERVICE: 02/17/2021 REASON FOR FOLLOWUP: Lumbar surgical site infection. E. coli. INTERVAL HISTORY: The patient is afebrile. Low grade fever this morning of 99.4. The patient overall is breathing better. The patient's lower back pain is currently controlled. Denies having any chest pain, shortness of breath or cough. No nausea, vomiting. No diarrhea. PHYSICAL EXAMINATION: Blood pressure 128/72 with a pulse of 82. Temperature 99.4. She is 93% on room air. General description: The patient is a middle-aged female up in the chair in no distress. RESPIRATORY SYSTEM: Unlabored breathing with decreased intensity of breath sounds. No wheeze. HEART: S1, S2. Regular rate and rhythm. ABDOMEN: The abdomen is soft. No tenderness. Local examination of the lumbar surgical site, minimal swelling. No significant redness and limited drainage was noticed. LABORATORY DATA: Hemoglobin 8.5, white count normalized to 9.6, BUN of 1, creatinine 0.53. DIAGNOSTIC IMPRESSION AND PLAN: Patient with lumbar surgical site infection status post washout and replacement of some of the hardware. The OR cultures positive for E coli not sensitive pathogen that she grew from [facility]. The patient continues to have possible skin jw, not likely the pathogen however is covered with cefepime . She will continue current antibiotics. Plan is for 6 weeks of antibiotics with close outpatient followup. Plan of care discussed with the surgeon on the phone. MMODL / IJN: [id number] /
--- NOTE | 2021-02-17 14:48 | PN ---
PROGRESS NOTE Patient is seen for followup for hyponatremia, currently maintained on oral sodium bicarb. Serum sodium has improved to 135 today. Patient has some lower extremity edema. I will decrease the sodium chloride to once a day and repeat another dose of IV Lasix today. PHYSICAL EXAMINATION: On examination today, blood pressure 120/70, heart rate 82 per minute. Patient is afebrile. Examination of the heart S1, S2. Examination of the lungs, decreased breath sounds at bases. Abdomen is soft, nontender. Examination of lower extremities: Edema 1+ bilaterally. SOFA INSPECTOR exam grossly intact. LAB: Show hemoglobin 8.5, sodium 135, potassium 4.1, serum creatinine 0.53. ASSESSMENT: 1. Hyponatremia associated with poor solute intake, status post Samsca, maintained on sodium chloride tabs, currently improved. The patient is mildly volume overloaded. I will decrease the sodium chloride tabs to once a day and repeat another dose of IV Lasix today. We can likely discontinue the sodium chloride tomorrow. The patient is encouraged to increase oral intake, particularly protein. 2. Lumbar spine abscess status post I and D and exchange of hardware. 3. Anemia with iron deficiency status post IV iron. PLAN: Repeat Lasix IV and decrease sodium chloride to once a day. Repeat sodium in a.m. MMODL / IJN: [id number] /
[2021-02-17] MEDS ORDERED: TOBRAMYCIN SULFATE 1.2 GM VIAL MISCELLANE ONE (14:54)
[2021-02-17] MEDS ORDERED: VANCOMYCIN 1,000 MG VIAL MISCELLANE ONE ×2 (14:54)
[2021-02-17] MEDS ORDERED: SENNOSIDES-DOCUSATE SODIUM 1 EACH TAB PO PRN (16:23)
[2021-02-17] MEDS ORDERED: GENTAMICIN PER PHARMACY MISCELLANE PRN (16:36)
[2021-02-17] MEDS ORDERED: VANCOMYCIN IV PER PHARMACY 1 EACH MISC MISCELLANE PRN (16:37)
--- NOTE | 2021-02-17 16:51 | P.OP ---
Date of Procedure: 02/17/21 Preoperative Diagnosis: 1. Lumbar wound infection Postoperative Diagnosis: Lumbar wound infection Procedure(s) Performed: 1. Irrigation and debridement skin soft tissues, muscle and bone of lumbar spine using the following -Knife for debridement of skin, necrotic fat and soft tissues and muscle -Curette for debridement of muscle, soft tissues and bone -Kerrison rongure for debridement of bone -Rongure for debridement of bone -24 L abx irrigation -1 L betadine irrigation 2. Exploration of fusion L4-S1 3. Placement of antibiotic beads 4. Complex closure lumbar spine measuring 40 cm x 22 cm x 20 cm Implants: Stimulan beads Anesthesia: KRYSTYNAA Surgeon: Mendel Thapa Event Marketing Assistant #1: Tyrone Oviedo (Was present for the entire case and necessary due to the complexity of the case) Estimated Blood Loss (ml): 100 IV fluids (ml): 1,300 Urine output (ml): 200 Pathology: other (x2 superficial cultures lumbar spine) Condition: stable Disposition: PACU Indications for Procedure: 60 yo female with lumbar post op infection was initially I&D on 02/08. She was doing well until 02/15 when she had a fever and her WBC elevated. There was concern for continued fluid collection and the cranial portion of her wound continued to drain. It was decided to take her back to wash her out again, place new beads and drains due to this. Her WBC normalized over the next day, however, we still felt necessary to wash her out again. Discussed with pt and family and they agreed. Operative Findings: Drainage from stimulan beads with fluid collection seroma/hematoma formation superficial to facia with small facial dehiscence superiorly. No dural leaks noted. Valsalva to 40 mm HG performed 3 times with no leaks identified. Description of Procedure: The patient was seen and examined in the preoperative area. All preoperative protocols were followed. Informed consent was obtained risks and benefits of the procedure were discussed at length. Risks including bleeding infection damage to the surrounding tissue and risk of reoperation were discussed with the patient. Risk of anesthesia up to and including was a discussed with the patient. These are outlined in the risk review. They were willing to accept these risks and all of the risks of surgery. The patient was given a weight- based dose of antibiotics in the form of weight-based dose of vancomycin and gentamicin. The patient was seen and evaluated by the anesthesia team who deemed them fit for surgery. The site was marked, the patient was willing to pr oceed with the procedure. The patient was transferred to the operative suite by the Department of anesthesia. They were then drifted off to sleep by the department anesthesia GETA. The patient tolerated this well. [Grande catheter was placed by nursing staff, atraumatically]. Once confirmation of lines and ventilation the patient was transferred to a [prone Sandeep table very carefully]. All bony prominences including wrists, elbows, axilla, chest, hips, and thighs, and feet were padded very well. Special attention was paid to the genitalia and these were padded accordingly. SCDs were placed on bilateral lower extremities and were connected. Arms were well padded and placed [on arm boards up and out in the 90/90 position]. Once in position, again we confirmed good ventilation capabilities and that lines were running appropriately. The patient's lumbar spine was then exposed. 1010s were placed outlining the incision site. Standard alcohol was used to clean the incision site and allowed to dry. C-arm was used to biomark the patient and confirm level for incision which was marked with a skin marker. Operative briefing was performed with all teams and everyone in agreement to proceed. The patient was then prepped and draped in a normal sterile fashion. Timeout was then performed and all parties were in agreement with the procedure to be performed. Repairs incision was identified skin knife was used to incise through the sutures in the skin that had formed in this area. A large amount of serosanguineous and somewhat. Looking material was then evacuated from the subcutaneous region. We opened the entire incision then removing all the previous sutures the fascia was still intact except for a small portion superiorly and so the fascia was reopened and the sutures were all removed from this area as well the antibiotic beads as well as the hardware and the fusion was inspected and explored. We used a 2 up-biting curet to scrape the bone of any continued material formation as well as Awais sure to remove any excess materials and Kerrison rongeur to remove materials near the dura. The dura was completely intact did perform 3 Valsalva maneuvers 40 mmHg and there was no spinal fluid leakage identified. We then proceeded to irrigate the deep region with 6 L of antibiotic irrigation through high flow low pressure irrigation we then irrigated the deep portion with 6 L of normal saline then irrigated the entire wound with Betadine irrigation 1 L followed by 6 more liters of antibiotic irrigation. During this time we were scraping material off of the si de gonzales as well as the muscle soft tissue skin and bone. This was done with a curet and rongeur. We then irrigated 6 more liters of normal sterile saline. All in all we irrigated 24 L through the wound. After this we inspected the area it was clean and thoroughly irrigated and debrided of necrotic material. The fusion appeared in good condition the posterior lateral gutters had been irrigated out the graft and new forming bone that did not, with irrigation we left. We then placed one deep drain. We placed antibiotic deep within the wound as well as antibiotic beads in the posterior lateral gutters and deep within the wound. We then started our complex wound closure in a layered fashion. We then closed the fascia in a layered fashion with 0 PDS followed by a running nedra strata fix suture for a watertight closure. We then hooked up the drain and there was good suction held from the strain. We then once more irrigated the superficial region and scraped it of any necrotic fat. We then freshened the skin edges with a fresh blade. Vancomycin powder was placed in the superficial region again. We then performed a layered closure over a superficial drain with 0 PDS in the deep subcutaneous layer followed by 0 PDS in the superficial subcutaneous layer followed by 2-0 PDS in the very superficial subcutaneous layer layer. This allowed the edges of the skin to lucero. We then close the skin with 2-0 nylon in a horizontal mattress fashion. The skin edges everted and opposed to very well. We then hooked up the superficial drain which had good suction as well. We then cleaned the wound with saline followed by alcohol and dried it and then placed a sterile dressing of Adaptic ABDs and Tegaderms. The drains were sutured into place and were covered with a drain sponge as well as Tegaderms. This procedure took 100% longer than expected secondary to the patient's high BMI, comorbidities, poor healing potential, complex medical history. (Mod 22) The patient was transferred back to her hospital bed atraumatically. Drain continued to hold suction and were in good position. Patient was then awakened and extubated by the department of anesthesia having tolerated the procedure very well with no complications. She was transferred to the postoperative care unit in stable condition.
[2021-02-17] MEDS: LACTATED RINGERS 1,000 ML IV SCH ×2 (17:27→17:53)
[2021-02-17] MEDS: SODIUM CHLORIDE 0.9% 1,000 ML IV SCH (17:28)
[2021-02-17] MEDS: lisinopriL 20 MG TAB PO SCH (21:36)
[2021-02-18] MEDS: HYDROmorphone 0.5 MG/0.5 ML SYRINGE IVP PRN ×6 (00:30→22:06)
[2021-02-18] MEDS: ACETAMINOPHEN TAB 325 MG TAB PO PRN ×3 (02:14→20:40)
[2021-02-18] MEDS: CYCLOBENZAPRINE 10 MG TAB PO PRN ×3 (02:14→21:17)
[2021-02-18] MEDS: VANCOMYCIN 1,500 MG in SODIUM CHLORIDE 0.9% 250 ML IVPB SCH ×2 (03:36→15:10)
[2021-02-18 07:26] LABS: Anisocytosis Slight; HCT 25.6 % (34.0-46.0); HGB 7.8 gm/dL (11.4-16.0); Hypochromasia Marked; MCH 24.3 pg (25.0-35.0); MCHC 30.3 g/dL (31.0-37.0); MCV 80.2 fL (80.0-100.0); Mean Platelet Volume 8.1; Platelet Count 250 k/uL (150-450); RBC 3.19 m/uL (3.80-5.40); RDW 16.1 % (11.5-15.5); WBC 9.9 k/uL (3.8-10.6)
--- NOTE | 2021-02-18 08:07 | P.PN ---
Subjective Progress Note Date: 02/18/21 Principal diagnosis: Acute post operative infection Pt s/e this AM. She is resting comfortable. She states some pain in her back last night but this is better this AM. Denies any fever overnight. States no new symtpoms. States her legs feel better. Denies any bowel or bladder issues. States no perineal numbness/tingling at this time. Objective - Vital Signs Vital signs: Vital Signs Temp 98.5 F 02/18/21 05:00 Pulse 88 02/18/21 05:00 Resp 18 02/18/21 05:00 BP 119/66 02/18/21 05:00 Pulse Ox 97 02/18/21 05:00 Intake & Output 02/17/21 02/18/21 02/18/21 18:59 06:59 18:59 Intake Total 1062 Output Total 125 1500 Balance 937 -1500 Weight 96 kg Intake: IV 1062 Output: Urine 1500 Estimated Blood Loss 125 Other: Voiding Method Bedside Commode Bedside Commode Diaper Diaper - Exam Exam is repeated today. Changed noted below. Her dressing is CDI. Two drains superficial and deep from the S. Superficial has min drainage. Deep has about 150-200 out currently. Serosanguinous. Mild TTP paralumbar spine. No flucctuence felt. PHYSICAL EXAMINATION: Vitals: Stable at this time General: Awake, alert, appropriate for age, in no acute distress. HEENT: No unusual neck masses around region of lateral neck triangle, thyroid, supraclavicular groove. Heart: Regular rate and rhythm, normal S1, S2 and no murmur/gallop. Lungs: Clear to auscultation bilaterally with no use of accessory muscles. Extremities: Skin warm and dry without no acute lesions, coloration, temperature, skin intact, no tenderness or erythema. Integument: Hairy patches: Absent Dorsal skin dimples: Absent Cafe au lait spots: Absent Surgical incisions: Dehiscence noted in the middle 2 cm of the incision with purulent drainage noted at this site. Palpation: Please see Pain drawing on Intake sheet for further detail. (Tenderness = T, Nontender = NT, Swelling = S, Ecchymosis = E) Findings on Midline and paraspinal palpation and percussion: Cervical: NT Thoracic: NT Lumbar: NT Sacral: NT Special findings: none VASCULAR STATUS : Wrist Pulses: 2/4 bilateral radial and ulnar Pedal Pulses: 2/4 bilateral DP and PT Color: Normal Edema: None NEUROLOGIC EXAMINATION: Mental Status: Awake and alert, fully oriented, with normal attention, concentration and memory, and fluent, appropriate speech. Cranial Nerves: I: Olfactory not tested. II: Visual acuity normal, no visual field deficit noted with confrontation. III,IV: Normal pupillary reflexes & intact extraocular movements without nystagmus. V,: Intact symmetrical facial sensation. VII: Intact symmetrical facial motor movement VIII: Hearing intact. IX,X: Intact gag, swallow, & normal voice. XI: Sternocleidomastoid, trapezius function intact. XII: Tongue midline with normal movements. Special Tests: L'hermitte's Sign: Absent Spurling'Sign: Absent Bilateral Cubital percussion test: Absent Bilateral Angela-Tinel sign - Carpal region: Absent Bilateral Straight Leg Raising: Absent Bilateral Motor Exam (0-5/5, N/T) STRENGTH UPPER EXTREMITY Shoulder Abd (Not part of GERARDO Motor score): RIGHT 5 LEFT 5 Elbow Flexors: RIGHT 5 LEFT 5 Elbow Extensor: RIGHT 5 LEFT 5 Wrrist Dorsiflexors: RIGHT 5 LEFT 5 Finger Abductor: RIGHT 5 LEFT 5 Email Campaign Manager: RIGHT 5 LEFT 5 LOWER EXTREMITY Hip Flexor (Not part of GERARDO Motor Score): RIGHT 4 LEFT 5 Knee Flexor: RIGHT 4 LEFT 5 Knee Extensor: RIGHT 4 LEFT 5 Ankle Dorsiflexion: RIGHT 3+ LEFT 4 Ankle Plantarflexion: RIGHT 4 LEFT 5 EHL: RIGHT 3 LEFT 4 FHL: RIGHT 4 LEFT 4 Generalized weakness noted, She is able to fire all major muscles of the LE b/l. . She still has some weakness of the L TA which was present since surgery, no acute interval changes at this time. She does have difficulty with cooperation at this time and c/o pain. REFLEXES Biecp: RIGHT 2 LEFT 2 Tricep: RIGHT 2 LEFT 2 Brachioradialis: RIGHT 2 LEFT 2 Patellar: RIGHT 2 LEFT 2 Achilles: RIGHT 2 LEFT 2 Pathological Reflexes Rajput's: RIGHT Absent LEFT Absent Babinski: RIGHT Absent LEFT Absent Clonus: RIGHT None LEFT None SENSORY Joint Position: Intact bilaterally Vibration Intact bilaterally Pain and LT sense Intact C5-T1 and L2-S1 Dermatomal deficit None Gait and Functional Evaluation: Ambulatory aids: Walker Hand and finger dexterity intact bilaterally. Disdiadochokinesis examination negative bilaterally. - Labs CBC & Chem 7: 02/17/21 07:10 02/17/21 07:10 Labs: Microbiology - Last 24 Hours (Table) 02/17/21 15:02 Gram Stain - Preliminary Back Wound Culture - Preliminary 02/17/21 15:02 Gram Stain - Preliminary Back Wound Culture - Preliminary 02/17/21 15:02 Anaerobic Culture - Preliminary Back 02/17/21 15:02 Anaerobic Culture - Preliminary Back 02/16/21 14:15 Blood Culture - Preliminary Blood No Growth after 24 hours 02/16/21 14:10 Blood Culture - Preliminary Blood No Growth after 24 hours Assessment and Plan Assessment: 60 yo female POD9 +1 Lumbar wound I&D with antibiotic bead placement. 1. Lumbar wound infection 2. Wound dehiscence 3. Back pain 4. S/p L4-S1 decompression fusion 5. Hyponatremia likely SIADH Plan: -Appreciate senior internet sales consultant and team management. -Cont ABX per ID. Gent and Vanco added for surgery but can be DC today -Activity: Ambulate QID, OOB all meals, up and about, limit lifting bending twisting to less than 5 lbs. Use walker or cane if needed for stability. -Daily PT/OT, increase ambulation strength and balance. -Pain control: Adequate at this time -GI ppx: senna, Miralax -DC del valle when up and about, bedside commode if needed -DVT PPX: OK to restart Heparin tonight -Hygiene: Shower today. Maintain dressing clean and dry. Meticulous cleaning after BMs away from incision site -Drains: Maintain for now. Record output -Await new cultures, prelim shows no orgs. -Encourage IS 10x/hr -Dispo: Pending
[2021-02-18] MEDS: GABAPENTIN 300 MG CAP PO SCH ×2 (08:43→20:41)
[2021-02-18] MEDS: SODIUM CHLORIDE TAB 1 GM TAB PO SCH (08:43)
[2021-02-18] MEDS: DOCUSATE 100 MG CAP PO SCH ×2 (08:43→20:41)
[2021-02-18] MEDS: METOPROLOL TARTRATE 25 MG TAB PO SCH ×2 (08:43→20:40)
[2021-02-18] MEDS: traMADol 50 MG TAB PO PRN ×2 (08:43→16:00)
[2021-02-18] MEDS: PANTOPRAZOLE 40 MG TABLET PO SCH (08:43)
[2021-02-18] MEDS: CEFEPIME 2 GM in SODIUM CHLORIDE 0.9% 100 ML IVPB SCH ×4 (08:43→23:33)
[2021-02-18] MEDS: polyethylene glycoL 3350 17 GM POWD.PACK PO SCH (08:44)
[2021-02-18 11:45] LABS: Band Neutrophils % 1 %; Lymphocytes # (M) 2.08 k/uL (1.0-4.8); Monocytes # (M) 3.86 k/uL (0-1.0); Neutrophils % (M) 39 %; Nucleated Red Blood Cells 0 /100 WBC (0-0); Polychromasia Present; Total Cells Counted 100
--- NOTE | 2021-02-18 13:58 | PN ---
PROGRESS NOTE Patient is seen for followup for hyponatremia which is currently improved. Patient has been maintained on sodium chloride tabs which were decreased yesterday secondary to ongoing edema. Her sodium was 135 yesterday. We do not have any labs from today. PHYSICAL EXAMINATION: Blood pressure was 129/74, heart rate 91 per minute. Patient is comfortable, awake, she is not in any acute distress. Examination of the heart S1, S2. Examination of the lungs, decreased breath sounds at the bases. Abdomen is soft, nontender. Examination lower extremities shows trace edema bilaterally. PEGGER exam grossly intact. LAB: Labs are not available from today/ ASSESSMENT: 1. Hyponatremia secondary to poor solute intake, improved with sodium chloride tablets. However, the patient has developed edema and the sodium chloride tabs were decreased yesterday. I will check a serum sodium today and then again in a.m. and eventually discontinue the sodium chloride if her sodium stays about 130 and patient did receive one dose of IV Lasix yesterday as well. 2. Spinal abscess, maintained on antibiotics. PLAN: Check sodium today and consider discontinuation of sodium chloride tabs. MMODL / IJN: [id number] /
[2021-02-18 14:52] LABS: African American GFR (CKD) 114.8 (60.0-200.0); Albumin 2.2 g/dL (3.80-4.90); Albumin/Globulin Ratio 0.54 (1.60-3.17); Anion Gap 9.3 mmol/L (4.00-12.00); BUN/Creat Ratio 23.33 Ratio (12.00-20.00); C Reactive Protein 13.9 mg/dL (0.0-0.8); Calcium 8.1 mg/dL (8.7-10.3); Carbon Dioxide 24.7 mmol/L (21.6-31.8); Globulin 4.1 g/dL (1.6-3.3); Non-African American GFR(CKD) 99.1 (60.0-200.0); Potassium 4.4 mmol/L (3.5-5.5); Total Bilirubin 0.3 mg/dL (0.3-1.2); Total Protein 6.3 g/dL (6.2-8.2)
--- NOTE | 2021-02-18 15:34 | P.PN ---
Subjective Progress Note Date: 02/18/21 (delayed charting seen at 0915) Principal diagnosis: back pain Antoni is a 60 yo female with a recent L 4/5 and L5/S1 Laminectomy with fusion and intradiscal osteotomy on 01/05/21 with prior deep vein thrombocytosis, GERD, and HTN who was transferred from [facility] for back and wound dehiscence. She was started on cefepime and Vanco. Found to have post-op infection. Hyponatremia, likely SIADH. She underwent washout and hardware exchange on 02/08, repeat wash out completed 02/17 with WBC now normalized. Patient seen and examined at bedside. Constipation is resolved, no nausea, no shortness of breath, not excited to have to go back to surgery. General: Nontoxic, no distress, appears at stated age Derm: warm, dry Head: atraumatic, normocephalic, symmetric Eyes: EOMI, no lid lag, anicteric sclera Mouth: no lip lesion, mucus membranes moist Cardiovascular: S1S2 reg, no murmur, positive posterior tibial pulse bilateral, Lungs: decreased bs bilateral, no rhonchi, no rales , no accessory muscle use Abdominal: soft, nontender to palpation, no guarding, no appreciable organomegaly Psych: Alert, oriented, appropriate affect Hyponatremia likely secondary to SIADH and low solute intake due to pain- resolved - Samsca given 1 on 02/07 - Sodium chloride tablets - nephrology recs - Repeat sodium levels in a.m. - off HCTZ on discharge Constipation, resolved -continue bowel regiment E. coli and Stenotrophomonas maltophilia Postop wound infection with sepsis status post lumbar laminectomy with fusion 01/05/21 status post washout on 02/08 - anticipate 2nd wash out today -Continue with Cefepime: Plan for 6 weeks of IV antibiotics and then switched to orals. - gent added 02/18 -ID recs: PICC line placed -Pain control GERD - PPI Hypertension - hold HCTZ - Lisinopril, metoprolol - follow BP NSVT - on metoprolol - cardio signed off - echo with ef 55-60% Anemia, iron deficiency anemia, acute blood loss anemia - 1 unit pRBC orderd by orthospine - IV iron completed - post op from January - -Recheck in 4-6 weeks Thank you for allowing us to participate in the care of this pleasant patient. Do not hesitate to contact us with questions. Someone can be reached from the [facility] hospitalist group all hours of the day at [phone] or via perfect serve. Objective - Vital Signs Vital signs: Vital Signs Temp 98.2 F 02/18/21 12:39 Pulse 90 02/18/21 12:39 Resp 12 02/18/21 12:39 BP 115/66 02/18/21 12:39 Pulse Ox 95 02/18/21 12:39 Intake & Output 02/17/21 02/18/21 02/18/21 18:59 06:59 18:59 Intake Total 1062 855 Output Total 125 1500 358 Balance 937 -1500 497 Weight 96 kg 96 kg Intake: IV 1062 Oral 855 Output: Drainage 133 Left Lower Posterior Back 90 Left Upper Posterior Back 43 Urine 1500 225 Estimated Blood Loss 125 Other: Voiding Method Bedside Commode Bedside Commode Diaper Diaper - Labs CBC & Chem 7: 02/18/21 05:37 02/18/21 09:24 Labs: Abnormal Lab Results - Last 24 Hours (Table) 02/16/21 02/18/21 02/18/21 Range/Units 04:02 05:37 05:37 WBC 12.77 H (4.50-10.00) X 10*3/uL RBC 3.42 L 3.19 L (4.10-5.20) X 10*6/uL Hgb 8.5 L 7.8 L (12.0-15.0) g/dL Hct 27.3 L 25.6 L (37.2-46.3) % MCV 79.8 L (80.0-97.0) fL MCH 24.9 L 24.3 L (27.0-32.0) pg MCHC 31.1 L 30.3 L (32.0-37.0) g/dL RDW 18.4 H 16.1 H (11.5-14.5) % Metamyelocytes % 1 H (0-0) % Myelocytes % 1 H (0-0) % Monocytes # (Manual) 4.09 H 3.86 H (0.20-1.00) X 10*3/uL Eosinophils # (Manual) 0 L (0.04-0.35) X 10*3/uL Basophils # (Manual) 0.13 H (0.00-0.10) X 10*3/uL ESR 83 H (0-30) mm/Hr Sodium (137-145) mmol/L BUN/Creatinine Ratio 23.33 H (12.00-20.00) Ratio Calcium 8.1 L (8.7-10.3) mg/dL AST 12 L (13-35) U/L C-Reactive Protein 13.9 H (0.0-0.8) mg/dL Albumin 2.20 L (3.80-4.90) g/dL Globulin 4.1 H (1.6-3.3) g/dL Albumin/Globulin Ratio 0.54 L (1.60-3.17) g/dL Vitamin D 25-Hydroxy 16.3 L (30.0-100.0) ng/mL Crossmatch 02/18/21 02/18/21 Range/Units 09:24 09:24 WBC (4.50-10.00) X 10*3/uL RBC (4.10-5.20) X 10*6/uL Hgb (12.0-15.0) g/dL Hct (37.2-46.3) % MCV (80.0-97.0) fL MCH (27.0-32.0) pg MCHC (32.0-37.0) g/dL RDW (11.5-14.5) % Metamyelocytes % (0-0) % Myelocytes % (0-0) % Monocytes # (Manual) (0.20-1.00) X 10*3/uL Eosinophils # (Manual) (0.04-0.35) X 10*3/uL Basophils # (Manual) (0.00-0.10) X 10*3/uL ESR (0-30) mm/Hr Sodium 134 L (137-145) mmol/L BUN/Creatinine Ratio (12.00-20.00) Ratio Calcium (8.7-10.3) mg/dL AST (13-35) U/L C-Reactive Protein (0.0-0.8) mg/dL Albumin (3.80-4.90) g/dL Globulin (1.6-3.3) g/dL Albumin/Globulin Ratio (1.60-3.17) g/dL Vitamin D 25-Hydroxy (30.0-100.0) ng/mL Crossmatch See Detail Microbiology - Last 24 Hours (Table) 02/17/21 15:02 Gram Stain - Preliminary Back Wound Culture - Preliminary 02/17/21 15:02 Gram Stain - Preliminary Back Wound Culture - Preliminary 02/17/21 15:02 Anaerobic Culture - Preliminary Back 02/17/21 15:02 Anaerobic Culture - Preliminary Back 02/16/21 14:15 Blood Culture - Preliminary Blood No Growth after 24 hours 02/16/21 14:10 Blood Culture - Preliminary Blood No Growth after 24 hours
[2021-02-18] MEDS ORDERED: GENTAMICIN 320 MG in SODIUM CHLORIDE 0.9% 100 ML IVPB ONE (16:00)
[2021-02-18] MEDS: LACTATED RINGERS 1,000 ML IV SCH (16:53)
[2021-02-18] MEDS: SODIUM CHLORIDE 0.9% 1,000 ML IV SCH (19:22)
[2021-02-18] MEDS: lisinopriL 20 MG TAB PO SCH (20:40)
--- NOTE | 2021-02-18 22:22 | PN ---
PROGRESS NOTE DATE OF SERVICE: 02/18/2021 REASON FOR FOLLOW UP: Lumbar surgical site infection. INTERVAL HISTORY: Patient is afebrile. The patient is breathing comfortably. The patient denies any chest pain. Occasional cough. No nausea. No vomiting. No abdominal pain or any worsening pain to the lower back area. PHYSICAL EXAMINATION: Blood pressure 115/66, pulse of 90, temperature 98.2. She is 95% on room air. General description is a middle-aged female lying in bed in no distress. Respiratory system: Unlabored breathing, decreased intensity of breath sounds at the base. No wheeze. Heart: S1, S2. Regular rate and rhythm. Abdomen soft. No tenderness. Extremities: No edema of the feet. LABS: Hemoglobin is 7.9, white count 9.9, BUN of 14, creatinine 0.6. Repeat cultures currently pending. DIAGNOSTIC IMPRESSION AND PLAN: Patient with lumbar surgical site infection secondary to E coli, superficial culture showing Stenotrophomonas. The patient is status post yesterday. Those cultures are pending. Fever and white count responded to cefepime to continue with plan for a total of 6 weeks. Daughter was at bedside. She had multiple questions. Those were answered in layman's terms. She was shown all the data, cultures, white count and fever trend. Time spent in the care of this patient is more than 25 minutes. MMODL / IJN: [id number] /
[2021-02-19] MEDS: HYDROmorphone 0.5 MG/0.5 ML SYRINGE IVP PRN ×4 (02:35→19:04)
[2021-02-19] MEDS: traMADol 50 MG TAB PO PRN ×2 (05:46→16:06)
[2021-02-19 06:49] LABS: Anisocytosis Slight; HGB 8.2 gm/dL (11.4-16.0); Hypochromasia Moderate; MCH 25.9 pg (25.0-35.0); MCHC 32.8 g/dL (31.0-37.0); MCV 78.9 fL (80.0-100.0); Mean Platelet Volume 7.2; Microcytosis Slight; Platelet Count 297 k/uL (150-450); RBC 3.16 m/uL (3.80-5.40); RDW 16.5 % (11.5-15.5); WBC 8.9 k/uL (3.8-10.6)
--- NOTE | 2021-02-19 08:04 | P.PN ---
Subjective Progress Note Date: 02/19/21 Principal diagnosis: Acute post operative infection Patient seen and examined this morning she was doing well. She did well overnight with no issues. States that her legs feel better. She been up and walking. Drains are in place. No new symptoms no new weakness no perineal n umbness or tingling no bowel bladder issues Objective - Vital Signs Vital signs: Vital Signs Temp 98.5 F 02/19/21 04:18 Pulse 85 02/19/21 04:18 Resp 18 02/19/21 04:18 BP 111/62 02/19/21 04:18 Pulse Ox 95 02/19/21 04:18 Intake & Output 02/18/21 02/19/21 02/19/21 18:59 06:59 18:59 Intake Total 855 900 Output Total 358 1290 Balance 497 -390 Weight 96 kg 95.5 kg Intake: Intake, IV Titration 300 Amount Cefepime 2 gm In Sodium 100 Chloride 0.9% 100 ml @ 25 mls/hr IVPB Q8HR [facility] Rx# :[id number] Sodium Chloride 0.9% 1, 200 000 ml @ 20 mls/hr IV . Q24H DEV Rx#:[id number] Oral 855 600 Output: Drainage 133 90 Left Lower Posterior Back 90 60 Left Upper Posterior Back 43 30 Urine 225 1200 Other: Voiding Method Bedside Commode Diaper - Exam Exam is repeated today. Changed noted below. Dressing is clean and dry Drains have about 50-150 mL superficial and deep respectively serosanguineous No fluctuance or fluid collections or swelling PHYSICAL EXAMINATION: Vitals: Stable at this time General: Awake, alert, appropriate for age, in no acute distress. HEENT: No unusual neck masses around region of lateral neck triangle, thyroid, supraclavicular groove. Heart: Regular rate and rhythm, normal S1, S2 and no murmur/gallop. Lungs: Clear to auscultation bilaterally with no use of accessory muscles. Extremities: Skin warm and dry without no acute lesions, coloration, tempe rature, skin intact, no tenderness or erythema. Integument: Hairy patches: Absent Dorsal skin dimples: Absent Cafe au lait spots: Absent Surgical incisions: Dehiscence noted in the middle 2 cm of the incision with purulent drainage noted at this site. Palpation: Please see Pain drawing on Intake sheet for further detail. (Tenderness = T, Nontender = NT, Swelling = S, Ecchymosis = E) Findings on Midline and paraspinal palpation and percussion: Cervical: NT Thoracic: NT Lumbar: NT Sacral: NT Special findings: none VASCULAR STATUS : Wrist Pulses: 2/4 bilateral radial and ulnar Pedal Pulses: 2/4 bilateral DP and PT Color: Normal Edema: None NEUROLOGIC EXAMINATION: Mental Status: Awake and alert, fully oriented, with normal attention, concentration and memory, and fluent, appropriate speech. Cranial Nerves: I: Olfactory not tested. II: Visual acuity normal, no visual field deficit noted with confrontation. III,IV: Normal pupillary reflexes & intact extraocular movements without nystagmus. V,: Intact symmetrical facial sensation. VII: Intact symmetrical facial motor movement VIII: Hearing intact. IX,X: Intact gag, swallow, & normal voice. XI: Sternocleidomastoid, trapezius function intact. XII: Tongue midline with normal movements. Special Tests: L'hermitte's Sign: Absent Spurling'Sign: Absent Bilateral Cubital percussion test: Absent Bilateral Angela-Tinel sign - Carpal region: Absent Bilateral Straight Leg Raising: Absent Bilateral Motor Exam (0-5/5, N/T) STRENGTH UPPER EXTREMITY Shoulder Abd (Not part of GERARDO Motor score): RIGHT 5 LEFT 5 Elbow Flexors: RIGHT 5 LEFT 5 Elbow Extensor: RIGHT 5 LEFT 5 Wrrist Dorsiflexors: RIGHT 5 LEFT 5 Finger Abductor: RIGHT 5 LEFT 5 Elevator Installer Apprentice: RIGHT 5 LEFT 5 LOWER EXTREMITY Hip Flexor (Not part of GERARDO Motor Score): RIGHT 4 LEFT 5 Knee Flexor: RIGHT 4 LEFT 5 Knee Extensor: RIGHT 4 LEFT 5 Ankle Dorsiflexion: RIGHT 3+ LEFT 4 Ankle Plantarflexion: RIGHT 4 LEFT 5 EHL: RIGHT 3 LEFT 4 FHL: RIGHT 4 LEFT 4 Generalized weakness noted, She is able to fire all major muscles of the LE b/l. . She still has some weakness of the L TA which was present since surgery, no acute interval changes at this time. She does have difficulty with cooperation at this time and c/o pain. REFLEXES Biecp: RIGHT 2 LEFT 2 Tricep: RIGHT 2 LEFT 2 Brachioradialis: RIGHT 2 LEFT 2 Patellar: RIGHT 2 LEFT 2 Achilles: RIGHT 2 LEFT 2 Pathological Reflexes Rajput's: RIGHT Absent LEFT Absent Babinski: RIGHT Absent LEFT Absent Clonus: RIGHT None LEFT None SENSORY Joint Position: Intact bilaterally Vibration Intact bilaterally Pain and LT sense Intact C5-T1 and L2-S1 Dermatomal deficit None Gait and Functional Evaluation: Ambulatory aids: Walker Hand and finger dexterity intact bilaterally. Disdiadochokinesis examination negative bilaterally. - Labs CBC & Chem 7: 02/19/21 06:14 02/18/21 09:24 Labs: Abnormal Lab Results - Last 24 Hours (Table) 02/16/21 02/18/21 02/18/21 Range/Units 04:02 05:37 05:37 WBC 12.77 H (4.50-10.00) X 10*3/uL RBC 3.42 L 3.19 L (4.10-5.20) X 10*6/uL Hgb 8.5 L 7.8 L (12.0-15.0) g/dL Hct 27.3 L 25.6 L (37.2-46.3) % MCV 79.8 L (80.0-97.0) fL MCH 24.9 L 24.3 L (27.0-32.0) pg MCHC 31.1 L 30.3 L (32.0-37.0) g/dL RDW 18.4 H 16.1 H (11.5-14.5) % Metamyelocytes % 1 H (0-0) % Myelocytes % 1 H (0-0) % Monocytes # (Manual) 4.09 H 3.86 H (0.20-1.00) X 10*3/uL Eosinophils # (Manual) 0 L (0.04-0.35) X 10*3/uL Basophils # (Manual) 0.13 H (0.00-0.10) X 10*3/uL ESR 83 H (0-30) mm/Hr Sodium (137-145) mmol/L BUN/Creatinine Ratio 23.33 H (12.00-20.00) Ratio Calcium 8.1 L (8.7-10.3) mg/dL AST 12 L (13-35) U/L C-Reactive Protein 13.9 H (0.0-0.8) mg/dL Albumin 2.20 L (3.80-4.90) g/dL Globulin 4.1 H (1.6-3.3) g/dL Albumin/Globulin Ratio 0.54 L (1.60-3.17) g/dL Vitamin D 25-Hydroxy 16.3 L (30.0-100.0) ng/mL Procalcitonin (0.02-0.09) ng/mL Crossmatch 02/18/21 02/18/21 02/18/21 Range/Units 05:37 09:24 09:24 WBC (4.50-10.00) X 10*3/uL RBC (4.10-5.20) X 10*6/uL Hgb (12.0-15.0) g/dL Hct (37.2-46.3) % MCV (80.0-97.0) fL MCH (27.0-32.0) pg MCHC (32.0-37.0) g/dL RDW (11.5-14.5) % Metamyelocytes % (0-0) % Myelocytes % (0-0) % Monocytes # (Manual) (0.20-1.00) X 10*3/uL Eosinophils # (Manual) (0.04-0.35) X 10*3/uL Basophils # (Manual) (0.00-0.10) X 10*3/uL ESR (0-30) mm/Hr Sodium 134 L (137-145) mmol/L BUN/Creatinine Ratio (12.00-20.00) Ratio Calcium (8.7-10.3) mg/dL AST (13-35) U/L C-Reactive Protein (0.0-0.8) mg/dL Albumin (3.80-4.90) g/dL Globulin (1.6-3.3) g/dL Albumin/Globulin Ratio (1.60-3.17) g/dL Vitamin D 25-Hydroxy (30.0-100.0) ng/mL Procalcitonin 0.17 H (0.02-0.09) ng/mL Crossmatch See Detail 02/18/21 02/19/21 Range/Units 13:59 06:14 WBC (4.50-10.00) X 10*3/uL RBC 3.16 L (4.10-5.20) X 10*6/uL Hgb 8.2 L (12.0-15.0) g/dL Hct 25.0 L (37.2-46.3) % MCV 78.9 L (80.0-97.0) fL MCH (27.0-32.0) pg MCHC (32.0-37.0) g/dL RDW 16.5 H (11.5-14.5) % Metamyelocytes % (0-0) % Myelocytes % (0-0) % Monocytes # (Manual) (0.20-1.00) X 10*3/uL Eosinophils # (Manual) (0.04-0.35) X 10*3/uL Basophils # (Manual) (0.00-0.10) X 10*3/uL ESR (0-30) mm/Hr Sodium (137-145) mmol/L BUN/Creatinine Ratio (12.00-20.00) Ratio Calcium (8.7-10.3) mg/dL AST (13-35) U/L C-Reactive Protein (0.0-0.8) mg/dL Albumin (3.80-4.90) g/dL Globulin (1.6-3.3) g/dL Albumin/Globulin Ratio (1.60-3.17) g/dL Vitamin D 25-Hydroxy (30.0-100.0) ng/mL Procalcitonin (0.02-0.09) ng/mL Crossmatch See Detail Microbiology - Last 24 Hours (Table) 02/17/21 15:02 Gram Stain - Preliminary Back Wound Culture - Preliminary 02/17/21 15:02 Gram Stain - Preliminary Back Wound Culture - Preliminary 02/16/21 14:15 Blood Culture - Preliminary Blood No Growth after 48 hours 02/16/21 14:10 Blood Culture - Preliminary Blood No Growth after 48 hours Assessment and Plan Assessment: 60 yo female POD9 +2 Lumbar wound I&D with antibiotic bead placement. 1. Lumbar wound infection 2. Wound dehiscence 3. Back pain 4. S/p L4-S1 decompression fusion 5. 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 -Cont ABX per ID. Gent and Vanco added for surgery but can be DC today -Activity: Ambulate QID, OOB all meals, up and about, limit lifting bending twisting to less than 5 lbs. Use walker or cane if needed for stability. -Daily PT/OT, increase ambulation strength and balance. -Pain control: Adequate at this time -GI ppx: senna, Miralax -DC [place] when up and about, bedside commode if needed -DVT PPX: OK to restart Heparin tonight -Hygiene: Shower daily. Maintain dressing clean and dry. Meticulous cleaning after BMs away from incision site -Drains: Maintain for now. Record output. Possible DC superficial drain tomorrow with deep drain following on Monday. -Await new cultures, prelim shows no orgs. Presuming strephonomas superficial infection with E. coli deep infection. Antibiotic coverage appropriate -Encourage IS 10x/hr -Dispo: Will plan for possibly Monday versus Monday PATRICIA placement
[2021-02-19] MEDS: ASCORBIC ACID 500 MG TAB PO SCH ×2 (08:48→21:06)
[2021-02-19] MEDS: DOCUSATE 100 MG CAP PO SCH ×2 (08:48→21:06)
[2021-02-19] MEDS: MULTIVITAMINS, THERA 1 EACH TAB PO SCH (08:48)
[2021-02-19] MEDS: PANTOPRAZOLE 40 MG TABLET PO SCH (08:48)
[2021-02-19] MEDS: CHOLECALCIFEROL 25 MCG (1000 IU) TABLET PO SCH (08:48)
[2021-02-19] MEDS: METOPROLOL TARTRATE 25 MG TAB PO SCH ×2 (08:48→21:06)
[2021-02-19] MEDS: SODIUM CHLORIDE TAB 1 GM TAB PO SCH (08:48)
[2021-02-19] MEDS: CEFEPIME 2 GM in SODIUM CHLORIDE 0.9% 100 ML IVPB SCH ×2 (08:48→17:56)
[2021-02-19] MEDS: GABAPENTIN 300 MG CAP PO SCH ×2 (08:48→21:05)
[2021-02-19] MEDS: polyethylene glycoL 3350 17 GM POWD.PACK PO SCH (08:49)
[2021-02-19 09:23] LABS: African American GFR (CKD) 114.8 (60.0-200.0); Calcium 8.2 mg/dL (8.7-10.3); Non-African American GFR(CKD) 99.1 (60.0-200.0)
[2021-02-19] MEDS: ACETAMINOPHEN TAB 325 MG TAB PO PRN ×3 (10:35→22:01)
--- NOTE | 2021-02-19 11:02 | P.PN ---
Subjective Progress Note Date: 02/19/21 Patient is doing fairly well today. She was sitting at the site of the bed when I saw her. He denies any dizziness or lightheadedness. No shortness of breath. There is some serosanguineous drainage and the drain but no significant blood. Hemoglobin this morning 8.2. Objective - Vital Signs Vital signs: Vital Signs Temp 98.5 F 02/19/21 04:18 Pulse 85 02/19/21 04:18 Resp 18 02/19/21 04:18 BP 111/62 02/19/21 04:18 Pulse Ox 95 02/19/21 04:18 Intake & Output 02/18/21 02/19/21 02/19/21 18:59 06:59 18:59 Intake Total 855 900 Output Total 358 1290 Balance 497 -390 Weight 96 kg 95.5 kg Intake: Intake, IV Titration 300 Amount Cefepime 2 gm In Sodium 100 Chloride 0.9% 100 ml @ 25 mls/hr IVPB Q8HR [facility] Rx# :[id number] Sodium Chloride 0.9% 1, 200 000 ml @ 20 mls/hr IV . Q24H [facility] Rx#:[id number] Oral 855 600 Output: Drainage 133 90 Left Lower Posterior Back 90 60 Left Upper Posterior Back 43 30 Urine 225 1200 Other: Voiding Method Bedside Commode Diaper - Exam General: The patient is awake and alert, in no distress Eye: there is normal conjunctiva bilaterally. Neck: The neck is supple, there is no JVD. Cardiovascular: Normal S1-S2, no S3-S4, no murmurs. Respiratory: Lungs clear to auscultation bilaterally Gastrointestinal: Abdomen is soft, nontender Musculoskeletal: There is no pedal edema. Neurological:. Speech is normal. Skin: Skin is warm and dry - Labs CBC & Chem 7: 02/19/21 06:14 02/19/21 06:14 Labs: Abnormal Lab Results - Last 24 Hours (Table) 02/18/21 02/18/21 02/18/21 Range/Units 05:37 05:37 05:37 RBC (3.80-5.40) m/uL Hgb (11.4-16.0) gm/dL Hct (34.0-46.0) % MCV (80.0-100.0) fL RDW (11.5-15.5) % Monocytes # (Manual) 3.86 H (0-1.0) k/uL Sodium (137-145) mmol/L BUN/Creatinine Ratio 23.33 H (12.00-20.00) Ratio Calcium 8.1 L (8.7-10.3) mg/dL AST 12 L (13-35) U/L C-Reactive Protein 13.9 H (0.0-0.8) mg/dL Albumin 2.20 L (3.80-4.90) g/dL Globulin 4.1 H (1.6-3.3) g/dL Albumin/Globulin Ratio 0.54 L (1.60-3.17) g/dL Vitamin D 25-Hydroxy 16.3 L (30.0-100.0) ng/mL Procalcitonin 0.17 H (0.02-0.09) ng/mL Crossmatch 02/18/21 02/18/21 02/18/21 Range/Units 09:24 09:24 13:59 RBC (3.80-5.40) m/uL Hgb (11.4-16.0) gm/dL Hct (34.0-46.0) % MCV (80.0-100.0) fL RDW (11.5-15.5) % Monocytes # (Manual) (0-1.0) k/uL Sodium 134 L (137-145) mmol/L BUN/Creatinine Ratio (12.00-20.00) Ratio Calcium (8.7-10.3) mg/dL AST (13-35) U/L C-Reactive Protein (0.0-0.8) mg/dL Albumin (3.80-4.90) g/dL Globulin (1.6-3.3) g/dL Albumin/Globulin Ratio (1.60-3.17) g/dL Vitamin D 25-Hydroxy (30.0-100.0) ng/mL Procalcitonin (0.02-0.09) ng/mL Crossmatch See Detail See Detail 02/19/21 02/19/21 Range/Units 06:14 06:14 RBC 3.16 L (3.80-5.40) m/uL Hgb 8.2 L (11.4-16.0) gm/dL Hct 25.0 L (34.0-46.0) % MCV 78.9 L (80.0-100.0) fL RDW 16.5 H (11.5-15.5) % Monocytes # (Manual) (0-1.0) k/uL Sodium 133 L (137-145) mmol/L BUN/Creatinine Ratio (12.00-20.00) Ratio Calcium 8.2 L (8.7-10.3) mg/dL AST (13-35) U/L C-Reactive Protein (0.0-0.8) mg/dL Albumin (3.80-4.90) g/dL Globulin (1.6-3.3) g/dL Albumin/Globulin Ratio (1.60-3.17) g/dL Vitamin D 25-Hydroxy (30.0-100.0) ng/mL Procalcitonin (0.02-0.09) ng/mL Crossmatch Microbiology - Last 24 Hours (Table) 02/17/21 15:02 Gram Stain - Preliminary Back Wound Culture - Preliminary 02/17/21 15:02 Gram Stain - Preliminary Back Wound Culture - Preliminary 02/16/21 14:15 Blood Culture - Preliminary Blood No Growth after 48 hours 02/16/21 14:10 Blood Culture - Preliminary Blood No Growth after 48 hours Assessment and Plan Assessment: Antoni is a 60 yo female with a recent L 4/5 and L5/S1 Laminectomy with fusion and intradiscal osteotomy on 01/05/21 with prior deep vein thrombocytosis, GERD, adn HTN who was transferred from [facility] for back and wound dehisence. She was started on cefepime and Vanco. Found to have post-op infection. Hyponatremia, likely SIADH. She underwent washout and hardware exchange on 02/08. Medical problems at this during this hospitalization: E. coli Postop wound infection with sepsis status post lumbar laminectomy with fusion 01/05/21 status post washout on 02/08 -P on 616, patient underwent irrigation and debridement with exploration of fusion at L4/S1 and placement of antibiotic beads -Continue with Cefepime: Plan for 6 weeks of IV antibiotics -ID recs: PICC line placed -Pain control Hyponatremia likely secondary to SIADH-improving -Seen and evaluated by nephrology - [facility] given 1 on 02/07 - Sodium chloride tablets twice daily -Home dose of hydrochlorothiazide discontinued Constipation -MiraLAX, Dulcolax GERD - PPI Hypertension - Lisinopril, metoprolol - follow BP NSVT - on metoprolol - cardio signed off - echo with ef 55-60% Anemia, iron deficiency anemia - IV iron completed - post op anemia - stable -Transfuse as needed for hemoglobin less than 7 Discharge planning to [facility] when cleared by orthopedic and infectious disease
--- NOTE | 2021-02-19 12:43 | PN ---
PROGRESS NOTE The patient is seen for followup for hyponatremia, currently maintained on sodium chloride tabs. Serum sodium has been staying 134-136 mEq/L. The patient had lower extremity edema and the sodium bicarb was therefore decreased to once a day. She is currently being treated for spinal abscess and maintained on antibiotics. No significant complaints today. PHYSICAL EXAMINATION: Patient is comfortable, awake, not in any acute distress. Blood pressure was 111/62, heart rate 85 per minute. She is afebrile. Examination of the lower extremity shows trace edema. The patient is awake, alert, oriented x3, not in any acute distress. No focal motor deficits noted on FIELD AGRONOMIST exam. LAB: Show sodium 133 today. Potassium was 4.0. ASSESSMENT: 1. Hyponatremia, currently maintained on oral sodium bicarb, status post a few doses of Lasix. Sodium is slightly lower at 133 today. We will continue to monitor for now. Continue same dose of sodium chloride tabs. Repeat labs in a.m. 2. Spinal abscess maintained on antibiotics. PLAN: Continue the sodium chloride tabs. Repeat labs in a.m. MMODL / IJN: [id number] /
--- NOTE | 2021-02-19 17:11 | PN ---
PROGRESS NOTE DATE OF SERVICE: 02/19/2021 REASON FOR FOLLOWUP: Lumbar surgical site infection. INTERVAL HISTORY: The patient is afebrile. The patient is breathing comfortably. The patient denies having any chest pain, shortness of breath or cough. No nausea, vomiting. No abdominal pain or any worsening pain to the sacral area. PHYSICAL EXAMINATION: Blood pressure is 99/55 with a pulse of 77, temperature 98.9. She is 95% on room air. General description is a middle-aged female lying in bed in no distress. Respiratory system: Unlabored breathing, clear to auscultation anteriorly. Heart S1, S2. Regular rate and rhythm. Abdomen soft, no tenderness. LABS: Hemoglobin 8.1, white count 8.9, BUN of 9, creatinine 0.6. Repeat OR culture so far negative. Repeat blood culture negative. DIAGNOSTIC IMPRESSION AND PLAN: Patient with lumbar surgical site infection. This patient is status post washout and replacement of some of the hardware. Culture with predominantly E coli except one superficial cultures show Stenotrophomonas. The patient's white count normalized. Currently on cefepime to continue for a total of 6 weeks with weekly monitor CBC, BMP and sedimentation rate. Daughter at the bedside, multiple questions were answered. MMODL / IJN: [id number] /
[2021-02-19] MEDS: CYCLOBENZAPRINE 10 MG TAB PO PRN (18:05)
[2021-02-19] MEDS: PSEUDOEPHEDRINE 30 MG TAB PO PRN (18:57)
[2021-02-19] MEDS: ONDANSETRON 4 MG/2 ML VIAL IVP PRN (19:04)
[2021-02-19] MEDS: SODIUM CHLORIDE 0.9% 1,000 ML IV SCH (19:15)
[2021-02-19] MEDS: LACTATED RINGERS 1,000 ML IV SCH (19:16)
[2021-02-19] MEDS: lisinopriL 20 MG TAB PO SCH (21:06)
[2021-02-20] MEDS: CEFEPIME 2 GM in SODIUM CHLORIDE 0.9% 100 ML IVPB SCH ×3 (00:14→15:46)
[2021-02-20] MEDS: HYDROmorphone 0.5 MG/0.5 ML SYRINGE IVP PRN (00:14)
[2021-02-20] MEDS: traMADol 50 MG TAB PO PRN ×3 (04:03→19:40)
[2021-02-20] MEDS: ACETAMINOPHEN TAB 325 MG TAB PO PRN ×3 (06:12→20:40)
[2021-02-20 06:42] LABS: Anisocytosis Slight; HCT 26.9 % (34.0-46.0); HGB 8.4 gm/dL (11.4-16.0); Hypochromasia Moderate; MCH 24.7 pg (25.0-35.0); MCHC 31.1 g/dL (31.0-37.0); MCV 79.4 fL (80.0-100.0); Mean Platelet Volume 7.4; Platelet Count 315 k/uL (150-450); RBC 3.39 m/uL (3.80-5.40); RDW 16.5 % (11.5-15.5)
[2021-02-20 07:47] LABS: Eosinophils # (M) 0.08 k/uL (0-0.7); Lymphocytes # (M) 2.16 k/uL (1.0-4.8); Metamyelocytes # (M) 0.08 k/uL (0); Metamyelocytes % 1 %; Monocytes # (M) 3.24 k/uL (0-1.0); Neutrophils # (M) 2.82 k/uL (1.3-7.7); Neutrophils % (M) 34 %; Nucleated Red Blood Cells 3 /100 WBC (0-0); Total Cells Counted 200; WBC 8.3 k/uL (3.8-10.6)
[2021-02-20 07:50] LABS: Polychromasia Present
[2021-02-20 07:51] LABS: Target Cells Present
[2021-02-20] MEDS: CHOLECALCIFEROL 25 MCG (1000 IU) TABLET PO SCH (08:28)
[2021-02-20] MEDS: SODIUM CHLORIDE TAB 1 GM TAB PO SCH (08:28)
[2021-02-20] MEDS: GABAPENTIN 300 MG CAP PO SCH ×2 (08:28→20:40)
[2021-02-20] MEDS: ASCORBIC ACID 500 MG TAB PO SCH ×2 (08:29→20:40)
[2021-02-20] MEDS: MULTIVITAMINS, THERA 1 EACH TAB PO SCH (08:29)
[2021-02-20] MEDS: polyethylene glycoL 3350 17 GM POWD.PACK PO SCH (08:29)
[2021-02-20] MEDS: PANTOPRAZOLE 40 MG TABLET PO SCH (08:29)
[2021-02-20] MEDS: METOPROLOL TARTRATE 25 MG TAB PO SCH ×2 (08:29→20:40)
[2021-02-20] MEDS: DOCUSATE 100 MG CAP PO SCH ×2 (08:31→20:40)
--- NOTE | 2021-02-20 08:46 | P.PN ---
Subjective Patient is seen in follow-up for hyponatremia. Sodium level 133 as of yesterday. Oral intake fair. No vomiting or diarrhea. Hemodynamically stable. No active complaints. Vital signs are stable. General: The patient appeared well nourished and normally developed. HEENT: Head exam is unremarkable. Neck is without jugular venous distension. LUNGS: Breath sounds decreased. HEART: Rate and Rhythm are regular. ABDOMEN: Soft, no distention. EXTREMITITES: Trace edema. Objective - Vital Signs Vital signs: Vital Signs Temp 98.4 F 02/20/21 04:24 Pulse 83 02/20/21 04:24 Resp 18 02/20/21 04:24 BP 128/76 02/20/21 04:24 Pulse Ox 97 02/20/21 04:24 Intake & Output 02/19/21 02/20/21 02/20/21 18:59 06:59 18:59 Intake Total 400 Output Total 60 1230 Balance -60 -830 Intake: Intake, IV Titration 200 Amount Cefepime 2 gm In Sodium 200 Chloride 0.9% 100 ml @ 25 mls/hr IVPB Q8HR [facility] Rx# :[id number] Oral 200 Output: Drainage 60 30 Left Lower Posterior Back 10 Left Upper Posterior Back 60 20 Urine 1200 Other: Voiding Method External Catheter - Labs CBC & Chem 7: 02/20/21 06:27 02/19/21 06:14 Labs: Abnormal Lab Results - Last 24 Hours (Table) 02/18/21 02/18/21 02/19/21 Range/Units 05:37 13:59 06:14 RBC (3.80-5.40) m/uL Hgb (11.4-16.0) gm/dL Hct (34.0-46.0) % MCV (80.0-100.0) fL MCH (25.0-35.0) pg RDW (11.5-15.5) % Monocytes # (Manual) (0-1.0) k/uL Metamyelocytes # (Man) (0) k/uL Nucleated RBCs (0-0) /100 WBC Sodium 133 L (135-145) mmol/L Calcium 8.2 L (8.7-10.3) mg/dL Vit D 1,25-Dihydroxy <5 L (20 - 79) pg/mL Crossmatch See Detail 02/20/21 Range/Units 06:27 RBC 3.39 L (3.80-5.40) m/uL Hgb 8.4 L (11.4-16.0) gm/dL Hct 26.9 L (34.0-46.0) % MCV 79.4 L (80.0-100.0) fL MCH 24.7 L (25.0-35.0) pg RDW 16.5 H (11.5-15.5) % Monocytes # (Manual) 3.24 H (0-1.0) k/uL Metamyelocytes # (Man) 0.08 H (0) k/uL Nucleated RBCs 3 H (0-0) /100 WBC Sodium (135-145) mmol/L Calcium (8.7-10.3) mg/dL Vit D 1,25-Dihydroxy (20 - 79) pg/mL Crossmatch Microbiology - Last 24 Hours (Table) 02/17/21 15:02 Gram Stain - Final Back Wound Culture - Final 02/17/21 15:02 Gram Stain - Final Back Wound Culture - Final 02/17/21 15:02 Anaerobic Culture - Preliminary Back 02/17/21 15:02 Anaerobic Culture - Preliminary Back 02/16/21 14:15 Blood Culture - Preliminary Blood No Growth after 72 hours 02/16/21 14:10 Blood Culture - Preliminary Blood No Growth after 72 hours Assessment and Plan Plan: Assessment: 1. Hyponatremia from poor solute intake and pain-induced SIADH. Status post samsca this admission. Maintained on sodium chloride tabs. Also received Lasix this admission. Sodium level 133 as of yesterday. TSH normal. 2. Lumbar spine abscess status post incision and drainage and exchange of hardware done 02/08/2021. 3. Benign hypertension. Stable. 4. Anemia. Iron deficiency noted. Status post IV iron. Plan: Encourage oral intake, particularly protein. 1500 mL fluid restriction. Maintain sodium chloride tab. Continue to monitor.
[2021-02-20] MEDS: ONDANSETRON 4 MG/2 ML VIAL IVP PRN (11:13)
[2021-02-20 11:50] VITALS: BMI 39.7
--- NOTE | 2021-02-20 13:05 | P.PN ---
Subjective Progress Note Date: 02/20/21 Patient is doing fairly well today. She is feeling a lot better. One of the drains was removed this morning by orthopedic. No acute events overnight reported by nursing staff. Objective - Vital Signs Vital signs: Vital Signs Temp 98.4 F 02/20/21 04:24 Pulse 83 02/20/21 04:24 Resp 18 02/20/21 04:24 BP 128/76 02/20/21 04:24 Pulse Ox 97 02/20/21 04:24 Intake & Output 02/19/21 02/20/21 02/20/21 18:59 06:59 18:59 Intake Total 400 Output Total 60 1230 Balance -60 -830 Weight 95.5 kg Intake: Intake, IV Titration 200 Amount Cefepime 2 gm In Sodium 200 Chloride 0.9% 100 ml @ 25 mls/hr IVPB Q8HR [facility] Rx# :[id number] Oral 200 Output: Drainage 60 30 Left Lower Posterior Back 10 Left Upper Posterior Back 60 20 Urine 1200 Other: Voiding Method External Catheter Bedside Commode - Exam General: The patient is awake and alert, in no distress Eye: there is normal conjunctiva bilaterally. Neck: The neck is supple, there is no JVD. Cardiovascular: Normal S1-S2, no S3-S4, no murmurs. Respiratory: Lungs clear to auscultation bilaterally Gastrointestinal: Abdomen is soft, nontender Musculoskeletal: There is no pedal edema. Neurological:. Speech is normal. Skin: Skin is warm and dry - Labs CBC & Chem 7: 02/20/21 06:27 02/19/21 06:14 Labs: Abnormal Lab Results - Last 24 Hours (Table) 02/18/21 02/20/21 02/20/21 Range/Units 05:37 06:27 06:27 RBC 3.39 L (3.80-5.40) m/uL Hgb 8.4 L (11.4-16.0) gm/dL Hct 26.9 L (34.0-46.0) % MCV 79.4 L (80.0-100.0) fL MCH 24.7 L (25.0-35.0) pg RDW 16.5 H (11.5-15.5) % Monocytes # (Manual) 3.24 H (0-1.0) k/uL Metamyelocytes # (Man) 0.08 H (0) k/uL Nucleated RBCs 3 H (0-0) /100 WBC C-Reactive Protein 8.8 H (<1.0) mg/dL Vit D 1,25-Dihydroxy <5 L (20 - 79) pg/mL Microbiology - Last 24 Hours (Table) 02/17/21 15:02 Gram Stain - Final Back Wound Culture - Final 02/17/21 15:02 Gram Stain - Final Back Wound Culture - Final 02/17/21 15:02 Anaerobic Culture - Preliminary Back 02/17/21 15:02 Anaerobic Culture - Preliminary Back 02/16/21 14:15 Blood Culture - Preliminary Blood No Growth after 72 hours 02/16/21 14:10 Blood Culture - Preliminary Blood No Growth after 72 hours Assessment and Plan Assessment: Antoni is a 60 yo female with a recent L 4/5 and L5/S1 Laminectomy with fusion and intradiscal osteotomy on 01/05/21 with prior deep vein thrombocytosis, GERD, adn HTN who was transferred from [facility] for back and wound dehisence. She was started on cefepime and Vanco. Found to h ave post-op infection. Hyponatremia, likely SIADH. She underwent washout and hardware exchange on 02/08. Medical problems at this during this hospitalization: E. coli Postop wound infection with sepsis status post lumbar laminectomy with fusion 01/05/21 status post washout on 02/08 - on 02/17, patient underwent irrigation and debridement with exploration of fusion at L4/S1 and placement of antibiotic beads -Continue with Cefepime: Plan for 6 weeks of IV antibiotics -ID recs: PICC line placed -Pain control Hyponatremia likely secondary to SIADH-improving -[facility] - Sodium chloride tablets twice daily -Home dose of hydrochlorothiazide discontinued Constipation -MiraLAX, Dulcolax GERD - PPI Hypertension - Lisinopril, metoprolol - follow BP NSVT - on metoprolol - cardio signed off - echo with ef 55-60% Anemia, iron deficiency anemia - IV iron completed - post op anemia - stable -Transfuse as needed for hemoglobin less than 7 Discharge planning to [facility] when cleared by orthopedic and infectious disease
[2021-02-20] MEDS: PSEUDOEPHEDRINE 30 MG TAB PO PRN (14:30)
[2021-02-20] MEDS: diazePAM 2 MG TAB PO PRN (14:30)
--- NOTE | 2021-02-20 14:33 | P.PN ---
Subjective Progress Note Date: 02/20/21 Principal diagnosis: acute post-op infection Patient was seen at bedside this morning with daughter and nurse at bedside. Patient said she is feeling better. Daughter says she thinks mom, patient is on too many pain medications and patient agrees. Patient said she has been up and to bathroom yesterday and up during meals. Patient denies any new pain/weakness/numbness/tingling. Patient denies chest pain, SOB, fever, N/V, change in vision. Objective - Vital Signs Vital signs: Vital Signs Temp 98.1 F 02/20/21 12:53 Pulse 83 02/20/21 12:53 Resp 18 02/20/21 12:53 BP 126/79 02/20/21 12:53 Pulse Ox 98 02/20/21 12:53 Intake & Output 02/19/21 02/20/21 02/20/21 18:59 06:59 18:59 Intake Total 400 Output Total 60 1230 Balance -60 -830 Weight 82.1 kg Intake: Intake, IV Titration 200 Amount Cefepime 2 gm In Sodium 200 Chloride 0.9% 100 ml @ 25 mls/hr IVPB Q8HR [facility] Rx# :[id number] Oral 200 Output: Drainage 60 30 Left Lower Posterior Back 10 Left Upper Posterior Back 60 20 Urine 1200 Other: Voiding Method External Catheter Bedside Commode - Exam Dressing is clean, dry, intact. Superficial drain was removed with minimal drainage. Negative for any fluid collection/fluctuance. Plan to remove deep drain tomorrow. - Labs CBC & Chem 7: 02/20/21 06:27 02/19/21 06:14 Labs: Abnormal Lab Results - Last 24 Hours (Table) 02/18/21 02/20/21 02/20/21 Range/Units 05:37 06:27 06:27 RBC 3.39 L (3.80-5.40) m/uL Hgb 8.4 L (11.4-16.0) gm/dL Hct 26.9 L (34.0-46.0) % MCV 79.4 L (80.0-100.0) fL MCH 24.7 L (25.0-35.0) pg RDW 16.5 H (11.5-15.5) % Monocytes # (Manual) 3.24 H (0-1.0) k/uL Metamyelocytes # (Man) 0.08 H (0) k/uL Nucleated RBCs 3 H (0-0) /100 WBC ESR 80 H (0-20) mm/hr C-Reactive Protein (<1.0) mg/dL Vit D 1,25-Dihydroxy <5 L (20 - 79) pg/mL 02/20/21 Range/Units 06:27 RBC (3.80-5.40) m/uL Hgb (11.4-16.0) gm/dL Hct (34.0-46.0) % MCV (80.0-100.0) fL MCH (25.0-35.0) pg RDW (11.5-15.5) % Monocytes # (Manual) (0-1.0) k/uL Metamyelocytes # (Man) (0) k/uL Nucleated RBCs (0-0) /100 WBC ESR (0-20) mm/hr C-Reactive Protein 8.8 H (<1.0) mg/dL Vit D 1,25-Dihydroxy (20 - 79) pg/mL Microbiology - Last 24 Hours (Table) 02/17/21 15:02 Gram Stain - Final Back Wound Culture - Final 02/17/21 15:02 Gram Stain - Final Back Wound Culture - Final 02/17/21 15:02 Anaerobic Culture - Preliminary Back 02/17/21 15:02 Anaerobic Culture - Preliminary Back 02/16/21 14:15 Blood Culture - Preliminary Blood No Growth after 72 hours 02/16/21 14:10 Blood Culture - Preliminary Blood No Growth after 72 hours Assessment and Plan Assessment: 60 yo female POD10 +2 Lumbar wound I&D with antibiotic bead placement. 1. Lumbar wound infection 2. Wound dehiscence 3. Back pain 4. S/p L4-S1 decompression fusion 5. Hyponatremia likely SIADH Plan: -Appreciate residential sales consultant and team management. -Cont ABX per ID. Gent and Vanco added as post-op ppx from surgery on 02/16/2021 may be discontinued today. -Activity: Ambulate QID, OOB all meals, up and about, limit lifting bending twisting to less than 5 lbs. Use walker or cane if needed for stability. -PT/OT - weight bearing as tolerated; increase ambulation strength and balance. -Pain control: Adequate at this time; discontinue Dilaudid -GI ppx/DVT ppx: senna, Miralax; Heparin -Hygiene: Shower daily. Maintain dressing clean and dry. Meticulous cleaning after BMs away from incision site -Drains: Maintain deep drain for today. Possible removal of deep drain tomorrow. Minimal output. Superficial drain removed this morning. Minimal serosanguineous output. -Encourage Incentive spirometer use -Discahrge planning: plan for discharge Monday02/22/2021 to [facility] Time with Patient: Less than 30
[2021-02-20] MEDS: SODIUM CHLORIDE 0.9% 1,000 ML IV SCH (15:45)
[2021-02-20] MEDS: LACTATED RINGERS 1,000 ML IV SCH (15:51)
--- NOTE | 2021-02-20 16:25 | PN ---
PROGRESS NOTE DATE OF SERVICE: 02/20/2021 REASON FOR FOLLOWUP: Infected lumbar surgical site. INTERVAL HISTORY: The patient is afebrile. The patient is breathing comfortably. The patient denies having any chest pain, shortness of breath or cough. No abdominal pain. Lower back pain is currently controlled. PHYSICAL EXAMINATION: Her blood pressure is 126/79 with a pulse of 83, temperature 98.1. She is 98% on room air. General description is a middle-aged female up in the chair in no distress. Respiratory system: Unlabored breathing, ( ), no wheeze. Heart S1, S2. Regular rate and rhythm. Abdomen soft, no tenderness. LABS: Hemoglobin 8.4, white count 8.3, BUN of 9, creatinine 0.6. DIAGNOSTIC IMPRESSION AND PLAN: Patient with infected lumbar surgical site. The patient is status post drainage and replacement of some of the hardware. Culture has been positive for predominantly E coli with superficial culture shows Stenotrophomonas. The patient is on cefepime. Plan is for a total of six weeks of antibiotics. The patient white count normalized, fever resolved and we will monitor patient closely. MMODL / IJN: [id number] /
[2021-02-20] MEDS: lisinopriL 20 MG TAB PO SCH (20:40)
[2021-02-21] MEDS: CEFEPIME 2 GM in SODIUM CHLORIDE 0.9% 100 ML IVPB SCH ×4 (00:10→23:19)
[2021-02-21] MEDS: traMADol 50 MG TAB PO PRN ×4 (01:58→21:48)
[2021-02-21] MEDS: diazePAM 2 MG TAB PO PRN ×2 (01:59→19:47)
[2021-02-21] MEDS: ACETAMINOPHEN TAB 325 MG TAB PO PRN ×2 (05:32→23:19)
[2021-02-21] MEDS: CYCLOBENZAPRINE 10 MG TAB PO PRN ×3 (06:04→21:49)
[2021-02-21] MEDS: PANTOPRAZOLE 40 MG TABLET PO SCH (08:50)
[2021-02-21] MEDS: ASCORBIC ACID 500 MG TAB PO SCH ×2 (08:51→19:47)
[2021-02-21] MEDS: CHOLECALCIFEROL 25 MCG (1000 IU) TABLET PO SCH (08:51)
[2021-02-21] MEDS: MULTIVITAMINS, THERA 1 EACH TAB PO SCH (08:51)
[2021-02-21] MEDS: GABAPENTIN 300 MG CAP PO SCH ×4 (08:51→19:46)
[2021-02-21] MEDS: DOCUSATE 100 MG CAP PO SCH ×2 (08:51→19:46)
[2021-02-21] MEDS: SODIUM CHLORIDE TAB 1 GM TAB PO SCH (08:51)
[2021-02-21] MEDS: METOPROLOL TARTRATE 25 MG TAB PO SCH ×2 (08:51→19:46)
[2021-02-21] MEDS: polyethylene glycoL 3350 17 GM POWD.PACK PO SCH (08:52)
--- NOTE | 2021-02-21 09:03 | P.PN ---
Subjective Patient is seen in follow-up for hyponatremia. Sodium level has been fairly stable. Oral intake fair. No vomiting or diarrhea. Hemodynamically stable. No active complaints. Vital signs are stable. General: The patient appeared well nourished and normally developed. HEENT: Head exam is unremarkable. Neck is without jugular venous distension. LUNGS: Breath sounds decreased. HEART: Rate and Rhythm are regular. ABDOMEN: Soft, no distention. EXTREMITITES: Trace edema. Objective - Vital Signs Vital signs: Vital Signs Temp 98.3 F 02/21/21 05:00 Pulse 87 02/21/21 05:00 Resp 16 02/21/21 05:00 BP 156/73 02/21/21 05:00 Pulse Ox 96 02/21/21 05:00 Intake & Output 02/20/21 02/21/21 02/21/21 18:59 06:59 18:59 Intake Total 680 Output Total 700 1400 Balance -700 -720 Weight 82.1 kg Intake: Intake, IV Titration 200 Amount Cefepime 2 gm In Sodium 200 Chloride 0.9% 100 ml @ 25 mls/hr IVPB Q8HR [facility] Rx# :[id number] Oral 480 Output: Drainage 0 Left Upper Posterior Back 0 Urine 700 1400 Other: Voiding Method Bedside Commode # Voids 1 - Labs CBC & Chem 7: 02/20/21 06:27 02/19/21 06:14 Labs: Abnormal Lab Results - Last 24 Hours (Table) 02/20/21 02/20/21 Range/Units 06:27 06:27 ESR 80 H (0-20) mm/hr C-Reactive Protein 8.8 H (<1.0) mg/dL Microbiology - Last 24 Hours (Table) 02/16/21 14:15 Blood Culture - Preliminary Blood No Growth after 96 hours 02/16/21 14:10 Blood Culture - Preliminary Blood No Growth after 96 hours Assessment and Plan Plan: Assessment: 1. Hyponatremia from poor solute intake and pain-induced SIADH. Status post samsca this admission. Maintained on sodium chloride tabs. Also received Lasix this admission. Sodium level 133 as of February 19 TSH normal. 2. Lumbar spine abscess status post incision and drainage and exchange of hardware done 02/08/2021. 3. Benign hypertension. Stable. 4. Anemia. Iron deficiency noted. Status post IV iron. Plan: Encourage oral intake, particularly protein. 1500 mL fluid restriction. Maintain sodium chloride tab. Continue to monitor. Repeat electrolytes in the morning.
[2021-02-21] MEDS: PSEUDOEPHEDRINE 30 MG TAB PO PRN (10:02)
--- NOTE | 2021-02-21 11:40 | P.PN ---
Subjective Progress Note Date: 02/21/21 Principal diagnosis: acute post-op infection Patient was seen at bedside this morning with daughter and nurse at bedside. Patient said she is feeling better. Daughter says she thinks mom, patient is on too many pain medications and patient agrees. Patient said she has been up and to bathroom yesterday and up during meals. Patient denies any new pain/weakness/numbness/tingling. Patient denies chest pain, SOB, fever, N/V, change in vision. Objective - Vital Signs Vital signs: Vital Signs Temp 98.3 F 02/21/21 05:00 Pulse 87 02/21/21 08:00 Resp 16 02/21/21 08:00 BP 156/73 02/21/21 05:00 Pulse Ox 96 02/21/21 05:00 Intake & Output 02/20/21 02/21/21 02/21/21 18:59 06:59 18:59 Intake Total 680 Output Total 700 1400 Balance -700 -720 Weight 82.1 kg 83.9 kg Intake: Intake, IV Titration 200 Amount Cefepime 2 gm In Sodium 200 Chloride 0.9% 100 ml @ 25 mls/hr IVPB Q8HR [facility] Rx# :[id number] Oral 480 Output: Drainage 0 Left Upper Posterior Back 0 Urine 700 1400 Other: Voiding Method Bedside Commode Bedside Commode # Voids 1 - Exam Dressing is clean, dry, intact. Deep drain was removed with minimal drainage. Negative for any fluid collection/fluctuance. - Labs CBC & Chem 7: 02/20/21 06:27 02/19/21 06:14 Labs: Abnormal Lab Results - Last 24 Hours (Table) 02/20/21 02/20/21 Range/Units 06:27 06:27 ESR 80 H (0-20) mm/hr C-Reactive Protein 8.8 H (<1.0) mg/dL Microbiology - Last 24 Hours (Table) 02/16/21 14:15 Blood Culture - Preliminary Blood No Growth after 96 hours 02/16/21 14:10 Blood Culture - Preliminary Blood No Growth after 96 hours Assessment and Plan Assessment: 60 yo female POD11 +2 Lumbar wound I&D with antibiotic bead placement. 1. Lumbar wound infection 2. Wound dehiscence 3. Back pain 4. S/p L4-S1 decompression fusion 5. Hyponatremia likely SIADH Plan: -Appreciate virtualization consultant and team management. -Cont ABX per ID. Gent and Vanco added as post-op ppx from surgery on 02/16/2021 may be discontinued today. -Activity: Ambulate QID, OOB all meals, up and about, limit lifting bending twisting to less than 5 lbs. Use walker or cane if needed for stability. -PT/OT - weight bearing as tolerated; increase ambulation strength and balance. -Pain control: Adequate at this time -GI ppx/DVT ppx: senna, Miralax; Heparin -Hygiene: Shower daily. Maintain dressing clean and dry. Meticulous cleaning after BMs away from incision site -Drains: Deep drain remove this morning. Minimal serosanguineous output. -Encourage Incentive spirometer use -Discahrge planning: plan for discharge tomorrow, Monday02/22/2021 to [facility] Time with Patient: Less than 30
[2021-02-21] MEDS: SODIUM CHLORIDE 0.9% 1,000 ML IV SCH (16:32)
--- NOTE | 2021-02-21 17:18 | P.PN ---
Subjective Progress Note Date: 02/21/21 No acute events overnight Objective - Vital Signs Vital signs: Vital Signs Temp 98.6 F 02/21/21 14:55 Pulse 95 02/21/21 14:55 Resp 16 02/21/21 14:55 BP 119/66 02/21/21 14:55 Pulse Ox 96 02/21/21 14:55 Intake & Output 02/20/21 02/21/21 02/21/21 18:59 06:59 18:59 Intake Total 680 Output Total 700 1400 505 Balance -700 -720 -505 Weight 82.1 kg 83.9 kg Intake: Intake, IV Titration 200 Amount Cefepime 2 gm In Sodium 200 Chloride 0.9% 100 ml @ 25 mls/hr IVPB Q8HR [facility] Rx# :[id number] Oral 480 Output: Drainage 0 5 Left Back 5 Left Upper Posterior Back 0 0 Urine 700 1400 500 Other: Voiding Method Bedside Commode Bedside Commode # Voids 1 1 # Bowel Movements 1 - Exam General: The patient is awake and alert, in no distress Eye: there is normal conjunctiva bilaterally. Neck: The neck is supple, there is no JVD. Cardiovascular: Normal S1-S2, no S3-S4, no murmurs. Respiratory: Lungs clear to auscultation bilaterally Gastrointestinal: Abdomen is soft, nontender Musculoskeletal: There is no pedal edema. Neurological:. Speech is normal. Skin: Skin is warm and dry - Labs CBC & Chem 7: 02/20/21 06:27 02/19/21 06:14 Labs: Microbiology - Last 24 Hours (Table) 02/16/21 14:15 Blood Culture - Preliminary Blood No Growth after 120 hours 02/16/21 14:10 Blood Culture - Preliminary Blood No Growth after 120 hours 02/17/21 15:02 Anaerobic Culture - Final Back 02/17/21 15:02 Anaerobic Culture - Final Back Assessment and Plan Assessment: Antoni is a 60 yo female with a recent L 4/5 and L5/S1 Laminectomy with fusion and intradiscal osteotomy on 01/05/21 with prior deep vein thrombocytosis, GERD, adn HTN who was transferred from [facility] for back and wound dehisence. She was started on cefepime and Vanco. Found to have post-op infection. Hyponatremia, likely SIADH. She underwent washout and hardware exchange on 02/08. Medical problems at this during this hospitalization: E. coli Postop wound infection with sepsis status post lumbar laminectomy with fusion 01/05/21 status post washout on 02/08 - on 02/17, patient underwent irrigation and debridement with exploration of fusion at L4/S1 and placement of antibiotic beads -Continue with Cefepime: Plan for 6 weeks of IV antibiotics -ID recs: PICC line placed -Pain control Hyponatremia likely secondary to SIADH-improving -Seen and evaluated by nephrology - Marcie given 1 on 02/07 - Sodium chloride tablets twice daily -Home dose of hydrochlorothiazide discontinued Constipation -MiraLAX, Dulcolax GERD - PPI Hypertension - Lisinopril, metoprolol - follow BP NSVT - on metoprolol - cardio signed off - echo with ef 55-60% Anemia, iron deficiency anemia - IV iron completed - post op anemia - stable -Transfuse as needed for hemoglobin less than 7 Discharge planning to [facility] when cleared by orthopedic and infectious disease
[2021-02-21] MEDS: lisinopriL 20 MG TAB PO SCH (19:47)
[2021-02-21] MEDS: LACTATED RINGERS 1,000 ML IV SCH (23:21)
[2021-02-22 05:15] VITALS: RESP 16
--- NOTE | 2021-02-22 05:45 | PN ---
PROGRESS NOTE DATE OF SERVICE: 02/21/2021 REASON FOR FOLLOW UP: Lumbar surgical site infection. INTERVAL HISTORY: Patient is currently afebrile. Patient was breathing comfortably on room air, in no distress. No vomiting, diarrhea reported by nursing staff. PHYSICAL EXAMINATION: Blood pressure 113/65, pulse of 90, temperature 98.5. She is 96% on room air. General description is a middle-aged female lying in bed in no distress. The rest of the exam was deferred ( ). LABS: Hemoglobin is 8.4 with white count of 8.3. Repeat cultures so far negative. DIAGNOSTIC IMPRESSION AND PLAN: Patient with a lumbar surgical site infection, status post extensive debridement. Culture predominantly E coli in this patient status post washout x2. The patient is covered with cefepime. White count normalized. Plan is to continue with cefepime for another 5 more weeks. Weekly monitor her blood work and close outpatient follow up. Plan of care was discussed with the surgeon on the floor. MMODL / IJN: [id number] /
[2021-02-22 07:46] LABS: Anisocytosis Slight; HCT 26.1 % (34.0-46.0); HGB 8.6 gm/dL (11.4-16.0); Hypochromasia Moderate; MCHC 32.8 g/dL (31.0-37.0); MCV 79.1 fL (80.0-100.0); Mean Platelet Volume 8.4; Microcytosis Slight; Platelet Count 292 k/uL (150-450); RDW 16.6 % (11.5-15.5); WBC 9.6 k/uL (3.8-10.6)
--- NOTE | 2021-02-22 07:57 | P.PN ---
Subjective Progress Note Date: 02/22/21 Principal diagnosis: Acute post operative infection Patient seen and examined this morning she is doing very well she complains of no pain she has been up and about. Drains were pulled yesterday. She has no other issues and she is ready to go she states. Fevers chills shortness of breath or chest pain no perineal numbness or tingling no bowel bladder issues Objective - Vital Signs Vital signs: Vital Signs Temp 98.2 F 02/22/21 05:00 Pulse 87 02/22/21 05:00 Resp 16 02/22/21 05:00 BP 133/68 02/22/21 05:00 Pulse Ox 99 02/22/21 05:00 Intake & Output 02/21/21 02/22/21 02/22/21 18:59 06:59 18:59 Intake Total 1020 Output Total 505 800 Balance -505 220 Weight 83.9 kg 89.5 kg Intake: Intake, IV Titration 300 Amount Cefepime 2 gm In Sodium 100 Chloride 0.9% 100 ml @ 25 mls/hr IVPB Q8HR [facility] Rx# :[id number] Sodium Chloride 0.9% 1, 200 000 ml @ 20 mls/hr IV . Q24H [facility] Rx#:[id number] Oral 720 Output: Drainage 5 Left Back 5 Left Upper Posterior Back 0 Urine 500 800 Other: Voiding Method Bedside Commode Bedside Commode External Catheter # Voids 1 1 # Bowel Movements 1 - Exam Exam is repeated today. Changed noted below. Dressing is clean and dry, we will changed today before she leaves No fluctuance or fluid collections or swelling No erythema or ecchymosis or edema PHYSICAL EXAMINATION: Vitals: Stable at this time General: Awake, alert, appropriate for age, in no acute distress. HEENT: No unusual neck masses around region of lateral neck triangle, thyroid, supraclavicular groove. Heart: Regular rate and rhythm, normal S1, S2 and no murmur/gallop. Lungs: Clear to auscultation bilaterally with no use of accessory muscles. Extremities: Skin warm and dry without no acute lesions, coloration, temperature, skin intact, no tenderness or erythema. Integument: Hairy patches: Absent Dorsal skin dimples: Absent Cafe au lait spots: Absent Surgical incisions: Dehiscence noted in the middle 2 cm of the incision with purulent drainage noted at this site. Palpation: Please see Pain drawing on Intake sheet for further detail. (Tenderness = T, Nontender = NT, Swelling = S, Ecchymosis = E) Findings on Midline and paraspinal palpation and percussion: Cervical: NT Thoracic: NT Lumbar: NT Sacral: NT Special findings: none VASCULAR STATUS : Wrist Pulses: 2/4 bilateral radial and ulnar Pedal Pulses: 2/4 bilateral DP and PT Color: Normal Edema: None NEUROLOGIC EXAMINATION: Mental Status: Awake and alert, fully oriented, with normal attention, concentration and memory, and fluent, appropriate speech. Cranial Nerves: I: Olfactory not tested. II: Visual acuity normal, no visual field deficit noted with confrontation. III,IV: Normal pupillary reflexes & intact extraocular movements without nystagmus. V,: Intact symmetrical facial sensation. VII: Intact symmetrical facial motor movement VIII: Hearing intact. IX,X: Intact gag, swallow, & normal voice. XI: Sternocleidomastoid, trapezius function intact. XII: Tongue midline with normal movements. Special Tests: L'hermitte's Sign: Absent Spurling'Sign: Absent Bilateral Cubital percussion test: Absent Bilateral Angela-Tinel sign - Carpal region: Absent Bilateral Straight Leg Raising: Absent Bilateral Motor Exam (0-5/5, N/T) STRENGTH UPPER EXTREMITY Shoulder Abd (Not part of GERARDO Motor score): RIGHT 5 LEFT 5 Elbow Flexors: RIGHT 5 LEFT 5 Elbow Extensor: RIGHT 5 LEFT 5 Wrrist Dorsiflexors: RIGHT 5 LEFT 5 Finger Abductor: RIGHT 5 LEFT 5 Umbrella Finisher: RIGHT 5 LEFT 5 LOWER EXTREMITY Hip Flexor (Not part of GERARDO Motor Score): RIGHT 4 LEFT 5 Knee Flexor: RIGHT 4 LEFT 5 Knee Extensor: RIGHT 4 LEFT 5 Ankle Dorsiflexion: RIGHT 3+ LEFT 4 Ankle Plantarflexion: RIGHT 4 LEFT 5 EHL: RIGHT 3 LEFT 4 FHL: RIGHT 4 LEFT 4 Generalized weakness noted, She is able to fire all major muscles of the LE b/l. . She still has some weakness of the L TA which was present since surgery, no acute interval changes at this time. She does have difficulty with cooperation at this time and c/o pain. REFLEXES Biecp: RIGHT 2 LEFT 2 Tricep: RIGHT 2 LEFT 2 Brachioradialis: RIGHT 2 LEFT 2 Patellar: RIGHT 2 LEFT 2 Achilles: RIGHT 2 LEFT 2 Pathological Reflexes Rajput's: RIGHT Absent LEFT Absent Babinski: RIGHT Absent LEFT Absent Clonus: RIGHT None LEFT None SENSORY Joint Position: Intact bilaterally Vibration Intact bilaterally Pain and LT sense Intact C5-T1 and L2-S1 Dermatomal deficit None Gait and Functional Evaluation: Ambulatory aids: Walker Hand and finger dexterity intact bilaterally. Disdiadochokinesis examination negative bilaterally. - Labs CBC & Chem 7: 02/22/21 05:47 02/19/21 06:14 Labs: Abnormal Lab Results - Last 24 Hours (Table) 02/18/21 02/22/21 02/22/21 Range/Units 13:59 05:47 05:47 RBC 3.30 L (3.80-5.40) m/uL Hgb 8.6 L (11.4-16.0) gm/dL Hct 26.1 L (34.0-46.0) % MCV 79.1 L (80.0-100.0) fL RDW 16.6 H (11.5-15.5) % C-Reactive Protein 7.0 H (<1.0) mg/dL Crossmatch See Detail Microbiology - Last 24 Hours (Table) 02/16/21 14:15 Blood Culture - Preliminary Blood No Growth after 120 hours 02/16/21 14:10 Blood Culture - Preliminary Blood No Growth after 120 hours 02/17/21 15:02 Anaerobic Culture - Final Back 02/17/21 15:02 Anaerobic Culture - Final Back Assessment and Plan Assessment: 60 yo female POD9 +5 Lumbar wound I&D with antibiotic bead placement. 1. Lumbar wound infection 2. Wound dehiscence 3. Back pain 4. S/p L4-S1 decompression fusion 5. 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 -Cont ABX per ID. Gent and Vanco added for surgery but can be DC today -Activity: Ambulate QID, OOB all meals, up and about, limit lifting bending twisting to less than 5 lbs. Use walker or cane if needed for stability. -Daily PT/OT, increase ambulation strength and balance. -Pain control: Adequate at this time -GI ppx: senna, Miralax -DC [place] when up and about, bedside commode if needed -DVT PPX: OK to restart Heparin tonight -Hygiene: Shower daily. Maintain dressing clean and dry. Meticulous cleaning after BMs away from incision site -Await new cultures, prelim shows no orgs. Presuming strephonomas superficial i nfection with E. coli deep infection. Antibiotic coverage appropriate -Encourage IS 10x/hr -Dispo: [facility] today
[2021-02-22] MEDS: PANTOPRAZOLE 40 MG TABLET PO SCH (08:13)
[2021-02-22] MEDS: traMADol 50 MG TAB PO PRN ×2 (08:14→14:10)
[2021-02-22] MEDS: MULTIVITAMINS, THERA 1 EACH TAB PO SCH (08:14)
[2021-02-22] MEDS: CYCLOBENZAPRINE 10 MG TAB PO PRN ×2 (08:14→14:10)
[2021-02-22] MEDS: DOCUSATE 100 MG CAP PO SCH (08:15)
[2021-02-22] MEDS: ASCORBIC ACID 500 MG TAB PO SCH (08:15)
[2021-02-22] MEDS: CHOLECALCIFEROL 25 MCG (1000 IU) TABLET PO SCH (08:16)
[2021-02-22] MEDS: METOPROLOL TARTRATE 25 MG TAB PO SCH (08:16)
[2021-02-22] MEDS: polyethylene glycoL 3350 17 GM POWD.PACK PO SCH (08:17)
--- NOTE | 2021-02-22 08:55 | P.DS ---
Providers Date of admission: 02/06/21 13:10 Expected date of discharge: 02/22/21 Attending physician: Mendel Thapa DO Consults: 02/06/21 13:12 Consult Physician Routine Consulting Provider: Zarina Olivares Consult Reason/Comments: medical managment Do you want consulting provider notified?: Already Contacted Consult Physician Routine Consulting Provider: Jose A Queen Consult Reason/Comments: infected surgical site Do you want consulting provider notified?: Already Contacted 02/07/21 07:48 Consult Physician Routine Consulting Provider: Erick Cantu Consult Reason/Comments: Hyponatremia-125 Do you want consulting provider notified?: Yes 02/08/21 07:36 Consult Physician Routine Consulting Provider: Gary Ybarra Consult Reason/Comments: NSVtach Do you want consulting provider notified?: Yes Primary care physician: Stated None Hospital Course: Date of admission: 02/06/2021 Date of discharge: 02/22/2021 Admission diagnosis: Lumbar wound dehiscence, deep lumbar infection, history of recent L4 to S1 posterior lateral fusion with instrumentation Discharge diagnosis: Status post incision and drainage with irrigation and debridement lumbar spine, hardware removal with re instrumentation L4 to S1 Attending physician: Dr. Thapa Surgical procedures: Incision and drainages irrigation and debridement lumbar spine, hardware removal with reinstrumentation L4 to S1 Brief history: Patient is a a 60-year-old female who recently undergone a L4 to S1 posterior stabilized fusion with instrumentation on 01/03/[address] Thapa. patient developed issues with her wound during that postoperative period, she was initially evaluated at a hospital near [place]. She was then transferred over to our hospital for further evaluation and treatment. It was determined that the patient had a deep infection involving the lumbar spine. She was taken to surgery on 02/06/2021. Hospital course: Details of patient's surgery can be found in operative report. Patient tolerated the procedure well and was subsequently transported to orthopedic floor. Patient's orthopeidc and medical care was provided daily. Patient had daily laboratory tests performed for evaluation of overall blood counts. Patient had daily physical therapy to include strengthening range of motion as well as education with walker ambulation. Patient was treated with heparin for their postoperative DVT prophylaxis during their inpatient stay. Patient was noted to have a relatively uneventful postoperative course. Patient reported satisfactory pain control with oral pain medications by postoperative day 1. Patient showed satisfactory progress with physical therapy. Discharge condition/disposition: Patient will be discharged to rehab in stable condition. Discharge medications: Instructions are given on resumption of patient's normal daily medications per primary care recommendation, in addition patient will be prescribed tramadol 50 mg, Flexeril 5 mg, gabapentin 300 mg, Colace 100 mg Spine Discharge and Recovery Instructions: Medications: See medication list All medication refills should be obtained through your primary care doctor or your clinic spine surgeon. Please discuss prescription refills at your follow up appointment. Do not call the hospital for medication refills. Dressing: Leave your dressing in place for a total of 5 days post operatively. Then you may remove your dressing and leave open to air. Keep the area clean and if not able to keep area clean, then cover with sterile gauze and tape. Showering: You may shower 3 days after your procedure allowing soap and water to run over incision. Do not scrub. Do not soak. Blot dry. Follow up: Please confirm a follow up appointment with your surgeon 3 weeks post operatively. Please make an appointment to follow up with your PCP in 1-2 weeks after surgery for evaluation 3 phase, 3-week plan POST OP WEEKS 1-3 1. Lifting/carrying/pushing/pulling limited to less than 5 pounds. 2. Do not sit for longer than 15 minutes at one time. Get up and walk around. Prolonged sitting is NOT advised. If you lay down, see if you can tolerate laying down on you front (belly side) 3. Walk for periods of 15 minutes = 1 mile but no longer; do it multiple times times each day. 4. Ice your low back after activity. POST OP WEEKS 3-6 1. Lifting limited to less than 20 pounds. 2. Do not sit for longer than 30 minutes at a time. Frequently change positions. Use a sit-to stand workstation or take frequent breaks from sitting if you have returned to work. 3. Walk for 30 minutes each day. If possible, do these three or more times a day POST OP WEEKS 6+ At your 6-week appointment we will give you a physical therapy referral to focus on a core stabilization and strengthening program. You should also work on leg & buttock strengthening, hamstring & quadriceps stretching, and continue a low impact aerobic activity program such as swimming, walking, or riding a stationary bicycle. During the initial 6 weeks after your surgery, you are at the highest risk of re-injuring your spine. You should generally avoid BLTs (bending, lifting and twisting combination motions) and follow the above guidelines to reduce the chance of reinjury. You can anticipate post op appointments in our office at approximately 3 weeks and 6 weeks after your surgery. INCISION CARE: If your incision is not draining you do NOT need to cover it with a dressing. Keep your incision clean, dry and intact. In most cases, we apply skin glue, eli or sutures to the incision at the time of surgery. This will be like a crust or have the appearance of a scab and will fall off in time on its own. The stitches or eli need to be removed at 3 weeks post op appointment. You may begin to shower 3 days after surgery (this allows the glue to talamantes well). However, please avoid scrubbing the incision site or peeling off any of the skin glue. This will ensure optimal healing of your incision. Also, during this time avoid soaking the incision area in water - this includes swimming pools, hot tubs or baths. No ointments, lotions or oils on the incision until your surgeon allows. Leave eli, sutures or glue in place. Neurological dysfunction that comes on suddenly can also be a sign of a stroke. Below some common symptoms of a stroke are listed: B - balance difficulty such as sudden onset walking or leaning to one side - NEW E - eye problem such as sudden double vision or trouble seeing on one side - NEW F - Facial weakness or numbness on one side - NEW A - Arm or leg weakness or numbness on one side - NEW S - Slurred speech or difficulty with word finding - NEW T - Time is BRAIN! Call 911 as soon as you recognize these symptoms Diet: Consume a regular diet rich in vegetables and lean protein such as chicken or fish. You should consume in a ratio of approximately 20% fats|40% carbohydrates|40%protein. Vegetables, sweet potatoes, brown rice or quinoa are examples of good carbohydrates. Chips, white bread, cookies and sweets/sugar are examples of bad carbohydrates. Limit your bad carbs, go wild with good carbs. "Life's Simple 7" Guidelines as per [place] [employer] These will help you reclaim your life after surgery and terrazzo helper in your recovery, keeping in mind your restrictions. (1) Get Active. Physical activity can help people lose weight, control high blood pressure and cholesterol, feel emotionally better, and sleep better. (2) Control Cholesterol. Avoid a diet high in saturated fat, trans fat, & cho lesterol. Limit whole milk & cream, ice cream, butter, egg yolks, processed meats (like sausage and hot dogs), and fatty meats. Choose healthy foods that are low in saturated fat, trans fat and cholesterol which include: Fruits and vegetables, fiber rich grain products (like whole grain pasta and brown rice), lean meat such as chicken, fish, nuts, seeds, and legumes. (3) Eat Better. Eat small portions. Shop at the grocery with a list and do not stray from it. Tips for a healthy diet include: Limit sodium intake to less than 1500mg daily, avoid prepackaged, processed, and fast foods, choose a diet rich in fruits, vegetables, and whole grain, high fiber foods, and limit saturated & cholesterol in your diet. (4) Manage Blood Pressure. If you have high blood pressure, you should have a cuff at home so that you can check your blood pressure regularly. Be sure you have a good cuff. An arm one is generally better than a wrist one. Bring the cuff to a doctor's appointment to validate that the measurements that your cuff are taking are accurate. Take your blood pressure twice daily when you are sitting down and relaxing. Record the numbers in a log and bring this log with you to your doctors' appointments. (5) Lose Weight if your BMI is above 25. A healthy BMI is between 19-25. To calculate Your BMI, you may use a Standard BMI Calculator on the NIH BMI webs ite: <www.nhlbi.nih.gov/guidelines/obesity/BMI/bmicalc.htm>. Weigh oneself daily. If you are overweight, set a goal to lose weight. A pound a week loss if needed is a good target. (6) Reduce Blood Sugar. Limit foods and liquids with "added sugars." (Added sugars include sucrose, fructose, glucose, maltose, dextrose, high fructose corn syrup, corn syrup, concentrated fruit juice and honey). (7) Stop Smoking. If you smoke, quitting smoking is one of the best things that you can do for your health. Smoking increases your risk of heart attack, stroke, and peripheral vascular disease, which is a build-up of plaque in your arteries. Please discard all the cigarettes and lighters in your house. Have a plan for what you will do when you have the urge to smoke. Direct and second-hand smoke shortens your life as well as the lives of your family, friends and others around you. For your health and the health of those around you, please consider quitting! Proper Bending Body Mechanics: Maintain a wide stance with one foot slightly in front of the other. Keep your back straight. Bend utilizing the strength in your hips and knees. Do not bend at the waist. Maintain the lifted object at your waist-level close to your body. Avoid lifting weight that causes immediately pain or pain anywhere in the body afterwards. Smoking/Nicotine If there was ever one thing that you could do to increase your overall health, decrease your risk of cardiovascular problems by about 39% the second you make the choice, it is to STOP SMOKING. Your body's most instant gratification is the second you stop smoking. We have all heard the studies, read the articles but it is true, smoking is extremely bad for your overall health, and moreover it is detrimental to your bone health. Nicotine, IN ANY FORM, kills bone cells, prevents your body from healing fractures, and significantly prolongs healing after surgery. In spine surgery specifically, it increases your risk of not healing your bones to create a fusion and increases your risk of having a revision surgery due to this up to 60%. I know it is hard. I know it feels impossible. But there are ways. Take control of your life. We are here to help you through it. And when you are ready, ask us and we can direct you to help if you desire. Use the START Plan to Quit Smoking (please visit the Helpguide.org website listed below for more information): S = Set a quit date. Choose a date within the next 2 weeks, so you have enough time to prepare without losing your motivation to quit. If you mainly smoke at work, quit on the weekend, so you have a few days to adjust to the change. T = Tell family, friends, and co-workers that you plan to quit. Let your friends and family in on your plan to quit smoking and tell them you need their support and encouragement to stop. Look for a quit alejandro who wants to stop smoking as well. You can help each other get through the rough times. A = Anticipate and plan for the challenges you'll face while quitting. Most people who begin smoking again do so within the first 3 months. You can help yourself make it through by preparing ahead for common challenges, such as nicotine withdrawal and cigarette cravings. R = Remove cigarettes and other tobacco products from your home, car, and work. Throw away all your cigarettes (no emergency pack!), lighters, ashtrays, and matches. Wash your clothes and freshen up anything that smells like smoke. Shampoo your car, clean your drapes and carpet, and steam your furniture. T = Talk to your doctor about getting help to quit. Your doctor can prescribe medication to help with withdrawal and suggest other alternatives. If you can't see a doctor, you can get many products over the counter at your local pharmacy or grocery store, including the nicotine patch, nicotine lozenges, and nicotine gum. Resources for Quitting Smoking: <https://www.[place].gov/documents/[facility]/Quit_Tobacco_Resources_for_patients_313 480_7.pdf> Supplementation: Take recommended dosages of Vitamin D and Calcium to help fortify your bones and help them to heal. See your health maintenance packet for dosages and recommended levels. DVT/VTE prophylaxis: You will be given compression stockings from the hospital. Wear these daily for the first two weeks after surgery. You may take them off at night. You may be prescribed a medication to help thin your blood. Take this as directed. If you are not prescribed this medication, early and frequent ambulation has been shown to be the best prophylaxis to deep vein thrombosis and sequelae related to this event. Procedures: Incision and drainage with irrigation and debridement lumbar wound/deep lumbar infection, hardware removal with 3 instrumentation L4-S1 Patient Condition at Discharge: Fair Plan - Discharge Summary Discharge Rx Participant: No New Discharge Prescriptions: New Cyclobenzaprine [Flexeril] 5 mg PO BID PRN #20 tablet PRN Reason: Muscle Spasm traMADol HCl [Ultram] 50 mg PO Q6H PRN #28 tab PRN Reason: Pain Melatonin 3 mg PO HS PRN tablet PRN Reason: Insomnia Sodium Chloride Tab 1 gm PO BID tab Cefepime [Maxipime] 2 gm IVPB Q8H #112 bag Docusate [Colace] 100 mg PO DAILY #30 capsule Gabapentin 300 mg PO BID 3 Days #6 cap Metoprolol Tartrate [Lopressor] 25 mg PO BID tab polyethylene glycoL 3350 [Miralax] 17 gm PO DAILY powd.pack Pantoprazole [Protonix] 40 mg PO AC-BRKFST tablet.dr Wang lisinopriL 20 mg PO HS Lidocaine 5% Patch [Lidoderm 5% Patch] 1 patch TOPICAL DAILY Sennosides/Docusate Sodium [Senna Plus 8.6-50 mg Softgel] 1 cap PO BID PRN PRN Reason: Constipation Discontinued Omeprazole 20 mg PO BID hydroCHLOROthiazide [Hydrodiuril] 12.5 mg PO DAILY Acetaminophen [Tylenol Extra Strength] 1,000 mg PO Q4H PRN PRN Reason: Pain diazePAM [Valium] 2 mg PO Q6H PRN PRN Reason: Anxiety No Action Ibuprofen [Motrin] 600 mg PO Q8HR PRN PRN Reason: Pain Discharge Medication List lisinopriL 20 mg PO HS 01/01/21 [History] Ibuprofen [Motrin] 600 mg PO Q8HR PRN 02/06/21 [History] Lidocaine 5% Patch [Lidoderm 5% Patch] 1 patch TOPICAL DAILY 02/06/21 [History] Sennosides/Docusate Sodium [Senna Plus 8.6-50 mg Softgel] 1 cap PO BID PRN 02/06/21 [History] Cyclobenzaprine [Flexeril] 5 mg PO BID PRN #20 tablet 02/15/21 [Rx] Docusate [Colace] 100 mg PO DAILY #30 capsule 02/15/21 [Rx] Gabapentin 300 mg PO BID 3 Days #6 cap 02/15/21 [Rx] Melatonin 3 mg PO HS PRN tablet 02/15/21 [Rx] Metoprolol Tartrate [Lopressor] 25 mg PO BID tab 02/15/21 [Rx] Pantoprazole [Protonix] 40 mg PO AC-BRKFST tablet. 02/15/21 [Rx] Sodium Chloride Tab 1 gm PO BID tab 02/15/21 [Rx] polyethylene glycoL 3350 [Miralax] 17 gm PO DAILY powd.pack 02/15/21 [Rx] traMADol HCl [Ultram] 50 mg PO Q6H PRN #28 tab 02/15/21 [Rx] Cefepime [Maxipime] 2 gm IVPB Q8H #112 bag 02/19/21 [Rx] Follow up Appointment(s)/Referral(s): Mendel Thapa DO [Doctor of Osteopathic Medicine] - 1 Week Erick Cantu DO [STAFF PHYSICIAN] - 2 Weeks Jose A Queen MD [STAFF PHYSICIAN] - 1 Week Ambulatory/Diagnostic Orders: Basic Metabolic Panel [LAB.AMB] Location: None Selected C Reactive Protein [LAB.AMB] Location: None Selected Complete Blood Count w/diff [LAB.AMB] Location: None Selected Erythrocyte Sedimentation Rate [LAB.AMB] Location: None Selected Activity/Diet/Wound Care/Special Instructions: Special Instructions: need repeat iron studies in 4-6 weeks, to see if still having low iron. BMP in 3-5 days Spine Discharge and Recovery Instructions Dressing: Leave your dressing in place for a total of 5 days post operatively. Then you may remove your dressing and leave open to air. Keep the area clean and if not able to keep area clean, then cover with sterile gauze and tape. Showering: You may shower 3 days after your procedure allowing soap and water to run over incision. Do not scrub. Do not soak. Blot dry. Follow up: Please confirm a follow up appointment with your surgeon 3 weeks post operatively. Please make an appointment to follow up with your PCP in 1-2 weeks after surgery for evaluation 3 phase, 3-week plan POST OP WEEKS 1-3 1. Lifting/carrying/pushing/pulling limited to less than 5 pounds. 2. Do not sit for longer than 15 minutes at one time. Get up and walk around. Prolonged sitting is NOT advised. If you lay down, see if you can tolerate laying down on you front (belly side) 3. Walk for periods of 15 minutes = 1 mile but no longer; do it multiple times times each day. 4. Ice your low back after activity. POST OP WEEKS 3-6 1. Lifting limited to less than 20 pounds. 2. Do not sit for longer than 30 minutes at a time. Frequently change positions. Use a sit-to stand workstation or take frequent breaks from sitting if you have returned to work. 3. Walk for 30 minutes each day. If possible, do these three or more times a day POST OP WEEKS 6+ At your 6-week appointment we will give you a physical therapy referral to focus on a core stabilization and strengthening program. You should also work on leg & buttock strengthening, hamstring & quadriceps stretching, and continue a low impact aerobic activity program such as swimming, walking, or riding a stationary bicycle. During the initial 6 weeks after your surgery, you are at the highest risk of re-injuring your spine. You should generally avoid BLTs (bending, lifting and twisting combination motions) and follow the above guidelines to reduce the chance of reinjury. You can anticipate post op appointments in our office at approximately 3 weeks and 6 weeks after your surgery. INCISION CARE: If your incision is not draining you do NOT need to cover it with a dressing. Keep your incision clean, dry and intact. In most cases, we apply skin glue, eli or sutures to the incision at the time of surgery. This will be like a crust or have the appearance of a scab and will fall off in time on its own. The stitches or eli need to be removed at 3 weeks post op appointment. You may begin to shower 3 days after surgery (this allows the glue to talamantes well). However, please avoid scrubbing the incision site or peeling off any of the skin glue. This will ensure optimal healing of your incision. Also, during this time avoid soaking the incision area in water - this includes swimming pools, hot tubs or baths. No ointments, lotions or oils on the incision until your surgeon allows. Leave eli, s utures or glue in place. Neurological dysfunction that comes on suddenly can also be a sign of a stroke. Below some common symptoms of a stroke are listed: B - balance difficulty such as sudden onset walking or leaning to one side - NEW E - eye problem such as sudden double vision or trouble seeing on one side - NEW F - Facial weakness or numbness on one side - NEW A - Arm or leg weakness or numbness on one side - NEW S - Slurred speech or difficulty with word finding - NEW T - Time is BRAIN! Call 911 as soon as you recognize these symptoms Diet: Consume a regular diet rich in vegetables and lean protein such as chicken or fish. You should consume in a ratio of approximately 20% fats|40% carbohydrates|40%protein. Vegetables, sweet potatoes, brown rice or quinoa are examples of good carbohydrates. Chips, white bread, cookies and sweets/sugar are examples of bad carbohydrates. Limit your bad carbs, go wild with good carbs. "Life's Simple 7" Guidelines as per [place] [employer] These will help you reclaim your life after surgery and terrazzo helper in your recovery, keeping in mind your restrictions. (1) Get Active. Physical activity can help people lose weight, control high blood pressure and cholesterol, feel emotionally better, and sleep better. (2) Control Cholesterol. Avoid a diet high in saturated fat, trans fat, & cholesterol. Limit whole milk & cream, ice cream, butter, egg yolks, processed meats (like sausage and hot dogs), and fatty meats. Choose healthy foods that are low in saturated fat, trans fat and cholesterol which include: Fruits and vegetables, fiber rich grain products (like whole grain pasta and brown rice), lean meat such as chicken, fish, nuts, seeds, and legumes. (3) Eat Better. Eat small portions. Shop at the grocery with a list and do not stray from it. Tips for a healthy diet include: Limit sodium intake to less than 1500mg daily, avoid prepackaged, processed, and fast foods, choose a diet rich in fruits, vegetables, and whole grain, high fiber foods, and limit saturated & cholesterol in your diet. (4) Manage Blood Pressure. If you have high blood pressure, you should have a cuff at home so that you can check your blood pressure regularly. Be sure you have a good cuff. An arm one is generally better than a wrist one. Bring the cuff to a doctor's appointment to validate that the measurements that your cuff are taking are accurate. Take your blood pressure twice daily when you are sitting down and relaxing. Record the numbers in a log and bring this log with you to your doctors' appointments. (5) Lose Weight if your BMI is above 25. A healthy BMI is between 19-25. To calculate Your BMI, you may use a Standard BMI Calculator on the NIH BMI website: <www.nhlbi.nih.gov/guidelines/obesity/BMI/bmicalc.htm>. Weigh oneself daily. If you are overweight, set a goal to lose weight. A pound a week loss if needed is a good target. (6) Reduce Blood Sugar. Limit foods and liquids with "added sugars." (Added sugars include sucrose, fructose, glucose, maltose, dextrose, high fructose corn syrup, corn syrup, concentrated fruit juice and honey). (7) Stop Smoking. If you smoke, quitting smoking is one of the best things that you can do for your health. Smoking increases your risk of heart attack, stroke, and peripheral vascular disease, which is a build-up of plaque in your arteries. Please discard all the cigarettes and lighters in your house. Have a plan for what you will do when you have the urge to smoke. Direct and second- hand smoke shortens your life as well as the lives of your family, friends and others around you. For your health and the health of those around you, please consider quitting! Proper Bending Body Mechanics: Maintain a wide stance with one foot slightly in front of the other. Keep your back straight. Bend utilizing the strength in your hips and knees. Do not bend at the waist. Maintain the lifted object at your waist-level close to your body. Avoid lifting weight that causes immediately pain or pain anywhere in the body a fterwards. Smoking/Nicotine If there was ever one thing that you could do to increase your overall health, decrease your risk of cardiovascular problems by about 39% the second you make the choice, it is to STOP SMOKING. Your body's most instant gratification is the second you stop smoking. We have all heard the studies, read the articles but it is true, smoking is extremely bad for your overall health, and moreover it is detrimental to your bone health. Nicotine, IN ANY FORM, kills bone cells, prevents your body from healing fractures, and significantly prolongs healing after surgery. In spine surgery specifically, it increases your risk of not healing your bones to create a fusion and increases your risk of having a revision surgery due to this up to 60%. I know it is hard. I know it feels impossible. But there are ways. Take control of your life. We are here to help you through it. And when you are ready, ask us and we can direct you to help if you desire. Use the START Plan to Quit Smoking (please visit the [email or web address] website listed below for more information): S = Set a quit date. Choose a date within the next 2 weeks, so you have enough time to prepare without losing your motivation to quit. If you mainly smoke at work, quit on the weekend, so you have a few days to adjust to the change. T = Tell family, friends, and co-workers that you plan to quit. Let your friends and family in on your plan to quit smoking and tell them you need their support and encouragement to stop. Look for a quit alejandro who wants to stop smoking as well. You can help each other get through the rough times. A = Anticipate and plan for the challenges you'll face while quitting. Most people who begin smoking again do so within the first 3 months. You can help yourself make it through by preparing ahead for common challenges, such as nicotine withdrawal and cigarette cravings. R = Remove cigarettes and other tobacco products from your home, car, and work. Throw away all your cigarettes (no emergency pack!), lighters, ashtrays, and matches. Wash your clothes and freshen up anything that smells like smoke. Shampoo your car, clean your drapes and carpet, and steam your furniture. T = Talk to your doctor about getting help to quit. Your doctor can prescribe medication to help with withdrawal and suggest other alternatives. If you can't see a doctor, you can get many products over the counter at your local pharmacy or grocery store, including the nicotine patch, nicotine lozenges, and nicotine gum. Resources for Quitting Smoking: <https://www.[place].gov/documents/[facility]/Quit_Tobacco_Resources_for_patients_313 480_7.pdf> Supplementation: Take recommended dosages of Vitamin D and Calcium to help fortify your bones and help them to heal. See your health maintenance packet for dosages and recommended levels. DVT/VTE prophylaxis: You will be given compression stockings from the hospital. Wear these daily for the first two weeks after surgery. You may take them off at night. You may be prescribed a medication to help thin your blood. Take this as directed. If you are not prescribed this medication, early and frequent ambulation has been shown to be the best prophylaxis to deep vein thrombosis and sequelae related to this event. Discharge Disposition: TRANSFER TO SNF/ECF
[2021-02-22] MEDS: CEFEPIME 2 GM in SODIUM CHLORIDE 0.9% 100 ML IVPB SCH (09:16)
[2021-02-22] MEDS: SODIUM CHLORIDE TAB 1 GM TAB PO SCH (09:17)
--- NOTE | 2021-02-22 09:24 | P.PN ---
Subjective Patient is seen in follow-up for hyponatremia. Sodium level has been fairly stable. Oral intake fair. No vomiting or diarrhea. Hemodynamically stable. No active complaints. Vital signs are stable. General: The patient appeared well nourished and normally developed. HEENT: Head exam is unremarkable. Neck is without jugular venous distension. LUNGS: Breath sounds decreased. HEART: Rate and Rhythm are regular. ABDOMEN: Soft, no distention. EXTREMITITES: Trace edema. Objective - Vital Signs Vital signs: Vital Signs Temp 98.2 F 02/22/21 05:00 Pulse 87 02/22/21 05:00 Resp 16 02/22/21 05:00 BP 133/68 02/22/21 05:00 Pulse Ox 99 02/22/21 05:00 Intake & Output 02/21/21 02/22/21 02/22/21 18:59 06:59 18:59 Intake Total 1020 Output Total 505 800 Balance -505 220 Weight 83.9 kg 89.5 kg Intake: Intake, IV Titration 300 Amount Cefepime 2 gm In Sodium 100 Chloride 0.9% 100 ml @ 25 mls/hr IVPB Q8HR DEV Rx# :[id number] Sodium Chloride 0.9% 1, 200 000 ml @ 20 mls/hr IV . Q24H DEV Rx#:[id number] Oral 720 Output: Drainage 5 Left Back 5 Left Upper Posterior Back 0 Urine 500 800 Other: Voiding Method Bedside Commode Bedside Commode External Catheter # Voids 1 1 1 # Bowel Movements 1 - Labs CBC & Chem 7: 02/22/21 05:47 02/19/21 06:14 Labs: Abnormal Lab Results - Last 24 Hours (Table) 02/18/21 02/22/21 02/22/21 Range/Units 13:59 05:47 05:47 RBC 3.30 L (3.80-5.40) m/uL Hgb 8.6 L (11.4-16.0) gm/dL Hct 26.1 L (34.0-46.0) % MCV 79.1 L (80.0-100.0) fL RDW 16.6 H (11.5-15.5) % C-Reactive Protein 7.0 H (<1.0) mg/dL Crossmatch See Detail Microbiology - Last 24 Hours (Table) 02/16/21 14:15 Blood Culture - Preliminary Blood No Growth after 120 hours 02/16/21 14:10 Blood Culture - Preliminary Blood No Growth after 120 hours 02/17/21 15:02 Anaerobic Culture - Final Back 02/17/21 15:02 Anaerobic Culture - Final Back Assessment and Plan Plan: Assessment: 1. Hyponatremia from poor solute intake and pain-induced SIADH. Status post samsca this admission. Maintained on sodium chloride tabs. Also received Lasix this admission. Sodium level 133 as of February 19 TSH normal. 2. Lumbar spine abscess status post incision and drainage and exchange of hardware done 02/08/2021. 3. Benign hypertension. Stable. 4. Anemia. Iron deficiency noted. Status post IV iron. Plan: Encourage oral intake, particularly protein. 1500 mL fluid restriction. Maintain sodium chloride tab. Continue to monitor. Morning labs pending.
[2021-02-22] MEDS ORDERED: PSEUDOEPHEDRINE 30 MG TAB PO ONE (10:59)
[2021-02-22] MEDS: ACETAMINOPHEN TAB 325 MG TAB PO PRN (11:16)
[2021-02-22 11:43] VITALS: BP 123/74; PULSE 89; TEMP 98.5
[2021-02-22 12:27] LABS: African American GFR (CKD) 109.1 (60.0-200.0); Anion Gap 6.1 mmol/L (4.00-12.00); BUN/Creat Ratio 12.86 Ratio (12.00-20.00); Calcium 9.5 mg/dL (8.7-10.3); Carbon Dioxide 28.9 mmol/L (21.6-31.8); Magnesium 1.5 mg/dL (1.5-2.4); Non-African American GFR(CKD) 94.2 (60.0-200.0)
--- NOTE | 2021-02-22 13:48 | PN ---
PROGRESS NOTE DATE OF SERVICE: 02/22/2021 REASON FOR FOLLOW UP: Lumbar surgical site infection. INTERVAL HISTORY: Patient is afebrile. The patient is breathing comfortably. The patient denies having any chest pain. No shortness of breath or cough. No nausea. No vomiting. No abdominal pain. No pain to the lower extremity. PHYSICAL EXAMINATION: Blood pressure 123/74 with a pulse of 89, temperature 98.4. She is 98% on room air. General description is a middle-aged female lying in bed in no distress. Respiratory system: Unlabored breathing, clear to auscultation anteriorly. Heart S1, S2. Regular rate and rhythm. Abdomen soft, no tenderness. LABS: Hemoglobin 8.6, white count 9.6, BUN of 9, creatinine 0.7. DIAGNOSTIC IMPRESSION AND PLAN: Patient with lumbar surgical site infection, status post drainage. OR cultures were positive for E coli which is sensitive pathogen. She did have 1 superficial culture shows Stenotrophomonas. She denies the same pathogen and [facility] where initial cultures were done, more likely superficial culture and possible contaminant. As the patient is going home and to simplify her antibiotic therapy, we will try to target the E coli which seems to be the main pathogen. This has been discussed in detail with the daughter on the phone as well as their ID physician at [place] on the phone, Dr. Dudley. The patient will be switched to Rocephin 2 grams daily. We will have a weekly monitoring of CBC, BMP, CRP and sed rate as the patient does show overall improvement. The patient is clinically improving. Inflammatory markers are trending down. She will be continued on Rocephin however, if anything changes, we may have to switch her back to cefepime. This has been explained to the daughter on the phone in Layman's terms. All questions and concerns were answered. MMODL / IJN: [id number] /
[2021-02-22] MEDS: diazePAM 2 MG TAB PO PRN (14:11)
[2021-02-22] MEDS: SODIUM CHLORIDE 0.9% 1,000 ML IV SCH (16:32)
== END 2021-02-22 16:36 | disposition home health service (06) | DRG 856 ==
LOC: 4SSUR 12:17 → OBSVTOIN 13:10 → 3SCARD 02-07 11:14 → 5NMEDONC 02-11 21:59
PROVIDERS: ADMIT Orthopaedic Surgery; ATTEND Orthopaedic Surgery
PROC: 0SG00AJ Fusion of Lumbar Vertebral Joint with Interbody Fusion Device, Posterior Approach, Anterior Column, Open Approach (ICD-10-PCS; principal; 2021-02-08 12:10)
PROC: 0WJL0ZZ Inspection of Lower Back, Open Approach (ICD-10-PCS; principal; 2021-02-08 12:10)
PROC: 009 Central Nervous System and Cranial Nerves, Drainage (ICD-10-PCS; principal; 2021-02-08 12:10)
PROC: 0WQL0ZZ Repair Lower Back, Open Approach (ICD-10-PCS; principal; 2021-02-08 12:10)
PROC: 0QB00ZZ Excision of Lumbar Vertebra, Open Approach (ICD-10-PCS; principal; 2021-02-08 12:10)
PROC: 3E0V329 Introduction of Other Anti-infective into Bones, Percutaneous Approach (ICD-10-PCS; principal; 2021-02-08 12:10)
PROC: 0SG30J1 Fusion of Lumbosacral Joint with Synthetic Substitute, Posterior Approach, Posterior Column, Open Approach (ICD-10-PCS; principal; 2021-02-08 12:10)
PROC: 0QP104Z Removal of Internal Fixation Device from Sacrum, Open Approach (ICD-10-PCS; principal; 2021-02-08 12:10)
PROC: 0QP004Z Removal of Internal Fixation Device from Lumbar Vertebra, Open Approach (ICD-10-PCS; principal; 2021-02-08 12:10)
PROC: 30233N1 Transfusion of Nonautologous Red Blood Cells into Peripheral Vein, Percutaneous Approach (ICD-10-PCS; 2021-02-10)
PROC: 0WJL0ZZ Inspection of Lower Back, Open Approach (ICD-10-PCS; 2021-02-17)
PROC: 3E0V329 Introduction of Other Anti-infective into Bones, Percutaneous Approach (ICD-10-PCS; 2021-02-17)
PROC: 0QB00ZZ Excision of Lumbar Vertebra, Open Approach (ICD-10-PCS; 2021-02-17)
PROC: 0QB10ZZ Excision of Sacrum, Open Approach (ICD-10-PCS; 2021-02-17)
PROC: 0WQL0ZZ Repair Lower Back, Open Approach (ICD-10-PCS; 2021-02-17)
PROC: 02HV33Z Insertion of Infusion Device into Superior Vena Cava, Percutaneous Approach (ICD-10-PCS; 2021-02-22)
DX: T81.42XA Infection following a procedure, deep incisional surgical site, initial encounter (principal); A41.51 Sepsis due to Escherichia coli [E. coli]; G06.1 Intraspinal abscess and granuloma; M46.36 Infection of intervertebral disc (pyogenic), lumbar region; T81.31XA Disruption of external operation (surgical) wound, not elsewhere classified, initial encounter; D62 Acute posthemorrhagic anemia; E22.2 Syndrome of inappropriate secretion of antidiuretic hormone; I47.2 Ventricular tachycardia; T81.44XA Sepsis following a procedure, initial encounter; D50.9 Iron deficiency anemia, unspecified; E66.9 Obesity, unspecified; E86.0 Dehydration; E86.1 Hypovolemia; E87.70 Fluid overload, unspecified; I10 Essential (primary) hypertension; I49.3 Ventricular premature depolarization; K21.9 Gastro-esophageal reflux disease without esophagitis; K59.00 Constipation, unspecified; Z68.35 Body mass index [BMI] 35.0-35.9, adult; Z20.822 Contact with and (suspected) exposure to COVID-19; M48.061 Spinal stenosis, lumbar region without neurogenic claudication; I08.3 Combined rheumatic disorders of mitral, aortic and tricuspid valves; M47.9 Spondylosis, unspecified; M43.10 Spondylolisthesis, site unspecified; Z79.899 Other long term (current) drug therapy; Z98.1 Arthrodesis status; Z86.718 Personal history of other venous thrombosis and embolism; Z90.710 Acquired absence of both cervix and uterus; Z96.642 Presence of left artificial hip joint; Z98.890 Other specified postprocedural states
CPT/HCPCS: 36573; 71045; 72100; 72131; 72132; 72158; 74177; 80048; 80051; 80053; 80202; 81001; 82180; 82306; 82652; 82728; 83540; 83550; 83735; 84100; 84145; 84295; 84443; 85025; 85027; 85652; 86140; 86850; 86870; 86880; 86900; 86901; 86902; 86920; 87040; 87070; 87075; 87077; 87186; 87205; 87635; 93005; 93306